=== PATIENT | female | born 1940 | race Caucasian/White ===

== ENCOUNTER 2016-08-05 20:22 | Inpatient (IN) | payer MEDICARE ==
[2016-08-05 20:54] VITALS: BP 157/84
[2016-08-05] MEDS ORDERED: Magnesium Hydroxide (MOM) 30 mL UDC PO PRN (21:25)
[2016-08-05] MEDS ORDERED: Maalox 30 mL Cup PO PRN (21:25)
[2016-08-06] MEDS: Aspirin 81mg Chewable Tab PO SCH (08:23)
--- NOTE | 2016-08-06 08:46 | General Progress Note ---
Subjective - Review of Systems Service Date: 08/06/16 Subjective: I took my meds Objective - Results Recent Labs: Laboratory Last Values POC Glucose 107 MG/DL (70 - 105) H 08/05/16 21:44 - Physical Exam Vitals and I&O: Vital Signs Temp 97.9 F 08/05/16 21:35 Pulse 74 08/06/16 08:25 Resp 20 08/05/16 21:35 BP 146/81 08/06/16 08:25 Pulse Ox 94 08/05/16 21:35 Active Medications: Current Medications Acetaminophen (Tylenol) 650 mg PO Q6H PRN PRN Reason: Mild Pain/Headache/T above 101 Stop: 10/04/16 21:24 Last Admin: 08/06/16 04:59 Dose: 650 mg Al Hydrox/Mg Hydrox/Simethicone (Maalox) 30 ml PO Q6H PRN PRN Reason: Dyspepsia Stop: 10/04/16 21:24 Amlodipine Besylate (Norvasc) 10 mg PO DAILY [facility] Stop: 10/05/16 08:59 Last Admin: 08/06/16 08:25 Dose: 10 mg Aspirin (Aspirin Chewable) 81 mg PO DAILY [facility] Stop: 10/05/16 08:59 Last Admin: 08/06/16 08:23 Dose: 81 mg Carvedilol (Coreg) 6.25 mg PO BID [facility] Stop: 10/05/16 08:59 Last Admin: 08/06/16 08:24 Dose: 6.25 mg Lisinopril (Zestril) 20 mg PO DAILY [facility] Stop: 10/05/16 08:59 Lorazepam (Ativan) 0.5 mg PO Q4HR PRN; Protocol PRN Reason: anxiety/agitation Stop: 10/04/16 21:30 Magnesium Hydroxide (Milk Of Magnesia) 30 ml PO HS PRN PRN Reason: Constipation Stop: 10/04/16 21:24 Multivitamins/Vitamin C (Theragran) 1 tab PO DAILY [facility] Stop: 10/05/16 08:59 Quetiapine Fumarate (Seroquel) 25 mg PO HS [facility] PRN Reason: Protocol Stop: 10/05/16 20:59 Zolpidem Tartrate (Ambien) 5 mg PO HS PRN PRN Reason: Insomnia Stop: 10/04/16 21:32 Last Admin: 08/05/16 22:59 Dose: 5 mg General: Alert, Other (Confused) HEENT: Atraumatic Neck: Supple Cardiovascular: Regular rate Lungs: Clear to auscultation Abdomen: Bowel sounds, Soft Extremities: Other (No edema) Neurological: Other (Unstable gait) Skin: Other (Warm and dry) Psych/Mental Status: Other (Confused) Assessment/Plan - Problem List Patient Problems: All Active Problems Confusion (Acute) R41.0 - Assessment Assessment: Patient is awake, alert, calm, confused, in no acute distress, BP in control. There is no medical information available, will contact family to obtain PMX. Dx : Psychosis, HTN. - Plan Plan: Patient follow by Psychiatry. Labs are requested, will continue to monitor.
[2016-08-06] MEDS: Multivitamin Tab PO SCH (10:08)
--- NOTE | 2016-08-07 05:17 | Admit Criteria Form ---
Admit Criteria Forms - Admit Criteria Diagnosis: PSYCHIATRIC DISORDERS (Place 'X' for any and all applicable criteria): Ongoing inpatient care may be needed for 1 or more of the following(1)(2)(3)(4)( 6)(7)(8): [ ]I. Danger to self or others not manageable at lower level of care. [ ]II. Grave disability (eg, inability to perform self care necessary at lower level of care) [ ]III. Agitation or inappropriate behavior interfering with care for primary condition (eg, attempting to discontinue lines or drains prematurely, unable to cooperate with respiratory care) [X]IV. Severe disability or disorder indicated by ALL of the following: [X]a) Severe behavioral health disorder-related symptoms or condition indicated by 1 or more of the following: [ ]i) Severe problem with cognition, memory, judgment, or impulse control [X]ii) Severe clinical manifestations (eg, hallucinations, delusions, other acute psychotic symptoms, yvan, extreme agitation or anxiety) [X]b) Patient management at lower level of care is not feasible until acute intervention or modification is initiated. Extended stay beyond goal length of stay for the primary condition may be needed until ALLof the following are present(1)(2)(3)(4)(7)52)(23): [ ]a) Danger to self or others is absent or manageable at lower level of care [ ]b) Behavior crisis management, including physical or chemical restraints, is required and is not available at a lower level of care. [ ]c) Behavioral symptoms (e.g., agitation, somnolence, inappropriate behavior) are present, and are not manageable at a lower level of care. [ ]d) Patient cannot understand follow-up treatment and crisis plan. [ ]e) Provider and supports are sufficiently available at lower level of care. [ ]f) Patient can participate (e.g., verify absence of plan for harm) and is in needed of monitoring. The original [facility] content created by [facility] has been revised. The portions of the content which have been revised are identified through the use of italic text or in bold, and [facility] has neither reviewed nor approved the modified material. All other unmodified content is copyright [facility]. Please see references footnoted in the original [facility] edition 2017
[2016-08-07 07:24] LABS: % BASOPHILS 0.3 % (0.0-2.0); % EOSINOPHILS 4.6 % (0.0-5.0); % LYMPHOCYTES 24.9 % (20.0-50.0); % MONOCYTES 6.1 % (2.0-10.0); % NEUTROPHILS 64.1 % (40.0-80.0); HEMATOCRIT 42.2 % (35.0-45.0); HEMOGLOBIN 14.2 gm/dL (11.7-16.1); MEAN CELL VOLUME 96.5 fl (81-100); MEAN CORPUSCULAR HEMOGLOBIN 32.5 pg (27.0-31.0); MEAN CORPUSCULAR HGB CONC 33.7 pg (28.0-36.0); MEAN PLATELET VOLUME 6.5 fl; NEUTROPHILE ABSOLUTE 6.1 Th/cmm (1.8-8.0); RED BLOOD COUNT 4.37 Mil/cmm (3.80-5.20); RED CELL DISTRIBUTION WIDTH 13.5 % (11.5-20.0)
[2016-08-07 07:28] LABS: PLATELET COUNT 292 Th/cmm (150-400); WHITE BLOOD COUNT 9.4 Th/cmm (4.8-10.8)
[2016-08-07 07:39] LABS: ALB/GLOB RATIO 1.2 (1.0-1.8); ALKALINE PHOSPHATASE 86 U/L (34-104); ANION GAP 8.3 (7.0-16.0); BILIRUBIN,TOTAL 0.4 mg/dL (0.3-1.0); BUN - UREA NITROGEN 13 mg/dL (7-25); BUN/CREATININE RATIO 16.3; CALCIUM SERUM 9.5 mg/dL (8.6-10.3); CARBON DIOXIDE 25.2 mEq/L (21.0-31.0); CHLORIDE 103 mEq/L (98-107); CREATININE - SERUM 0.8 mg/dL (0.6-1.2); GLUCOSE 123 mg/dL (70-105); POTASSIUM SERUM 3.5 mEq/L (3.5-5.1); SGOT 14 U/L (13-39); SGPT/ALT 10 U/L (7-52); SODIUM SERUM 133 mEq/L (136-145)
[2016-08-07] MEDS: Multivitamin Tab PO SCH (08:41)
[2016-08-07] MEDS: Aspirin 81mg Chewable Tab PO SCH (08:41)
--- NOTE | 2016-08-07 08:57 | General Progress Note ---
Subjective - Review of Systems Service Date: 08/07/16 Subjective: Patient is confused Objective - Results Result Diagrams: 08/07/16 06:30 08/07/16 06:30 Recent Labs: Laboratory Last Values WBC 9.4 Th/cmm (4.8-10.8) D 08/07/16 06:30 RBC 4.37 Mil/cmm (3.80-5.20) 08/07/16 06:30 Hgb 14.2 gm/dL (11.7-16.1) 08/07/16 06:30 Hct 42.2 % (35.0-45.0) 08/07/16 06:30 MCV 96.5 fl (81-100) 08/07/16 06:30 MCH 32.5 pg (27.0-31.0) H 08/07/16 06:30 MCHC Differential 33.7 pg (28.0-36.0) 08/07/16 06:30 RDW 13.5 % (11.5-20.0) 08/07/16 06:30 Plt Count 292 Th/cmm (150-400) D 08/07/16 06:30 MPV 6.5 fl 08/07/16 06:30 Neutrophils % 64.1 % (40.0-80.0) 08/07/16 06:30 Lymphocytes % 24.9 % (20.0-50.0) 08/07/16 06:30 Monocytes % 6.1 % (2.0-10.0) 08/07/16 06:30 Eosinophils % 4.6 % (0.0-5.0) 08/07/16 06:30 Basophils % 0.3 % (0.0-2.0) 08/07/16 06:30 Sodium 133 mEq/L (136-145) L 08/07/16 06:30 Potassium 3.5 mEq/L (3.5-5.1) 08/07/16 06:30 Chloride 103 mEq/L (98-107) 08/07/16 06:30 Carbon Dioxide 25.2 mEq/L (21.0-31.0) 08/07/16 06:30 Anion Gap 8.3 (7.0-16.0) 08/07/16 06:30 BUN 13 mg/dL (7-25) 08/07/16 06:30 Creatinine 0.8 mg/dL (0.6-1.2) 08/07/16 06:30 Est GFR ( Amer) TNP 08/07/16 06:30 Est GFR (Non-Af Amer) TNP 08/07/16 06:30 BUN/Creatinine Ratio 16.3 08/07/16 06:30 Glucose 123 mg/dL (70-105) H 08/07/16 06:30 POC Glucose 224 MG/DL (70 - 105) H 08/06/16 11:09 Hemoglobin A1c % 5.0 % (4.0-6.0) 08/06/16 09:19 Calcium 9.5 mg/dL (8.6-10.3) 08/07/16 06:30 Total Bilirubin 0.4 mg/dL (0.3-1.0) 08/07/16 06:30 AST 14 U/L (13-39) 08/07/16 06:30 ALT 10 U/L (7-52) 08/07/16 06:30 Alkaline Phosphatase 86 U/L (34-104) 08/07/16 06:30 Total Protein 6.4 gm/dL (6.0-8.3) 08/07/16 06:30 Albumin 3.5 gm/dL (3.7-5.3) L 08/07/16 06:30 Globulin 2.9 gm/dL 08/07/16 06:30 Albumin/Globulin Ratio 1.2 (1.0-1.8) 08/07/16 06:30 - Physical Exam Vitals and I&O: Vital Signs Temp 98.3 F 08/07/16 06:48 Pulse 69 08/07/16 08:41 Resp 18 08/07/16 06:48 BP 137/79 08/07/16 08:41 Pulse Ox 97 08/07/16 06:48 Intake & Output 08/06/16 08/07/16 08/07/16 18:59 06:59 18:59 Intake Total 1000 Balance 1000 Intake: Oral 1000 Other: # Voids 3 2 # Bowel Movements 1 Active Medications: Current Medications Acetaminophen (Tylenol) 650 mg PO Q6H PRN PRN Reason: Mild Pain/Headache/T above 101 Stop: 10/04/16 21:24 Last Admin: 08/07/16 04:55 Dose: 650 mg Al Hydrox/Mg Hydrox/Simethicone (Maalox) 30 ml PO Q6H PRN PRN Reason: Dyspepsia Stop: 10/04/16 21:24 Amlodipine Besylate (Norvasc) 10 mg PO DAILY [facility]S [facility] BEDS AT [facility] Stop: 10/05/16 08:59 Last Admin: 08/07/16 08:41 Dose: 10 mg Aspirin (Aspirin Chewable) 81 mg PO DAILY [facility] Stop: 10/05/16 08:59 Last Admin: 08/07/16 08:41 Dose: 81 mg Carvedilol (Coreg) 6.25 mg PO BID [facility]S [facility]CLUDE 234 BEDS AT THE [facility] Stop: 10/05/16 08:59 Last Admin: 08/07/16 08:41 Dose: 6.25 mg Lisinopril (Zestril) 20 mg PO DAILY [facility]CLUDE 234 BEDS AT THE [facility] Stop: 10/05/16 08:59 Last Admin: 08/07/16 08:40 Dose: 20 mg Lorazepam (Ativan) 0.5 mg PO Q4HR PRN; Protocol PRN Reason: anxiety/agitation Stop: 10/04/16 21:30 Last Admin: 08/06/16 19:56 Dose: 0.5 mg Magnesium Hydroxide (Milk Of Magnesia) 30 ml PO HS PRN PRN Reason: Constipation Stop: 10/04/16 21:24 Multivitamins/Vitamin C (Theragran) 1 tab PO DAILY [facility] 234 BEDS AT [facility] Stop: 10/05/16 08:59 Last Admin: 08/07/16 08:41 Dose: 1 tab Quetiapine Fumarate (Seroquel) 25 mg PO HS [facility] PRN Reason: Protocol Stop: 10/05/16 20:59 Last Admin: 08/06/16 21:20 Dose: Not Given Tramadol HCl (Ultram) 50 mg PO Q6HR PRN PRN Reason: Pain (Severe) Stop: 10/06/16 08:52 Zolpidem Tartrate (Ambien) 5 mg PO HS PRN PRN Reason: Insomnia Stop: 10/04/16 21:32 Last Admin: 08/06/16 21:20 Dose: 5 mg General: Alert, Other (Confused) HEENT: Atraumatic Cardiovascular: Regular rate Lungs: Clear to auscultation Abdomen: Bowel sounds, Soft Extremities: Other (No edema) Neurological: Other (Unstable gait) Skin: Other (Warm and dry) Psych/Mental Status: Other (Confused) Assessment/Plan - Problem List Patient Problems: All Active Problems Confusion (Acute) R41.0 - Assessment Assessment: Patient is awake, alert, calm, confused, in no acute distress, BP in control. Dx : Psychosis, HTN. - Plan Plan: Patient follow by Psychiatry. will continue to monitor.
[2016-08-08] MEDS: Multivitamin Tab PO SCH (09:41)
[2016-08-08] MEDS: Aspirin 81mg Chewable Tab PO SCH (09:41)
--- NOTE | 2016-08-08 11:40 | Geri Psych Progress Note ---
Angi Psych Progress Note - Intro Patient was seen: 08/08/16. - Assessment Assessment: Still paranoid. - Vitals, I&O Vitals: Vital Signs - 24 hr 08/07/16 08/07/16 08/07/16 15:45 20:00 20:16 Temp 98.1 F 98.1 F HR 74 76 RR 19 18 19 BP 149/86 143/69 O2 Sat % 98 98 08/08/16 08/08/16 08/08/16 06:17 09:41 09:42 Temp 98.2 F HR 69 69 69 RR 20 BP 139/76 139/76 139/76 O2 Sat % 97 I&O: Intake & Output 08/06/16 08/07/16 08/08/16 08/09/16 06:59 06:59 06:59 06:59 Intake Total 1000 1040 Balance 1000 1040 - ROS Neurological: Report: Confusion Psychological ROS: Report: Anxiety, Depression, Hallucinations, Irritability, Obsessive thoughts - Objective Psych General Appearance: Report: No acute distress Psych Behavior: Report: Alert, Agitated Psych Speech: Report: Coherent Psych Mood: Report: Angry, Depressed, Frustrated Psych Affect: Report: Inappropriate Psych Thought Process: Report: Circumstantial, Other (Still paranoid and hallucinating.) Psych Cognition: Report: Memory generally intact Psych Insight: Report: Good, Impaired Psych Judgement: Report: Impaired - Plan Plan: continue cureent meds and follow up. - Review of Relevant Data Review of Relevant Data: I have reviewed the following items and time sally (where applicable) has been applied. Psych Data Reviewed: Meds - Medications Current Medications: Current Medications Acetaminophen (Tylenol) 650 mg PO Q6H PRN PRN Reason: Mild Pain/Headache/T above 101 Stop: 10/04/16 21:24 Last Admin: 08/07/16 04:55 Dose: 650 mg Al Hydrox/Mg Hydrox/Simethicone (Maalox) 30 ml PO Q6H PRN PRN Reason: Dyspepsia Stop: 10/04/16 21:24 Amlodipine Besylate (Norvasc) 10 mg PO DAILY [facility] Stop: 10/05/16 08:59 Last Admin: 08/08/16 09:41 Dose: Not Given Aspirin (Aspirin Chewable) 81 mg PO DAILY [facility] Stop: 10/05/16 08:59 Last Admin: 08/08/16 09:41 Dose: Not Given Carvedilol (Coreg) 6.25 mg PO BID [facility] Stop: 10/05/16 08:59 Last Admin: 08/08/16 09:41 Dose: Not Given Lisinopril (Zestril) 20 mg PO DAILY [facility] Stop: 10/05/16 08:59 Last Admin: 08/08/16 09:42 Dose: Not Given Lorazepam (Ativan) 0.5 mg PO Q4HR PRN; Protocol PRN Reason: anxiety/agitation Stop: 10/04/16 21:30 Last Admin: 08/06/16 19:56 Dose: 0.5 mg Magnesium Hydroxide (Milk Of Magnesia) 30 ml PO HS PRN PRN Reason: Constipation Stop: 10/04/16 21:24 Multivitamins/Vitamin C (Theragran) 1 tab PO DAILY [facility] Stop: 10/05/16 08:59 Last Admin: 08/08/16 09:41 Dose: Not Given Quetiapine Fumarate (Seroquel) 25 mg PO HS [facility] PRN Reason: Protocol Stop: 10/05/16 20:59 Last Admin: 08/07/16 20:06 Dose: 25 mg Tramadol HCl (Ultram) 50 mg PO Q6HR PRN PRN Reason: Pain (Severe) Stop: 10/06/16 08:52 Last Admin: 08/08/16 10:36 Dose: 50 mg Zolpidem Tartrate (Ambien) 5 mg PO HS PRN PRN Reason: Insomnia Stop: 10/04/16 21:32 Last Admin: 08/06/16 21:20 Dose: 5 mg
--- NOTE | 2016-08-08 15:26 | General Progress Note ---
Subjective - Review of Systems Service Date: 08/08/16 Subjective: Patient is confused Objective - Results Result Diagrams: 08/07/16 06:30 08/07/16 06:30 Recent Labs: Laboratory Last Values WBC 9.4 Th/cmm (4.8-10.8) D 08/07/16 06:30 RBC 4.37 Mil/cmm (3.80-5.20) 08/07/16 06:30 Hgb 14.2 gm/dL (11.7-16.1) 08/07/16 06:30 Hct 42.2 % (35.0-45.0) 08/07/16 06:30 MCV 96.5 fl (81-100) 08/07/16 06:30 MCH 32.5 pg (27.0-31.0) H 08/07/16 06:30 MCHC Differential 33.7 pg (28.0-36.0) 08/07/16 06:30 RDW 13.5 % (11.5-20.0) 08/07/16 06:30 Plt Count 292 Th/cmm (150-400) D 08/07/16 06:30 MPV 6.5 fl 08/07/16 06:30 Neutrophils % 64.1 % (40.0-80.0) 08/07/16 06:30 Lymphocytes % 24.9 % (20.0-50.0) 08/07/16 06:30 Monocytes % 6.1 % (2.0-10.0) 08/07/16 06:30 Eosinophils % 4.6 % (0.0-5.0) 08/07/16 06:30 Basophils % 0.3 % (0.0-2.0) 08/07/16 06:30 Sodium 133 mEq/L (136-145) L 08/07/16 06:30 Potassium 3.5 mEq/L (3.5-5.1) 08/07/16 06:30 Chloride 103 mEq/L (98-107) 08/07/16 06:30 Carbon Dioxide 25.2 mEq/L (21.0-31.0) 08/07/16 06:30 Anion Gap 8.3 (7.0-16.0) 08/07/16 06:30 BUN 13 mg/dL (7-25) 08/07/16 06:30 Creatinine 0.8 mg/dL (0.6-1.2) 08/07/16 06:30 Est GFR ( Amer) TNP 08/07/16 06:30 Est GFR (Non-Af Amer) TNP 08/07/16 06:30 BUN/Creatinine Ratio 16.3 08/07/16 06:30 Glucose 123 mg/dL (70-105) H 08/07/16 06:30 POC Glucose 224 MG/DL (70 - 105) H 08/06/16 11:09 Hemoglobin A1c % 5.0 % (4.0-6.0) 08/06/16 09:19 Calcium 9.5 mg/dL (8.6-10.3) 08/07/16 06:30 Total Bilirubin 0.4 mg/dL (0.3-1.0) 08/07/16 06:30 AST 14 U/L (13-39) 08/07/16 06:30 ALT 10 U/L (7-52) 08/07/16 06:30 Alkaline Phosphatase 86 U/L (34-104) 08/07/16 06:30 Total Protein 6.4 gm/dL (6.0-8.3) 08/07/16 06:30 Albumin 3.5 gm/dL (3.7-5.3) L 08/07/16 06:30 Globulin 2.9 gm/dL 08/07/16 06:30 Albumin/Globulin Ratio 1.2 (1.0-1.8) 08/07/16 06:30 TSH 0.85 uIU/ml (0.34-5.60) 08/07/16 06:30 - Physical Exam Vitals and I&O: Vital Signs Temp 98.2 F 08/08/16 06:17 Pulse 69 08/08/16 09:42 Resp 20 08/08/16 06:17 BP 139/76 08/08/16 09:42 Pulse Ox 97 08/08/16 06:17 Intake & Output 08/07/16 08/08/16 08/08/16 18:59 06:59 18:59 Intake Total 800 240 Balance 800 240 Intake: Oral 800 240 Other: # Voids 4 3 # Bowel Movements 0 0 Active Medications: Current Medications Acetaminophen (Tylenol) 650 mg PO Q6H PRN PRN Reason: Mild Pain/Headache/T above 101 Stop: 10/04/16 21:24 Last Admin: 08/07/16 04:55 Dose: 650 mg Al Hydrox/Mg Hydrox/Simethicone (Maalox) 30 ml PO Q6H PRN PRN Reason: Dyspepsia Stop: 10/04/16 21:24 Amlodipine Besylate (Norvasc) 10 mg PO DAILY [facility] Stop: 10/05/16 08:59 Last Admin: 08/08/16 09:41 Dose: Not Given Aspirin (Aspirin Chewable) 81 mg PO DAILY [facility] Stop: 10/05/16 08:59 Last Admin: 08/08/16 09:41 Dose: Not Given Carvedilol (Coreg) 6.25 mg PO BID [facility] Stop: 10/05/16 08:59 Last Admin: 08/08/16 09:41 Dose: Not Given Lisinopril (Zestril) 20 mg PO DAILY [facility] Stop: 10/05/16 08:59 Last Admin: 08/08/16 09:42 Dose: Not Given Lorazepam (Ativan) 0.5 mg PO Q4HR PRN; Protocol PRN Reason: anxiety/agitation Stop: 10/04/16 21:30 Last Admin: 08/06/16 19:56 Dose: 0.5 mg Magnesium Hydroxide (Milk Of Magnesia) 30 ml PO HS PRN PRN Reason: Constipation Stop: 10/04/16 21:24 Multivitamins/Vitamin C (Theragran) 1 tab PO DAILY [facility] Stop: 10/05/16 08:59 Last Admin: 08/08/16 09:41 Dose: Not Given Quetiapine Fumarate (Seroquel) 25 mg PO HS [facility] PRN Reason: Protocol Stop: 10/05/16 20:59 Last Admin: 08/07/16 20:06 Dose: 25 mg Tramadol HCl (Ultram) 50 mg PO Q6HR PRN PRN Reason: Pain (Severe) Stop: 10/06/16 08:52 Last Admin: 08/08/16 10:36 Dose: 50 mg Zolpidem Tartrate (Ambien) 5 mg PO HS PRN PRN Reason: Insomnia Stop: 10/04/16 21:32 Last Admin: 08/06/16 21:20 Dose: 5 mg Physical Exam: Patient is confused General: Alert, Other (Confused) HEENT: Atraumatic Neck: Supple Cardiovascular: Regular rate Lungs: Clear to auscultation Abdomen: Bowel sounds, Soft Extremities: Other (No edema) Neurological: Other (Unstable gait) Skin: Other (Warm and dry) Psych/Mental Status: Other (Confused) Assessment/Plan - Problem List Patient Problems: All Active Problems Confusion (Acute) R41.0 - Assessment Assessment: Patient is awake, alert, calm, confused, in no acute distress, BP in control. Dx : Psychosis, HTN. - Plan Plan: Patient follow by Psychiatry. will continue to monitor. Nutritional Asmnt/Malnutr-PDOC - Dietary Evaluation Malnutrition Findings (Please click <Entered> for more info): Nutritional Asmnt/Malnutrition Start: 08/08/16 10: 38 Text: Status: Complete Freq: Document 08/08/16 10:38 [email or web address] (Rec: 08/08/16 10:55 [id number] [id number]) Nutritional Asmnt/Malnutrition Patient General Information Nutritional Screening Moderate Risk Screening Diagnosis Psychosis NOS Pertinent Medical Hx/Surgical Hx psychosis, schizophrenia, hypertension, depression, hyperlipidemia, hypothyroidism Subjective Information Per nursing notes, patient is delusional and paranoid. Patient lying in bed at time of visit. States no difficulty with diet; oral intake adequate to meet nutrient needs. Current Diet Order/ Nutrition Support Regular Patient / S.O Not Indicated Pertinent Medications maalox, mom, theragran, seroquel Pertinent Labs 08/07 Na 133, glucose 224 ( HgA1C 5), albumin 3.5 Nutritional Hx/Data Height 1.68 m Height (Calculated Centimeters) 167.6 Current Weight (lbs) 67.585 kg Weight (Calculated Kilograms) 67.6 Weight (Calculated Grams) 66735.3 [place] Body Weight 130 % [place] Body Weight 114 Recent Weight Change No Weight Status Approriate GI Symptoms GI Symptoms None Food Allergies No Cultural/Ethnic/Islam Belief none indicated Usual diet at home regular Skin Integrity/Comment: [place] 17, intact Current %PO Good (75-100%) Estimated Nutritional Goals BEE in Kcals: Using Current wt Calories/Kcals/Kg 25-30 kcal/kg Kcals Calculated ~6694-3186 kcal/day Protein g/k gm/kg Protein Calculated ~70gm/day Fluid: ml ~5657-2248 ml/day (1 ml/kcal) Nutritional Problem 1. Problem Problem Altered nutrition related lab values related to Etiology electrolyte imbalance/ hyperglycemia aeb Signs/Symptoms: Na 133, glucose 224 Intervention/Recommendation Comments 1. Continue regular diet as tolerated by patient. 2. Continue to monitor blood glucose (no hx of diabetes, HgA1c 5). Continue to monitor Na, if remains low, consider fluid restriction. Expected Outcomes/Goals Expected Outcomes/Goals Na and glucose normalize. Oral intake remains adequate to meet 75-100% of estimated nutrient needs, weight remains stable. Physician Parameters for PEM Normal Weight % 90% - 110% (Normal)
[2016-08-09] MEDS: Aspirin 81mg Chewable Tab PO SCH (08:51)
[2016-08-09] MEDS: Multivitamin Tab PO SCH (08:51)
--- NOTE | 2016-08-09 13:50 | Geri Psych Progress Note ---
Angi Psych Progress Note - Intro Patient was seen: 08/09/16 - Assessment Assessment: paranoid and demanding. - Vitals, I&O Vitals: Vital Signs - 24 hr 08/08/16 08/08/16 08/08/16 16:13 16:57 17:14 Temp 97.3 F 97.3 F HR 73 73 73 RR 20 20 BP 159/87 159/87 159/87 O2 Sat % 97 97 08/09/16 08/09/16 08/09/16 06:45 08:50 08:51 Temp 97 F HR 67 75 75 RR 18 BP 153/79 136/76 136/76 O2 Sat % 98 I&O: Intake & Output 08/07/16 08/08/16 08/09/16 08/10/16 06:59 06:59 06:59 06:59 Intake Total 1000 1040 120 Balance 1000 1040 120 - ROS Neurological: Report: Other (none.) Psychological ROS: Report: Anxiety, Concentration difficulty, Depression, Mood swings, Sleep Disturbances - Objective Psych General Appearance: Report: No acute distress Psych Behavior: Report: Uncooperative Psych Speech: Report: Coherent, Soft Psych Mood: Report: Angry, Irritable Psych Affect: Report: Anxious, Inappropriate Psych Thought Process: Report: [place], Ruminative Psych Cognition: Report: Confused Psych Insight: Report: Impaired Psych Judgement: Report: Impaired - Plan Plan: Continue current meds and follow up with supportive tx. - Review of Relevant Data Review of Relevant Data: I have reviewed the following items and time sally (where applicable) has been applied. Psych Data Reviewed: Meds - Medications Current Medications: Current Medications Acetaminophen (Tylenol) 650 mg PO Q6H PRN PRN Reason: Mild Pain/Headache/T above 101 Stop: 10/04/16 21:24 Last Admin: 08/07/16 04:55 Dose: 650 mg Al Hydrox/Mg Hydrox/Simethicone (Maalox) 30 ml PO Q6H PRN PRN Reason: Dyspepsia Stop: 10/04/16 21:24 Amlodipine Besylate (Norvasc) 10 mg PO DAILY [facility] Stop: 10/05/16 08:59 Last Admin: 08/08/16 09:41 Dose: Not Given Aspirin (Aspirin Chewable) 81 mg PO DAILY [facility] Stop: 10/05/16 08:59 Last Admin: 08/09/16 08:51 Dose: 81 mg Carvedilol (Coreg) 6.25 mg PO BID [facility] Stop: 10/05/16 08:59 Last Admin: 08/09/16 08:51 Dose: 6.25 mg Lisinopril (Zestril) 20 mg PO DAILY [facility] Stop: 10/05/16 08:59 Last Admin: 08/09/16 08:50 Dose: 20 mg Lorazepam (Ativan) 0.5 mg PO Q4HR PRN; Protocol PRN Reason: anxiety/agitation Stop: 10/04/16 21:30 Last Admin: 08/06/16 19:56 Dose: 0.5 mg Magnesium Hydroxide (Milk Of Magnesia) 30 ml PO HS PRN PRN Reason: Constipation Stop: 10/04/16 21:24 Multivitamins/Vitamin C (Theragran) 1 tab PO DAILY [facility] Stop: 10/05/16 08:59 Last Admin: 08/09/16 08:51 Dose: 1 tab Quetiapine Fumarate (Seroquel) 25 mg PO HS [facility] PRN Reason: Protocol Stop: 10/05/16 20:59 Last Admin: 08/08/16 20:59 Dose: 25 mg Tramadol HCl (Ultram) 50 mg PO Q6HR PRN PRN Reason: Pain (Severe) Stop: 10/06/16 08:52 Last Admin: 08/08/16 10:36 Dose: 50 mg Zolpidem Tartrate (Ambien) 5 mg PO HS PRN PRN Reason: Insomnia Stop: 10/04/16 21:32 Last Admin: 08/08/16 20:59 Dose: 5 mg
[2016-08-10] MEDS: Aspirin 81mg Chewable Tab PO SCH (08:46)
[2016-08-10] MEDS: Multivitamin Tab PO SCH (08:49)
--- NOTE | 2016-08-10 08:58 | General Progress Note ---
Subjective - Review of Systems Service Date: 08/10/16 Subjective: Patient is confused. Objective - Results Result Diagrams: 08/07/16 06:30 08/07/16 06:30 Recent Labs: Laboratory Last Values WBC 9.4 Th/cmm (4.8-10.8) D 08/07/16 06:30 RBC 4.37 Mil/cmm (3.80-5.20) 08/07/16 06:30 Hgb 14.2 gm/dL (11.7-16.1) 08/07/16 06:30 Hct 42.2 % (35.0-45.0) 08/07/16 06:30 MCV 96.5 fl (81-100) 08/07/16 06:30 MCH 32.5 pg (27.0-31.0) H 08/07/16 06:30 MCHC Differential 33.7 pg (28.0-36.0) 08/07/16 06:30 RDW 13.5 % (11.5-20.0) 08/07/16 06:30 Plt Count 292 Th/cmm (150-400) D 08/07/16 06:30 MPV 6.5 fl 08/07/16 06:30 Neutrophils % 64.1 % (40.0-80.0) 08/07/16 06:30 Lymphocytes % 24.9 % (20.0-50.0) 08/07/16 06:30 Monocytes % 6.1 % (2.0-10.0) 08/07/16 06:30 Eosinophils % 4.6 % (0.0-5.0) 08/07/16 06:30 Basophils % 0.3 % (0.0-2.0) 08/07/16 06:30 Sodium 133 mEq/L (136-145) L 08/07/16 06:30 Potassium 3.5 mEq/L (3.5-5.1) 08/07/16 06:30 Chloride 103 mEq/L (98-107) 08/07/16 06:30 Carbon Dioxide 25.2 mEq/L (21.0-31.0) 08/07/16 06:30 Anion Gap 8.3 (7.0-16.0) 08/07/16 06:30 BUN 13 mg/dL (7-25) 08/07/16 06:30 Creatinine 0.8 mg/dL (0.6-1.2) 08/07/16 06:30 Est GFR ( Amer) TNP 08/07/16 06:30 Est GFR (Non-Af Amer) TNP 08/07/16 06:30 BUN/Creatinine Ratio 16.3 08/07/16 06:30 Glucose 123 mg/dL (70-105) H 08/07/16 06:30 POC Glucose 224 MG/DL (70 - 105) H 08/06/16 11:09 Hemoglobin A1c % 5.0 % (4.0-6.0) 08/06/16 09:19 Calcium 9.5 mg/dL (8.6-10.3) 08/07/16 06:30 Total Bilirubin 0.4 mg/dL (0.3-1.0) 08/07/16 06:30 AST 14 U/L (13-39) 08/07/16 06:30 ALT 10 U/L (7-52) 08/07/16 06:30 Alkaline Phosphatase 86 U/L (34-104) 08/07/16 06:30 Total Protein 6.4 gm/dL (6.0-8.3) 08/07/16 06:30 Albumin 3.5 gm/dL (3.7-5.3) L 08/07/16 06:30 Globulin 2.9 gm/dL 08/07/16 06:30 Albumin/Globulin Ratio 1.2 (1.0-1.8) 08/07/16 06:30 TSH 0.85 uIU/ml (0.34-5.60) 08/07/16 06:30 - Physical Exam Vitals and I&O: Vital Signs Temp 97.8 F 08/10/16 06:09 Pulse 57 08/10/16 08:47 Resp 20 08/10/16 06:09 BP 137/76 08/10/16 08:47 Pulse Ox 97 08/10/16 06:09 Intake & Output 08/09/16 08/10/16 08/10/16 18:59 06:59 18:59 Other: # Voids 1 # Bowel Movements 0 Active Medications: Current Medications Acetaminophen (Tylenol) 650 mg PO Q6H PRN PRN Reason: Mild Pain/Headache/T above 101 Stop: 10/04/16 21:24 Last Admin: 08/07/16 04:55 Dose: 650 mg Al Hydrox/Mg Hydrox/Simethicone (Maalox) 30 ml PO Q6H PRN PRN Reason: Dyspepsia Stop: 10/04/16 21:24 Amlodipine Besylate (Norvasc) 10 mg PO DAILY [facility] Stop: 10/05/16 08:59 Last Admin: 08/10/16 08:46 Dose: 10 mg Aspirin (Aspirin Chewable) 81 mg PO DAILY [facility] Stop: 10/05/16 08:59 Last Admin: 08/10/16 08:46 Dose: 81 mg Carvedilol (Coreg) 6.25 mg PO BID [facility] Stop: 10/05/16 08:59 Last Admin: 08/10/16 08:46 Dose: 6.25 mg Lisinopril (Zestril) 20 mg PO DAILY [facility] Stop: 10/05/16 08:59 Last Admin: 08/10/16 08:47 Dose: 20 mg Lorazepam (Ativan) 0.5 mg PO Q4HR PRN; Protocol PRN Reason: anxiety/agitation Stop: 10/04/16 21:30 Last Admin: 08/10/16 08:48 Dose: 0.5 mg Magnesium Hydroxide (Milk Of Magnesia) 30 ml PO HS PRN PRN Reason: Constipation Stop: 10/04/16 21:24 Multivitamins/Vitamin C (Theragran) 1 tab PO DAILY [facility] Stop: 10/05/16 08:59 Last Admin: 08/10/16 08:49 Dose: 1 tab Quetiapine Fumarate (Seroquel) 25 mg PO HS [facility] PRN Reason: Protocol Stop: 10/05/16 20:59 Last Admin: 08/09/16 20:20 Dose: 25 mg Tramadol HCl (Ultram) 50 mg PO Q6HR PRN PRN Reason: Pain (Severe) Stop: 10/06/16 08:52 Last Admin: 08/10/16 00:58 Dose: 50 mg Zolpidem Tartrate (Ambien) 5 mg PO HS PRN PRN Reason: Insomnia Stop: 10/04/16 21:32 Last Admin: 08/09/16 20:22 Dose: 5 mg Physical Exam: Patient is confused General: Alert, Other (Confused) HEENT: Atraumatic Neck: Supple Cardiovascular: Regular rate Lungs: Clear to auscultation Abdomen: Bowel sounds Extremities: Other (No edema) Neurological: Other (Non ambulatory) Skin: Other (Warm and dry) Psych/Mental Status: Other (Confused) Assessment/Plan - Problem List Patient Problems: All Active Problems Confusion (Acute) R41.0 - Assessment Assessment: Patient is awake, alert, calm, confused, in no acute distress, BP in control. Dx : Psychosis, HTN. - Plan Plan: Patient follow by Psychiatry. will continue to monitor. Nutritional Asmnt/Malnutr-PDOC - Dietary Evaluation Malnutrition Findings (Please click <Entered> for more info): Nutritional Asmnt/Malnutrition Start: 08/08/16 10: 38 Text: Status: Complete Freq: Document 08/08/16 10:38 [email or web address] (Rec: 08/08/16 10:55 [email or web address] CRUZ- [id number]) Nutritional Asmnt/Malnutrition Patient General Information Nutritional Screening Moderate Risk Screening Diagnosis Psychosis NOS Pertinent Medical Hx/Surgical Hx psychosis, schizophrenia, hypertension, depression, hyperlipidemia, hypothyroidism Subjective Information Per nursing notes, patient is delusional and paranoid. Patient lying in bed at time of visit. States no difficulty with diet; oral intake adequate to meet nutrient needs. Current Diet Order/ Nutrition Support Regular Patient / S.O Not Indicated Pertinent Medications maalox, mom, theragran, seroquel Pertinent Labs 08/07 Na 133, glucose 224 ( HgA1C 5), albumin 3.5 Nutritional Hx/Data Height 1.68 m Height (Calculated Centimeters) 167.6 Current Weight (lbs) 67.585 kg Weight (Calculated Kilograms) 67.6 Weight (Calculated Grams) 22094.3 [place] Body Weight 130 % [place] Body Weight 114 Recent Weight Change No Weight Status Approriate GI Symptoms GI Symptoms None Food Allergies No Cultural/Ethnic/Hindu Belief none indicated Usual diet at home regular Skin Integrity/Comment: [place] 17, intact Current %PO Good (75-100%) Estimated Nutritional Goals BEE in Kcals: Using Current wt Calories/Kcals/Kg 25-30 kcal/kg Kcals Calculated ~7540-0843 kcal/day Protein g/k gm/kg Protein Calculated ~70gm/day Fluid: ml ~2065-4377 ml/day (1 ml/kcal) Nutritional Problem 1. Problem Problem Altered nutrition related lab values related to Etiology electrolyte imbalance/ hyperglycemia aeb Signs/Symptoms: Na 133, glucose 224 Intervention/Recommendation Comments 1. Continue regular diet as tolerated by patient. 2. Continue to monitor blood glucose (no hx of diabetes, HgA1c 5). Continue to monitor Na, if remains low, consider fluid restriction. Expected Outcomes/Goals Expected Outcomes/Goals Na and glucose normalize. Oral intake remains adequate to meet 75-100% of estimated nutrient needs, weight remains stable. Physician Parameters for PEM Normal Weight % 90% - 110% (Normal)
--- NOTE | 2016-08-10 10:07 | Geri Psych Progress Note ---
Angi Psych Progress Note - Intro Patient was seen: 08/10/16. - Assessment Assessment: Still paranoid. - Vitals, I&O Vitals: Vital Signs - 24 hr 08/09/16 08/09/16 08/09/16 14:00 16:19 20:00 Temp 98.5 F 97.3 F HR 60 68 68 RR 18 19 BP 142/77 142/77 148/83 O2 Sat % 98 96 08/10/16 08/10/16 08/10/16 06:09 08:46 08:47 Temp 97.8 F HR 57 57 57 RR 20 BP 137/76 137/76 137/76 O2 Sat % 97 I&O: Intake & Output 08/08/16 08/09/16 08/10/16 08/11/16 06:59 06:59 06:59 06:59 Intake Total 1040 120 Balance 1040 120 - ROS Neurological: Report: Other Psychological ROS: Report: Depression, Hallucinations - Objective Psych General Appearance: Report: No acute distress Psych Behavior: Report: Alert, Uncooperative, Agitated Psych Speech: Report: Normal in Rate and amount Psych Mood: Report: Angry, Depressed, Irritable Psych Affect: Report: Anxious, Inappropriate, Increased Intensity Psych Thought Process: Report: Loose Associations Psych Cognition: Report: Confused Psych Insight: Report: Impaired Psych Judgement: Report: Impaired - Plan Plan: to increse the dose of seroquel and follow up with supportive therapy. - Review of Relevant Data Review of Relevant Data: I have reviewed the following items and time sally (where applicable) has been applied. Psych Data Reviewed: Meds - Medications Current Medications: Current Medications Acetaminophen (Tylenol) 650 mg PO Q6H PRN PRN Reason: Mild Pain/Headache/T above 101 Stop: 10/04/16 21:24 Last Admin: 08/07/16 04:55 Dose: 650 mg Al Hydrox/Mg Hydrox/Simethicone (Maalox) 30 ml PO Q6H PRN PRN Reason: Dyspepsia Stop: 10/04/16 21:24 Amlodipine Besylate (Norvasc) 10 mg PO DAILY [facility] Stop: 10/05/16 08:59 Last Admin: 08/10/16 08:46 Dose: 10 mg Aspirin (Aspirin Chewable) 81 mg PO DAILY [facility] Stop: 10/05/16 08:59 Last Admin: 08/10/16 08:46 Dose: 81 mg Carvedilol (Coreg) 6.25 mg PO BID [facility] Stop: 10/05/16 08:59 Last Admin: 08/10/16 08:46 Dose: 6.25 mg Lisinopril (Zestril) 20 mg PO DAILY [facility] Stop: 10/05/16 08:59 Last Admin: 08/10/16 08:47 Dose: 20 mg Lorazepam (Ativan) 0.5 mg PO Q4HR PRN; Protocol PRN Reason: anxiety/agitation Stop: 10/04/16 21:30 Last Admin: 08/10/16 08:48 Dose: 0.5 mg Magnesium Hydroxide (Milk Of Magnesia) 30 ml PO HS PRN PRN Reason: Constipation Stop: 10/04/16 21:24 Multivitamins/Vitamin C (Theragran) 1 tab PO DAILY [facility] Stop: 10/05/16 08:59 Last Admin: 08/10/16 08:49 Dose: 1 tab Quetiapine Fumarate (Seroquel) 25 mg PO HS [facility] PRN Reason: Protocol Stop: 10/05/16 20:59 Last Admin: 08/09/16 20:20 Dose: 25 mg Tramadol HCl (Ultram) 50 mg PO Q6HR PRN PRN Reason: Pain (Severe) Stop: 10/06/16 08:52 Last Admin: 08/10/16 00:58 Dose: 50 mg Zolpidem Tartrate (Ambien) 5 mg PO HS PRN PRN Reason: Insomnia Stop: 10/04/16 21:32 Last Admin: 08/09/16 20:22 Dose: 5 mg
[2016-08-11] MEDS: Multivitamin Tab PO SCH (08:59)
[2016-08-11] MEDS: Aspirin 81mg Chewable Tab PO SCH (09:02)
--- NOTE | 2016-08-11 11:32 | Geri Psych Progress Note ---
Angi Psych Progress Note - Intro Patient was seen: 08/11/2016. - Assessment Assessment: Paranoid and demanding. - Vitals, I&O Vitals: Vital Signs - 24 hr 08/10/16 08/10/16 08/10/16 15:19 16:38 20:43 Temp 98.0 F 97.7 F HR 90 90 90 RR 20 19 BP 143/86 143/86 121/76 O2 Sat % 97 94 08/11/16 08/11/16 08/11/16 06:36 09:00 09:01 Temp 96.4 F HR 95 82 82 RR 19 BP 151/97 151/97 151/97 O2 Sat % 82 08/11/16 09:02 Temp HR 82 RR BP 151/97 O2 Sat % I&O: Intake & Output 08/09/16 08/10/16 08/11/16 08/12/16 06:59 06:59 06:59 06:59 Intake Total 120 1140 Balance 120 1140 - ROS Neurological: Report: Other (None) Psychological ROS: Report: Anxiety, Depression, Hallucinations - Objective Psych General Appearance: Report: No acute distress Psych Behavior: Report: Agitated Psych Speech: Report: Coherent, Normal Pitch Psych Mood: Report: Angry, Depressed, Frustrated Psych Affect: Report: Constricted, Depressed, Inappropriate Psych Thought Process: Report: Tangential Psych Cognition: Report: Confused Psych Insight: Report: Impaired Psych Judgement: Report: Impaired - Plan Plan: Continue seroquel and follow up. needs placement. - Review of Relevant Data Review of Relevant Data: I have reviewed the following items and time sally (where applicable) has been applied. Psych Data Reviewed: Meds - Diagnosis Diagnosis: Psychosis unspecified. - Medications Current Medications: Current Medications Acetaminophen (Tylenol) 650 mg PO Q6H PRN PRN Reason: Mild Pain/Headache/T above 101 Stop: 10/04/16 21:24 Last Admin: 08/07/16 04:55 Dose: 650 mg Al Hydrox/Mg Hydrox/Simethicone (Maalox) 30 ml PO Q6H PRN PRN Reason: Dyspepsia Stop: 10/04/16 21:24 Amlodipine Besylate (Norvasc) 10 mg PO DAILY [facility] Stop: 10/05/16 08:59 Last Admin: 08/11/16 09:02 Dose: 10 mg Aspirin (Aspirin Chewable) 81 mg PO DAILY [facility] Stop: 10/05/16 08:59 Last Admin: 08/11/16 09:02 Dose: 81 mg Carvedilol (Coreg) 6.25 mg PO BID [facility] Stop: 10/05/16 08:59 Last Admin: 08/11/16 09:01 Dose: 6.25 mg Lisinopril (Zestril) 20 mg PO DAILY [facility] Stop: 10/05/16 08:59 Last Admin: 08/11/16 09:00 Dose: 20 mg Lorazepam (Ativan) 0.5 mg PO Q4HR PRN; Protocol PRN Reason: anxiety/agitation Stop: 10/04/16 21:30 Last Admin: 08/11/16 08:59 Dose: 0.5 mg Magnesium Hydroxide (Milk Of Magnesia) 30 ml PO HS PRN PRN Reason: Constipation Stop: 10/04/16 21:24 Multivitamins/Vitamin C (Theragran) 1 tab PO DAILY [facility] Stop: 10/05/16 08:59 Last Admin: 08/11/16 08:59 Dose: 1 tab Quetiapine Fumarate (Seroquel) 25 mg PO HS [facility] PRN Reason: Protocol Stop: 10/05/16 20:59 Last Admin: 08/10/16 20:31 Dose: 25 mg Tramadol HCl (Ultram) 50 mg PO Q6HR PRN PRN Reason: Pain (Severe) Stop: 10/06/16 08:52 Last Admin: 08/10/16 15:08 Dose: 50 mg Zolpidem Tartrate (Ambien) 5 mg PO HS PRN PRN Reason: Insomnia Stop: 10/04/16 21:32 Last Admin: 08/09/16 20:22 Dose: 5 mg
--- NOTE | 2016-08-11 12:11 | General Progress Note ---
Subjective - Review of Systems Service Date: 08/11/16 Subjective: Patient is confused Objective - Results Result Diagrams: 08/07/16 06:30 08/07/16 06:30 Recent Labs: Laboratory Last Values WBC 9.4 Th/cmm (4.8-10.8) D 08/07/16 06:30 RBC 4.37 Mil/cmm (3.80-5.20) 08/07/16 06:30 Hgb 14.2 gm/dL (11.7-16.1) 08/07/16 06:30 Hct 42.2 % (35.0-45.0) 08/07/16 06:30 MCV 96.5 fl (81-100) 08/07/16 06:30 MCH 32.5 pg (27.0-31.0) H 08/07/16 06:30 MCHC Differential 33.7 pg (28.0-36.0) 08/07/16 06:30 RDW 13.5 % (11.5-20.0) 08/07/16 06:30 Plt Count 292 Th/cmm (150-400) D 08/07/16 06:30 MPV 6.5 fl 08/07/16 06:30 Neutrophils % 64.1 % (40.0-80.0) 08/07/16 06:30 Lymphocytes % 24.9 % (20.0-50.0) 08/07/16 06:30 Monocytes % 6.1 % (2.0-10.0) 08/07/16 06:30 Eosinophils % 4.6 % (0.0-5.0) 08/07/16 06:30 Basophils % 0.3 % (0.0-2.0) 08/07/16 06:30 Sodium 133 mEq/L (136-145) L 08/07/16 06:30 Potassium 3.5 mEq/L (3.5-5.1) 08/07/16 06:30 Chloride 103 mEq/L (98-107) 08/07/16 06:30 Carbon Dioxide 25.2 mEq/L (21.0-31.0) 08/07/16 06:30 Anion Gap 8.3 (7.0-16.0) 08/07/16 06:30 BUN 13 mg/dL (7-25) 08/07/16 06:30 Creatinine 0.8 mg/dL (0.6-1.2) 08/07/16 06:30 Est GFR ( Amer) TNP 08/07/16 06:30 Est GFR (Non-Af Amer) TNP 08/07/16 06:30 BUN/Creatinine Ratio 16.3 08/07/16 06:30 Glucose 123 mg/dL (70-105) H 08/07/16 06:30 POC Glucose 224 MG/DL (70 - 105) H 08/06/16 11:09 Hemoglobin A1c % 5.0 % (4.0-6.0) 08/06/16 09:19 Calcium 9.5 mg/dL (8.6-10.3) 08/07/16 06:30 Total Bilirubin 0.4 mg/dL (0.3-1.0) 08/07/16 06:30 AST 14 U/L (13-39) 08/07/16 06:30 ALT 10 U/L (7-52) 08/07/16 06:30 Alkaline Phosphatase 86 U/L (34-104) 08/07/16 06:30 Total Protein 6.4 gm/dL (6.0-8.3) 08/07/16 06:30 Albumin 3.5 gm/dL (3.7-5.3) L 08/07/16 06:30 Globulin 2.9 gm/dL 08/07/16 06:30 Albumin/Globulin Ratio 1.2 (1.0-1.8) 08/07/16 06:30 TSH 0.85 uIU/ml (0.34-5.60) 08/07/16 06:30 - Physical Exam Vitals and I&O: Vital Signs Temp 96.4 F 08/11/16 06:36 Pulse 82 08/11/16 09:02 Resp 19 08/11/16 06:36 BP 151/97 08/11/16 09:02 Pulse Ox 82 08/11/16 06:36 Intake & Output 08/10/16 08/11/16 08/11/16 18:59 06:59 18:59 Intake Total 900 240 Balance 900 240 Intake: Oral 900 240 Other: # Voids 4 3 # Bowel Movements 1 0 Active Medications: Current Medications Acetaminophen (Tylenol) 650 mg PO Q6H PRN PRN Reason: Mild Pain/Headache/T above 101 Stop: 10/04/16 21:24 Last Admin: 08/07/16 04:55 Dose: 650 mg Al Hydrox/Mg Hydrox/Simethicone (Maalox) 30 ml PO Q6H PRN PRN Reason: Dyspepsia Stop: 10/04/16 21:24 Amlodipine Besylate (Norvasc) 10 mg PO DAILY [facility] Stop: 10/05/16 08:59 Last Admin: 08/11/16 09:02 Dose: 10 mg Aspirin (Aspirin Chewable) 81 mg PO DAILY [facility] Stop: 10/05/16 08:59 Last Admin: 08/11/16 09:02 Dose: 81 mg Carvedilol (Coreg) 6.25 mg PO BID [facility] Stop: 10/05/16 08:59 Last Admin: 08/11/16 09:01 Dose: 6.25 mg Lisinopril (Zestril) 20 mg PO DAILY [facility] Stop: 10/05/16 08:59 Last Admin: 08/11/16 09:00 Dose: 20 mg Lorazepam (Ativan) 0.5 mg PO Q4HR PRN; Protocol PRN Reason: anxiety/agitation Stop: 10/04/16 21:30 Last Admin: 08/11/16 08:59 Dose: 0.5 mg Magnesium Hydroxide (Milk Of Magnesia) 30 ml PO HS PRN PRN Reason: Constipation Stop: 10/04/16 21:24 Multivitamins/Vitamin C (Theragran) 1 tab PO DAILY [facility] Stop: 10/05/16 08:59 Last Admin: 08/11/16 08:59 Dose: 1 tab Quetiapine Fumarate (Seroquel) 25 mg PO HS [facility] PRN Reason: Protocol Stop: 10/05/16 20:59 Last Admin: 08/10/16 20:31 Dose: 25 mg Tramadol HCl (Ultram) 50 mg PO Q6HR PRN PRN Reason: Pain (Severe) Stop: 10/06/16 08:52 Last Admin: 08/10/16 15:08 Dose: 50 mg Zolpidem Tartrate (Ambien) 5 mg PO HS PRN PRN Reason: Insomnia Stop: 10/04/16 21:32 Last Admin: 08/09/16 20:22 Dose: 5 mg General: Alert, Other (confused) HEENT: Atraumatic Neck: Supple Cardiovascular: Regular rate Lungs: Clear to auscultation Abdomen: Bowel sounds, Soft Extremities: Other (No edema) Neurological: Other (Non ambulatory) Skin: Other (Warm and dry) Psych/Mental Status: Other (Confused) Assessment/Plan - Problem List Patient Problems: All Active Problems Confusion (Acute) R41.0 - Assessment Assessment: Patient is awake, alert, calm, confused, in no acute distress, BP in control. Dx : Psychosis, HTN. - Plan Plan: Patient follow by Psychiatry. will continue to monitor. Nutritional Asmnt/Malnutr-PDOC - Dietary Evaluation Malnutrition Findings (Please click <Entered> for more info): Nutritional Asmnt/Malnutrition Start: 08/08/16 10: 38 Text: Status: Complete Freq: Document 08/08/16 10:38 [id number] (Rec: 08/08/16 10:55 [email or web address] CRUZ- [id number]) Nutritional Asmnt/Malnutrition Patient General Information Nutritional Screening Moderate Risk Screening Diagnosis Psychosis NOS Pertinent Medical Hx/Surgical Hx psychosis, schizophrenia, hypertension, depression, hyperlipidemia, hypothyroidism Subjective Information Per nursing notes, patient is delusional and paranoid. Patient lying in bed at time of visit. States no difficulty with diet; oral intake adequate to meet nutrient needs. Current Diet Order/ Nutrition Support Regular Patient / S.O Not Indicated Pertinent Medications maalox, mom, theragran, seroquel Pertinent Labs 08/07 Na 133, glucose 224 ( HgA1C 5), albumin 3.5 Nutritional Hx/Data Height 1.68 m Height (Calculated Centimeters) 167.6 Current Weight (lbs) 67.585 kg Weight (Calculated Kilograms) 67.6 Weight (Calculated Grams) 39490.3 [place] Body Weight 130 % [place] Body Weight 114 Recent Weight Change No Weight Status Approriate GI Symptoms GI Symptoms None Food Allergies No Cultural/Ethnic/Tenriism Belief none indicated Usual diet at home regular Skin Integrity/Comment: [place] 17, intact Current %PO Good (75-100%) Estimated Nutritional Goals BEE in Kcals: Using Current wt Calories/Kcals/Kg 25-30 kcal/kg Kcals Calculated ~8045-9801 kcal/day Protein g/k gm/kg Protein Calculated ~70gm/day Fluid: ml ~6669-6267 ml/day (1 ml/kcal) Nutritional Problem 1. Problem Problem Altered nutrition related lab values related to Etiology electrolyte imbalance/ hyperglycemia aeb Signs/Symptoms: Na 133, glucose 224 Intervention/Recommendation Comments 1. Continue regular diet as tolerated by patient. 2. Continue to monitor blood glucose (no hx of diabetes, HgA1c 5). Continue to monitor Na, if remains low, consider fluid restriction. Expected Outcomes/Goals Expected Outcomes/Goals Na and glucose normalize. Oral intake remains adequate to meet 75-100% of estimated nutrient needs, weight remains stable. Physician Parameters for PEM Normal Weight % 90% - 110% (Normal)
[2016-08-12] MEDS: Multivitamin Tab PO SCH ×2 (08:37→08:56)
[2016-08-12] MEDS: Aspirin 81mg Chewable Tab PO SCH (08:38)
--- NOTE | 2016-08-12 09:14 | General Progress Note ---
Subjective - Review of Systems Service Date: 08/12/16 Subjective: Patient is confused Objective - Results Result Diagrams: 08/07/16 06:30 08/07/16 06:30 Recent Labs: Laboratory Last Values WBC 9.4 Th/cmm (4.8-10.8) D 08/07/16 06:30 RBC 4.37 Mil/cmm (3.80-5.20) 08/07/16 06:30 Hgb 14.2 gm/dL (11.7-16.1) 08/07/16 06:30 Hct 42.2 % (35.0-45.0) 08/07/16 06:30 MCV 96.5 fl (81-100) 08/07/16 06:30 MCH 32.5 pg (27.0-31.0) H 08/07/16 06:30 MCHC Differential 33.7 pg (28.0-36.0) 08/07/16 06:30 RDW 13.5 % (11.5-20.0) 08/07/16 06:30 Plt Count 292 Th/cmm (150-400) D 08/07/16 06:30 MPV 6.5 fl 08/07/16 06:30 Neutrophils % 64.1 % (40.0-80.0) 08/07/16 06:30 Lymphocytes % 24.9 % (20.0-50.0) 08/07/16 06:30 Monocytes % 6.1 % (2.0-10.0) 08/07/16 06:30 Eosinophils % 4.6 % (0.0-5.0) 08/07/16 06:30 Basophils % 0.3 % (0.0-2.0) 08/07/16 06:30 Sodium 133 mEq/L (136-145) L 08/07/16 06:30 Potassium 3.5 mEq/L (3.5-5.1) 08/07/16 06:30 Chloride 103 mEq/L (98-107) 08/07/16 06:30 Carbon Dioxide 25.2 mEq/L (21.0-31.0) 08/07/16 06:30 Anion Gap 8.3 (7.0-16.0) 08/07/16 06:30 BUN 13 mg/dL (7-25) 08/07/16 06:30 Creatinine 0.8 mg/dL (0.6-1.2) 08/07/16 06:30 Est GFR ( Amer) TNP 08/07/16 06:30 Est GFR (Non-Af Amer) TNP 08/07/16 06:30 BUN/Creatinine Ratio 16.3 08/07/16 06:30 Glucose 123 mg/dL (70-105) H 08/07/16 06:30 POC Glucose 224 MG/DL (70 - 105) H 08/06/16 11:09 Hemoglobin A1c % 5.0 % (4.0-6.0) 08/06/16 09:19 Calcium 9.5 mg/dL (8.6-10.3) 08/07/16 06:30 Total Bilirubin 0.4 mg/dL (0.3-1.0) 08/07/16 06:30 AST 14 U/L (13-39) 08/07/16 06:30 ALT 10 U/L (7-52) 08/07/16 06:30 Alkaline Phosphatase 86 U/L (34-104) 08/07/16 06:30 Total Protein 6.4 gm/dL (6.0-8.3) 08/07/16 06:30 Albumin 3.5 gm/dL (3.7-5.3) L 08/07/16 06:30 Globulin 2.9 gm/dL 08/07/16 06:30 Albumin/Globulin Ratio 1.2 (1.0-1.8) 08/07/16 06:30 TSH 0.85 uIU/ml (0.34-5.60) 08/07/16 06:30 - Physical Exam Vitals and I&O: Vital Signs Temp 98 F 08/12/16 05:48 Pulse 65 08/12/16 08:39 Resp 19 08/12/16 05:48 BP 126/70 08/12/16 08:39 Pulse Ox 97 08/12/16 05:48 Intake & Output 08/11/16 08/12/16 08/12/16 18:59 06:59 18:59 Intake Total 900 240 Balance 900 240 Intake: Oral 900 240 Other: # Voids 4 1 # Bowel Movements 1 0 Active Medications: Current Medications Acetaminophen (Tylenol) 650 mg PO Q6H PRN PRN Reason: Mild Pain/Headache/T above 101 Stop: 10/04/16 21:24 Last Admin: 08/07/16 04:55 Dose: 650 mg Al Hydrox/Mg Hydrox/Simethicone (Maalox) 30 ml PO Q6H PRN PRN Reason: Dyspepsia Stop: 10/04/16 21:24 Amlodipine Besylate (Norvasc) 10 mg PO DAILY [facility] Stop: 10/05/16 08:59 Last Admin: 08/12/16 08:38 Dose: 10 mg Aspirin (Aspirin Chewable) 81 mg PO DAILY [facility] Stop: 10/05/16 08:59 Last Admin: 08/12/16 08:38 Dose: 81 mg Carvedilol (Coreg) 6.25 mg PO BID [facility] Stop: 10/05/16 08:59 Last Admin: 08/12/16 08:38 Dose: 6.25 mg Lisinopril (Zestril) 20 mg PO DAILY [facility] Stop: 10/05/16 08:59 Last Admin: 08/12/16 08:39 Dose: 20 mg Lorazepam (Ativan) 0.5 mg PO Q4HR PRN; Protocol PRN Reason: anxiety/agitation Stop: 10/04/16 21:30 Last Admin: 08/12/16 08:38 Dose: 0.5 mg Magnesium Hydroxide (Milk Of Magnesia) 30 ml PO HS PRN PRN Reason: Constipation Stop: 10/04/16 21:24 Multivitamins/Vitamin C (Theragran) 1 tab PO DAILY [facility] Stop: 10/05/16 08:59 Last Admin: 08/12/16 08:56 Dose: Not Given Quetiapine Fumarate (Seroquel) 25 mg PO HS [facility] PRN Reason: Protocol Stop: 10/05/16 20:59 Last Admin: 08/11/16 20:32 Dose: 25 mg Tramadol HCl (Ultram) 50 mg PO Q6HR PRN PRN Reason: Pain (Severe) Stop: 10/06/16 08:52 Last Admin: 08/12/16 04:11 Dose: 50 mg Zolpidem Tartrate (Ambien) 5 mg PO HS PRN PRN Reason: Insomnia Stop: 10/04/16 21:32 Last Admin: 08/11/16 20:32 Dose: 5 mg General: Alert, Other (confused) HEENT: Atraumatic Neck: Supple Cardiovascular: Regular rate Lungs: Clear to auscultation Abdomen: Bowel sounds Extremities: Other (No edema) Neurological: Other (Unstable gait) Skin: Other (Warm and dry) Psych/Mental Status: Other (Confused) Assessment/Plan - Problem List Patient Problems: All Active Problems Confusion (Acute) R41.0 - Assessment Assessment: Patient is awake, alert, calm, confused, in no acute distress, BP in control. Dx : Psychosis, HTN. - Plan Plan: Patient follow by Psychiatry. will continue to monitor. Nutritional Asmnt/Malnutr-PDOC - Dietary Evaluation Malnutrition Findings (Please click <Entered> for more info): Nutritional Asmnt/Malnutrition Start: 08/08/16 10: 38 Text: Status: Complete Freq: Document 08/08/16 10:38 MMULN (Rec: 08/08/16 10:55 MMULHERN ANTHONY- [email or web address]) Nutritional Asmnt/Malnutrition Patient General Information Nutritional Screening Moderate Risk Screening Diagnosis Psychosis NOS Pertinent Medical Hx/Surgical Hx psychosis, schizophrenia, hypertension, depression, hyperlipidemia, hypothyroidism Subjective Information Per nursing notes, patient is delusional and paranoid. Patient lying in bed at time of visit. States no difficulty with diet; oral intake adequate to meet nutrient needs. Current Diet Order/ Nutrition Support Regular Patient / S.O Not Indicated Pertinent Medications maalox, mom, theragran, seroquel Pertinent Labs 08/07 Na 133, glucose 224 ( HgA1C 5), albumin 3.5 Nutritional Hx/Data Height 1.68 m Height (Calculated Centimeters) 167.6 Current Weight (lbs) 67.585 kg Weight (Calculated Kilograms) 67.6 Weight (Calculated Grams) 72628.3 [place] Body Weight 130 % [place] Body Weight 114 Recent Weight Change No Weight Status Approriate GI Symptoms GI Symptoms None Food Allergies No Cultural/Ethnic/L[employer] Day Belief none indicated Usual diet at home regular Skin Integrity/Comment: [place] 17, intact Current %PO Good (75-100%) Estimated Nutritional Goals BEE in Kcals: Using Current wt Calories/Kcals/Kg 25-30 kcal/kg Kcals Calculated ~2795-2005 kcal/day Protein g/k gm/kg Protein Calculated ~70gm/day Fluid: ml ~4183-6552 ml/day (1 ml/kcal) Nutritional Problem 1. Problem Problem Altered nutrition related lab values related to Etiology electrolyte imbalance/ hyperglycemia aeb Signs/Symptoms: Na 133, glucose 224 Intervention/Recommendation Comments 1. Continue regular diet as tolerated by patient. 2. Continue to monitor blood glucose (no hx of diabetes, HgA1c 5). Continue to monitor Na, if remains low, consider fluid restriction. Expected Outcomes/Goals Expected Outcomes/Goals Na and glucose normalize. Oral intake remains adequate to meet 75-100% of estimated nutrient needs, weight remains stable. Physician Parameters for PEM Normal Weight % 90% - 110% (Normal)
--- NOTE | 2016-08-12 17:29 | Geri Psych Progress Note ---
Angi Psych Progress Note - Intro Date of Progress Note: 08/12/16 - Assessment Assessment: Still psychotic and demanding. - Vitals, I&O Vitals: Vital Signs - 24 hr 08/11/16 08/12/16 08/12/16 20:15 05:48 08:38 Temp 98.2 F 98 F HR 71 65 65 RR 20 19 BP 133/75 126/70 126/70 O2 Sat % 94 97 08/12/16 08/12/16 08/12/16 08:39 14:00 16:50 Temp 98.4 F HR 65 77 77 RR 18 BP 126/70 125/80 125/80 O2 Sat % 96 I&O: Intake & Output 08/10/16 08/11/16 08/12/16 08/13/16 06:59 06:59 06:59 06:59 Intake Total 1140 1140 Balance 1140 1140 - ROS Neurological: Report: Memory Loss Psychological ROS: Report: Behavioral Disorder, Irritability, Memory difficulties, Obsessive thoughts - Objective Psych General Appearance: Report: Roughly stated age Psych Behavior: Report: Alert, Cooperative Psych Speech: Report: Normal in Rate and amount Psych Mood: Report: Depressed, Frustrated Psych Affect: Report: Depressed, Labile Psych Thought Process: Report: Circumstantial Psych Cognition: Report: Confused, Short term memory impairment Psych Insight: Report: Impaired - Plan Plan: To continue current meds and follow up. - Review of Relevant Data Review of Relevant Data: I have reviewed the following items and time sally (where applicable) has been applied. - Medications Current Medications: Current Medications Acetaminophen (Tylenol) 650 mg PO Q6H PRN PRN Reason: Mild Pain/Headache/T above 101 Stop: 10/04/16 21:24 Last Admin: 08/07/16 04:55 Dose: 650 mg Al Hydrox/Mg Hydrox/Simethicone (Maalox) 30 ml PO Q6H PRN PRN Reason: Dyspepsia Stop: 10/04/16 21:24 Amlodipine Besylate (Norvasc) 10 mg PO DAILY [facility] Stop: 10/05/16 08:59 Last Admin: 08/12/16 08:38 Dose: 10 mg Aspirin (Aspirin Chewable) 81 mg PO DAILY [facility] Stop: 10/05/16 08:59 Last Admin: 08/12/16 08:38 Dose: 81 mg Carvedilol (Coreg) 6.25 mg PO BID [facility] Stop: 10/05/16 08:59 Last Admin: 08/12/16 16:50 Dose: 6.25 mg Lisinopril (Zestril) 20 mg PO DAILY [facility] Stop: 10/05/16 08:59 Last Admin: 08/12/16 08:39 Dose: 20 mg Lorazepam (Ativan) 0.5 mg PO Q4HR PRN; Protocol PRN Reason: anxiety/agitation Stop: 10/04/16 21:30 Last Admin: 08/12/16 15:00 Dose: 0.5 mg Magnesium Hydroxide (Milk Of Magnesia) 30 ml PO HS PRN PRN Reason: Constipation Stop: 10/04/16 21:24 Multivitamins/Vitamin C (Theragran) 1 tab PO DAILY [facility] Stop: 10/05/16 08:59 Last Admin: 08/12/16 08:56 Dose: Not Given Quetiapine Fumarate (Seroquel) 25 mg PO HS [facility] PRN Reason: Protocol Stop: 10/05/16 20:59 Last Admin: 08/11/16 20:32 Dose: 25 mg Tramadol HCl (Ultram) 50 mg PO Q6HR PRN PRN Reason: Pain (Severe) Stop: 10/06/16 08:52 Last Admin: 08/12/16 15:00 Dose: 50 mg Zolpidem Tartrate (Ambien) 5 mg PO HS PRN PRN Reason: Insomnia Stop: 10/04/16 21:32 Last Admin: 08/11/16 20:32 Dose: 5 mg
--- NOTE | 2016-08-13 09:01 | General Progress Note ---
Subjective - Review of Systems Service Date: 08/13/16 Subjective: Patient is confused Objective - Results Result Diagrams: 08/07/16 06:30 08/07/16 06:30 Recent Labs: Laboratory Last Values WBC 9.4 Th/cmm (4.8-10.8) D 08/07/16 06:30 RBC 4.37 Mil/cmm (3.80-5.20) 08/07/16 06:30 Hgb 14.2 gm/dL (11.7-16.1) 08/07/16 06:30 Hct 42.2 % (35.0-45.0) 08/07/16 06:30 MCV 96.5 fl (81-100) 08/07/16 06:30 MCH 32.5 pg (27.0-31.0) H 08/07/16 06:30 MCHC Differential 33.7 pg (28.0-36.0) 08/07/16 06:30 RDW 13.5 % (11.5-20.0) 08/07/16 06:30 Plt Count 292 Th/cmm (150-400) D 08/07/16 06:30 MPV 6.5 fl 08/07/16 06:30 Neutrophils % 64.1 % (40.0-80.0) 08/07/16 06:30 Lymphocytes % 24.9 % (20.0-50.0) 08/07/16 06:30 Monocytes % 6.1 % (2.0-10.0) 08/07/16 06:30 Eosinophils % 4.6 % (0.0-5.0) 08/07/16 06:30 Basophils % 0.3 % (0.0-2.0) 08/07/16 06:30 Sodium 133 mEq/L (136-145) L 08/07/16 06:30 Potassium 3.5 mEq/L (3.5-5.1) 08/07/16 06:30 Chloride 103 mEq/L (98-107) 08/07/16 06:30 Carbon Dioxide 25.2 mEq/L (21.0-31.0) 08/07/16 06:30 Anion Gap 8.3 (7.0-16.0) 08/07/16 06:30 BUN 13 mg/dL (7-25) 08/07/16 06:30 Creatinine 0.8 mg/dL (0.6-1.2) 08/07/16 06:30 Est GFR ( Amer) TNP 08/07/16 06:30 Est GFR (Non-Af Amer) TNP 08/07/16 06:30 BUN/Creatinine Ratio 16.3 08/07/16 06:30 Glucose 123 mg/dL (70-105) H 08/07/16 06:30 POC Glucose 224 MG/DL (70 - 105) H 08/06/16 11:09 Hemoglobin A1c % 5.0 % (4.0-6.0) 08/06/16 09:19 Calcium 9.5 mg/dL (8.6-10.3) 08/07/16 06:30 Total Bilirubin 0.4 mg/dL (0.3-1.0) 08/07/16 06:30 AST 14 U/L (13-39) 08/07/16 06:30 ALT 10 U/L (7-52) 08/07/16 06:30 Alkaline Phosphatase 86 U/L (34-104) 08/07/16 06:30 Total Protein 6.4 gm/dL (6.0-8.3) 08/07/16 06:30 Albumin 3.5 gm/dL (3.7-5.3) L 08/07/16 06:30 Globulin 2.9 gm/dL 08/07/16 06:30 Albumin/Globulin Ratio 1.2 (1.0-1.8) 08/07/16 06:30 TSH 0.85 uIU/ml (0.34-5.60) 08/07/16 06:30 - Physical Exam Vitals and I&O: Vital Signs Temp 97.6 F 08/13/16 06:52 Pulse 66 08/13/16 06:52 Resp 18 08/13/16 06:52 BP 124/77 08/13/16 06:52 Pulse Ox 98 08/13/16 06:52 Intake & Output 08/12/16 08/13/16 08/13/16 18:59 06:59 18:59 Intake Total 1200 Balance 1200 Intake: Oral 1200 Other: # Voids 2 # Bowel Movements 1 Active Medications: Current Medications Acetaminophen (Tylenol) 650 mg PO Q6H PRN PRN Reason: Mild Pain/Headache/T above 101 Stop: 10/04/16 21:24 Last Admin: 08/07/16 04:55 Dose: 650 mg Al Hydrox/Mg Hydrox/Simethicone (Maalox) 30 ml PO Q6H PRN PRN Reason: Dyspepsia Stop: 10/04/16 21:24 Amlodipine Besylate (Norvasc) 10 mg PO DAILY [facility] Stop: 10/05/16 08:59 Last Admin: 08/12/16 08:38 Dose: 10 mg Aspirin (Aspirin Chewable) 81 mg PO DAILY [facility] Stop: 10/05/16 08:59 Last Admin: 08/12/16 08:38 Dose: 81 mg Carvedilol (Coreg) 6.25 mg PO BID [facility] Stop: 10/05/16 08:59 Last Admin: 08/12/16 16:50 Dose: 6.25 mg Lisinopril (Zestril) 20 mg PO DAILY [facility] Stop: 10/05/16 08:59 Last Admin: 08/12/16 08:39 Dose: 20 mg Lorazepam (Ativan) 0.5 mg PO Q4HR PRN; Protocol PRN Reason: anxiety/agitation Stop: 10/04/16 21:30 Last Admin: 08/13/16 07:55 Dose: 0.5 mg Magnesium Hydroxide (Milk Of Magnesia) 30 ml PO HS PRN PRN Reason: Constipation Stop: 10/04/16 21:24 Multivitamins/Vitamin C (Theragran) 1 tab PO DAILY [facility] Stop: 10/05/16 08:59 Last Admin: 08/12/16 08:56 Dose: Not Given Quetiapine Fumarate (Seroquel) 25 mg PO HS [facility] PRN Reason: Protocol Stop: 10/05/16 20:59 Last Admin: 08/12/16 20:25 Dose: 25 mg Tramadol HCl (Ultram) 50 mg PO Q6HR PRN PRN Reason: Pain (Severe) Stop: 10/06/16 08:52 Last Admin: 08/12/16 15:00 Dose: 50 mg Zolpidem Tartrate (Ambien) 5 mg PO HS PRN PRN Reason: Insomnia Stop: 10/04/16 21:32 Last Admin: 08/12/16 21:47 Dose: 5 mg General: Alert, Other (Confused) HEENT: Atraumatic Neck: Supple Cardiovascular: Regular rate Lungs: Clear to auscultation Abdomen: Bowel sounds, Soft Extremities: Other (No edema) Neurological: Other (Unstable gait) Skin: Other (Warm and dry) Psych/Mental Status: Other (Confused) Assessment/Plan - Problem List Patient Problems: All Active Problems Confusion (Acute) R41.0 - Assessment Assessment: Patient is awake, alert, calm, confused, in no acute distress, BP in control. Dx : Psychosis, HTN. - Plan Plan: Patient follow by Psychiatry. will continue to monitor. Nutritional Asmnt/Malnutr-PDOC - Dietary Evaluation Malnutrition Findings (Please click <Entered> for more info): Nutritional Asmnt/Malnutrition Start: 08/08/16 10: 38 Text: Status: Complete Freq: Document 08/08/16 10:38 MMULN (Rec: 08/08/16 10:55 MMULHERN ANTHONY- [email or web address]) Nutritional Asmnt/Malnutrition Patient General Information Nutritional Screening Moderate Risk Screening Diagnosis Psychosis NOS Pertinent Medical Hx/Surgical Hx psychosis, schizophrenia, hypertension, depression, hyperlipidemia, hypothyroidism Subjective Information Per nursing notes, patient is delusional and paranoid. Patient lying in bed at time of visit. States no difficulty with diet; oral intake adequate to meet nutrient needs. Current Diet Order/ Nutrition Support Regular Patient / S.O Not Indicated Pertinent Medications maalox, mom, theragran, seroquel Pertinent Labs 08/07 Na 133, glucose 224 ( HgA1C 5), albumin 3.5 Nutritional Hx/Data Height 1.68 m Height (Calculated Centimeters) 167.6 Current Weight (lbs) 67.585 kg Weight (Calculated Kilograms) 67.6 Weight (Calculated Grams) 33996.3 [place] Body Weight 130 % [place] Body Weight 114 Recent Weight Change No Weight Status Approriate GI Symptoms GI Symptoms None Food Allergies No Cultural/Ethnic/Mosque Belief none indicated Usual diet at home regular Skin Integrity/Comment: [place] 17, intact Current %PO Good (75-100%) Estimated Nutritional Goals BEE in Kcals: Using Current wt Calories/Kcals/Kg 25-30 kcal/kg Kcals Calculated ~2404-5332 kcal/day Protein g/k gm/kg Protein Calculated ~70gm/day Fluid: ml ~9953-8087 ml/day (1 ml/kcal) Nutritional Problem 1. Problem Problem Altered nutrition related lab values related to Etiology electrolyte imbalance/ hyperglycemia aeb Signs/Symptoms: Na 133, glucose 224 Intervention/Recommendation Comments 1. Continue regular diet as tolerated by patient. 2. Continue to monitor blood glucose (no hx of diabetes, HgA1c 5). Continue to monitor Na, if remains low, consider fluid restriction. Expected Outcomes/Goals Expected Outcomes/Goals Na and glucose normalize. Oral intake remains adequate to meet 75-100% of estimated nutrient needs, weight remains stable. Physician Parameters for PEM Normal Weight % 90% - 110% (Normal)
[2016-08-13] MEDS: Aspirin 81mg Chewable Tab PO SCH (09:14)
[2016-08-13] MEDS: Multivitamin Tab PO SCH (09:14)
--- NOTE | 2016-08-13 10:02 | Geri Psych Progress Note ---
Angi Psych Progress Note - Intro Date of Progress Note: 08/13/16 - Assessment Assessment: Patient is still very paranoid and has been refusing staff of putting poison in her food. - Vitals, I&O Vitals: Vital Signs - 24 hr 08/12/16 08/12/16 08/12/16 14:00 16:50 20:00 Temp 98.4 F 98.5 F HR 77 77 67 RR 18 18 BP 125/80 125/80 132/60 O2 Sat % 96 98 08/13/16 06:52 Temp 97.6 F HR 66 RR 18 BP 124/77 O2 Sat % 98 I&O: Intake & Output 08/11/16 08/12/16 08/13/16 08/14/16 06:59 06:59 06:59 06:59 Intake Total 1140 1140 1200 Balance 1140 1140 1200 - Objective Psych Objective: Patient mood is to be irritable. Affect is constricted. Insight and judgment are impaired . Impulse is poor.Patient's sleep and appetite are improving. Patient is focused that her daughter's is still coming to the hospital to poison her food . Patient has no place to return to and patient however has been willing for placement. Psych General Appearance: Report: No acute distress Psych Behavior: Report: Alert Psych Speech: Report: Normal in Rate and amount Psych Mood: Report: Anxious Psych Affect: Report: Anxious, Depressed Psych Thought Process: Report: Tangential Psych Cognition: Report: Confused Psych Insight: Report: Impaired Psych Judgement: Report: Impaired - Plan Plan: To continue current medications and encourage the patient participated in groups and verbalize her concerns - Review of Relevant Data Review of Relevant Data: I have reviewed the following items and time sally (where applicable) has been applied. Psych Data Reviewed: Meds - Medications Current Medications: Current Medications Acetaminophen (Tylenol) 650 mg PO Q6H PRN PRN Reason: Mild Pain/Headache/T above 101 Stop: 10/04/16 21:24 Last Admin: 08/07/16 04:55 Dose: 650 mg Al Hydrox/Mg Hydrox/Simethicone (Maalox) 30 ml PO Q6H PRN PRN Reason: Dyspepsia Stop: 10/04/16 21:24 Amlodipine Besylate (Norvasc) 10 mg PO DAILY [facility] Stop: 10/05/16 08:59 Last Admin: 08/13/16 09:14 Dose: Not Given Aspirin (Aspirin Chewable) 81 mg PO DAILY [facility] Stop: 10/05/16 08:59 Last Admin: 08/13/16 09:14 Dose: Not Given Carvedilol (Coreg) 6.25 mg PO BID [facility] Stop: 10/05/16 08:59 Last Admin: 08/13/16 09:14 Dose: Not Given Lisinopril (Zestril) 20 mg PO DAILY [facility] Stop: 10/05/16 08:59 Last Admin: 08/13/16 09:14 Dose: Not Given Lorazepam (Ativan) 0.5 mg PO Q4HR PRN; Protocol PRN Reason: anxiety/agitation Stop: 10/04/16 21:30 Last Admin: 08/13/16 07:55 Dose: 0.5 mg Magnesium Hydroxide (Milk Of Magnesia) 30 ml PO HS PRN PRN Reason: Constipation Stop: 10/04/16 21:24 Multivitamins/Vitamin C (Theragran) 1 tab PO DAILY [facility] Stop: 10/05/16 08:59 Last Admin: 08/13/16 09:14 Dose: Not Given Quetiapine Fumarate (Seroquel) 25 mg PO HS [facility] PRN Reason: Protocol Stop: 10/05/16 20:59 Last Admin: 08/12/16 20:25 Dose: 25 mg Tramadol HCl (Ultram) 50 mg PO Q6HR PRN PRN Reason: Pain (Severe) Stop: 10/06/16 08:52 Last Admin: 08/12/16 15:00 Dose: 50 mg
[2016-08-14] MEDS: Multivitamin Tab PO SCH (08:46)
[2016-08-14] MEDS: Aspirin 81mg Chewable Tab PO SCH (08:47)
--- NOTE | 2016-08-14 09:04 | General Progress Note ---
Subjective - Review of Systems Service Date: 08/14/16 Subjective: Patient is confused Objective - Results Result Diagrams: 08/07/16 06:30 08/07/16 06:30 Recent Labs: Laboratory Last Values WBC 9.4 Th/cmm (4.8-10.8) D 08/07/16 06:30 RBC 4.37 Mil/cmm (3.80-5.20) 08/07/16 06:30 Hgb 14.2 gm/dL (11.7-16.1) 08/07/16 06:30 Hct 42.2 % (35.0-45.0) 08/07/16 06:30 MCV 96.5 fl (81-100) 08/07/16 06:30 MCH 32.5 pg (27.0-31.0) H 08/07/16 06:30 MCHC Differential 33.7 pg (28.0-36.0) 08/07/16 06:30 RDW 13.5 % (11.5-20.0) 08/07/16 06:30 Plt Count 292 Th/cmm (150-400) D 08/07/16 06:30 MPV 6.5 fl 08/07/16 06:30 Neutrophils % 64.1 % (40.0-80.0) 08/07/16 06:30 Lymphocytes % 24.9 % (20.0-50.0) 08/07/16 06:30 Monocytes % 6.1 % (2.0-10.0) 08/07/16 06:30 Eosinophils % 4.6 % (0.0-5.0) 08/07/16 06:30 Basophils % 0.3 % (0.0-2.0) 08/07/16 06:30 Sodium 133 mEq/L (136-145) L 08/07/16 06:30 Potassium 3.5 mEq/L (3.5-5.1) 08/07/16 06:30 Chloride 103 mEq/L (98-107) 08/07/16 06:30 Carbon Dioxide 25.2 mEq/L (21.0-31.0) 08/07/16 06:30 Anion Gap 8.3 (7.0-16.0) 08/07/16 06:30 BUN 13 mg/dL (7-25) 08/07/16 06:30 Creatinine 0.8 mg/dL (0.6-1.2) 08/07/16 06:30 Est GFR ( Amer) TNP 08/07/16 06:30 Est GFR (Non-Af Amer) TNP 08/07/16 06:30 BUN/Creatinine Ratio 16.3 08/07/16 06:30 Glucose 123 mg/dL (70-105) H 08/07/16 06:30 POC Glucose 224 MG/DL (70 - 105) H 08/06/16 11:09 Hemoglobin A1c % 5.0 % (4.0-6.0) 08/06/16 09:19 Calcium 9.5 mg/dL (8.6-10.3) 08/07/16 06:30 Total Bilirubin 0.4 mg/dL (0.3-1.0) 08/07/16 06:30 AST 14 U/L (13-39) 08/07/16 06:30 ALT 10 U/L (7-52) 08/07/16 06:30 Alkaline Phosphatase 86 U/L (34-104) 08/07/16 06:30 Total Protein 6.4 gm/dL (6.0-8.3) 08/07/16 06:30 Albumin 3.5 gm/dL (3.7-5.3) L 08/07/16 06:30 Globulin 2.9 gm/dL 08/07/16 06:30 Albumin/Globulin Ratio 1.2 (1.0-1.8) 08/07/16 06:30 TSH 0.85 uIU/ml (0.34-5.60) 08/07/16 06:30 - Physical Exam Vitals and I&O: Vital Signs Temp 96.4 F 08/14/16 06:44 Pulse 72 08/14/16 08:46 Resp 18 08/14/16 06:44 BP 132/73 08/14/16 08:46 Pulse Ox 98 08/14/16 06:44 Intake & Output 08/13/16 08/14/16 08/14/16 18:59 06:59 18:59 Intake Total 900 120 Balance 900 120 Weight (lbs) 62.686 kg Intake: Oral 900 120 Other: # Voids 4 4 # Bowel Movements 1 0 Active Medications: Current Medications Acetaminophen (Tylenol) 650 mg PO Q6H PRN PRN Reason: Mild Pain/Headache/T above 101 Stop: 10/04/16 21:24 Last Admin: 08/07/16 04:55 Dose: 650 mg Al Hydrox/Mg Hydrox/Simethicone (Maalox) 30 ml PO Q6H PRN PRN Reason: Dyspepsia Stop: 10/04/16 21:24 Amlodipine Besylate (Norvasc) 10 mg PO DAILY [facility] Stop: 10/05/16 08:59 Last Admin: 08/14/16 08:47 Dose: Not Given Aspirin (Aspirin Chewable) 81 mg PO DAILY [facility] Stop: 10/05/16 08:59 Last Admin: 08/14/16 08:47 Dose: 81 mg Carvedilol (Coreg) 6.25 mg PO BID [facility] Stop: 10/05/16 08:59 Last Admin: 08/14/16 08:47 Dose: Not Given Lisinopril (Zestril) 20 mg PO DAILY [facility] Stop: 10/05/16 08:59 Last Admin: 08/14/16 08:46 Dose: Not Given Lorazepam (Ativan) 0.5 mg PO Q4HR PRN; Protocol PRN Reason: anxiety/agitation Stop: 10/04/16 21:30 Last Admin: 08/14/16 08:47 Dose: 0.5 mg Magnesium Hydroxide (Milk Of Magnesia) 30 ml PO HS PRN PRN Reason: Constipation Stop: 10/04/16 21:24 Multivitamins/Vitamin C (Theragran) 1 tab PO DAILY [facility] Stop: 10/05/16 08:59 Last Admin: 08/14/16 08:46 Dose: Not Given Quetiapine Fumarate (Seroquel) 25 mg PO HS [facility] PRN Reason: Protocol Stop: 10/05/16 20:59 Last Admin: 08/13/16 20:51 Dose: 25 mg Tramadol HCl (Ultram) 50 mg PO Q6HR PRN PRN Reason: Pain (Severe) Stop: 10/06/16 08:52 Last Admin: 08/14/16 08:47 Dose: 50 mg General: Alert, Other (Confused) HEENT: Atraumatic Neck: Supple Cardiovascular: Regular rate Lungs: Clear to auscultation Abdomen: Bowel sounds, Soft Extremities: Other (No edema) Neurological: Other (Unstable gait) Skin: Other (Warm and dry) Psych/Mental Status: Other (Confused) Assessment/Plan - Problem List Patient Problems: All Active Problems Confusion (Acute) R41.0 - Assessment Assessment: Patient is awake, alert, calm, confused, in no acute distress, BP in control. Dx : Psychosis, HTN. - Plan Plan: Patient follow by Psychiatry. will continue to monitor. Nutritional Asmnt/Malnutr-PDOC - Dietary Evaluation Malnutrition Findings (Please click <Entered> for more info): Nutritional Asmnt/Malnutrition Start: 08/08/16 10: 38 Text: Status: Complete Freq: Document 08/08/16 10:38 [email or web address] (Rec: 08/08/16 10:55 [email or web address] CRUZ- [id number]) Nutritional Asmnt/Malnutrition Patient General Information Nutritional Screening Moderate Risk Screening Diagnosis Psychosis NOS Pertinent Medical Hx/Surgical Hx psychosis, schizophrenia, hypertension, depression, hyperlipidemia, hypothyroidism Subjective Information Per nursing notes, patient is delusional and paranoid. Patient lying in bed at time of visit. States no difficulty with diet; oral intake adequate to meet nutrient needs. Current Diet Order/ Nutrition Support Regular Patient / S.O Not Indicated Pertinent Medications maalox, mom, theragran, seroquel Pertinent Labs 08/07 Na 133, glucose 224 ( HgA1C 5), albumin 3.5 Nutritional Hx/Data Height 1.68 m Height (Calculated Centimeters) 167.6 Current Weight (lbs) 67.585 kg Weight (Calculated Kilograms) 67.6 Weight (Calculated Grams) 39190.3 [place] Body Weight 130 % [place] Body Weight 114 Recent Weight Change No Weight Status Approriate GI Symptoms GI Symptoms None Food Allergies No Cultural/Ethnic/Mu-Ism Belief none indicated Usual diet at home regular Skin Integrity/Comment: [place] 17, intact Current %PO Good (75-100%) Estimated Nutritional Goals BEE in Kcals: Using Current wt Calories/Kcals/Kg 25-30 kcal/kg Kcals Calculated ~1204-5554 kcal/day Protein g/k gm/kg Protein Calculated ~70gm/day Fluid: ml ~5343-9971 ml/day (1 ml/kcal) Nutritional Problem 1. Problem Problem Altered nutrition related lab values related to Etiology electrolyte imbalance/ hyperglycemia aeb Signs/Symptoms: Na 133, glucose 224 Intervention/Recommendation Comments 1. Continue regular diet as tolerated by patient. 2. Continue to monitor blood glucose (no hx of diabetes, HgA1c 5). Continue to monitor Na, if remains low, consider fluid restriction. Expected Outcomes/Goals Expected Outcomes/Goals Na and glucose normalize. Oral intake remains adequate to meet 75-100% of estimated nutrient needs, weight remains stable. Physician Parameters for PEM Normal Weight % 90% - 110% (Normal)
--- NOTE | 2016-08-14 19:18 | Geri Psych Progress Note ---
Angi Psych Progress Note - Intro Date of Progress Note: 08/14/16 - Assessment Assessment: Patient is still very paranoid and has been refusing staff of putting poison in her food. - Vitals, I&O Vitals: Vital Signs - 24 hr 08/13/16 08/14/16 08/14/16 20:16 06:44 08:46 Temp 98.8 F 96.4 F HR 79 72 72 RR 18 18 BP 146/87 132/73 132/73 O2 Sat % 94 98 08/14/16 14:00 Temp 98.6 F HR 80 RR 20 BP 120/72 O2 Sat % 97 I&O: Intake & Output 08/12/16 08/13/16 08/14/16 08/15/16 06:59 06:59 06:59 06:59 Intake Total 1140 1200 1020 1000 Balance 1140 1200 1020 1000 Weight (lbs) 62.686 kg - ROS Psychological ROS: Report: Anxiety, Depression - Objective Psych General Appearance: Report: No acute distress Psych Behavior: Report: Alert, Cooperative Psych Speech: Report: Normal in Rate and amount Psych Mood: Report: Angry, Anxious, Frustrated, Irritable Psych Affect: Report: Anxious, Depressed Psych Thought Process: Report: Tangential Psych Cognition: Report: Confused Psych Insight: Report: Impaired Psych Judgement: Report: Impaired - Plan Plan: To continue current medications and encourage the patient participated in groups and verbalize her concerns - Review of Relevant Data Review of Relevant Data: I have reviewed the following items and time sally (where applicable) has been applied. Psych Data Reviewed: Meds (awaiting placement.) - Medications Current Medications: Current Medications Acetaminophen (Tylenol) 650 mg PO Q6H PRN PRN Reason: Mild Pain/Headache/T above 101 Stop: 10/04/16 21:24 Last Admin: 08/07/16 04:55 Dose: 650 mg Al Hydrox/Mg Hydrox/Simethicone (Maalox) 30 ml PO Q6H PRN PRN Reason: Dyspepsia Stop: 10/04/16 21:24 Amlodipine Besylate (Norvasc) 10 mg PO DAILY [facility] Stop: 10/05/16 08:59 Last Admin: 08/14/16 08:47 Dose: Not Given Aspirin (Aspirin Chewable) 81 mg PO DAILY [facility] Stop: 10/05/16 08:59 Last Admin: 08/14/16 08:47 Dose: 81 mg Carvedilol (Coreg) 6.25 mg PO BID [facility] Stop: 10/05/16 08:59 Last Admin: 08/14/16 17:11 Dose: Not Given Lisinopril (Zestril) 20 mg PO DAILY [facility] Stop: 10/05/16 08:59 Last Admin: 08/14/16 08:46 Dose: Not Given Lorazepam (Ativan) 0.5 mg PO Q4HR PRN; Protocol PRN Reason: anxiety/agitation Stop: 10/04/16 21:30 Last Admin: 08/14/16 08:47 Dose: 0.5 mg Magnesium Hydroxide (Milk Of Magnesia) 30 ml PO HS PRN PRN Reason: Constipation Stop: 10/04/16 21:24 Multivitamins/Vitamin C (Theragran) 1 tab PO DAILY [facility] Stop: 10/05/16 08:59 Last Admin: 08/14/16 08:46 Dose: Not Given Quetiapine Fumarate (Seroquel) 25 mg PO HS [facility] PRN Reason: Protocol Stop: 10/05/16 20:59 Last Admin: 08/13/16 20:51 Dose: 25 mg Tramadol HCl (Ultram) 50 mg PO Q6HR PRN PRN Reason: Pain (Severe) Stop: 10/06/16 08:52 Last Admin: 08/14/16 08:47 Dose: 50 mg
--- NOTE | 2016-08-15 09:14 | General Progress Note ---
Subjective - Review of Systems Service Date: 08/15/16 Subjective: Patient is confused in no acute distress. Objective - Results Result Diagrams: 08/07/16 06:30 08/07/16 06:30 Recent Labs: Laboratory Last Values WBC 9.4 Th/cmm (4.8-10.8) D 08/07/16 06:30 RBC 4.37 Mil/cmm (3.80-5.20) 08/07/16 06:30 Hgb 14.2 gm/dL (11.7-16.1) 08/07/16 06:30 Hct 42.2 % (35.0-45.0) 08/07/16 06:30 MCV 96.5 fl (81-100) 08/07/16 06:30 MCH 32.5 pg (27.0-31.0) H 08/07/16 06:30 MCHC Differential 33.7 pg (28.0-36.0) 08/07/16 06:30 RDW 13.5 % (11.5-20.0) 08/07/16 06:30 Plt Count 292 Th/cmm (150-400) D 08/07/16 06:30 MPV 6.5 fl 08/07/16 06:30 Neutrophils % 64.1 % (40.0-80.0) 08/07/16 06:30 Lymphocytes % 24.9 % (20.0-50.0) 08/07/16 06:30 Monocytes % 6.1 % (2.0-10.0) 08/07/16 06:30 Eosinophils % 4.6 % (0.0-5.0) 08/07/16 06:30 Basophils % 0.3 % (0.0-2.0) 08/07/16 06:30 Sodium 133 mEq/L (136-145) L 08/07/16 06:30 Potassium 3.5 mEq/L (3.5-5.1) 08/07/16 06:30 Chloride 103 mEq/L (98-107) 08/07/16 06:30 Carbon Dioxide 25.2 mEq/L (21.0-31.0) 08/07/16 06:30 Anion Gap 8.3 (7.0-16.0) 08/07/16 06:30 BUN 13 mg/dL (7-25) 08/07/16 06:30 Creatinine 0.8 mg/dL (0.6-1.2) 08/07/16 06:30 Est GFR ( Amer) TNP 08/07/16 06:30 Est GFR (Non-Af Amer) TNP 08/07/16 06:30 BUN/Creatinine Ratio 16.3 08/07/16 06:30 Glucose 123 mg/dL (70-105) H 08/07/16 06:30 POC Glucose 224 MG/DL (70 - 105) H 08/06/16 11:09 Hemoglobin A1c % 5.0 % (4.0-6.0) 08/06/16 09:19 Calcium 9.5 mg/dL (8.6-10.3) 08/07/16 06:30 Total Bilirubin 0.4 mg/dL (0.3-1.0) 08/07/16 06:30 AST 14 U/L (13-39) 08/07/16 06:30 ALT 10 U/L (7-52) 08/07/16 06:30 Alkaline Phosphatase 86 U/L (34-104) 08/07/16 06:30 Total Protein 6.4 gm/dL (6.0-8.3) 08/07/16 06:30 Albumin 3.5 gm/dL (3.7-5.3) L 08/07/16 06:30 Globulin 2.9 gm/dL 08/07/16 06:30 Albumin/Globulin Ratio 1.2 (1.0-1.8) 08/07/16 06:30 TSH 0.85 uIU/ml (0.34-5.60) 08/07/16 06:30 - Physical Exam Vitals and I&O: Vital Signs Temp 97.2 F 08/15/16 06:36 Pulse 74 08/15/16 06:36 Resp 18 08/15/16 06:36 BP 143/84 08/15/16 06:36 Pulse Ox 97 08/15/16 06:36 Intake & Output 08/14/16 08/15/16 08/15/16 18:59 06:59 18:59 Intake Total 1000 120 Balance 1000 120 Intake: Oral 1000 120 Other: # Voids 4 3 # Bowel Movements 1 Active Medications: Current Medications Acetaminophen (Tylenol) 650 mg PO Q6H PRN PRN Reason: Mild Pain/Headache/T above 101 Stop: 10/04/16 21:24 Last Admin: 08/07/16 04:55 Dose: 650 mg Al Hydrox/Mg Hydrox/Simethicone (Maalox) 30 ml PO Q6H PRN PRN Reason: Dyspepsia Stop: 10/04/16 21:24 Amlodipine Besylate (Norvasc) 10 mg PO DAILY [facility] Stop: 10/05/16 08:59 Last Admin: 08/14/16 08:47 Dose: Not Given Aspirin (Aspirin Chewable) 81 mg PO DAILY [facility] Stop: 10/05/16 08:59 Last Admin: 08/14/16 08:47 Dose: 81 mg Carvedilol (Coreg) 6.25 mg PO BID [facility] Stop: 10/05/16 08:59 Last Admin: 08/14/16 17:11 Dose: Not Given Lisinopril (Zestril) 20 mg PO DAILY [facility] Stop: 10/05/16 08:59 Last Admin: 08/14/16 08:46 Dose: Not Given Lorazepam (Ativan) 0.5 mg PO Q4HR PRN; Protocol PRN Reason: anxiety/agitation Stop: 10/04/16 21:30 Last Admin: 08/14/16 08:47 Dose: 0.5 mg Magnesium Hydroxide (Milk Of Magnesia) 30 ml PO HS PRN PRN Reason: Constipation Stop: 10/04/16 21:24 Multivitamins/Vitamin C (Theragran) 1 tab PO DAILY [facility] Stop: 10/05/16 08:59 Last Admin: 08/14/16 08:46 Dose: Not Given Quetiapine Fumarate (Seroquel) 25 mg PO HS [facility] PRN Reason: Protocol Stop: 10/05/16 20:59 Last Admin: 08/14/16 21:35 Dose: 25 mg General: Alert, No acute distress, Other (Confused) HEENT: Atraumatic Neck: Supple Cardiovascular: Regular rate Lungs: Clear to auscultation Abdomen: Bowel sounds, Soft Extremities: Other (No edema), no Edema Neurological: Other (Unstable gait) Skin: Other (Warm and dry) Psych/Mental Status: Other (Confused) Assessment/Plan - Problem List Patient Problems: All Active Problems Confusion (Acute) R41.0 - Assessment Assessment: Patient is awake, alert, calm, confused, in no acute distress, BP in control. Dx : Psychosis, HTN. - Plan Plan: Patient follow by Psychiatry. will continue to monitor. Nutritional Asmnt/Malnutr-PDOC - Dietary Evaluation Malnutrition Findings (Please click <Entered> for more info): Nutritional Asmnt/Malnutrition Start: 08/08/16 10: 38 Text: Status: Complete Freq: Document 08/08/16 10:38 [email or web address] (Rec: 08/08/16 10:55 [email or web address] CRUZ- [id number]) Nutritional Asmnt/Malnutrition Patient General Information Nutritional Screening Moderate Risk Screening Diagnosis Psychosis NOS Pertinent Medical Hx/Surgical Hx psychosis, schizophrenia, hypertension, depression, hyperlipidemia, hypothyroidism Subjective Information Per nursing notes, patient is delusional and paranoid. Patient lying in bed at time of visit. States no difficulty with diet; oral intake adequate to meet nutrient needs. Current Diet Order/ Nutrition Support Regular Patient / S.O Not Indicated Pertinent Medications maalox, mom, theragran, seroquel Pertinent Labs 08/07 Na 133, glucose 224 ( HgA1C 5), albumin 3.5 Nutritional Hx/Data Height 1.68 m Height (Calculated Centimeters) 167.6 Current Weight (lbs) 67.585 kg Weight (Calculated Kilograms) 67.6 Weight (Calculated Grams) 00528.3 [place] Body Weight 130 % [place] Body Weight 114 Recent Weight Change No Weight Status Approriate GI Symptoms GI Symptoms None Food Allergies No Cultural/Ethnic/Hindu Belief none indicated Usual diet at home regular Skin Integrity/Comment: [place] 17, intact Current %PO Good (75-100%) Estimated Nutritional Goals BEE in Kcals: Using Current wt Calories/Kcals/Kg 25-30 kcal/kg Kcals Calculated ~9462-1835 kcal/day Protein g/k gm/kg Protein Calculated ~70gm/day Fluid: ml ~4667-1335 ml/day (1 ml/kcal) Nutritional Problem 1. Problem Problem Altered nutrition related lab values related to Etiology electrolyte imbalance/ hyperglycemia aeb Signs/Symptoms: Na 133, glucose 224 Intervention/Recommendation Comments 1. Continue regular diet as tolerated by patient. 2. Continue to monitor blood glucose (no hx of diabetes, HgA1c 5). Continue to monitor Na, if remains low, consider fluid restriction. Expected Outcomes/Goals Expected Outcomes/Goals Na and glucose normalize. Oral intake remains adequate to meet 75-100% of estimated nutrient needs, weight remains stable. Physician Parameters for PEM Normal Weight % 90% - 110% (Normal)
[2016-08-15] MEDS: Multivitamin Tab PO SCH (09:50)
[2016-08-15] MEDS: Aspirin 81mg Chewable Tab PO SCH (09:50)
--- NOTE | 2016-08-15 12:55 | Geri Psych Progress Note ---
Angi Psych Progress Note - Intro Date of Progress Note: 08/15/16 - Assessment Assessment: Patient is still very paranoid andis awaiting placement. - Vitals, I&O Vitals: Vital Signs - 24 hr 08/14/16 08/15/16 08/15/16 14:00 06:36 09:50 Temp 98.6 F 97.2 F HR 80 74 81 RR 20 18 BP 120/72 143/84 133/81 O2 Sat % 97 97 08/15/16 10:02 Temp HR 81 RR BP 133/81 O2 Sat % I&O: Intake & Output 08/13/16 08/14/16 08/15/16 08/16/16 06:59 06:59 06:59 06:59 Intake Total 1200 1020 1120 Balance 1200 1020 1120 Weight (lbs) 62.686 kg - ROS Psychological ROS: Report: Anxiety, Depression, Irritability Neurological: Report: No Significant - Objective Psych General Appearance: Report: No acute distress Psych Behavior: Report: Alert, Calm, Cooperative Psych Speech: Report: Coherent, Soft Psych Mood: Report: Angry, Frustrated Psych Affect: Report: Constricted, Depressed Psych Thought Process: Report: [place], Tangential Psych Cognition: Report: Confused Psych Insight: Report: Impaired Psych Judgement: Report: Impaired - Plan Plan: To continue current medications and encourage the patient participated in groups and verbalize her concerns - Review of Relevant Data Review of Relevant Data: I have reviewed the following items and time sally (where applicable) has been applied. Psych Data Reviewed: Meds - Diagnosis Diagnosis: Major depressive Disorder with psychosis - Medications Current Medications: Current Medications Acetaminophen (Tylenol) 650 mg PO Q6H PRN PRN Reason: Mild Pain/Headache/T above 101 Stop: 10/04/16 21:24 Last Admin: 08/07/16 04:55 Dose: 650 mg Al Hydrox/Mg Hydrox/Simethicone (Maalox) 30 ml PO Q6H PRN PRN Reason: Dyspepsia Stop: 10/04/16 21:24 Amlodipine Besylate (Norvasc) 10 mg PO DAILY [facility] Stop: 10/05/16 08:59 Last Admin: 08/15/16 10:02 Dose: 10 mg Aspirin (Aspirin Chewable) 81 mg PO DAILY [facility] Stop: 10/05/16 08:59 Last Admin: 08/15/16 09:50 Dose: 81 mg Carvedilol (Coreg) 6.25 mg PO BID [facility] Stop: 10/05/16 08:59 Last Admin: 08/15/16 09:50 Dose: 6.25 mg Lisinopril (Zestril) 20 mg PO DAILY [facility] Stop: 10/05/16 08:59 Last Admin: 08/15/16 09:50 Dose: 20 mg Lorazepam (Ativan) 0.5 mg PO Q4HR PRN; Protocol PRN Reason: anxiety/agitation Stop: 10/04/16 21:30 Last Admin: 08/15/16 09:50 Dose: 0.5 mg Magnesium Hydroxide (Milk Of Magnesia) 30 ml PO HS PRN PRN Reason: Constipation Stop: 10/04/16 21:24 Multivitamins/Vitamin C (Theragran) 1 tab PO DAILY [facility] Stop: 10/05/16 08:59 Last Admin: 08/15/16 09:50 Dose: Not Given Quetiapine Fumarate (Seroquel) 25 mg PO HS [facility] PRN Reason: Protocol Stop: 10/05/16 20:59 Last Admin: 08/14/16 21:35 Dose: 25 mg
--- NOTE | 2016-08-16 10:00 | General Progress Note ---
Subjective - Review of Systems Service Date: 08/16/16 Subjective: Patient is confused in no acute distress. Objective - Results Result Diagrams: 08/07/16 06:30 08/07/16 06:30 Recent Labs: Laboratory Last Values WBC 9.4 Th/cmm (4.8-10.8) D 08/07/16 06:30 RBC 4.37 Mil/cmm (3.80-5.20) 08/07/16 06:30 Hgb 14.2 gm/dL (11.7-16.1) 08/07/16 06:30 Hct 42.2 % (35.0-45.0) 08/07/16 06:30 MCV 96.5 fl (81-100) 08/07/16 06:30 MCH 32.5 pg (27.0-31.0) H 08/07/16 06:30 MCHC Differential 33.7 pg (28.0-36.0) 08/07/16 06:30 RDW 13.5 % (11.5-20.0) 08/07/16 06:30 Plt Count 292 Th/cmm (150-400) D 08/07/16 06:30 MPV 6.5 fl 08/07/16 06:30 Neutrophils % 64.1 % (40.0-80.0) 08/07/16 06:30 Lymphocytes % 24.9 % (20.0-50.0) 08/07/16 06:30 Monocytes % 6.1 % (2.0-10.0) 08/07/16 06:30 Eosinophils % 4.6 % (0.0-5.0) 08/07/16 06:30 Basophils % 0.3 % (0.0-2.0) 08/07/16 06:30 Sodium 133 mEq/L (136-145) L 08/07/16 06:30 Potassium 3.5 mEq/L (3.5-5.1) 08/07/16 06:30 Chloride 103 mEq/L (98-107) 08/07/16 06:30 Carbon Dioxide 25.2 mEq/L (21.0-31.0) 08/07/16 06:30 Anion Gap 8.3 (7.0-16.0) 08/07/16 06:30 BUN 13 mg/dL (7-25) 08/07/16 06:30 Creatinine 0.8 mg/dL (0.6-1.2) 08/07/16 06:30 Est GFR ( Amer) TNP 08/07/16 06:30 Est GFR (Non-Af Amer) TNP 08/07/16 06:30 BUN/Creatinine Ratio 16.3 08/07/16 06:30 Glucose 123 mg/dL (70-105) H 08/07/16 06:30 POC Glucose 224 MG/DL (70 - 105) H 08/06/16 11:09 Hemoglobin A1c % 5.0 % (4.0-6.0) 08/06/16 09:19 Calcium 9.5 mg/dL (8.6-10.3) 08/07/16 06:30 Total Bilirubin 0.4 mg/dL (0.3-1.0) 08/07/16 06:30 AST 14 U/L (13-39) 08/07/16 06:30 ALT 10 U/L (7-52) 08/07/16 06:30 Alkaline Phosphatase 86 U/L (34-104) 08/07/16 06:30 Total Protein 6.4 gm/dL (6.0-8.3) 08/07/16 06:30 Albumin 3.5 gm/dL (3.7-5.3) L 08/07/16 06:30 Globulin 2.9 gm/dL 08/07/16 06:30 Albumin/Globulin Ratio 1.2 (1.0-1.8) 08/07/16 06:30 TSH 0.85 uIU/ml (0.34-5.60) 08/07/16 06:30 - Physical Exam Vitals and I&O: Vital Signs Temp 97.9 F 08/15/16 16:08 Pulse 96 08/15/16 17:01 Resp 18 08/15/16 16:08 BP 143/82 08/15/16 17:01 Pulse Ox 96 08/15/16 16:08 Intake & Output 08/15/16 08/16/16 08/16/16 18:59 06:59 18:59 Intake Total 800 Balance 800 Intake: Oral 800 Other: # Voids 4 # Bowel Movements 1 Active Medications: Current Medications Acetaminophen (Tylenol) 650 mg PO Q6H PRN PRN Reason: Mild Pain/Headache/T above 101 Stop: 10/04/16 21:24 Last Admin: 08/15/16 15:29 Dose: 650 mg Al Hydrox/Mg Hydrox/Simethicone (Maalox) 30 ml PO Q6H PRN PRN Reason: Dyspepsia Stop: 10/04/16 21:24 Amlodipine Besylate (Norvasc) 10 mg PO DAILY [facility] Stop: 10/05/16 08:59 Last Admin: 08/15/16 10:02 Dose: 10 mg Aspirin (Aspirin Chewable) 81 mg PO DAILY [facility] Stop: 10/05/16 08:59 Last Admin: 08/15/16 09:50 Dose: 81 mg Carvedilol (Coreg) 6.25 mg PO BID [facility] Stop: 10/05/16 08:59 Last Admin: 08/15/16 17:01 Dose: 6.25 mg Lisinopril (Zestril) 20 mg PO DAILY [facility] Stop: 10/05/16 08:59 Last Admin: 08/15/16 09:50 Dose: 20 mg Lorazepam (Ativan) 0.5 mg PO Q4HR PRN; Protocol PRN Reason: anxiety/agitation Stop: 10/04/16 21:30 Last Admin: 08/15/16 15:29 Dose: 0.5 mg Magnesium Hydroxide (Milk Of Magnesia) 30 ml PO HS PRN PRN Reason: Constipation Stop: 10/04/16 21:24 Multivitamins/Vitamin C (Theragran) 1 tab PO DAILY [facility] Stop: 10/05/16 08:59 Last Admin: 08/15/16 09:50 Dose: Not Given Quetiapine Fumarate (Seroquel) 25 mg PO HS [facility] PRN Reason: Protocol Stop: 10/05/16 20:59 Last Admin: 08/15/16 21:27 Dose: Not Given General: Alert, No acute distress, Other (Confused) HEENT: Atraumatic Neck: Supple Cardiovascular: Regular rate Lungs: Clear to auscultation Abdomen: Bowel sounds, Soft Extremities: Other (No edema), no Edema Neurological: Other (Unstable gait) Skin: Other (Warm and dry) Psych/Mental Status: Other (Confused) Assessment/Plan - Problem List Patient Problems: All Active Problems Confusion (Acute) R41.0 - Assessment Assessment: Patient is awake, alert, calm, confused, in no acute distress, BP in control. Dx : Psychosis, HTN. - Plan Plan: Patient follow by Psychiatry. will continue to monitor. Nutritional Asmnt/Malnutr-PDOC - Dietary Evaluation Malnutrition Findings (Please click <Entered> for more info): Nutritional Asmnt/Malnutrition Start: 08/08/16 10: 38 Text: Status: Complete Freq: Document 08/08/16 10:38 [email or web address] (Rec: 08/08/16 10:55 [email or web address] CRUZ- FNS1) Nutritional Asmnt/Malnutrition Patient General Information Nutritional Screening Moderate Risk Screening Diagnosis Psychosis NOS Pertinent Medical Hx/Surgical Hx psychosis, schizophrenia, hypertension, depression, hyperlipidemia, hypothyroidism Subjective Information Per nursing notes, patient is delusional and paranoid. Patient lying in bed at time of visit. States no difficulty with diet; oral intake adequate to meet nutrient needs. Current Diet Order/ Nutrition Support Regular Patient / S.O Not Indicated Pertinent Medications maalox, mom, theragran, seroquel Pertinent Labs 08/07 Na 133, glucose 224 ( HgA1C 5), albumin 3.5 Nutritional Hx/Data Height 1.68 m Height (Calculated Centimeters) 167.6 Current Weight (lbs) 67.585 kg Weight (Calculated Kilograms) 67.6 Weight (Calculated Grams) 35285.3 [place] Body Weight 130 % [place] Body Weight 114 Recent Weight Change No Weight Status Approriate GI Symptoms GI Symptoms None Food Allergies No Cultural/Ethnic/Faith Belief none indicated Usual diet at home regular Skin Integrity/Comment: [place] 17, intact Current %PO Good (75-100%) Estimated Nutritional Goals BEE in Kcals: Using Current wt Calories/Kcals/Kg 25-30 kcal/kg Kcals Calculated ~3911-8775 kcal/day Protein g/k gm/kg Protein Calculated ~70gm/day Fluid: ml ~1968-5315 ml/day (1 ml/kcal) Nutritional Problem 1. Problem Problem Altered nutrition related lab values related to Etiology electrolyte imbalance/ hyperglycemia aeb Signs/Symptoms: Na 133, glucose 224 Intervention/Recommendation Comments 1. Continue regular diet as tolerated by patient. 2. Continue to monitor blood glucose (no hx of diabetes, HgA1c 5). Continue to monitor Na, if remains low, consider fluid restriction. Expected Outcomes/Goals Expected Outcomes/Goals Na and glucose normalize. Oral intake remains adequate to meet 75-100% of estimated nutrient needs, weight remains stable. Physician Parameters for PEM Normal Weight % 90% - 110% (Normal)
[2016-08-16] MEDS: Aspirin 81mg Chewable Tab PO SCH ×2 (10:05)
[2016-08-16] MEDS: Multivitamin Tab PO SCH ×2 (10:05)
--- NOTE | 2016-08-16 10:23 | Geri Psych Progress Note ---
Angi Psych Progress Note - Intro Date of Progress Note: 08/16/16 - Assessment Assessment: Patient is still anxious and depressed. - Vitals, I&O Vitals: Vital Signs - 24 hr 08/15/16 08/15/16 08/16/16 16:08 17:01 10:05 Temp 97.9 F HR 81 96 82 RR 18 BP 132/76 143/82 140/80 O2 Sat % 96 08/16/16 10:14 Temp HR 82 RR BP 140/80 O2 Sat % I&O: Intake & Output 08/14/16 08/15/16 08/16/16 08/17/16 06:59 06:59 06:59 06:59 Intake Total 1020 1120 800 Balance 1020 1120 800 Weight (lbs) 62.686 kg - ROS Neurological: Report: No Significant - Objective Psych General Appearance: Report: No acute distress Psych Behavior: Report: Alert, Calm, Cooperative Psych Speech: Report: Normal in Rate and amount Psych Mood: Report: Anxious, Depressed Psych Affect: Report: Anxious, Depressed Psych Thought Process: Report: Tangential Psych Cognition: Report: Short term memory impairment Psych Insight: Report: Impaired Psych Judgement: Report: Impaired - Plan Plan: To continue current medications and encourage the patient participated in groups and verbalize her concerns - Review of Relevant Data Review of Relevant Data: I have reviewed the following items and time sally (where applicable) has been applied. Psych Data Reviewed: Meds - Diagnosis Diagnosis: Major depressive disorder with psychotic sx. - Medications Current Medications: Current Medications Acetaminophen (Tylenol) 650 mg PO Q6H PRN PRN Reason: Mild Pain/Headache/T above 101 Stop: 10/04/16 21:24 Last Admin: 08/16/16 10:20 Dose: 650 mg Al Hydrox/Mg Hydrox/Simethicone (Maalox) 30 ml PO Q6H PRN PRN Reason: Dyspepsia Stop: 10/04/16 21:24 Amlodipine Besylate (Norvasc) 10 mg PO DAILY [facility] Stop: 10/05/16 08:59 Last Admin: 08/16/16 10:05 Dose: 10 mg Aspirin (Aspirin Chewable) 81 mg PO DAILY [facility] Stop: 10/05/16 08:59 Last Admin: 08/16/16 10:05 Dose: 81 mg Carvedilol (Coreg) 6.25 mg PO BID [facility] Stop: 10/05/16 08:59 Last Admin: 08/16/16 10:14 Dose: 6.25 mg Lisinopril (Zestril) 20 mg PO DAILY [facility] Stop: 10/05/16 08:59 Last Admin: 08/16/16 10:05 Dose: 20 mg Lorazepam (Ativan) 0.5 mg PO Q4HR PRN; Protocol PRN Reason: anxiety/agitation Stop: 10/04/16 21:30 Last Admin: 08/16/16 10:05 Dose: 0.5 mg Magnesium Hydroxide (Milk Of Magnesia) 30 ml PO HS PRN PRN Reason: Constipation Stop: 10/04/16 21:24 Multivitamins/Vitamin C (Theragran) 1 tab PO DAILY [facility] Stop: 10/05/16 08:59 Last Admin: 08/16/16 10:05 Dose: 1 tab Quetiapine Fumarate (Seroquel) 25 mg PO HS [facility] PRN Reason: Protocol Stop: 10/05/16 20:59 Last Admin: 08/15/16 21:27 Dose: Not Given
[2016-08-17] MEDS: Multivitamin Tab PO SCH (08:17)
[2016-08-17] MEDS: Aspirin 81mg Chewable Tab PO SCH (08:17)
--- NOTE | 2016-08-17 08:53 | General Progress Note ---
Subjective - Review of Systems Service Date: 08/17/16 Subjective: Patient is confused in no acute distress. Objective - Results Result Diagrams: 08/07/16 06:30 08/07/16 06:30 Recent Labs: Laboratory Last Values WBC 9.4 Th/cmm (4.8-10.8) D 08/07/16 06:30 RBC 4.37 Mil/cmm (3.80-5.20) 08/07/16 06:30 Hgb 14.2 gm/dL (11.7-16.1) 08/07/16 06:30 Hct 42.2 % (35.0-45.0) 08/07/16 06:30 MCV 96.5 fl (81-100) 08/07/16 06:30 MCH 32.5 pg (27.0-31.0) H 08/07/16 06:30 MCHC Differential 33.7 pg (28.0-36.0) 08/07/16 06:30 RDW 13.5 % (11.5-20.0) 08/07/16 06:30 Plt Count 292 Th/cmm (150-400) D 08/07/16 06:30 MPV 6.5 fl 08/07/16 06:30 Neutrophils % 64.1 % (40.0-80.0) 08/07/16 06:30 Lymphocytes % 24.9 % (20.0-50.0) 08/07/16 06:30 Monocytes % 6.1 % (2.0-10.0) 08/07/16 06:30 Eosinophils % 4.6 % (0.0-5.0) 08/07/16 06:30 Basophils % 0.3 % (0.0-2.0) 08/07/16 06:30 Sodium 133 mEq/L (136-145) L 08/07/16 06:30 Potassium 3.5 mEq/L (3.5-5.1) 08/07/16 06:30 Chloride 103 mEq/L (98-107) 08/07/16 06:30 Carbon Dioxide 25.2 mEq/L (21.0-31.0) 08/07/16 06:30 Anion Gap 8.3 (7.0-16.0) 08/07/16 06:30 BUN 13 mg/dL (7-25) 08/07/16 06:30 Creatinine 0.8 mg/dL (0.6-1.2) 08/07/16 06:30 Est GFR ( Amer) TNP 08/07/16 06:30 Est GFR (Non-Af Amer) TNP 08/07/16 06:30 BUN/Creatinine Ratio 16.3 08/07/16 06:30 Glucose 123 mg/dL (70-105) H 08/07/16 06:30 POC Glucose 224 MG/DL (70 - 105) H 08/06/16 11:09 Hemoglobin A1c % 5.0 % (4.0-6.0) 08/06/16 09:19 Calcium 9.5 mg/dL (8.6-10.3) 08/07/16 06:30 Total Bilirubin 0.4 mg/dL (0.3-1.0) 08/07/16 06:30 AST 14 U/L (13-39) 08/07/16 06:30 ALT 10 U/L (7-52) 08/07/16 06:30 Alkaline Phosphatase 86 U/L (34-104) 08/07/16 06:30 Total Protein 6.4 gm/dL (6.0-8.3) 08/07/16 06:30 Albumin 3.5 gm/dL (3.7-5.3) L 08/07/16 06:30 Globulin 2.9 gm/dL 08/07/16 06:30 Albumin/Globulin Ratio 1.2 (1.0-1.8) 08/07/16 06:30 TSH 0.85 uIU/ml (0.34-5.60) 08/07/16 06:30 - Physical Exam Vitals and I&O: Vital Signs Temp 97.0 F 08/17/16 05:27 Pulse 78 08/17/16 08:17 Resp 20 08/17/16 05:27 BP 160/93 08/17/16 08:17 Pulse Ox 98 08/17/16 05:27 Active Medications: Current Medications Acetaminophen (Tylenol) 650 mg PO Q6H PRN PRN Reason: Mild Pain/Headache/T above 101 Stop: 10/04/16 21:24 Last Admin: 08/16/16 21:49 Dose: 650 mg Al Hydrox/Mg Hydrox/Simethicone (Maalox) 30 ml PO Q6H PRN PRN Reason: Dyspepsia Stop: 10/04/16 21:24 Amlodipine Besylate (Norvasc) 10 mg PO DAILY [facility] Stop: 10/05/16 08:59 Last Admin: 08/17/16 08:17 Dose: 10 mg Aspirin (Aspirin Chewable) 81 mg PO DAILY [facility] Stop: 10/05/16 08:59 Last Admin: 08/17/16 08:17 Dose: 81 mg Carvedilol (Coreg) 6.25 mg PO BID [facility] Stop: 10/05/16 08:59 Last Admin: 08/17/16 08:17 Dose: 6.25 mg Lisinopril (Zestril) 20 mg PO DAILY [facility] Stop: 10/05/16 08:59 Last Admin: 08/17/16 08:17 Dose: 20 mg Lorazepam (Ativan) 0.5 mg PO Q4HR PRN; Protocol PRN Reason: anxiety/agitation Stop: 10/04/16 21:30 Last Admin: 08/16/16 20:14 Dose: 0.5 mg Magnesium Hydroxide (Milk Of Magnesia) 30 ml PO HS PRN PRN Reason: Constipation Stop: 10/04/16 21:24 Multivitamins/Vitamin C (Theragran) 1 tab PO DAILY [facility] Stop: 10/05/16 08:59 Last Admin: 08/17/16 08:17 Dose: 1 tab Quetiapine Fumarate (Seroquel) 25 mg PO HS [facility] PRN Reason: Protocol Stop: 10/05/16 20:59 Last Admin: 08/16/16 20:14 Dose: 25 mg General: Alert, No acute distress, Other (Confused) HEENT: Atraumatic Neck: Supple Cardiovascular: Regular rate Lungs: Clear to auscultation Abdomen: Bowel sounds, Soft Extremities: Other (No edema), no Edema Neurological: Other (Unstable gait) Skin: Other (Warm and dry) Psych/Mental Status: Other (Confused) Assessment/Plan - Problem List Patient Problems: All Active Problems Confusion (Acute) R41.0 - Assessment Assessment: Patient is awake, alert, calm, confused, in no acute distress, BP in control. Dx : Psychosis, HTN. - Plan Plan: Patient follow by Psychiatry. will continue to monitor. Nutritional Asmnt/Malnutr-PDOC - Dietary Evaluation Malnutrition Findings (Please click <Entered> for more info): Nutritional Asmnt/Malnutrition Start: 08/08/16 10: 38 Text: Status: Complete Freq: Document 08/08/16 10:38 SARAH (Rec: 08/08/16 10:55 SARAH ANTHONY- [email or web address]) Nutritional Asmnt/Malnutrition Patient General Information Nutritional Screening Moderate Risk Screening Diagnosis Psychosis NOS Pertinent Medical Hx/Surgical Hx psychosis, schizophrenia, hypertension, depression, hyperlipidemia, hypothyroidism Subjective Information Per nursing notes, patient is delusional and paranoid. Patient lying in bed at time of visit. States no difficulty with diet; oral intake adequate to meet nutrient needs. Current Diet Order/ Nutrition Support Regular Patient / S.O Not Indicated Pertinent Medications maalox, mom, theragran, seroquel Pertinent Labs 08/07 Na 133, glucose 224 ( HgA1C 5), albumin 3.5 Nutritional Hx/Data Height 1.68 m Height (Calculated Centimeters) 167.6 Current Weight (lbs) 67.585 kg Weight (Calculated Kilograms) 67.6 Weight (Calculated Grams) 17231.3 [place] Body Weight 130 % [place] Body Weight 114 Recent Weight Change No Weight Status Approriate GI Symptoms GI Symptoms None Food Allergies No Cultural/Ethnic/Buddhist Belief none indicated Usual diet at home regular Skin Integrity/Comment: [place] 17, intact Current %PO Good (75-100%) Estimated Nutritional Goals BEE in Kcals: Using Current wt Calories/Kcals/Kg 25-30 kcal/kg Kcals Calculated ~2059-0690 kcal/day Protein g/k gm/kg Protein Calculated ~70gm/day Fluid: ml ~2137-6674 ml/day (1 ml/kcal) Nutritional Problem 1. Problem Problem Altered nutrition related lab values related to Etiology electrolyte imbalance/ hyperglycemia aeb Signs/Symptoms: Na 133, glucose 224 Intervention/Recommendation Comments 1. Continue regular diet as tolerated by patient. 2. Continue to monitor blood glucose (no hx of diabetes, HgA1c 5). Continue to monitor Na, if remains low, consider fluid restriction. Expected Outcomes/Goals Expected Outcomes/Goals Na and glucose normalize. Oral intake remains adequate to meet 75-100% of estimated nutrient needs, weight remains stable. Physician Parameters for PEM Normal Weight % 90% - 110% (Normal)
--- NOTE | 2016-08-17 09:06 | Geri Psych Progress Note ---
Angi Psych Progress Note - Intro Date of Progress Note: 08/17/16 - Assessment Assessment: Patient reports that she is doing well. - Vitals, I&O Vitals: Vital Signs - 24 hr 08/16/16 08/16/16 08/16/16 10:05 16:19 20:00 Temp 98.6 F HR 82 89 96 RR 18 BP 140/80 124/77 154/92 O2 Sat % 96 08/17/16 08/17/16 05:27 08:17 Temp 97.0 F HR 67 78 RR 20 BP 143/76 160/93 O2 Sat % 98 I&O: Intake & Output 08/15/16 08/16/16 08/17/16 08/18/16 06:59 06:59 06:59 06:59 Intake Total 1120 800 Balance 1120 800 - ROS Psychological ROS: Report: Anxiety, Depression Neurological: Report: No Significant - Objective Psych General Appearance: Report: No acute distress Psych Behavior: Report: Alert, Calm Psych Speech: Report: Normal in Rate and amount Psych Mood: Report: Anxious Psych Affect: Report: Anxious Psych Thought Process: Report: [place] Psych Cognition: Report: Grossly Intact Psych Insight: Report: Fair Psych Judgement: Report: Fair - Plan Plan: To continue current medications and discharge patient when placement is available. - Review of Relevant Data Review of Relevant Data: I have reviewed the following items and time sally (where applicable) has been applied. Psych Data Reviewed: Meds - Diagnosis Diagnosis: major depressive disorder with psychotic sx. - Medications Current Medications: Current Medications Acetaminophen (Tylenol) 650 mg PO Q6H PRN PRN Reason: Mild Pain/Headache/T above 101 Stop: 10/04/16 21:24 Last Admin: 08/16/16 21:49 Dose: 650 mg Al Hydrox/Mg Hydrox/Simethicone (Maalox) 30 ml PO Q6H PRN PRN Reason: Dyspepsia Stop: 10/04/16 21:24 Amlodipine Besylate (Norvasc) 10 mg PO DAILY [facility] Stop: 10/05/16 08:59 Last Admin: 08/17/16 08:17 Dose: 10 mg Aspirin (Aspirin Chewable) 81 mg PO DAILY [facility] Stop: 10/05/16 08:59 Last Admin: 08/17/16 08:17 Dose: 81 mg Carvedilol (Coreg) 6.25 mg PO BID [facility] Stop: 10/05/16 08:59 Last Admin: 08/17/16 08:17 Dose: 6.25 mg Lisinopril (Zestril) 20 mg PO DAILY [facility] Stop: 10/05/16 08:59 Last Admin: 08/17/16 08:17 Dose: 20 mg Lorazepam (Ativan) 0.5 mg PO Q4HR PRN; Protocol PRN Reason: anxiety/agitation Stop: 10/04/16 21:30 Last Admin: 08/16/16 20:14 Dose: 0.5 mg Magnesium Hydroxide (Milk Of Magnesia) 30 ml PO HS PRN PRN Reason: Constipation Stop: 10/04/16 21:24 Multivitamins/Vitamin C (Theragran) 1 tab PO DAILY [facility] Stop: 10/05/16 08:59 Last Admin: 08/17/16 08:17 Dose: 1 tab Quetiapine Fumarate (Seroquel) 25 mg PO HS [facility] PRN Reason: Protocol Stop: 10/05/16 20:59 Last Admin: 08/16/16 20:14 Dose: 25 mg
== END 2016-08-17 19:35 | DRG 885 ==
LOC: GERO 20:22
PROVIDERS: ADMIT Psychiatry & Neurology Psychiatry; ATTEND Psychiatry & Neurology Psychiatry
DX: F33.3 Major depressive disorder, recurrent, severe with psychotic symptoms (principal); F29 Unspecified psychosis not due to a substance or known physiological condition; I10 Essential (primary) hypertension; F41.9 Anxiety disorder, unspecified; Z88.8 Allergy status to other drugs, medicaments and biological substances
CPT/HCPCS: 36415-UA; 80053-TC; 82948-90; 83036-90; 84443-TC; 85025-TC; Z7610

== ENCOUNTER 2016-10-09 20:02 | Inpatient (IN) | payer MEDICARE, BC ==
[2016-10-09 20:55] LABS: % BASOPHILS 0.4 % (0.0-2.0); % EOSINOPHILS 3.6 % (0.0-5.0); % LYMPHOCYTES 24.8 % (20.0-50.0); % MONOCYTES 7.1 % (2.0-10.0); % NEUTROPHILS 64.1 % (40.0-80.0); HEMATOCRIT 43.2 % (35.0-45.0); HEMOGLOBIN 14.4 gm/dL (11.7-16.1); MEAN CELL VOLUME 96.2 fl (81-100); MEAN CORPUSCULAR HEMOGLOBIN 32.1 pg (27.0-31.0); MEAN CORPUSCULAR HGB CONC 33.4 pg (28.0-36.0); MEAN PLATELET VOLUME 6.4 fl; NEUTROPHILE ABSOLUTE 5.6 Th/cmm (1.8-8.0); RED BLOOD COUNT 4.49 Mil/cmm (3.80-5.20); RED CELL DISTRIBUTION WIDTH 13.1 % (11.5-20.0); WHITE BLOOD COUNT 8.7 Th/cmm (4.8-10.8)
[2016-10-09 20:56] LABS: PLATELET COUNT 384 Th/cmm (150-400)
[2016-10-09 21:10] LABS: INR 0.91 (0.5-1.4); PROTHROMBIN TIME (TEST) 9.5 SECONDS (9.5-11.5)
[2016-10-09 21:13] LABS: ALB/GLOB RATIO 1.2 (1.0-1.8); ALKALINE PHOSPHATASE 99 U/L (34-104); ANION GAP 10.2 (7.0-16.0); BILIRUBIN,TOTAL 0.3 mg/dL (0.3-1.0); BUN - UREA NITROGEN 27 mg/dL (7-25); BUN/CREATININE RATIO 24.5; CALCIUM SERUM 9.9 mg/dL (8.6-10.3); CARBON DIOXIDE 23.7 mEq/L (21.0-31.0); CHLORIDE 103 mEq/L (98-107); CREATININE - SERUM 1.1 mg/dL (0.6-1.2); GLUCOSE 107 mg/dL (70-105); POTASSIUM SERUM 3.9 mEq/L (3.5-5.1); SGOT 20 U/L (13-39); SGPT/ALT 14 U/L (7-52); SODIUM SERUM 133 mEq/L (136-145)
[2016-10-09 21:14] LABS: CHOLESTEROL 193 mg/dL (<200); TRIGLYCERIDES 86 mg/dL (<150)
--- NOTE | 2016-10-09 21:36 | ED Physician Chart ---
Chief Complaint/HPI - Patient Information Date Seen:: 10/09/16 Time Seen:: 21:40 Chief Complaint:: PSYCHOSIS History of Present Illness:: THIS IS A 76 YO FEMALE WHO IS HERE FOR AN EVALUATION OF HER PSYCHOSIS WITH A CHRONIC COUGH AND INTERMITTENT CONFUSION. SHE CONCERNED ABOUT HER MS DIAGNOSIS. Allergies:: Allergies Allergy/AdvReac Type Severity Reaction Status Date / Time diphenhydramine Allergy Verified 08/05/16 21:24 [From Benadryl] Vitals:: Vital Signs - 8 hr 10/09/16 20:45 Temp 98.4 F HR 89 RR 18 BP 189/113 O2 Sat % 97 Historian:: Patient, Medical Records Review:: Nurse's Note Reviewed, Transfer documents Reviewed Review of Systems - Review of Systems General/Constitutional: No fever, No chills, Weight loss, No weakness, No diaphoresis, No edema, No loss of appetite Skin: No skin lesions, No rash, No bruising Head: Headache, No light-headedness Eyes: No loss of vision, No pain, No diplopia ENT: No earache, No nasal drainage, No sore throat, No tinnitus Neck: No neck pain, No swelling, No thyromegaly, No stiffness, No mass noted Cardio Vascular: No chest pain, No palpitations, No PND, No orthopnea, No edema Pulmonary: No SOB, Cough, No sputum, No wheezing GI: No nausea, No vomiting, No diarrhea, No pain, No melena, No hematochezia, No constipation, No hematemesis G/U: No dysuria, No frequency, No hematuria Musculoskeletal: No bone or joint pain, No back pain, No muscle pain Endocrine: No polyuria, No polydipsia Psychiatric: Prior psych history, Depression, No anxiety, No suicidal ideation Hematopoietic: No bruising, No lymphadenopathy Allergic/Immuno: No urticaria, No angioedema Neurological: No syncope, No focal symptoms, No weakness, No paresthesia, Headache, No seizure, No dizziness, Confusion, No vertigo Past Medical History - Past Medical History Obtainable: Yes Past Medical History: HTN, Dyslipidemia, Dementia Family History: None Social History: Smoker, Alcohol, No Drug Use Surgical History: Hysterectomy, other (BILLATER CATARACT SURGERY) Psychiatricy History: Depression, Dementia Family Medical History - Family Member Father History Unknown: Yes Mother History Unknown: Yes Physical Exam - Physical Examination General/Constitutional: Awake, Well-developed, well-nourished, Alert, No distress, GCS 15, Non-toxic appearing, Ambulatory Head: Atraumatic Eyes: Lids, conjuctiva normal, PERRL, EOMI Skin: Nl inspection, No rash, No skin lesions, No ecchymosis, Well hydrated, No lymphadenopathy ENMT: External ears, nose nl, Nasal exam nl, Lips, teeth, gums nl Neck: Nontender, Full ROM w/o pain, No JVD, No nuchal rigidity, No bruit, No mass, No stridor Respiratory: Nl effort/Exclusion, Clear to Auscultation, No Wheeze/Rhonchi/Rales Cardio Vascular: RRR, No murmur, gallop, rubs, NL S1 S2 GI: No tenderness/rebounding/guarding, No organomegaly, No hernia, Normal BS's, Nondistended, No mass/bruits, No McBurney tenderness : No CVA tenderness Extremities: No tenderness or effusion, Full ROM, normal strength in all extremities, No edema, Normal digits & nails Neuro/Psych: Alert/oriented, DTR's symmetric, Normal sensory exam, Normal motor strength, Normal gait, No focal deficits Other Neuro/Psych comments:: DEPRESSED AND CONFUSED AT TIMES Misc: normal gait, Normal back, No paraspinal tenderness Labs/Radiology/EKG Results - Lab Results Results: Laboratory Tests 10/09/16 10/09/16 10/09/16 20:49 20:49 20:49 WBC 8.7 RBC 4.49 Hgb 14.4 Hct 43.2 MCV 96.2 MCH 32.1 H MCHC Differential 33.4 RDW 13.1 Plt Count 384 D MPV 6.4 Neutrophils % 64.1 Lymphocytes % 24.8 Monocytes % 7.1 Eosinophils % 3.6 Basophils % 0.4 PT 9.5 INR 0.91 PTT (Actin FS) 27.2 Sodium Potassium Chloride Carbon Dioxide Anion Gap BUN Creatinine Est GFR ( Amer) Est GFR (Non-Af Amer) BUN/Creatinine Ratio Glucose Calcium Total Bilirubin AST ALT Alkaline Phosphatase Troponin I Total Protein Albumin Globulin Albumin/Globulin Ratio Triglycerides 86 Cholesterol 193 LDL Cholesterol Direct 109 HDL Cholesterol 64 10/09/16 10/09/16 20:49 20:49 WBC RBC Hgb Hct MCV MCH MCHC Differential RDW Plt Count MPV Neutrophils % Lymphocytes % Monocytes % Eosinophils % Basophils % PT INR PTT (Actin FS) Sodium 133 L Potassium 3.9 Chloride 103 Carbon Dioxide 23.7 Anion Gap 10.2 BUN 27 H Creatinine 1.1 Est GFR ( Amer) TNP Est GFR (Non-Af Amer) TNP BUN/Creatinine Ratio 24.5 Glucose 107 H Calcium 9.9 Total Bilirubin 0.3 AST 20 ALT 14 Alkaline Phosphatase 99 Troponin I 0.02 Total Protein 7.3 Albumin 4.0 Globulin 3.3 Albumin/Globulin Ratio 1.2 Triglycerides Cholesterol LDL Cholesterol Direct HDL Cholesterol - EKG Interpretations EKG Time:: 21:41 Rate & Rhythm: RATE=83 NSR [place]: RIGHT AXIS Assessment - Assessment General Assessment: HYPERTENSION UNCONTROL PSYCHOSIS ED Septic Shock - . Is Septic Shock (SBP<90, OR Lactate>4 mmol\L) present?: No - <6hrs of presentation: Vital Signs: Vital Signs - 8 hr 10/09/16 20:45 Temp 98.4 F HR 89 RR 18 BP 189/113 O2 Sat % 97 Reassessment (Disposition) - Reassessment Reassessment Condition:: Unchanged - Diagnosis Diagnosis:: CHRONIC BRAIN DISEASE CHRONIC LUNG DISEASE ANXIETY REACTION - Aftercare/Follow up Instructions Aftercare/Follow-Up Instructions:: Counseled pt regarding lab results/diagnosis & need follow up, Refer to Discharge Instructions, Counseled pt & family regarding lab results/diagnosis & need follow up - Patient Disposition Discharge/Transfer:: Acute Care w/in this hosp Admitting Medical Physician:: Nishant [place] Admitting Psych Physician:: Ana William Condition at Disposition:: Unchanged ED Discharge Plan - Patient Disposition Admit/Discharge/Transfer: Acute Care w/in this hosp Condition at Disposition: Unchanged Instructions: Psychosis
[2016-10-09 23:40] LABS: URINE BILIRUBIN NEGATIVE (NEGATIVE); URINE BLOOD TRACE (NEGATIVE); URINE GLUCOSE (UA) NEGATIVE (NEGATIVE); URINE KETONE NEGATIVE (NEGATIVE); URINE PROTEIN TRACE mg/dL (NEGATIVE); URINE UROBILINOGEN 0.2 E.U./dL (0.2 - 1.0)
[2016-10-09 23:43] LABS: URINE COLOR YELLOW
[2016-10-09 23:49] LABS: URINE BACTERIA NONE SEEN /hpf (NONE SEEN); URINE EPITHELIAL CELLS NONE SEEN /lpf (FEW); URINE WBC NONE SEEN /hpf (0-5)
[2016-10-10 07:48] VITALS: BP 148/72
--- NOTE | 2016-10-10 08:29 | Diagnostic Imaging Report ---
CHEST X-RAY: AP view INDICATION: Cough COMPARISON: None FINDINGS: Chronic interstitial lung changes are seen with no focal consolidation or effusions. Mild cardiomegaly is noted. Degenerative changes of the spine are noted with scoliosis. Old left lower rib fractures are noted. IMPRESSION: Chronic interstitial lung changes. No focal consolidation identified. Mild cardiomegaly.
[2016-10-10] MEDS ORDERED: Maalox 30 mL Cup PO PRN (08:33)
--- NOTE | 2016-10-10 08:33 | History and Physical ---
History of Present Illness - HPI Chief Complaint: Increased in agitation HPI: Patient is a permanent resident of a detention and send foe psychiatic eval, but in ER was found uncontrolled HTN and was send to Med/surg floor. Vital Signs: Last Vital Signs Temp 97.5 F 10/10/16 05:00 Pulse 76 10/10/16 05:00 Resp 18 10/10/16 05:00 BP 148/72 10/10/16 07:47 Pulse Ox 96 10/10/16 05:00 Past Medical History Cardiovascular: Report: CAD, HTN Pulmonary: Report: No Pertinent Hx [employer]: Report: Dementia GI: Report: No Pertinent Hx Psych: Report: Anxiety, Psychosis Musculoskeletal: Report: Osteoarthritis Rheumatologic: Report: No pertinent Hx Infectious Disease: Report: No Pertinent Hx Renal/: Report: No Pertinent Hx Endocrine: Report: No Pertinent Hx Dermatology: Report: No Pertinent Hx - Past Surgical History Past Surgical History: No pertinent Hx Family Medical History - Family Member Father History Unknown: Yes Ethnicity: Unknown Living Status: Unknown Hx Family Cancer: (UNKNOWN) Hx Family Coronary Artery Disease: (UNKNOWN) Hx Family Congestive Heart Failure: (UNKNOWN) Hx Family Hypertension: (UNKNOWN) Hx Family Stroke: (UNKNOWN) Hx Family Diabetes: (UNKNOWN) Hx Family Seizures: (UNKNOWN) Hx Family Dementia: (UNKNOWN) Hx Family AIDS: (UNKNOWN) Hx Family COPD: (UNKNOWN) Hx Family Hepatitis: (UNKNOWN) Hx Family Psychiatric Problems: (UNKNOWN) Hx Family Tuberculosis: (UNKNOWN) Other Medical History: UNKNOWN Mother History Unknown: Yes Ethnicity: Unknown Living Status: Unknown Hx Family Cancer: (UNKNOWN) Hx Family Coronary Artery Disease: (UNKNOWN) Hx Family Congestive Heart Failure: (UNKNOWN) Hx Family Hypertension: (UNKNOWN) Hx Family Stroke: (UNKNOWN) Hx Family Diabetes: (UNKNOWN) Hx Family Seizures: (UNKNOWN) Hx Family Dementia: (UNKNOWN) Hx Family AIDS: (UNKNOWN) Hx Family COPD: (UNKNOWN) Hx Family Hepatitis: (UNKNOWN) Hx Family Psychiatric Problems: (UNKNOWN) Hx Family Tuberculosis: (UNKNOWN) Other Medical History: UNKNOWN Social History Smoke: No Alcohol: None Drugs: None Lives: [facility] Domestic Violence: Negative - Medications Home Medications: Home Medication Medication Instructions Recorded Type Acetaminophen [Tylenol] 650 mg PO Q6H PRN tab 08/17/16 Rx Al Hyd/Mg Hyd/Simethicone [Maalox] 30 ml PO Q6H PRN udc 08/17/16 Rx Aspirin [Aspirin Chewable] 81 mg PO DAILY ctb 08/17/16 Rx Carvedilol [Coreg] 6.25 mg PO BID tab 08/17/16 Rx Lisinopril [Zestril] 20 mg PO DAILY tab 08/17/16 Rx Lorazepam [Ativan] 0.5 mg PO Q4HR PRN tab 08/17/16 Rx Magnesium Hydroxide [Milk of 30 ml PO HS PRN c 08/17/16 Rx Magnesia] Multivitamin [Theragran] 1 tab PO DAILY tab 08/17/16 Rx amLODIPine Besylate [Norvasc*] 10 mg PO DAILY tab 08/17/16 Rx Melatonin/Pyridoxine [Pharmassure 1 tab PO DAILY 10/10/16 History Melatonin 3 mg-2 mg] Polyvinyl Alcohol Ophth Soln 1 drop EACH EYE BID 10/10/16 History [Artificial Tears Ophth Soln*] QUEtiapine Fumarate [SEROquel] 100 mg PO HS 10/10/16 History - Allergies Allergies/Adverse Reactions: Allergies Allergy/AdvReac Type Severity Reaction Status Date / Time diphenhydramine Allergy Verified 08/05/16 21:24 [From Benadryl] Review of Systems - Review of Systems Constitutional: Report: No Significant Eyes: Report: No Significant ENT: Report: No Significant Respiratory: Report: No Significant Cardiovascular: Report: No Significant Gastrointestinal: Report: No Significant Genitourinary: Report: No Significant Musculoskeletal: Report: No Significant Skin: Report: No Significant Neurological: Report: No Significant Physical Exam - Physical Exam HEENT: Report: Ears Nose Throat within normal limits Neck: Report: Within normal limits Cardiovascular Systems: Report: Regular, Rate and Rhythm Respiratory: Report: Breath Sounds are within normal limits Abdomen: Report: Non-tender to palpation Back: Report: Inspection of back is within normal limits. Extremities: Report: Non-tender to palpation. Skin: Report: Color of skin is within normal limits Neuro/Psych: Report: Disoriented to name time or place - Lab Results All Lab Results last 24 hours: Laboratory Last Values WBC 8.7 Th/cmm (4.8-10.8) 10/09/16 20:49 RBC 4.49 Mil/cmm (3.80-5.20) 10/09/16 20:49 Hgb 14.4 gm/dL (11.7-16.1) 10/09/16 20:49 Hct 43.2 % (35.0-45.0) 10/09/16 20:49 MCV 96.2 fl (81-100) 10/09/16 20:49 MCH 32.1 pg (27.0-31.0) H 10/09/16 20:49 MCHC Differential 33.4 pg (28.0-36.0) 10/09/16 20:49 RDW 13.1 % (11.5-20.0) 10/09/16 20:49 Plt Count 384 Th/cmm (150-400) D 10/09/16 20:49 MPV 6.4 fl 10/09/16 20:49 Neutrophils % 64.1 % (40.0-80.0) 10/09/16 20:49 Lymphocytes % 24.8 % (20.0-50.0) 10/09/16 20:49 Monocytes % 7.1 % (2.0-10.0) 10/09/16 20:49 Eosinophils % 3.6 % (0.0-5.0) 10/09/16 20:49 Basophils % 0.4 % (0.0-2.0) 10/09/16 20:49 PT 9.5 SECONDS (9.5-11.5) 10/09/16 20:49 INR 0.91 (0.5-1.4) 10/09/16 20:49 PTT (Actin FS) 27.2 SECONDS (26.0-38.0) 10/09/16 20:49 Sodium 133 mEq/L (136-145) L 10/09/16 20:49 Potassium 3.9 mEq/L (3.5-5.1) 10/09/16 20:49 Chloride 103 mEq/L (98-107) 10/09/16 20:49 Carbon Dioxide 23.7 mEq/L (21.0-31.0) 10/09/16 20:49 Anion Gap 10.2 (7.0-16.0) 10/09/16 20:49 BUN 27 mg/dL (7-25) H 10/09/16 20:49 Creatinine 1.1 mg/dL (0.6-1.2) 10/09/16 20:49 Est GFR ( Amer) TNP 10/09/16 20:49 Est GFR (Non-Af Amer) TNP 10/09/16 20:49 BUN/Creatinine Ratio 24.5 10/09/16 20:49 Glucose 107 mg/dL (70-105) H 10/09/16 20:49 Calcium 9.9 mg/dL (8.6-10.3) 10/09/16 20:49 Total Bilirubin 0.3 mg/dL (0.3-1.0) 10/09/16 20:49 AST 20 U/L (13-39) 10/09/16 20:49 ALT 14 U/L (7-52) 10/09/16 20:49 Alkaline Phosphatase 99 U/L (34-104) 10/09/16 20:49 Troponin I 0.02 ng/mL (0.01-0.05) 10/09/16 20:49 Total Protein 7.3 gm/dL (6.0-8.3) 10/09/16 20:49 Albumin 4.0 gm/dL (3.7-5.3) 10/09/16 20:49 Globulin 3.3 gm/dL 10/09/16 20:49 Albumin/Globulin Ratio 1.2 (1.0-1.8) 10/09/16 20:49 Triglycerides 86 mg/dL (<150) 10/09/16 20:49 Cholesterol 193 mg/dL (<200) 10/09/16 20:49 LDL Cholesterol Direct 109 mg/dL (75-193) 10/09/16 20:49 HDL Cholesterol 64 mg/dL (23-92) 10/09/16 20:49 TSH 1.08 uIU/ml (0.34-5.60) 10/09/16 20:49 Urine Source CLEAN C 10/09/16 21:22 Urine Color YELLOW 10/09/16 21:22 Urine Clarity CLEAR (CLEAR) 10/09/16 21:22 Urine pH 6.0 (4.6 - 8.0) 10/09/16 21:22 Ur Specific [place] 1.010 (1.005-1.030) 10/09/16 21:22 Urine Protein TRACE mg/dL (NEGATIVE) 10/09/16 21:22 Urine Glucose (UA) NEGATIVE mg/dL (NEGATIVE) 10/09/16 21:22 Urine Ketones NEGATIVE mg/dL (NEGATIVE) 10/09/16 21:22 Urine Blood TRACE (NEGATIVE) 10/09/16 21: Urine Nitrate NEGATIVE (NEGATIVE) 10/09/16 21:22 Urine Bilirubin NEGATIVE (NEGATIVE) 10/09/16 21:22 Urine Urobilinogen 0.2 E.U./dL (0.2 - 1.0) 10/09/16 21:22 Ur Leukocyte Esterase NEGATIVE (NEGATIVE) 10/09/16 21:22 Urine RBC 2-5 /hpf (0-5) 10/09/16 21:22 Urine WBC NONE SEEN /hpf (0-5) 10/09/16 21:22 Ur Epithelial Cells NONE SEEN /lpf (FEW) 10/09/16 21:22 Urine Bacteria NONE SEEN /hpf (NONE SEEN) 10/09/16 21:22 - Assessment Assessment: Patient is awake, alert, calm, in no acute distress, BP better control. Dx: Uncontrolled HTN, Dyslipemia, Increased in agitation, Dementia, Psychosis. - Plan Plan: patient on clonidine PRN, continue with SNF meds, Consult with Psychiatry requested.
--- NOTE | 2016-10-10 08:50 | Diagnostic Imaging Report ---
Head CT without intravenous contrast Indication: Headache and cough Comparison: None Technique: Axial images were obtained from the vertex to the skull base without IV contrast. Coronal reconstructions were made. Total DLP: 614, CTDI33.4 FINDINGS: Images of the brain obtained without contrast demonstrate no evidence of an acute hemorrhage. Atrophy is noted. Severe white matter disease is noted. Encephalomalacia of the right occipital lobe is noted. Small infarct of the left thalamus is noted. The osseous structures demonstrate no acute abnormalities. The paranasal sinuses are clear. Atherosclerosis is noted. IMPRESSION: No evidence of acute intracranial hemorrhage. Diffuse supratentorial white matter disease which is nonspecific and may be due to chronic microvessel ischemia. Encephalomalacia of the right occipital lobe likely sequela of old infarct. Small infarct of the left thalamus, age indeterminate. Atherosclerotic vascular disease. If indicated follow MRI may also be obtained.
--- NOTE | 2016-10-10 08:54 | Diagnostic Imaging Report ---
CT Chest without IV contrast HISTORY: Cough COMPARISON: Chest x-ray earlier the same day. Technique: Axial images were obtained from the base of the neck to the upper abdomen without IV contrast. Reconstructions were made. Total DLP 163, CTD I 4.6 Findings: Evaluation of mediastinum is limited due to lack of IV contrast. Ectatic aorta is noted with ascending aorta measuring up to 4 cm. Diffuse atherosclerotic vascular disease noted. Heart size normal. No evidence of pericardial effusion. There is a small hiatal hernia. Evaluation of lung galvez demonstrate chronic interstitial lung changes with areas of fibrosis. Few peripheral subpleural bulla are noted primarily involving the right upper lobe. No focal consolidation or effusions. The upper abdomen demonstrates atherosclerotic vascular disease. Advanced degenerative changes of the spine are noted with age indeterminate mild compression fracture of L1. No evidence of retropulsion. IMPRESSION: Chronic lung changes with areas of fibrosis. No focal consolidation or pleural effusions. Peripheral bullous changes are seen primarily along the right upper lobe. Diffuse atherosclerosis with ectatic aorta with acing aorta measuring up to 4 cm. Small hiatal hernia. Mild compression fracture of L1, age indeterminate.
[2016-10-10] MEDS ORDERED: Non-Formulary Item 1 EA (Melatonin/Pyridoxine [Melatonin 3 Mg Tablet] 1 TAB) PO SCH (09:00)
[2016-10-10] MEDS: Multivitamin Tab PO SCH (09:04)
[2016-10-10] MEDS: Aspirin 81mg Chewable Tab PO SCH (09:04)
[2016-10-10] MEDS: Sodium Chloride 0.9% 1,000 ML IV SCH ×2 (10:34→22:13)
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
[2016-10-10] MEDS ORDERED: VTE Chemical Prophylaxis Screen/Admission MC PRN (12:00)
[2016-10-11] MEDS: Multivitamin Tab PO SCH (09:23)
[2016-10-11] MEDS: Aspirin 81mg Chewable Tab PO SCH (09:23)
--- NOTE | 2016-10-11 09:37 | General Progress Note ---
Subjective - Review of Systems Service Date: 10/11/16 Subjective: I am confused Objective - Results Result Diagrams: 10/09/16 20:49 10/09/16 20:49 Recent Labs: Laboratory Last Values WBC 8.7 Th/cmm (4.8-10.8) 10/09/16 20:49 RBC 4.49 Mil/cmm (3.80-5.20) 10/09/16 20:49 Hgb 14.4 gm/dL (11.7-16.1) 10/09/16 20:49 Hct 43.2 % (35.0-45.0) 10/09/16 20:49 MCV 96.2 fl (81-100) 10/09/16 20:49 MCH 32.1 pg (27.0-31.0) H 10/09/16 20:49 MCHC Differential 33.4 pg (28.0-36.0) 10/09/16 20:49 RDW 13.1 % (11.5-20.0) 10/09/16 20:49 Plt Count 384 Th/cmm (150-400) D 10/09/16 20:49 MPV 6.4 fl 10/09/16 20:49 Neutrophils % 64.1 % (40.0-80.0) 10/09/16 20:49 Lymphocytes % 24.8 % (20.0-50.0) 10/09/16 20:49 Monocytes % 7.1 % (2.0-10.0) 10/09/16 20:49 Eosinophils % 3.6 % (0.0-5.0) 10/09/16 20:49 Basophils % 0.4 % (0.0-2.0) 10/09/16 20:49 PT 9.5 SECONDS (9.5-11.5) 10/09/16 20:49 INR 0.91 (0.5-1.4) 10/09/16 20:49 PTT (Actin FS) 27.2 SECONDS (26.0-38.0) 10/09/16 20:49 Sodium 133 mEq/L (136-145) L 10/09/16 20:49 Potassium 3.9 mEq/L (3.5-5.1) 10/09/16 20:49 Chloride 103 mEq/L (98-107) 10/09/16 20:49 Carbon Dioxide 23.7 mEq/L (21.0-31.0) 10/09/16 20:49 Anion Gap 10.2 (7.0-16.0) 10/09/16 20:49 BUN 27 mg/dL (7-25) H 10/09/16 20:49 Creatinine 1.1 mg/dL (0.6-1.2) 10/09/16 20:49 Est GFR ( Amer) TNP 10/09/16 20:49 Est GFR (Non-Af Amer) TNP 10/09/16 20:49 BUN/Creatinine Ratio 24.5 10/09/16 20:49 Glucose 107 mg/dL (70-105) H 10/09/16 20:49 Calcium 9.9 mg/dL (8.6-10.3) 10/09/16 20:49 Total Bilirubin 0.3 mg/dL (0.3-1.0) 10/09/16 20:49 AST 20 U/L (13-39) 10/09/16 20:49 ALT 14 U/L (7-52) 10/09/16 20:49 Alkaline Phosphatase 99 U/L (34-104) 10/09/16 20:49 Troponin I 0.02 ng/mL (0.01-0.05) 10/09/16 20:49 Total Protein 7.3 gm/dL (6.0-8.3) 10/09/16 20:49 Albumin 4.0 gm/dL (3.7-5.3) 10/09/16 20:49 Globulin 3.3 gm/dL 10/09/16 20:49 Albumin/Globulin Ratio 1.2 (1.0-1.8) 10/09/16 20:49 Triglycerides 86 mg/dL (<150) 10/09/16 20:49 Cholesterol 193 mg/dL (<200) 10/09/16 20:49 LDL Cholesterol Direct 109 mg/dL (75-193) 10/09/16 20:49 HDL Cholesterol 64 mg/dL (23-92) 10/09/16 20:49 TSH 1.08 uIU/ml (0.34-5.60) 10/09/16 20:49 Urine Source CLEAN C 10/09/16 21:22 Urine Color YELLOW 10/09/16 21:22 Urine Clarity CLEAR (CLEAR) 10/09/16 21:22 Urine pH 6.0 (4.6 - 8.0) 10/09/16 21:22 Ur Specific [place] 1.010 (1.005-1.030) 10/09/16 21:22 Urine Protein TRACE mg/dL (NEGATIVE) 10/09/16 21:22 Urine Glucose (UA) NEGATIVE mg/dL (NEGATIVE) 10/09/16 21:22 Urine Ketones NEGATIVE mg/dL (NEGATIVE) 10/09/16 21:22 Urine Blood TRACE (NEGATIVE) 10/09/16 21:22 Urine Nitrate NEGATIVE (NEGATIVE) 10/09/16 21:22 Urine Bilirubin NEGATIVE (NEGATIVE) 10/09/16 21:22 Urine Urobilinogen 0.2 E.U./dL (0.2 - 1.0) 10/09/16 21:22 Ur Leukocyte Esterase NEGATIVE (NEGATIVE) 10/09/16 21:22 Urine RBC 2-5 /hpf (0-5) 10/09/16 21:22 Urine WBC NONE SEEN /hpf (0-5) 10/09/16 21:22 Ur Epithelial Cells NONE SEEN /lpf (FEW) 10/09/16 21:22 Urine Bacteria NONE SEEN /hpf (NONE SEEN) 10/09/16 21:22 RPR NONREACTIVE (NONREACTIVE) 10/09/16 20:49 - Physical Exam Vitals and I&O: Vital Signs Temp 98.4 F 10/11/16 04:00 Pulse 75 10/11/16 09:23 Resp 18 10/11/16 04:00 BP 159/96 10/11/16 09:23 Pulse Ox 95 10/11/16 04:00 Intake & Output 10/10/16 10/11/16 10/11/16 18:59 06:59 18:59 Intake Total 1850 873.75 Balance 1850 873.75 Weight (lbs) 63.957 kg 70.534 kg Intake: Intake, IV Amount 873.75 Sodium Chloride 0.9% 1, 873.75 000 ml @ 75 mls/hr IV . [id number] [facility] Rx#:[id number] Oral 1850 Other: # Voids 4 4 # Bowel Movements 0 Active Medications: Current Medications Acetaminophen (Tylenol) 650 mg PO Q6H PRN PRN Reason: mild-moderate pain and T101 F Stop: 12/09/16 01:16 Al Hydrox/Mg Hydrox/Simethicone (Maalox) 30 ml PO Q6H PRN PRN Reason: Dyspepsia Stop: 12/09/16 08:32 Amlodipine Besylate (Norvasc) 10 mg PO DAILY [facility] Stop: 12/09/16 08:59 Last Admin: 10/11/16 09:23 Dose: 10 mg Aspirin (Aspirin Chewable) 81 mg PO DAILY [facility] Stop: 12/09/16 08:59 Last Admin: 10/11/16 09:23 Dose: 81 mg Carvedilol (Coreg) 6.25 mg PO BID [facility] Stop: 12/09/16 08:59 Last Admin: 10/11/16 09:23 Dose: 6.25 mg Donepezil HCl (Aricept) 5 mg PO HS [facility] Stop: 12/09/16 20:59 Last Admin: 10/10/16 21:38 Dose: 5 mg Heparin Sodium (Porcine) (Heparin) 5,000 units SUBQ Q12HR [facility] Stop: 12/09/16 20:59 Last Admin: 10/11/16 09:26 Dose: 5,000 units Sodium Chloride (Nacl 0.9%) 1,000 mls @ 75 mls/hr IV .[id number] [facility] Stop: 12/09/16 08:52 Last Admin: 10/10/16 22:13 Dose: 75 mls/hr Lisinopril (Zestril) 40 mg PO DAILY [facility] Stop: 12/09/16 08:59 Lorazepam (Ativan) 0.5 mg PO Q8H PRN; Protocol PRN Reason: Anxiety Stop: 12/09/16 01:16 Last Admin: 10/10/16 14:28 Dose: 0.5 mg Memantine (Namenda) 5 mg PO DAILY [facility] Stop: 12/09/16 08:59 Last Admin: 10/11/16 09:23 Dose: 5 mg Miscellaneous (Vte Chemical Prophylaxis Screen/ Admission) 1 ea [facility] PRN PRN PRN Reason: PROTOCOL Stop: 12/09/16 11:59 Multivitamins/Vitamin C (Theragran) 1 tab PO DAILY [facility] Stop: 12/09/16 08:59 Last Admin: 10/11/16 09:23 Dose: 1 tab Quetiapine Fumarate (Seroquel) 125 mg PO HS [facility] PRN Reason: Protocol Stop: 12/10/16 06:46 General: Alert, Other (Confused not oriented) HEENT: Atraumatic Neck: Supple Cardiovascular: Regular rate Lungs: Clear to auscultation Abdomen: Bowel sounds, Soft Extremities: Other (No edema) Neurological: Other (Unstable gait) Skin: Other (Warm and dry) Psych/Mental Status: Other (Awake, confused, not oriented.) Assessment/Plan - Problem List Patient Problems: All Active Problems Confusion (Acute) R41.0 - Assessment Assessment: Patient is awake, alert, calm, in no acute distress, BP not in control. Dx: Uncontrolled HTN, Dyslipemia, Increased in agitation, Dementia, Psychosis. - Plan Plan: patient on clonidine PRN, continue with SNF meds, Consult with Psychiatry requested. Will continue to monitor.
[2016-10-11] MEDS: Sodium Chloride 0.9% 1,000 ML IV SCH (12:00)
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
[2016-10-12] MEDS: Sodium Chloride 0.9% 1,000 ML IV SCH ×2 (01:08→14:19)
[2016-10-12 05:57] LABS: % BASOPHILS 0.5 % (0.0-2.0); % EOSINOPHILS 4.9 % (0.0-5.0); % MONOCYTES 7.7 % (2.0-10.0); % NEUTROPHILS 57.9 % (40.0-80.0); HEMOGLOBIN 12.9 gm/dL (11.7-16.1); MEAN CELL VOLUME 94.8 fl (81-100); MEAN CORPUSCULAR HEMOGLOBIN 31.6 pg (27.0-31.0); MEAN CORPUSCULAR HGB CONC 33.3 pg (28.0-36.0); MEAN PLATELET VOLUME 6.4 fl; NEUTROPHILE ABSOLUTE 4.8 Th/cmm (1.8-8.0); PLATELET COUNT 308 Th/cmm (150-400); RED BLOOD COUNT 4.07 Mil/cmm (3.80-5.20); RED CELL DISTRIBUTION WIDTH 13.2 % (11.5-20.0); WHITE BLOOD COUNT 8.1 Th/cmm (4.8-10.8)
[2016-10-12 06:12] LABS: HEMATOCRIT 38.6 % (35.0-45.0)
[2016-10-12 06:25] LABS: ALB/GLOB RATIO 1.2 (1.0-1.8); ALKALINE PHOSPHATASE 87 U/L (34-104); BILIRUBIN,TOTAL 0.4 mg/dL (0.3-1.0); BUN - UREA NITROGEN 27 mg/dL (7-25); CALCIUM SERUM 9.3 mg/dL (8.6-10.3); CARBON DIOXIDE 20.1 mEq/L (21.0-31.0); CHLORIDE 110 mEq/L (98-107); GLUCOSE 101 mg/dL (70-105); POTASSIUM SERUM 4.1 mEq/L (3.5-5.1); SGOT 20 U/L (13-39); SGPT/ALT 11 U/L (7-52); SODIUM SERUM 137 mEq/L (136-145)
[2016-10-12] MEDS: Multivitamin Tab PO SCH (08:15)
[2016-10-12] MEDS: Aspirin 81mg Chewable Tab PO SCH (08:15)
--- NOTE | 2016-10-12 10:59 | General Progress Note ---
Subjective - Review of Systems Service Date: 10/12/16 Subjective: I can not sleep. Objective - Results Result Diagrams: 10/12/16 05:19 10/12/16 05:19 Recent Labs: Laboratory Last Values WBC 8.1 Th/cmm (4.8-10.8) 10/12/16 05:19 RBC 4.07 Mil/cmm (3.80-5.20) 10/12/16 05:19 Hgb 12.9 gm/dL (11.7-16.1) 10/12/16 05:19 Hct 38.6 % (35.0-45.0) D 10/12/16 05:19 MCV 94.8 fl (81-100) 10/12/16 05:19 MCH 31.6 pg (27.0-31.0) H 10/12/16 05:19 MCHC Differential 33.3 pg (28.0-36.0) 10/12/16 05:19 RDW 13.2 % (11.5-20.0) 10/12/16 05:19 Plt Count 308 Th/cmm (150-400) 10/12/16 05:19 MPV 6.4 fl 10/12/16 05:19 Neutrophils % 57.9 % (40.0-80.0) 10/12/16 05:19 Lymphocytes % 29.0 % (20.0-50.0) 10/12/16 05:19 Monocytes % 7.7 % (2.0-10.0) 10/12/16 05:19 Eosinophils % 4.9 % (0.0-5.0) 10/12/16 05:19 Basophils % 0.5 % (0.0-2.0) 10/12/16 05:19 PT 9.5 SECONDS (9.5-11.5) 10/09/16 20:49 INR 0.91 (0.5-1.4) 10/09/16 20:49 PTT (Actin FS) 27.2 SECONDS (26.0-38.0) 10/09/16 20:49 Sodium 137 mEq/L (136-145) 10/12/16 05:19 Potassium 4.1 mEq/L (3.5-5.1) 10/12/16 05:19 Chloride 110 mEq/L (98-107) H 10/12/16 05:19 Carbon Dioxide 20.1 mEq/L (21.0-31.0) L 10/12/16 05:19 Anion Gap 11.0 (7.0-16.0) 10/12/16 05:19 BUN 27 mg/dL (7-25) H 10/12/16 05:19 Creatinine 1.0 mg/dL (0.6-1.2) 10/12/16 05:19 Est GFR ( Amer) TNP 10/12/16 05:19 Est GFR (Non-Af Amer) TNP 10/12/16 05:19 BUN/Creatinine Ratio 27.0 10/12/16 05:19 Glucose 101 mg/dL (70-105) 10/12/16 05:19 Calcium 9.3 mg/dL (8.6-10.3) 10/12/16 05:19 Total Bilirubin 0.4 mg/dL (0.3-1.0) 10/12/16 05:19 AST 20 U/L (13-39) 10/12/16 05:19 ALT 11 U/L (7-52) 10/12/16 05:19 Alkaline Phosphatase 87 U/L (34-104) 10/12/16 05:19 Troponin I 0.02 ng/mL (0.01-0.05) 10/09/16 20:49 Total Protein 6.0 gm/dL (6.0-8.3) 10/12/16 05:19 Albumin 3.3 gm/dL (3.7-5.3) L 10/12/16 05:19 Globulin 2.7 gm/dL 10/12/16 05:19 Albumin/Globulin Ratio 1.2 (1.0-1.8) 10/12/16 05:19 Triglycerides 86 mg/dL (<150) 10/09/16 20:49 Cholesterol 193 mg/dL (<200) 10/09/16 20:49 LDL Cholesterol Direct 109 mg/dL (75-193) 10/09/16 20:49 HDL Cholesterol 64 mg/dL (23-92) 10/09/16 20:49 TSH 1.08 uIU/ml (0.34-5.60) 10/09/16 20:49 Urine Source CLEAN C 10/09/16 21:22 Urine Color YELLOW 10/09/16 21:22 Urine Clarity CLEAR (CLEAR) 10/09/16 21:22 Urine pH 6.0 (4.6 - 8.0) 10/09/16 21:22 Ur Specific [place] 1.010 (1.005-1.030) 10/09/16 21:22 Urine Protein TRACE mg/dL (NEGATIVE) 10/09/16 21:22 Urine Glucose (UA) NEGATIVE mg/dL (NEGATIVE) 10/09/16 21:22 Urine Ketones NEGATIVE mg/dL (NEGATIVE) 10/09/16 21:22 Urine Blood TRACE (NEGATIVE) 10/09/16 21:22 Urine Nitrate NEGATIVE (NEGATIVE) 10/09/16 21: Urine Bilirubin NEGATIVE (NEGATIVE) 10/09/16 21:22 Urine Urobilinogen 0.2 E.U./dL (0.2 - 1.0) 10/09/16 21:22 Ur Leukocyte Esterase NEGATIVE (NEGATIVE) 10/09/16 21:22 Urine RBC 2-5 /hpf (0-5) 10/09/16 21:22 Urine WBC NONE SEEN /hpf (0-5) 10/09/16 21:22 Ur Epithelial Cells NONE SEEN /lpf (FEW) 10/09/16 21:22 Urine Bacteria NONE SEEN /hpf (NONE SEEN) 10/09/16 21:22 RPR NONREACTIVE (NONREACTIVE) 10/09/16 20:49 - Physical Exam Vitals and I&O: Vital Signs Temp 97.8 F 10/12/16 08:00 Pulse 79 10/12/16 08:16 Resp 18 10/12/16 08:00 BP 151/79 10/12/16 08:16 Pulse Ox 95 10/12/16 08:00 Intake & Output 10/11/16 10/12/16 10/12/16 18:59 06:59 18:59 Intake Total 2850 985 Balance 2850 985 Weight (lbs) 70.534 kg 72.303 kg Intake: Intake, IV Amount 1000 985 Sodium Chloride 0.9% 1, 1000 985 000 ml @ 75 mls/hr IV . [id number] [facility] Rx#:[id number] Oral 1850 Other: # Voids 4 4 # Bowel Movements 0 Active Medications: Current Medications Acetaminophen (Tylenol) 650 mg PO Q6H PRN PRN Reason: mild-moderate pain and T101 F Stop: 12/09/16 01:16 Last Admin: 10/12/16 09:42 Dose: 650 mg Al Hydrox/Mg Hydrox/Simethicone (Maalox) 30 ml PO Q6H PRN PRN Reason: Dyspepsia Stop: 12/09/16 08:32 Amlodipine Besylate (Norvasc) 10 mg PO DAILY [facility] Stop: 12/09/16 08:59 Last Admin: 10/12/16 08:15 Dose: 10 mg Aspirin (Aspirin Chewable) 81 mg PO DAILY [facility] Stop: 12/09/16 08:59 Last Admin: 10/12/16 08:15 Dose: 81 mg Carvedilol (Coreg) 6.25 mg PO BID [facility] Stop: 12/09/16 08:59 Last Admin: 10/12/16 08:16 Dose: 6.25 mg Donepezil HCl (Aricept) 5 mg PO HS [facility] Stop: 12/09/16 20:59 Last Admin: 10/11/16 20:46 Dose: 5 mg Heparin Sodium (Porcine) (Heparin) 5,000 units SUBQ Q12HR [facility] Stop: 12/09/16 20:59 Last Admin: 10/12/16 08:15 Dose: 5,000 units Sodium Chloride (Nacl 0.9%) 1,000 mls @ 75 mls/hr IV .[id number] [facility] Stop: 12/09/16 08:52 Last Admin: 10/12/16 01:08 Dose: 75 mls/hr Lisinopril (Zestril) 40 mg PO DAILY [facility] Stop: 12/09/16 08:59 Last Admin: 10/12/16 08:16 Dose: 40 mg Lorazepam (Ativan) 0.5 mg PO Q8H PRN; Protocol PRN Reason: Anxiety Stop: 12/09/16 01:16 Last Admin: 10/12/16 01:04 Dose: 0.5 mg Memantine (Namenda) 5 mg PO DAILY [facility] Stop: 12/09/16 08:59 Last Admin: 10/12/16 08:15 Dose: 5 mg Miscellaneous (Vte Chemical Prophylaxis Screen/ Admission) 1 ea [facility] PRN PRN PRN Reason: PROTOCOL Stop: 12/09/16 11:59 Multivitamins/Vitamin C (Theragran) 1 tab PO DAILY [facility] Stop: 12/09/16 08:59 Last Admin: 10/12/16 08:15 Dose: 1 tab Quetiapine Fumarate (Seroquel) 125 mg PO HS [facility] PRN Reason: Protocol Stop: 12/10/16 06:46 Last Admin: 10/11/16 20:45 Dose: 125 mg General: Alert, Other (Confused not oriented) HEENT: Atraumatic Neck: Supple Cardiovascular: Regular rate Lungs: Clear to auscultation Abdomen: Bowel sounds, Soft Extremities: Other (No edema) Neurological: Other (Unstable gait) Skin: Other (Warm and dry) Psych/Mental Status: Other (Awake, confused, not oriented.) Assessment/Plan - Problem List Patient Problems: All Active Problems Confusion (Acute) R41.0 - Assessment Assessment: Patient is awake, alert, calm, in no acute distress, BP in control. She refer she is not sleeping. Dx: Uncontrolled HTN, Dyslipemia, Increased in agitation, Dementia, Psychosis. - Plan Plan: patient on clonidine PRN, continue with SNF meds, Consult with Psychiatry requested. Will continue to monitor.
[2016-10-13] MEDS: Multivitamin Tab PO SCH (08:51)
[2016-10-13] MEDS: Aspirin 81mg Chewable Tab PO SCH (08:51)
--- NOTE | 2016-10-13 08:52 | Discharge Summary ---
General Discharge Summary - Discharge Summary Date of Admission: 10/09/16 Admitting Diagnosis: Uncontrolled Hypertension, Increased in agitation, Psychosis, Dementia Patient Problems: All Active Problems Confusion (Acute) R41.0 Discharge Date: 10/13/16 Discharge Diagnosis: Uncontrolled hypertension, Increased in agitation, Psychosis, dementia Laboratory Findings: Laboratory Tests 10/12/16 10/12/16 05:19 05:19 WBC 8.1 RBC 4.07 Hgb 12.9 Hct 38.6 D MCV 94.8 MCH 31.6 H MCHC Differential 33.3 RDW 13.2 Plt Count 308 MPV 6.4 Neutrophils % 57.9 Lymphocytes % 29.0 Monocytes % 7.7 Eosinophils % 4.9 Basophils % 0.5 Sodium 137 Potassium 4.1 Chloride 110 H Carbon Dioxide 20.1 L Anion Gap 11.0 BUN 27 H Creatinine 1.0 Est GFR ( Amer) TNP Est GFR (Non-Af Amer) TNP BUN/Creatinine Ratio 27.0 Glucose 101 Calcium 9.3 Total Bilirubin 0.4 AST 20 ALT 11 Alkaline Phosphatase 87 Total Protein 6.0 Albumin 3.3 L Globulin 2.7 Albumin/Globulin Ratio 1.2 Condition at Discharge: Stable Disposition: Discharge/Transfered to SNF Home Medications: Home Medication Medication Instructions Recorded Type Acetaminophen [Tylenol] 650 mg PO Q6H PRN tab 08/17/16 Rx Al Hyd/Mg Hyd/Simethicone [Maalox] 30 ml PO Q6H PRN c 08/17/16 Rx Aspirin [Aspirin Chewable] 81 mg PO DAILY [facility] 08/17/16 Rx Carvedilol [Coreg] 6.25 mg PO BID tab 08/17/16 Rx Lisinopril [Zestril] 20 mg PO DAILY tab 08/17/16 Rx Lorazepam [Ativan] 0.5 mg PO Q4HR PRN tab 08/17/16 Rx Magnesium Hydroxide [Milk of 30 ml PO HS PRN [facility] 08/17/16 Rx Magnesia] Multivitamin [Theragran] 1 tab PO DAILY tab 08/17/16 Rx amLODIPine Besylate [Norvasc*] 10 mg PO DAILY tab 08/17/16 Rx Melatonin/Pyridoxine [Pharmassure 1 tab PO DAILY 10/10/16 History Melatonin 3 mg-2 mg] Polyvinyl Alcohol Ophth Soln 1 drop EACH EYE BID 10/10/16 History [Artificial Tears Ophth Soln*] QUEtiapine Fumarate [SEROquel] 100 mg PO HS 10/10/16 History Inpatient Medications: Current Medications Acetaminophen (Tylenol) 650 mg PO Q6H PRN PRN Reason: mild-moderate pain and T101 F Stop: 12/09/16 01:16 Last Admin: 10/12/16 09:42 Dose: 650 mg Al Hydrox/Mg Hydrox/Simethicone (Maalox) 30 ml PO Q6H PRN PRN Reason: Dyspepsia Stop: 12/09/16 08:32 Amlodipine Besylate (Norvasc) 10 mg PO DAILY [facility] Stop: 12/09/16 08:59 Last Admin: 10/12/16 08:15 Dose: 10 mg Aspirin (Aspirin Chewable) 81 mg PO DAILY [facility] Stop: 12/09/16 08:59 Last Admin: 10/12/16 08:15 Dose: 81 mg Carvedilol (Coreg) 6.25 mg PO BID [facility] Stop: 12/09/16 08:59 Last Admin: 10/12/16 16:50 Dose: 6.25 mg Donepezil HCl (Aricept) 5 mg PO HS [facility] Stop: 12/09/16 20:59 Last Admin: 10/12/16 21:15 Dose: 5 mg Heparin Sodium (Porcine) (Heparin) 5,000 units SUBQ Q12HR [facility] Stop: 12/09/16 20:59 Last Admin: 10/12/16 21:16 Dose: 5,000 units Sodium Chloride (Nacl 0.9%) 1,000 mls @ 75 mls/hr IV .[id number] [facility] Stop: 12/09/16 08:52 Last Admin: 10/12/16 14:19 Dose: 75 mls/hr Lisinopril (Zestril) 40 mg PO DAILY [facility] Stop: 12/09/16 08:59 Last Admin: 10/12/16 08:16 Dose: 40 mg Lorazepam (Ativan) 0.5 mg PO Q8H PRN; Protocol PRN Reason: Anxiety Stop: 12/09/16 01:16 Last Admin: 10/13/16 00:39 Dose: 0.5 mg Memantine (Namenda) 5 mg PO DAILY [facility] Stop: 12/09/16 08:59 Last Admin: 10/12/16 08:15 Dose: 5 mg Miscellaneous (Vte Chemical Prophylaxis Screen/ Admission) 1 ea [facility] PRN PRN PRN Reason: PROTOCOL Stop: 12/09/16 11:59 Multivitamins/Vitamin C (Theragran) 1 tab PO DAILY [facility] Stop: 12/09/16 08:59 Last Admin: 10/12/16 08:15 Dose: 1 tab Quetiapine Fumarate (Seroquel) 125 mg PO HS [facility] PRN Reason: Protocol Stop: 12/10/16 06:46 Last Admin: 10/12/16 21:16 Dose: 125 mg Activity: Bed Rest Consults and Follow-Up: Nishant Toledo [Primary Care Provider] - Consulting Speciality: Psychology Instructions: Psychosis
--- NOTE | 2016-10-15 01:48 | Admit Criteria Form ---
Admit Criteria Forms - Admit Criteria Diagnosis: PSYCHIATRIC DISORDERS (Place 'X' for any and all applicable criteria): Ongoing inpatient care may be needed for 1 or more of the following(1)(2)(3)(4)( 6)(7)(8): [ ]I. Danger to self or others not manageable at lower level of care. [ ]II. Grave disability (eg, inability to perform self care necessary at lower level of care) [X ]III. Agitation or inappropriate behavior interfering with care for primary condition (eg, attempting to discontinue lines or drains prematurely, unable to cooperate with respiratory care) [ ]IV. Severe disability or disorder indicated by ALL of the following: [ ]a) Severe behavioral health disorder-related symptoms or condition indicated by 1 or more of the following: [ ]i) Severe problem with cognition, memory, judgment, or impulse control [ ]ii) Severe clinical manifestations (eg, hallucinations, delusions, other acute psychotic symptoms, yvan, extreme agitation or anxiety) [ ]b) Patient management at lower level of care is not feasible until acute intervention or modification is initiated. Extended stay beyond goal length of stay for the primary condition may be needed until ALLof the following are present(1)(2)(3)(4)(722)(23): [ ]a) Danger to self or others is absent or manageable at lower level of care [ ]b) Behavior crisis management, including physical or chemical restraints, is required and is not available at a lower level of care. [ ]c) Behavioral symptoms (e.g., agitation, somnolence, inappropriate behavior) are present, and are not manageable at a lower level of care. [ ]d) Patient cannot understand follow-up treatment and crisis plan. [ ]e) Provider and supports are sufficiently available at lower level of care. [ ]f) Patient can participate (e.g., verify absence of plan for harm) and is in needed of monitoring. The original [facility] [employer] content created by [facility] [employer] has been revised. The portions of the content which have been revised are identified through the use of italic text or in bold, and [facility] [employer] has neither reviewed nor approved the modified material. All other unmodified content is copyright [facility]. Please see references footnoted in the original [facility] edition 2017 Admit Criteria Met?: Yes
== END 2016-10-13 15:40 | DRG 305 ==
LOC: ER 20:02 → MSI 23:50 → TELE 10-10 06:42 → MSI 10-10 11:51
PROVIDERS: ADMIT General Practice; ATTEND General Practice
DX: I10 Essential (primary) hypertension (principal); F03.91 Unspecified dementia, unspecified severity, with behavioral disturbance; E78.5 Hyperlipidemia, unspecified; F29 Unspecified psychosis not due to a substance or known physiological condition; I25.10 Atherosclerotic heart disease of native coronary artery without angina pectoris; F32.9 Major depressive disorder, single episode, unspecified; F17.210 Nicotine dependence, cigarettes, uncomplicated; F41.9 Anxiety disorder, unspecified; M19.90 Unspecified osteoarthritis, unspecified site; Z88.8 Allergy status to other drugs, medicaments and biological substances; Z79.82 Long term (current) use of aspirin; Z90.710 Acquired absence of both cervix and uterus; Z98.42 Cataract extraction status, left eye; Z98.41 Cataract extraction status, right eye
CPT/HCPCS: 36415-UA; 70450-TC; 71010-TC; 71250-TC; 80053-TC; 80061-TC; 81001-TC; 84443-TC; 84484-TC; 85025-TC; 85610-TC; 85730-TC; 86592-TC; 93005; J1644; J1885; J7030; Z7610

== ENCOUNTER 2016-10-13 15:55 | Inpatient (IN) | payer MEDICARE, BC ==
[2016-10-13 16:14] VITALS: BP 155/89
[2016-10-13] MEDS ORDERED: Magnesium Hydroxide (MOM) 30 mL UDC PO PRN (16:17)
[2016-10-13] MEDS ORDERED: Maalox 30 mL Cup PO PRN (16:17)
--- NOTE | 2016-10-14 01:57 | Progress Notes ---
DATE: 10/13/2016 Case was discussed with staff of the patient, reviewed records. Dr. Vargas did see the patient in a consult, kept her on Seroquel. The patient has no clue why she is here. She was unable to carry on a conversation, continues to be unpredictable, impulsive. She has been compliant with the medication with no side effects, no sedation, no nausea, no extrapyramidal symptoms and she continues to be agitated and paranoid. She is paranoid. Upon admission, the patient can go to the [facility] if medically cleared. Thank you very much allowing me to participate in the care of this most interesting lady. JOB# [id number]
[2016-10-14] MEDS: Polyvinyl Alcohol Ophth Soln 15 mL Bottle EACH EYE SCH ×2 (09:00→17:08)
[2016-10-14] MEDS ORDERED: Non-Formulary Item 1 EA (Melatonin/Pyridoxine [Melatonin 3 Mg Tablet] 1 TAB) PO SCH (09:00)
[2016-10-14] MEDS: Multivitamin Tab PO SCH (09:20)
[2016-10-14] MEDS: Aspirin 81mg Chewable Tab PO SCH (09:20)
--- NOTE | 2016-10-14 09:47 | Psychosocial Evaluation ---
DATE OF SERVICE: 10/14/2016 DISCHARGE DATE: 10/14/2016 IDENTIFYING INFORMATION: The patient is a 76 years old female. CHIEF COMPLAINT: "I have been depressed." HISTORY OF PRESENT ILLNESS: The patient was transferred from medical floor. The patient was sent from [place] because of depression with episodes psychosis, irritability. When I talked to the patient has been feeling depressed, not sleeping well, but she denies that she was hearing voices now or seeing things and she was in denial that she would harm herself. She has been paranoid, unpredictable, impulsive. PAST PSYCHIATRIC HISTORY: The patient reports that she has long history of depression, dating back to 20 years ago when her son got killed. She also now have a son. She reports "I don't know if this is delusional or not" who has been missing for few months and she needs to make a police report. She reports she was hospitalized before because of depression. She has been on Seroquel 100 mg at bedtime. I have seen her, also at [place]. FAMILY MEDICAL HISTORY: Deferred to the medical doctor. ALLERGIES: THE PATIENT IS ALLERGIC TO DIPHENHYDRAMINE, the patient gets hypertension. FAMILY AND SOCIAL HISTORY: The patient is . She have one son ____ years ago and one son who has been missing for few months, she said she has one son that she has connection with, but she has one daughter, does not do anything for her. She reports no family history of psychotic disorder. She is not a reliable historian. MENTAL STATUS EXAMINATION: The patient is appropriately dressed, not well groomed. She looked somewhat disheveled; however, in general pleasant, cooperative ____ the date, she was unsure ____. She reports being not sleeping well. She is depressed. She has been acting in a paranoid manner according to staff. She denies any intent to harm anybody. She since was unable to tell me the present marital state. However, senior care is decreased and she is not sure of her age. Recent memory is poor, unable to tell me exactly when was her admission, though she was sent from [place] to come here because of agitation and psychosis. Her insight and judgment impaired. IMPRESSION: AXIS I: Major depression, recurrent with psychosis; rule out bipolar disorder. MEDICAL DIAGNOSES: Deferred to the medical doctor, hypertension. Her assets, she wants to get help. Negative poor coping skills. INITIAL TREATMENT PLAN: We will continue with the Seroquel, will do group therapy, milieu therapy, and individual therapies. ESTIMATED LENGTH OF STAY: 3-7 days. DISCHARGE CRITERIA: Decreasing depression, no longer paranoid after discharge. JOB# [id number]
--- NOTE | 2016-10-14 10:01 | History and Physical ---
History of Present Illness - HPI Chief Complaint: Increased in agitation HPI: Patient was send by SNF for evaluatin due to increased in agitation. 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 GI: Report: No Pertinent Hx Psych: Report: Anxiety, Psychosis, Schizophrenia Musculoskeletal: Report: Muscle Atrophy Rheumatologic: Report: No pertinent Hx Infectious Disease: Report: No Pertinent Hx Renal/: Report: No Pertinent Hx Endocrine: Report: No Pertinent Hx Dermatology: Report: No Pertinent Hx - Past Surgical History Past Surgical History: No pertinent Hx Family Medical History - Family Member Father History Unknown: Yes Ethnicity: Unknown Living Status: Unknown Hx Family Cancer: (UNKNOWN) Hx Family Coronary Artery Disease: (UNKNOWN) Hx Family Congestive Heart Failure: (UNKNOWN) Hx Family Hypertension: (UNKNOWN) Hx Family Stroke: (UNKNOWN) Hx Family Diabetes: (UNKNOWN) Hx Family Seizures: (UNKNOWN) Hx Family Dementia: (UNKNOWN) Hx Family AIDS: (UNKNOWN) Hx Family COPD: (UNKNOWN) Hx Family Hepatitis: (UNKNOWN) Hx Family Psychiatric Problems: (UNKNOWN) Hx Family Tuberculosis: (UNKNOWN) Mother History Unknown: Yes Ethnicity: Unknown Living Status: Unknown Hx Family Cancer: (UNKNOWN) Hx Family Coronary Artery Disease: (UNKNOWN) Hx Family Congestive Heart Failure: (UNKNOWN) Hx Family Hypertension: (UNKNOWN) Hx Family Stroke: (UNKNOWN) Hx Family Diabetes: (UNKNOWN) Hx Family Seizures: (UNKNOWN) Hx Family Dementia: (UNKNOWN) Hx Family AIDS: (UNKNOWN) Hx Family COPD: (UNKNOWN) Hx Family Hepatitis: (UNKNOWN) Hx Family Psychiatric Problems: (UNKNOWN) Hx Family Tuberculosis: (UNKNOWN) Social History Smoke: No Alcohol: None Drugs: None Lives: [facility] Domestic Violence: Negative - Medications Home Medications: Home Medication Medication Instructions Recorded Type Acetaminophen [Tylenol] 650 mg PO Q6H PRN tab 08/17/16 Rx Al Hyd/Mg Hyd/Simethicone [Maalox] 30 ml PO Q6H PRN [facility] 08/17/16 Rx Aspirin [Aspirin Chewable] 81 mg PO DAILY [facility] 08/17/16 Rx Carvedilol [Coreg] 6.25 mg PO BID tab 08/17/16 Rx Lisinopril [Zestril] 20 mg PO DAILY tab 08/17/16 Rx Lorazepam [Ativan] 0.5 mg PO Q4HR PRN tab 08/17/16 Rx Magnesium Hydroxide [Milk of 30 ml PO HS PRN [facility] 08/17/16 Rx Magnesia] Multivitamin [Theragran] 1 tab PO DAILY tab 08/17/16 Rx amLODIPine Besylate [Norvasc*] 10 mg PO DAILY tab 08/17/16 Rx Melatonin/Pyridoxine [Pharmassure 1 tab PO DAILY 10/10/16 History Melatonin 3 mg-2 mg] Polyvinyl Alcohol Ophth Soln 1 drop EACH EYE BID 10/10/16 History [Artificial Tears Ophth Soln*] QUEtiapine Fumarate [SEROquel] 100 mg PO HS 10/10/16 History - Allergies Allergies/Adverse Reactions: Allergies Allergy/AdvReac Type Severity Reaction Status Date / Time diphenhydramine Allergy Verified 08/05/16 21:24 [From Benadryl] Review of Systems - Review of Systems Constitutional: Report: Weakness Eyes: Report: No Significant ENT: Report: No Significant Respiratory: Report: No Significant Cardiovascular: Report: No Significant Gastrointestinal: Report: No Significant Genitourinary: Report: No Significant Musculoskeletal: Report: No Significant Skin: Report: No Significant Neurological: Report: Weakness, Confusion Physical Exam - Physical Exam HEENT: Report: Ears Nose Throat within normal limits Neck: Report: Within normal limits Cardiovascular Systems: Report: Regular, Rate and Rhythm Respiratory: Report: Breath Sounds are within normal limits Abdomen: Report: Non-tender to palpation Back: Report: Inspection of back is within normal limits. Extremities: Report: Non-tender to palpation. Skin: Report: Color of skin is within normal limits Neuro/Psych: Report: Mood affect is within normal limits - Assessment Assessment: Patient is awake, calm in no acute distress. Will continue monitoring - Plan Plan: Patient with psychiatry follow up. Will continue all meds
[2016-10-15] MEDS: Polyvinyl Alcohol Ophth Soln 15 mL Bottle EACH EYE SCH ×2 (08:45→16:24)
[2016-10-15] MEDS: Aspirin 81mg Chewable Tab PO SCH (08:47)
[2016-10-15] MEDS: Multivitamin Tab PO SCH (08:48)
--- NOTE | 2016-10-15 12:24 | General Progress Note ---
Subjective - Review of Systems Service Date: 10/15/16 Subjective: I want something to relax Objective - Physical Exam Vitals and I&O: Vital Signs Temp 97.8 F 10/15/16 06:41 Pulse 77 10/15/16 08:48 Resp 19 10/15/16 08:00 BP 134/76 10/15/16 08:48 Pulse Ox 96 10/15/16 06:41 Intake & Output 10/14/16 10/15/16 10/15/16 18:59 06:59 18:59 Intake Total 1200 120 Balance 1200 120 Intake: Oral 1200 120 Other: # Voids 3 # Bowel Movements 1 Active Medications: Current Medications Acetaminophen (Tylenol) 650 mg PO Q6H PRN PRN Reason: Mild Pain/Headache/T above 101 Stop: 12/12/16 16:16 Last Admin: 10/14/16 04:28 Dose: 650 mg Al Hydrox/Mg Hydrox/Simethicone (Maalox) 30 ml PO Q6H PRN PRN Reason: Dyspepsia Stop: 12/12/16 16:16 Amlodipine Besylate (Norvasc) 10 mg PO DAILY [facility] Stop: 12/13/16 08:59 Last Admin: 10/15/16 08:46 Dose: 10 mg Artificial Tears (Artificial Tears Ophth Soln) 1 drop EACH EYE BID [facility] Stop: 12/12/16 16:59 Last Admin: 10/15/16 08:45 Dose: 1 drop Aspirin (Aspirin Chewable) 81 mg PO DAILY [facility] Stop: 12/13/16 08:59 Last Admin: 10/15/16 08:47 Dose: 81 mg Carvedilol (Coreg) 6.25 mg PO BID [facility] Stop: 12/12/16 16:59 Last Admin: 10/15/16 08:47 Dose: 6.25 mg Docusate Sodium (Colace) 100 mg PO BID [facility] Stop: 12/14/16 10:29 Last Admin: 10/15/16 10:30 Dose: 100 mg Lisinopril (Zestril) 20 mg PO DAILY [facility] Stop: 12/13/16 08:59 Last Admin: 10/15/16 08:48 Dose: 20 mg Lorazepam (Ativan) 0.5 mg PO Q4HR PRN; Protocol PRN Reason: anxiety/agitation Stop: 11/04/17 16:15 Last Admin: 10/15/16 06:10 Dose: 0.5 mg Magnesium Hydroxide (Milk Of Magnesia) 30 ml PO HS PRN PRN Reason: Constipation Stop: 12/12/16 16:16 Multivitamins/Vitamin C (Theragran) 1 tab PO DAILY [facility] Stop: 12/13/16 08:59 Last Admin: 10/15/16 08:48 Dose: 1 tab Quetiapine Fumarate (Seroquel) 100 mg PO HS [facility] PRN Reason: Protocol Stop: 12/12/16 20:59 Last Admin: 10/14/16 21:00 Dose: 100 mg Zolpidem Tartrate (Ambien) 5 mg PO HS PRN PRN Reason: Insomnia Stop: 12/12/16 16:19 General: Alert, Other (Confused) HEENT: Atraumatic Cardiovascular: Regular rate Lungs: Clear to auscultation Abdomen: Bowel sounds, Soft Extremities: Other (No edema) Neurological: Other (Unstable gait) Skin: Other (Warm and dry) Psych/Mental Status: Other (Confused, not oriented) Assessment/Plan - Problem List Patient Problems: All Active Problems Confusion (Acute) R41.0 - Assessment Assessment: Patient is awake, calm in no acute distress. Will continue monitoring - Plan Plan: Patient with psychiatry follow up. Will continue all meds
--- NOTE | 2016-10-16 03:09 | Admit Criteria Form ---
Admit Criteria Forms - Admit Criteria Diagnosis: PSYCHIATRIC DISORDERS (Place 'X' for any and all applicable criteria): Ongoing inpatient care may be needed for 1 or more of the following(1)(2)(3)(4)( 6)(7)(8): [ ]I. Danger to self or others not manageable at lower level of care. [ ]II. Grave disability (eg, inability to perform self care necessary at lower level of care) [ ]III. Agitation or inappropriate behavior interfering with care for primary condition (eg, attempting to discontinue lines or drains prematurely, unable to cooperate with respiratory care) [X ]IV. Severe disability or disorder indicated by ALL of the following: [X ]a) Severe behavioral health disorder-related symptoms or condition indicated by 1 or more of the following: [ ]i) Severe problem with cognition, memory, judgment, or impulse control [X ]ii) Severe clinical manifestations (eg, hallucinations , delusions, other acute psychotic symptoms, yvan, extreme agitation or anxiety) [X ]b) Patient management at lower level of care is not feasible until acute intervention or modification is initiated. Extended stay beyond goal length of stay for the primary condition may be needed until ALLof the following are present(1)(2)(3)(4)(7)07)(23): [ ]a) Danger to self or others is absent or manageable at lower level of care [ ]b) Behavior crisis management, including physical or chemical restraints, is required and is not available at a lower level of care. [ ]c) Behavioral symptoms (e.g., agitation, somnolence, inappropriate behavior) are present, and are not manageable at a lower level of care. [ ]d) Patient cannot understand follow-up treatment and crisis plan. [ ]e) Provider and supports are sufficiently available at lower level of care. [ ]f) Patient can participate (e.g., verify absence of plan for harm) and is in needed of monitoring. The original [facility] content created by [facility] has been revised. The portions of the content which have been revised are identified through the use of italic text or in bold, and [facility] has neither reviewed nor approved the modified material. All other unmodified content is copyright [facility]. Please see references footnoted in the original [facility] edition 2017 Admit Criteria Met?: Yes
--- NOTE | 2016-10-16 07:48 | Progress Notes ---
DATE: 10/15/2016 Case discussed with staff of the patient, reviewed records. The patient continues to be depressed, overwhelmed. Continues to be unable to make safe plan for self-care. Sleeping well, eating well. No side effects with the medication, no sedation, no nausea, no extrapyramidal symptoms. However, she is still somewhat not sure if she is delusional, talking about her son who has disappeared and a son who got killed. She has been staying at the nursing facility. We will continue to work with the patient in group therapy, milieu therapy and adjust medications as needed. JOB# [id number]
[2016-10-16] MEDS: Polyvinyl Alcohol Ophth Soln 15 mL Bottle EACH EYE SCH ×2 (08:51→17:46)
[2016-10-16] MEDS: Multivitamin Tab PO SCH (08:55)
[2016-10-16] MEDS: Aspirin 81mg Chewable Tab PO SCH (08:58)
--- NOTE | 2016-10-16 13:45 | General Progress Note ---
Subjective - Review of Systems Service Date: 10/16/16 Subjective: I want something to relax Objective - Physical Exam Vitals and I&O: Vital Signs Temp 98.4 F 10/16/16 06:28 Pulse 98 10/16/16 08:58 Resp 19 10/16/16 06:28 BP 157/102 10/16/16 08:58 Pulse Ox 97 10/16/16 06:28 Intake & Output 10/15/16 10/16/16 10/16/16 18:59 06:59 18:59 Intake Total 1200 120 Balance 1200 120 Intake: Oral 1200 120 Other: # Voids 3 # Bowel Movements 1 Active Medications: Current Medications Acetaminophen (Tylenol) 650 mg PO Q6H PRN PRN Reason: Mild Pain/Headache/T above 101 Stop: 12/12/16 16:16 Last Admin: 10/15/16 13:13 Dose: 650 mg Al Hydrox/Mg Hydrox/Simethicone (Maalox) 30 ml PO Q6H PRN PRN Reason: Dyspepsia Stop: 12/12/16 16:16 Amlodipine Besylate (Norvasc) 10 mg PO DAILY [facility] Stop: 12/13/16 08:59 Last Admin: 10/16/16 08:55 Dose: 10 mg Artificial Tears (Artificial Tears Ophth Soln) 1 drop EACH EYE BID [facility] Stop: 12/12/16 16:59 Last Admin: 10/16/16 08:51 Dose: 1 drop Aspirin (Aspirin Chewable) 81 mg PO DAILY [facility] Stop: 12/13/16 08:59 Last Admin: 10/16/16 08:58 Dose: 81 mg Carvedilol (Coreg) 6.25 mg PO BID [facility] Stop: 12/12/16 16:59 Last Admin: 10/16/16 08:54 Dose: 6.25 mg Docusate Sodium (Colace) 100 mg PO BID [facility] Stop: 12/14/16 10:29 Last Admin: 10/16/16 08:55 Dose: 100 mg Lisinopril (Zestril) 20 mg PO DAILY [facility] Stop: 12/13/16 08:59 Last Admin: 10/16/16 08:58 Dose: 20 mg Lorazepam (Ativan) 0.5 mg PO Q4HR PRN; Protocol PRN Reason: anxiety/agitation Stop: 11/04/17 16:15 Last Admin: 10/15/16 13:13 Dose: 0.5 mg Magnesium Hydroxide (Milk Of Magnesia) 30 ml PO HS PRN PRN Reason: Constipation Stop: 12/12/16 16:16 Multivitamins/Vitamin C (Theragran) 1 tab PO DAILY [facility] Stop: 12/13/16 08:59 Last Admin: 10/16/16 08:55 Dose: 1 tab Quetiapine Fumarate (Seroquel) 100 mg PO HS [facility] PRN Reason: Protocol Stop: 12/12/16 20:59 Last Admin: 10/15/16 20:18 Dose: 100 mg Zolpidem Tartrate (Ambien) 5 mg PO HS PRN PRN Reason: Insomnia Stop: 12/12/16 16:19 Last Admin: 10/15/16 20:25 Dose: 5 mg General: Alert, Other (Confused) HEENT: Atraumatic Cardiovascular: Regular rate Lungs: Clear to auscultation Abdomen: Bowel sounds, Soft Extremities: Other (No edema) Neurological: Other (Unstable gait) Skin: Other (Warm and dry) Psych/Mental Status: Other (Confused, not oriented) Assessment/Plan - Problem List Patient Problems: All Active Problems Confusion (Acute) R41.0 - Assessment Assessment: Patient is awake, calm in no acute distress. Will continue monitoring - Plan Plan: Patient with psychiatry follow up. Will continue all meds
[2016-10-17] MEDS: Polyvinyl Alcohol Ophth Soln 15 mL Bottle EACH EYE SCH ×3 (08:43→16:55)
[2016-10-17] MEDS: Multivitamin Tab PO SCH (08:44)
[2016-10-17] MEDS: Aspirin 81mg Chewable Tab PO SCH (09:38)
--- NOTE | 2016-10-17 14:32 | Progress Notes ---
DATE: 10/16/2016 Case discussed with staff of the patient, reviewed records. Also discussed the care with her daughter yesterday who apparently told me that there is no missing son that both of her sons are available and that she has been helping taking care of her mother, so the patient in a way has been delusional about that aspect. I discussed that with the patient today, but she still thinks that she needs to find a missing persons order. Continues to be unpredictable, impulsive, depressed. She has been compliant with the medication with no side effects, no sedation, no nausea and no extrapyramidal symptoms. We will continue to work with the patient in group therapy, milieu therapy, and adjust medication as needed. JOB# [id number]
[2016-10-18] MEDS: Multivitamin Tab PO SCH (08:35)
[2016-10-18] MEDS: Aspirin 81mg Chewable Tab PO SCH (08:38)
[2016-10-18] MEDS: Polyvinyl Alcohol Ophth Soln 15 mL Bottle EACH EYE SCH ×2 (08:39→16:19)
--- NOTE | 2016-10-18 10:06 | General Progress Note ---
Subjective - Review of Systems Service Date: 10/18/16 Subjective: I want something to relax Objective - Physical Exam Vitals and I&O: Vital Signs Temp 97.8 F 10/18/16 06:28 Pulse 73 10/18/16 08:38 Resp 20 10/18/16 06:28 BP 130/78 10/18/16 08:38 Pulse Ox 99 10/18/16 06:28 Intake & Output 10/17/16 10/18/16 10/18/16 18:59 06:59 18:59 Intake Total 1800 120 Balance 1800 120 Intake: Oral 1800 120 Other: # Voids 4 3 # Bowel Movements 1 Active Medications: Current Medications Acetaminophen (Tylenol) 650 mg PO Q6H PRN PRN Reason: Mild Pain/Headache/T above 101 Stop: 12/12/16 16:16 Last Admin: 10/17/16 08:44 Dose: 650 mg Al Hydrox/Mg Hydrox/Simethicone (Maalox) 30 ml PO Q6H PRN PRN Reason: Dyspepsia Stop: 12/12/16 16:16 Amlodipine Besylate (Norvasc) 10 mg PO DAILY [facility] Stop: 12/13/16 08:59 Last Admin: 10/18/16 08:37 Dose: 10 mg Artificial Tears (Artificial Tears Ophth Soln) 1 drop EACH EYE BID [facility] Stop: 12/12/16 16:59 Last Admin: 10/18/16 08:39 Dose: 1 drop Aspirin (Aspirin Chewable) 81 mg PO DAILY [facility] Stop: 12/13/16 08:59 Last Admin: 10/18/16 08:38 Dose: 81 mg Carvedilol (Coreg) 6.25 mg PO BID [facility] Stop: 12/12/16 16:59 Last Admin: 10/18/16 08:36 Dose: 6.25 mg Clozapine (Clozaril) 25 mg PO DAILY [facility] PRN Reason: Protocol Stop: 12/17/16 08:59 Last Admin: 10/18/16 08:36 Dose: 25 mg Docusate Sodium (Colace) 100 mg PO BID [facility] Stop: 12/14/16 10:29 Last Admin: 10/18/16 08:35 Dose: 100 mg Lisinopril (Zestril) 40 mg PO DAILY [facility] Stop: 12/13/16 08:59 Last Admin: 10/18/16 08:38 Dose: 40 mg Lorazepam (Ativan) 0.5 mg PO Q4HR PRN; Protocol PRN Reason: anxiety/agitation Stop: 12/12/16 16:15 Last Admin: 10/17/16 08:56 Dose: 0.5 mg Magnesium Hydroxide (Milk Of Magnesia) 30 ml PO HS PRN PRN Reason: Constipation Stop: 12/12/16 16:16 Miscellaneous (Clinical Monitoring) 1 ea [facility] PRN PRN PRN Reason: PROTOCOL Stop: 12/16/16 13:34 Multivitamins/Vitamin C (Theragran) 1 tab PO DAILY [facility] Stop: 12/13/16 08:59 Last Admin: 10/18/16 08:35 Dose: 1 tab Quetiapine Fumarate (Seroquel) 125 mg PO HS [facility] PRN Reason: Protocol Stop: 12/16/16 12:04 Last Admin: 10/17/16 20:15 Dose: 125 mg Tramadol HCl (Ultram) 50 mg PO Q6HR PRN PRN Reason: Pain (Moderate) Stop: 12/16/16 09:28 Last Admin: 10/18/16 08:38 Dose: 50 mg Zolpidem Tartrate (Ambien) 5 mg PO HS PRN PRN Reason: Insomnia Stop: 12/12/16 16:19 Last Admin: 10/17/16 20:22 Dose: 5 mg General: Alert, Other (Confused) HEENT: Atraumatic Cardiovascular: Regular rate Lungs: Clear to auscultation Abdomen: Bowel sounds, Soft Extremities: Other (No edema) Neurological: Other (Unstable gait) Skin: Other (Warm and dry) Psych/Mental Status: Other (Confused, not oriented) Assessment/Plan - Problem List Patient Problems: All Active Problems Confusion (Acute) R41.0 - Assessment Assessment: Patient is awake, calm in no acute distress. Will continue monitoring - Plan Plan: Patient with psychiatry follow up. Will continue all meds Nutritional Asmnt/Malnutr-PDOC - Dietary Evaluation Malnutrition Findings (Please click <Entered> for more info): Nutritional Asmnt/Malnutrition Start: 10/16/16 16: 11 Text: Status: Complete Freq: Document 10/16/16 16:12 GSUN (Rec: 10/16/16 16:30 GSUN [email or web address]) Nutritional Asmnt/Malnutrition Patient General Information Nutritional Screening Moderate Risk Screening Diagnosis Major depression recurrent with psychosis Pertinent Medical Hx/Surgical Hx CAD, HTN, dementia, anxiety, psychosis, schizophrenia, muscle atrophy Subjective Information 76 year old female from SNF. Pt was pleasant. Pt expressed concern regarding not receiving meals she had picked for, encouraged pt tp work on menu with nursing staff, pt understood. Pt denied other nutritional concern at this time. Avg PO itnake 100% of meals since adm, meeting nutritional needs. Teeth intact. Obtained CBW 138.4lb with bedscale calibrated. No muscle fat wasting noted. Current Diet Order/ Nutrition Support Regular, WYATT Pertinent Medications Colace, MOM, Theragran, Seroquel Pertinent Labs No current labs Nutritional Hx/Data Height 1.65 m Height (Calculated Centimeters) 165.1 Current Weight (lbs) 62.777 kg Weight (Calculated Kilograms) 62.8 Weight (Calculated Grams) 62732.2 [place] Body Weight 125 Weight Status Approriate GI Symptoms Usual diet at home [place]: regular, WYATT Skin Integrity/Comment: Marco Antonio Mondragon. Skin intact. Current %PO Good (75-100%) Estimated Nutritional Goals BEE in Kcals: Using Current wt Calories/Kcals/Kg CBW 138.4lb/62.9kg Kcals Calculated 1573-1887kcal (25-30kcal/kg) Protein: Using Current wt Protein Calculated 63g (1g/kg) Fluid: ml 1573-1887ml (1ml/kcal) Nutritional Problem 1. Problem Problem No nutritional problem at this time. Intervention/Recommendation Comments 1. Continue with current diet order. Avg PO intake is adequate. 2. Pt encouraged to work on menu selection with nursing staff. Expected Outcomes/Goals Expected Outcomes/Goals 1. PO intake continue to meet at least 75% of estimated nutritional needs.
--- NOTE | 2016-10-18 20:55 | Progress Notes ---
DATE: 10/17/2016 Case was discussed with staff of the patient, reviewed records. The patient continues to be delusional about her son. She asking me if he is in correction or he is in the hospital. She believes he may have come yesterday to see her. She is still unpredictable, impulsive, unable to make safe plan for self-care, delusions, paranoid. She is compliant with the medication with no side effects, no sedation, no nausea, no extrapyramidal symptoms. I will be increasing her Seroquel to 125 mg at bedtime and so far no side effects, no sedation, no nausea, no extrapyramidal symptoms. We will continue to work with the patient in group therapy, milieu therapy, and adjust the medication as needed. JOB# [id number]
--- NOTE | 2016-10-19 04:50 | Progress Notes ---
DATE: 10/18/2016 Case was discussed with staff of the patient, reviewed records. She continues to have poor insight. She has been on Seroquel, I increased the dose yesterday to 125 mg at bedtime with no side effects. No sedation, still somewhat delusional about her son. I will continue with the patient in group therapy, milieu therapy, and adjust the medication as needed. [facility]# [id number]
[2016-10-19] MEDS: Aspirin 81mg Chewable Tab PO SCH (08:38)
[2016-10-19] MEDS: Multivitamin Tab PO SCH (08:39)
[2016-10-19] MEDS: Polyvinyl Alcohol Ophth Soln 15 mL Bottle EACH EYE SCH ×2 (08:39→16:47)
--- NOTE | 2016-10-19 08:47 | General Progress Note ---
Subjective - Review of Systems Service Date: 10/19/16 Subjective: I want something to relax Objective - Physical Exam Vitals and I&O: Vital Signs Temp 97.8 F 10/19/16 06:33 Pulse 72 10/19/16 08:39 Resp 20 10/19/16 06:33 BP 141/66 10/19/16 08:39 Pulse Ox 98 10/19/16 06:33 Intake & Output 10/18/16 10/19/16 10/19/16 18:59 06:59 18:59 Intake Total 800 Balance 800 Intake: Oral 800 Other: # Voids 3 3 # Bowel Movements 1 0 Active Medications: Current Medications Acetaminophen (Tylenol) 650 mg PO Q6H PRN PRN Reason: Mild Pain/Headache/T above 101 Stop: 12/12/16 16:16 Last Admin: 10/17/16 08:44 Dose: 650 mg Al Hydrox/Mg Hydrox/Simethicone (Maalox) 30 ml PO Q6H PRN PRN Reason: Dyspepsia Stop: 12/12/16 16:16 Amlodipine Besylate (Norvasc) 10 mg PO DAILY [facility] Stop: 12/13/16 08:59 Last Admin: 10/19/16 08:37 Dose: 10 mg Artificial Tears (Artificial Tears Ophth Soln) 1 drop EACH EYE BID [facility] Stop: 12/12/16 16:59 Last Admin: 10/19/16 08:39 Dose: 1 drop Aspirin (Aspirin Chewable) 81 mg PO DAILY [facility] Stop: 12/13/16 08:59 Last Admin: 10/19/16 08:38 Dose: 81 mg Carvedilol (Coreg) 6.25 mg PO BID [facility] Stop: 12/12/16 16:59 Last Admin: 10/19/16 08:38 Dose: 6.25 mg Docusate Sodium (Colace) 100 mg PO BID [facility] Stop: 12/14/16 10:29 Last Admin: 10/19/16 08:39 Dose: 100 mg Lisinopril (Zestril) 40 mg PO DAILY [facility] Stop: 12/13/16 08:59 Last Admin: 10/19/16 08:39 Dose: 40 mg Lorazepam (Ativan) 0.5 mg PO Q4HR PRN; Protocol PRN Reason: anxiety/agitation Stop: 12/12/16 16:15 Last Admin: 10/17/16 08:56 Dose: 0.5 mg Magnesium Hydroxide (Milk Of Magnesia) 30 ml PO HS PRN PRN Reason: Constipation Stop: 12/12/16 16:16 Miscellaneous (Clinical Monitoring) 1 ea MC PRN PRN PRN Reason: PROTOCOL Stop: 12/16/16 13:34 Multivitamins/Vitamin C (Theragran) 1 tab PO DAILY [facility] Stop: 12/13/16 08:59 Last Admin: 10/19/16 08:39 Dose: 1 tab Quetiapine Fumarate (Seroquel) 125 mg PO HS [facility] PRN Reason: Protocol Stop: 12/16/16 12:04 Last Admin: 10/18/16 21:22 Dose: 125 mg Tramadol HCl (Ultram) 50 mg PO Q6HR PRN PRN Reason: Pain (Moderate) Stop: 12/16/16 09:28 Last Admin: 10/18/16 08:38 Dose: 50 mg Zolpidem Tartrate (Ambien) 5 mg PO HS PRN PRN Reason: Insomnia Stop: 12/12/16 16:19 Last Admin: 10/17/16 20:22 Dose: 5 mg General: Alert, Other (Confused) HEENT: Atraumatic Neck: Supple Cardiovascular: Regular rate Lungs: Clear to auscultation Abdomen: Bowel sounds, Soft Extremities: Other (No edema) Neurological: Other (Unstable gait) Skin: Other (Warm and dry) Psych/Mental Status: Other (Confused, not oriented) Assessment/Plan - Problem List Patient Problems: All Active Problems Confusion (Acute) R41.0 - Assessment Assessment: Patient is awake, calm in no acute distress. Will continue monitoring - Plan Plan: Patient with psychiatry follow up. Will continue all meds Nutritional Asmnt/Malnutr-PDOC - Dietary Evaluation Malnutrition Findings (Please click <Entered> for more info): Nutritional Asmnt/Malnutrition Start: 10/16/16 16: 11 Text: Status: Complete Freq: Document 10/16/16 16:12 GSUN (Rec: 10/16/16 16:30 GSUN [email or web address]) Nutritional Asmnt/Malnutrition Patient General Information Nutritional Screening Moderate Risk Screening Diagnosis Major depression recurrent with psychosis Pertinent Medical Hx/Surgical Hx CAD, HTN, dementia, anxiety, psychosis, schizophrenia, muscle atrophy Subjective Information 76 year old female from SNF. Pt was pleasant. Pt expressed concern regarding not receiving meals she had picked for, encouraged pt tp work on menu with nursing staff, pt understood. Pt denied other nutritional concern at this time. Avg PO itnake 100% of meals since adm, meeting nutritional needs. Teeth intact. Obtained CBW 138.4lb with bedscale calibrated. No muscle fat wasting noted. Current Diet Order/ Nutrition Support Regular, WYATT Pertinent Medications Colace, MOM, Theragran, Seroquel Pertinent Labs No current labs Nutritional Hx/Data Height 1.65 m Height (Calculated Centimeters) 165.1 Current Weight (lbs) 62.777 kg Weight (Calculated Kilograms) 62.8 Weight (Calculated Grams) 16627.2 [place] Body Weight 125 Weight Status Approriate GI Symptoms Usual diet at home [place]: regular, WYATT Skin Integrity/Comment: Marco Antonio Mondragon. Skin intact. Current %PO Good (75-100%) Estimated Nutritional Goals BEE in Kcals: Using Current wt Calories/Kcals/Kg CBW 138.4lb/62.9kg Kcals Calculated 1573-1887kcal (25-30kcal/kg) Protein: Using Current wt Protein Calculated 63g (1g/kg) Fluid: ml 1573-1887ml (1ml/kcal) Nutritional Problem 1. Problem Problem No nutritional problem at this time. Intervention/Recommendation Comments 1. Continue with current diet order. Avg PO intake is adequate. 2. Pt encouraged to work on menu selection with nursing staff. Expected Outcomes/Goals Expected Outcomes/Goals 1. PO intake continue to meet at least 75% of estimated nutritional needs.
--- NOTE | 2016-10-20 03:54 | Progress Notes ---
DATE: 10/19/2016 Case was discussed with staff of the patient, reviewed records. The staff believes that the patient has been medication seeking. When I talked to the patient, she believes her son will take her to live with her somewhere. She could not verify that. She probably is delusional. Continues to have poor insight, unpredictable, impulsive, delusional. No side effects with the medication, no sedation, no nausea, no extrapyramidal symptoms. Still needing redirection. We will continue with the patient in group therapy, milieu therapy and adjust medications as needed. JOB# [id number]
--- NOTE | 2016-10-20 08:47 | General Progress Note ---
Subjective - Review of Systems Service Date: 10/20/16 Subjective: I want something to relax Objective - Physical Exam Vitals and I&O: Vital Signs Temp 98.2 F 10/20/16 06:10 Pulse 63 10/20/16 06:10 Resp 20 10/20/16 06:10 BP 136/74 10/20/16 06:10 Pulse Ox 98 10/20/16 06:10 Intake & Output 10/19/16 10/20/16 10/20/16 18:59 06:59 18:59 Intake Total 600 360 Balance 600 360 Intake: Oral 600 360 Other: # Voids 4 2 # Bowel Movements 2 0 Active Medications: Current Medications Acetaminophen (Tylenol) 650 mg PO Q6H PRN PRN Reason: Mild Pain/Headache/T above 101 Stop: 12/12/16 16:16 Last Admin: 10/20/16 00:12 Dose: 650 mg Al Hydrox/Mg Hydrox/Simethicone (Maalox) 30 ml PO Q6H PRN PRN Reason: Dyspepsia Stop: 12/12/16 16:16 Amlodipine Besylate (Norvasc) 10 mg PO DAILY [facility] Stop: 12/13/16 08:59 Last Admin: 10/19/16 08:37 Dose: 10 mg Artificial Tears (Artificial Tears Ophth Soln) 1 drop EACH EYE BID [facility] Stop: 12/12/16 16:59 Last Admin: 10/19/16 16:47 Dose: 1 drop Aspirin (Aspirin Chewable) 81 mg PO DAILY [facility] Stop: 12/13/16 08:59 Last Admin: 10/19/16 08:38 Dose: 81 mg Carvedilol (Coreg) 6.25 mg PO BID [facility] Stop: 12/12/16 16:59 Last Admin: 10/19/16 16:40 Dose: 6.25 mg Docusate Sodium (Colace) 100 mg PO BID [facility] Stop: 12/14/16 10:29 Last Admin: 10/19/16 16:40 Dose: 100 mg Lisinopril (Zestril) 40 mg PO DAILY [facility] Stop: 12/13/16 08:59 Last Admin: 10/19/16 08:39 Dose: 40 mg Lorazepam (Ativan) 0.5 mg PO Q4HR PRN; Protocol PRN Reason: anxiety/agitation Stop: 12/12/16 16:15 Last Admin: 10/20/16 00:12 Dose: 0.5 mg Magnesium Hydroxide (Milk Of Magnesia) 30 ml PO HS PRN PRN Reason: Constipation Stop: 12/12/16 16:16 Miscellaneous (Clinical Monitoring) 1 ea [facility] PRN PRN PRN Reason: PROTOCOL Stop: 12/16/16 13:34 Multivitamins/Vitamin C (Theragran) 1 tab PO DAILY [facility] Stop: 12/13/16 08:59 Last Admin: 10/19/16 08:39 Dose: 1 tab Quetiapine Fumarate (Seroquel) 125 mg PO HS [facility] PRN Reason: Protocol Stop: 12/16/16 12:04 Last Admin: 10/19/16 21:07 Dose: 125 mg Tramadol HCl (Ultram) 50 mg PO Q6HR PRN PRN Reason: Pain (Moderate) Stop: 12/16/16 09:28 Last Admin: 10/19/16 16:41 Dose: 50 mg Zolpidem Tartrate (Ambien) 5 mg PO HS PRN PRN Reason: Insomnia Stop: 12/12/16 16:19 Last Admin: 10/19/16 21:10 Dose: 5 mg General: Alert, Other (Confused) HEENT: Atraumatic Neck: Supple Cardiovascular: Regular rate Lungs: Clear to auscultation Abdomen: Bowel sounds, Soft Extremities: Other (No edema) Neurological: Other (Unstable gait) Skin: Other (Warm and dry) Psych/Mental Status: Other (Confused, not oriented) Assessment/Plan - Problem List Patient Problems: All Active Problems Confusion (Acute) R41.0 - Assessment Assessment: Patient is awake, calm in no acute distress. Will continue monitoring - Plan Plan: Patient with psychiatry follow up. Will continue all meds Nutritional Asmnt/Malnutr-PDOC - Dietary Evaluation Malnutrition Findings (Please click <Entered> for more info): Nutritional Asmnt/Malnutrition Start: 10/16/16 16: 11 Text: Status: Complete Freq: Document 10/16/16 16:12 GSUN (Rec: 10/16/16 16:30 GSUN [email or web address]) Nutritional Asmnt/Malnutrition Patient General Information Nutritional Screening Moderate Risk Screening Diagnosis Major depression recurrent with psychosis Pertinent Medical Hx/Surgical Hx CAD, HTN, dementia, anxiety, psychosis, schizophrenia, muscle atrophy Subjective Information 76 year old female from SNF. Pt was pleasant. Pt expressed concern regarding not receiving meals she had picked for, encouraged pt tp work on menu with nursing staff, pt understood. Pt denied other nutritional concern at this time. Avg PO itnake 100% of meals since adm, meeting nutritional needs. Teeth intact. Obtained CBW 138.4lb with bedscale calibrated. No muscle fat wasting noted. Current Diet Order/ Nutrition Support Regular, WYATT Pertinent Medications Colace, MOM, Theragran, Seroquel Pertinent Labs No current labs Nutritional Hx/Data Height 1.65 m Height (Calculated Centimeters) 165.1 Current Weight (lbs) 62.777 kg Weight (Calculated Kilograms) 62.8 Weight (Calculated Grams) 65086.2 [place] Body Weight 125 Weight Status Approriate GI Symptoms Usual diet at home [place]: regular, WYATT Skin Integrity/Comment: Marco Antonio Mondragon. Skin intact. Current %PO Good (75-100%) Estimated Nutritional Goals BEE in Kcals: Using Current wt Calories/Kcals/Kg CBW 138.4lb/62.9kg Kcals Calculated 1573-1887kcal (25-30kcal/kg) Protein: Using Current wt Protein Calculated 63g (1g/kg) Fluid: ml 1573-1887ml (1ml/kcal) Nutritional Problem 1. Problem Problem No nutritional problem at this time. Intervention/Recommendation Comments 1. Continue with current diet order. Avg PO intake is adequate. 2. Pt encouraged to work on menu selection with nursing staff. Expected Outcomes/Goals Expected Outcomes/Goals 1. PO intake continue to meet at least 75% of estimated nutritional needs.
[2016-10-20] MEDS: Multivitamin Tab PO SCH (09:04)
[2016-10-20] MEDS: Aspirin 81mg Chewable Tab PO SCH (09:05)
[2016-10-20] MEDS: Polyvinyl Alcohol Ophth Soln 15 mL Bottle EACH EYE SCH ×2 (09:05→16:39)
--- NOTE | 2016-10-21 01:58 | Progress Notes ---
DATE: 10/20/2016 Case was discussed with staff of the patient and reviewed records. The patient is delusional. The patient believes that Mr. Ron knows that she is here and she is delusional. She believes she will go with her son who is a missing person. She reports she is rambling, unable to make safe plan for self-care, unpredictable impulses, have been feeding her Seroquel 250 mg at bedtime and so far no side effects, no sedation, no nausea, and no extrapyramidal symptoms, still delusional, symptomatic, not ready to go to a lesser level of care. We will continue with the patient in group therapy, milieu therapy, and adjust medication as needed. [facility]# [id number]
[2016-10-21] MEDS: Aspirin 81mg Chewable Tab PO SCH (08:08)
[2016-10-21] MEDS: Multivitamin Tab PO SCH (08:08)
[2016-10-21] MEDS: Polyvinyl Alcohol Ophth Soln 15 mL Bottle EACH EYE SCH ×2 (08:10→16:16)
--- NOTE | 2016-10-21 08:32 | General Progress Note ---
Subjective - Review of Systems Service Date: 10/21/16 Subjective: I want something to relax Objective - Physical Exam Vitals and I&O: Vital Signs Temp 97.9 F 10/21/16 06:30 Pulse 71 10/21/16 08:08 Resp 18 10/21/16 06:30 BP 142/80 10/21/16 08:08 Pulse Ox 97 10/21/16 06:30 Intake & Output 10/20/16 10/21/16 10/21/16 18:59 06:59 18:59 Intake Total 950 120 Balance 950 120 Intake: Oral 950 120 Other: # Voids 4 3 # Bowel Movements 1 0 Active Medications: Current Medications Acetaminophen (Tylenol) 650 mg PO Q6H PRN PRN Reason: Mild Pain/Headache/T above 101 Stop: 12/12/16 16:16 Last Admin: 10/20/16 00:12 Dose: 650 mg Al Hydrox/Mg Hydrox/Simethicone (Maalox) 30 ml PO Q6H PRN PRN Reason: Dyspepsia Stop: 12/12/16 16:16 Amlodipine Besylate (Norvasc) 10 mg PO DAILY [facility] Stop: 12/13/16 08:59 Last Admin: 10/21/16 08:08 Dose: 10 mg Artificial Tears (Artificial Tears Ophth Soln) 1 drop EACH EYE BID [facility] Stop: 12/12/16 16:59 Last Admin: 10/21/16 08:10 Dose: 1 drop Aspirin (Aspirin Chewable) 81 mg PO DAILY [facility] Stop: 12/13/16 08:59 Last Admin: 10/21/16 08:08 Dose: 81 mg Carvedilol (Coreg) 6.25 mg PO BID [facility] Stop: 12/12/16 16:59 Last Admin: 10/21/16 08:08 Dose: 6.25 mg Docusate Sodium (Colace) 100 mg PO BID [facility] Stop: 12/14/16 10:29 Last Admin: 10/21/16 08:08 Dose: 100 mg Lisinopril (Zestril) 40 mg PO DAILY [facility] Stop: 12/13/16 08:59 Last Admin: 10/21/16 08:08 Dose: 40 mg Magnesium Hydroxide (Milk Of Magnesia) 30 ml PO HS PRN PRN Reason: Constipation Stop: 12/12/16 16:16 Multivitamins/Vitamin C (Theragran) 1 tab PO DAILY [facility] Stop: 12/13/16 08:59 Last Admin: 10/21/16 08:08 Dose: 1 tab Quetiapine Fumarate (Seroquel) 150 mg PO HS [facility] PRN Reason: Protocol Stop: 12/19/16 20:59 Last Admin: 10/20/16 20:51 Dose: 150 mg Tramadol HCl (Ultram) 50 mg PO Q6HR PRN PRN Reason: Pain (Moderate) Stop: 12/16/16 09:28 Last Admin: 10/20/16 16:39 Dose: 50 mg General: Alert, Other (Confused) HEENT: Atraumatic Neck: Supple Cardiovascular: Regular rate Lungs: Clear to auscultation Abdomen: Bowel sounds, Soft Extremities: Other (No edema) Neurological: Other (Unstable gait) Skin: Other (Warm and dry) Psych/Mental Status: Other (Confused, not oriented) Assessment/Plan - Problem List Patient Problems: All Active Problems Confusion (Acute) R41.0 - Assessment Assessment: Patient is awake, calm in no acute distress. BP in control. Will continue monitoring - Plan Plan: Patient with psychiatry follow up. Will continue all meds Nutritional Asmnt/Malnutr-PDOC - Dietary Evaluation Malnutrition Findings (Please click <Entered> for more info): Nutritional Asmnt/Malnutrition Start: 10/16/16 16: 11 Text: Status: Complete Freq: Document 10/16/16 16:12 GSUN (Rec: 10/16/16 16:30 GSUN [email or web address]) Nutritional Asmnt/Malnutrition Patient General Information Nutritional Screening Moderate Risk Screening Diagnosis Major depression recurrent with psychosis Pertinent Medical Hx/Surgical Hx CAD, HTN, dementia, anxiety, psychosis, schizophrenia, muscle atrophy Subjective Information 76 year old female from SNF. Pt was pleasant. Pt expressed concern regarding not receiving meals she had picked for, encouraged pt tp work on menu with nursing staff, pt understood. Pt denied other nutritional concern at this time. Avg PO itnake 100% of meals since adm, meeting nutritional needs. Teeth intact. Obtained CBW 138.4lb with bedscale calibrated. No muscle fat wasting noted. Current Diet Order/ Nutrition Support Regular, WYATT Pertinent Medications Colace, MOM, Theragran, Seroquel Pertinent Labs No current labs Nutritional Hx/Data Height 1.65 m Height (Calculated Centimeters) 165.1 Current Weight (lbs) 62.777 kg Weight (Calculated Kilograms) 62.8 Weight (Calculated Grams) 30780.2 [place] Body Weight 125 Weight Status Approriate GI Symptoms Usual diet at home [place]: regular, WYATT Skin Integrity/Comment: Marco Antonio Mondragon. Skin intact. Current %PO Good (75-100%) Estimated Nutritional Goals BEE in Kcals: Using Current wt Calories/Kcals/Kg CBW 138.4lb/62.9kg Kcals Calculated 1573-1887kcal (25-30kcal/kg) Protein: Using Current wt Protein Calculated 63g (1g/kg) Fluid: ml 1573-1887ml (1ml/kcal) Nutritional Problem 1. Problem Problem No nutritional problem at this time. Intervention/Recommendation Comments 1. Continue with current diet order. Avg PO intake is adequate. 2. Pt encouraged to work on menu selection with nursing staff. Expected Outcomes/Goals Expected Outcomes/Goals 1. PO intake continue to meet at least 75% of estimated nutritional needs.
--- NOTE | 2016-10-22 00:20 | Progress Notes ---
DATE: 10/21/2016 Case was discussed with staff of the patient, reviewed records. The patient continues to be delusional. Continues to believe that her son is missing person and need to be found. At the same time, she is saying she cannot go and live with him. Continues to be unpredictable, impulsive, needing redirection, unable to make safe plan for self-care. She is compliant with the medication with no side effects. No sedation, no nausea, and no extrapyramidal symptoms. She tolerated the increase in Seroquel to 150 mg a day with no side effects and that was done yesterday and no lab work is available in the records. We will continue to work with the patient in group therapy, milieu therapy, and adjust the medication as needed. JOB# [id number]
[2016-10-22] MEDS: Multivitamin Tab PO SCH (08:21)
[2016-10-22] MEDS: Aspirin 81mg Chewable Tab PO SCH (08:21)
[2016-10-22] MEDS: Polyvinyl Alcohol Ophth Soln 15 mL Bottle EACH EYE SCH ×2 (08:29→16:28)
--- NOTE | 2016-10-22 08:44 | General Progress Note ---
Subjective - Review of Systems Service Date: 10/22/16 Subjective: I want something for pain Objective - Physical Exam Vitals and I&O: Vital Signs Temp 98.2 F 10/22/16 06:26 Pulse 69 10/22/16 08:22 Resp 20 10/22/16 06:26 BP 134/72 10/22/16 08:22 Pulse Ox 98 10/22/16 06:26 Intake & Output 10/21/16 10/22/16 10/22/16 18:59 06:59 18:59 Intake Total 120 Balance 120 Intake: Oral 120 Other: # Voids 3 Active Medications: Current Medications Acetaminophen (Tylenol) 650 mg PO Q6H PRN PRN Reason: Mild Pain/Headache/T above 101 Stop: 12/12/16 16:16 Last Admin: 10/20/16 00:12 Dose: 650 mg Al Hydrox/Mg Hydrox/Simethicone (Maalox) 30 ml PO Q6H PRN PRN Reason: Dyspepsia Stop: 12/12/16 16:16 Amlodipine Besylate (Norvasc) 10 mg PO DAILY [facility] Stop: 12/13/16 08:59 Last Admin: 10/22/16 08:22 Dose: 10 mg Artificial Tears (Artificial Tears Ophth Soln) 1 drop EACH EYE BID [facility] Stop: 12/12/16 16:59 Last Admin: 10/22/16 08:29 Dose: 1 drop Aspirin (Aspirin Chewable) 81 mg PO DAILY [facility] Stop: 12/13/16 08:59 Last Admin: 10/22/16 08:21 Dose: 81 mg Carvedilol (Coreg) 6.25 mg PO BID [facility] Stop: 12/12/16 16:59 Last Admin: 10/22/16 08:22 Dose: 6.25 mg Docusate Sodium (Colace) 100 mg PO BID [facility] Stop: 12/14/16 10:29 Last Admin: 10/22/16 08:21 Dose: 100 mg Lisinopril (Zestril) 40 mg PO DAILY [facility] Stop: 12/13/16 08:59 Last Admin: 10/22/16 08:22 Dose: 40 mg Magnesium Hydroxide (Milk Of Magnesia) 30 ml PO HS PRN PRN Reason: Constipation Stop: 12/12/16 16:16 Multivitamins/Vitamin C (Theragran) 1 tab PO DAILY [facility] Stop: 12/13/16 08:59 Last Admin: 10/22/16 08:21 Dose: 1 tab Quetiapine Fumarate (Seroquel) 150 mg PO HS [facility] PRN Reason: Protocol Stop: 12/19/16 20:59 Last Admin: 10/21/16 20:24 Dose: 150 mg Tramadol HCl (Ultram) 50 mg PO Q6HR PRN PRN Reason: Pain (Moderate) Stop: 12/16/16 09:28 Last Admin: 10/21/16 20:24 Dose: 50 mg General: Alert, Other (Confused) HEENT: Atraumatic Neck: Supple Cardiovascular: Regular rate Lungs: Clear to auscultation Abdomen: Bowel sounds, Soft Extremities: Other (No edema) Neurological: Other (Unstable gait) Skin: Other (Warm and dry) Psych/Mental Status: Other (Confused, not oriented) Assessment/Plan - Problem List Patient Problems: All Active Problems Confusion (Acute) R41.0 - Assessment Assessment: Patient is awake, calm in no acute distress. BP in control. Will continue monitoring - Plan Plan: Patient with psychiatry follow up. Will continue all meds Nutritional Asmnt/Malnutr-PDOC - Dietary Evaluation Malnutrition Findings (Please click <Entered> for more info): Nutritional Asmnt/Malnutrition Start: 10/16/16 16: 11 Text: Status: Complete Freq: Document 10/16/16 16:12 GSUN (Rec: 10/16/16 16:30 GSUN [email or web address]) Nutritional Asmnt/Malnutrition Patient General Information Nutritional Screening Moderate Risk Screening Diagnosis Major depression recurrent with psychosis Pertinent Medical Hx/Surgical Hx CAD, HTN, dementia, anxiety, psychosis, schizophrenia, muscle atrophy Subjective Information 76 year old female from SNF. Pt was pleasant. Pt expressed concern regarding not receiving meals she had picked for, encouraged pt tp work on menu with nursing staff, pt understood. Pt denied other nutritional concern at this time. Avg PO itnake 100% of meals since adm, meeting nutritional needs. Teeth intact. Obtained CBW 138.4lb with bedscale calibrated. No muscle fat wasting noted. Current Diet Order/ Nutrition Support Regular, WYATT Pertinent Medications Colace, MOM, Theragran, Seroquel Pertinent Labs No current labs Nutritional Hx/Data Height 1.65 m Height (Calculated Centimeters) 165.1 Current Weight (lbs) 62.777 kg Weight (Calculated Kilograms) 62.8 Weight (Calculated Grams) 14931.2 [place] Body Weight 125 Weight Status Approriate GI Symptoms Usual diet at home [place]: regular, WYATT Skin Integrity/Comment: Marco Antonio 19. Skin intact. Current %PO Good (75-100%) Estimated Nutritional Goals BEE in Kcals: Using Current wt Calories/Kcals/Kg CBW 138.4lb/62.9kg Kcals Calculated 1573-1887kcal (25-30kcal/kg) Protein: Using Current wt Protein Calculated 63g (1g/kg) Fluid: ml 1573-1887ml (1ml/kcal) Nutritional Problem 1. Problem Problem No nutritional problem at this time. Intervention/Recommendation Comments 1. Continue with current diet order. Avg PO intake is adequate. 2. Pt encouraged to work on menu selection with nursing staff. Expected Outcomes/Goals Expected Outcomes/Goals 1. PO intake continue to meet at least 75% of estimated nutritional needs.
--- NOTE | 2016-10-22 23:10 | Progress Notes ---
DATE: 10/22/2016 Case was discussed with staff of the patient, reviewed records. The patient has been delusional. She is telling the staff that her daughter killed the . The patient continues to be unpredictable, impulsive, needing redirection. Continues to have poor insight. Continues to be unable to make safe plan for self-care. She is compliant with the medication with no side effects, no sedation, no nausea. I did increase her Seroquel dose due to the delusional behavior and that done two days ago to 150 mg at bedtime with no side effects, no sedation, no nausea, no extrapyramidal symptoms. We will continue the patient in group therapy, milieu therapy, and adjust medications as needed. [facility]# [id number]
[2016-10-23] MEDS: Multivitamin Tab PO SCH (09:00)
[2016-10-23] MEDS: Aspirin 81mg Chewable Tab PO SCH (09:04)
[2016-10-23] MEDS: Polyvinyl Alcohol Ophth Soln 15 mL Bottle EACH EYE SCH ×2 (09:14→16:40)
--- NOTE | 2016-10-23 09:24 | General Progress Note ---
Subjective - Review of Systems Service Date: 10/23/16 Subjective: I want something for pain Objective - Physical Exam Vitals and I&O: Vital Signs Temp 98.2 F 10/23/16 06:28 Pulse 78 10/23/16 09:05 Resp 19 10/23/16 06:28 BP 141/83 10/23/16 09:05 Pulse Ox 97 10/23/16 06:28 Intake & Output 10/22/16 10/23/16 10/23/16 18:59 06:59 18:59 Intake Total 900 120 Balance 900 120 Intake: Oral 900 120 Other: # Voids 2 3 # Bowel Movements 1 Active Medications: Current Medications Acetaminophen (Tylenol) 650 mg PO Q6H PRN PRN Reason: Mild Pain/Headache/T above 101 Stop: 12/12/16 16:16 Last Admin: 10/22/16 22:44 Dose: 650 mg Al Hydrox/Mg Hydrox/Simethicone (Maalox) 30 ml PO Q6H PRN PRN Reason: Dyspepsia Stop: 12/12/16 16:16 Last Admin: 10/22/16 10:25 Dose: 30 ml Amlodipine Besylate (Norvasc) 10 mg PO DAILY [facility] Stop: 12/13/16 08:59 Last Admin: 10/23/16 09:00 Dose: 10 mg Artificial Tears (Artificial Tears Ophth Soln) 1 drop EACH EYE BID [facility] Stop: 12/12/16 16:59 Last Admin: 10/23/16 09:14 Dose: 1 drop Aspirin (Aspirin Chewable) 81 mg PO DAILY [facility] Stop: 12/13/16 08:59 Last Admin: 10/23/16 09:04 Dose: 81 mg Carvedilol (Coreg) 6.25 mg PO BID [facility] Stop: 12/12/16 16:59 Last Admin: 10/23/16 09:05 Dose: 6.25 mg Docusate Sodium (Colace) 100 mg PO BID [facility] Stop: 12/14/16 10:29 Last Admin: 10/23/16 09:00 Dose: Not Given Lisinopril (Zestril) 40 mg PO DAILY [facility] Stop: 12/13/16 08:59 Last Admin: 10/23/16 09:04 Dose: 40 mg Magnesium Hydroxide (Milk Of Magnesia) 30 ml PO HS PRN PRN Reason: Constipation Stop: 12/12/16 16:16 Multivitamins/Vitamin C (Theragran) 1 tab PO DAILY [facility] Stop: 12/13/16 08:59 Last Admin: 10/23/16 09:00 Dose: Not Given Quetiapine Fumarate (Seroquel) 150 mg PO HS [facility] PRN Reason: Protocol Stop: 12/19/16 20:59 Last Admin: 10/22/16 20:27 Dose: 150 mg Tramadol HCl (Ultram) 50 mg PO Q6HR PRN PRN Reason: Pain (Moderate) Stop: 12/16/16 09:28 Last Admin: 10/22/16 12:19 Dose: 50 mg General: Alert, Other (Confused) HEENT: Atraumatic Neck: Supple Cardiovascular: Regular rate Lungs: Clear to auscultation Abdomen: Bowel sounds, Soft Extremities: Other (No edema) Neurological: Other (Unstable gait) Skin: Other (Warm and dry) Psych/Mental Status: Other (Confused, not oriented) Assessment/Plan - Problem List Patient Problems: All Active Problems Confusion (Acute) R41.0 - Assessment Assessment: Patient is awake, calm in no acute distress. BP in control. Will continue monitoring - Plan Plan: Patient with psychiatry follow up. Will continue all meds Nutritional Asmnt/Malnutr-PDOC - Dietary Evaluation Malnutrition Findings (Please click <Entered> for more info): Nutritional Asmnt/Malnutrition Start: 10/16/16 16: 11 Text: Status: Complete Freq: Document 10/16/16 16:12 GSUN (Rec: 10/16/16 16:30 [email or web address] [email or web address]) Nutritional Asmnt/Malnutrition Patient General Information Nutritional Screening Moderate Risk Screening Diagnosis Major depression recurrent with psychosis Pertinent Medical Hx/Surgical Hx CAD, HTN, dementia, anxiety, psychosis, schizophrenia, muscle atrophy Subjective Information 76 year old female from SNF. Pt was pleasant. Pt expressed concern regarding not receiving meals she had picked for, encouraged pt tp work on menu with nursing staff, pt understood. Pt denied other nutritional concern at this time. Avg PO itnake 100% of meals since adm, meeting nutritional needs. Teeth intact. Obtained CBW 138.4lb with bedscale calibrated. No muscle fat wasting noted. Current Diet Order/ Nutrition Support Regular, WYATT Pertinent Medications Colace, MOM, Theragran, Seroquel Pertinent Labs No current labs Nutritional Hx/Data Height 1.65 m Height (Calculated Centimeters) 165.1 Current Weight (lbs) 62.777 kg Weight (Calculated Kilograms) 62.8 Weight (Calculated Grams) 81819.2 [place] Body Weight 125 Weight Status Approriate GI Symptoms Usual diet at home [place]: regular, WYATT Skin Integrity/Comment: Marco Antonio 19. Skin intact. Current %PO Good (75-100%) Estimated Nutritional Goals BEE in Kcals: Using Current wt Calories/Kcals/Kg CBW 138.4lb/62.9kg Kcals Calculated 1573-1887kcal (25-30kcal/kg) Protein: Using Current wt Protein Calculated 63g (1g/kg) Fluid: ml 1573-1887ml (1ml/kcal) Nutritional Problem 1. Problem Problem No nutritional problem at this time. Intervention/Recommendation Comments 1. Continue with current diet order. Avg PO intake is adequate. 2. Pt encouraged to work on menu selection with nursing staff. Expected Outcomes/Goals Expected Outcomes/Goals 1. PO intake continue to meet at least 75% of estimated nutritional needs.
--- NOTE | 2016-10-23 23:16 | Progress Notes ---
DATE: 10/23/2016 Case was discussed with staff of the patient, reviewed records. The patient continues to be delusional. Continues to have poor insight. Unable to make safe plan for self-care. Unpredictable impulses, need redirection. The staff believes that maybe she was getting to the basic level of functioning ____ she can to go with her son who has disappeared, though her son has not disappeared. I did increase her Seroquel dose to 150 mg at bedtime. I will be making further adjustments to 175 and so far, no side effects to the medication, no sedation, no nausea, no extrapyramidal symptoms. We will continue to work with the patient in group therapy, milieu therapy, adjust medication as needed. JOB# [id number]
[2016-10-24] MEDS: Aspirin 81mg Chewable Tab PO SCH (09:02)
[2016-10-24] MEDS: Polyvinyl Alcohol Ophth Soln 15 mL Bottle EACH EYE SCH ×2 (09:02→17:31)
[2016-10-24] MEDS: Multivitamin Tab PO SCH (09:02)
--- NOTE | 2016-10-24 10:47 | General Progress Note ---
Subjective - Review of Systems Service Date: 10/24/16 Subjective: I want something for pain Objective - Physical Exam Vitals and I&O: Vital Signs Temp 98.3 F 10/24/16 05:51 Pulse 81 10/24/16 09:04 Resp 19 10/24/16 05:51 BP 152/94 10/24/16 09:04 Pulse Ox 97 10/24/16 05:51 Intake & Output 10/23/16 10/24/16 10/24/16 18:59 06:59 18:59 Intake Total 1000 360 Balance 1000 360 Weight (lbs) 63.367 kg Intake: Oral 1000 360 Other: # Voids 3 3 # Bowel Movements 1 Active Medications: Current Medications Acetaminophen (Tylenol) 650 mg PO Q6H PRN PRN Reason: Mild Pain/Headache/T above 101 Stop: 12/12/16 16:16 Last Admin: 10/23/16 23:11 Dose: 650 mg Al Hydrox/Mg Hydrox/Simethicone (Maalox) 30 ml PO Q6H PRN PRN Reason: Dyspepsia Stop: 12/12/16 16:16 Last Admin: 10/22/16 10:25 Dose: 30 ml Amlodipine Besylate (Norvasc) 10 mg PO DAILY [facility] Stop: 12/13/16 08:59 Last Admin: 10/24/16 09:04 Dose: 10 mg Artificial Tears (Artificial Tears Ophth Soln) 1 drop EACH EYE BID [facility] Stop: 12/12/16 16:59 Last Admin: 10/24/16 09:02 Dose: 1 drop Aspirin (Aspirin Chewable) 81 mg PO DAILY [facility] Stop: 12/13/16 08:59 Last Admin: 10/24/16 09:02 Dose: 81 mg Carvedilol (Coreg) 6.25 mg PO BID [facility] Stop: 12/12/16 16:59 Last Admin: 10/24/16 09:03 Dose: 6.25 mg Docusate Sodium (Colace) 100 mg PO BID [facility] Stop: 12/14/16 10:29 Last Admin: 10/24/16 09:03 Dose: Not Given Lisinopril (Zestril) 40 mg PO DAILY [facility] Stop: 12/13/16 08:59 Last Admin: 10/24/16 09:03 Dose: 40 mg Magnesium Hydroxide (Milk Of Magnesia) 30 ml PO HS PRN PRN Reason: Constipation Stop: 12/12/16 16:16 Multivitamins/Vitamin C (Theragran) 1 tab PO DAILY [facility] Stop: 12/13/16 08:59 Last Admin: 10/24/16 09:02 Dose: Not Given Quetiapine Fumarate 100 mg/Quetiapine Fumarate 50 mg/Quetiapine Fumarate 25 mg 175 mg PO HS [facility] Stop: 12/22/16 20:59 Last Admin: 10/23/16 20:55 Dose: 175 mg Tramadol HCl (Ultram) 50 mg PO Q6HR PRN PRN Reason: Pain (Moderate) Stop: 12/16/16 09:28 Last Admin: 10/24/16 09:02 Dose: 50 mg General: Alert, Other (Confused) HEENT: Atraumatic Neck: Supple Cardiovascular: Regular rate Lungs: Clear to auscultation Abdomen: Bowel sounds, Soft Extremities: Other (No edema) Neurological: Other (Unstable gait) Skin: Other (Warm and dry) Psych/Mental Status: Other (Confused, not oriented) Assessment/Plan - Problem List Patient Problems: All Active Problems Confusion (Acute) R41.0 - Assessment Assessment: Patient is awake, calm in no acute distress. BP in control. Will continue monitoring - Plan Plan: Patient with psychiatry follow up. Will continue all meds Nutritional Asmnt/Malnutr-PDOC - Dietary Evaluation Malnutrition Findings (Please click <Entered> for more info): Nutritional Asmnt/Malnutrition Start: 10/16/16 16: 11 Text: Status: Complete Freq: Document 10/16/16 16:12 GSUN (Rec: 10/16/16 16:30 GSUN [email or web address]) Nutritional Asmnt/Malnutrition Patient General Information Nutritional Screening Moderate Risk Screening Diagnosis Major depression recurrent with psychosis Pertinent Medical Hx/Surgical Hx CAD, HTN, dementia, anxiety, psychosis, schizophrenia, muscle atrophy Subjective Information 76 year old female from SNF. Pt was pleasant. Pt expressed concern regarding not receiving meals she had picked for, encouraged pt tp work on menu with nursing staff, pt understood. Pt denied other nutritional concern at this time. Avg PO itnake 100% of meals since adm, meeting nutritional needs. Teeth intact. Obtained CBW 138.4lb with bedscale calibrated. No muscle fat wasting noted. Current Diet Order/ Nutrition Support Regular, WYATT Pertinent Medications Colace, MOM, Theragran, Seroquel Pertinent Labs No current labs Nutritional Hx/Data Height 1.65 m Height (Calculated Centimeters) 165.1 Current Weight (lbs) 62.777 kg Weight (Calculated Kilograms) 62.8 Weight (Calculated Grams) 29293.2 [place] Body Weight 125 Weight Status Approriate GI Symptoms Usual diet at home [place]: regular, WYATT Skin Integrity/Comment: Marco Antonio 19. Skin intact. Current %PO Good (75-100%) Estimated Nutritional Goals BEE in Kcals: Using Current wt Calories/Kcals/Kg CBW 138.4lb/62.9kg Kcals Calculated 1573-1887kcal (25-30kcal/kg) Protein: Using Current wt Protein Calculated 63g (1g/kg) Fluid: ml 1573-1887ml (1ml/kcal) Nutritional Problem 1. Problem Problem No nutritional problem at this time. Intervention/Recommendation Comments 1. Continue with current diet order. Avg PO intake is adequate. 2. Pt encouraged to work on menu selection with nursing staff. Expected Outcomes/Goals Expected Outcomes/Goals 1. PO intake continue to meet at least 75% of estimated nutritional needs.
--- NOTE | 2016-10-24 21:48 | Progress Notes ---
DATE: 10/24/2016 Dr. Guzman is covering for Dr. William. SUBJECTIVE: Chart reviewed and the patient interviewed. Also discussed the patient's condition with the staff and reviewed records and labs. The patient is complaining of severe pain and she is still med-seeking and she has multiple somatic complaints. The patient also is histrionic. "I woke up after one hour." She is complaining of insomnia, although staff reports that she has been sleeping well. The patient also is still delusional and paranoid. ASSESSMENT: The patient is still psychotic. TREATMENT PLAN: We will continue monitoring her behavior and her condition closely. Also, Seroquel was increased yesterday to 50 mg at bedtime with no side effects. We will continue same dose and continue to work on her ineffective coping and we will continue to follow up. JOB# [id number]
[2016-10-25] MEDS: Aspirin 81mg Chewable Tab PO SCH (09:22)
[2016-10-25] MEDS: Multivitamin Tab PO SCH (09:22)
[2016-10-25] MEDS: Polyvinyl Alcohol Ophth Soln 15 mL Bottle EACH EYE SCH ×2 (09:22→16:08)
--- NOTE | 2016-10-25 10:10 | General Progress Note ---
Subjective - Review of Systems Service Date: 10/25/16 Subjective: I want something for pain Objective - Physical Exam Vitals and I&O: Vital Signs Temp 98.3 F 10/25/16 06:47 Pulse 66 10/25/16 09:22 Resp 20 10/25/16 06:47 BP 136/81 10/25/16 09:22 Pulse Ox 97 10/25/16 06:47 Intake & Output 10/24/16 10/25/16 10/25/16 18:59 06:59 18:59 Intake Total 1000 480 Balance 1000 480 Intake: Oral 1000 480 Other: # Voids 4 1 # Bowel Movements 1 Active Medications: Current Medications Acetaminophen (Tylenol) 650 mg PO Q6H PRN PRN Reason: Mild Pain/Headache/T above 101 Stop: 12/12/16 16:16 Last Admin: 10/23/16 23:11 Dose: 650 mg Al Hydrox/Mg Hydrox/Simethicone (Maalox) 30 ml PO Q6H PRN PRN Reason: Dyspepsia Stop: 12/12/16 16:16 Last Admin: 10/22/16 10:25 Dose: 30 ml Amlodipine Besylate (Norvasc) 10 mg PO DAILY [facility] Stop: 12/13/16 08:59 Last Admin: 10/25/16 09:22 Dose: 10 mg Artificial Tears (Artificial Tears Ophth Soln) 1 drop EACH EYE BID [facility] Stop: 12/12/16 16:59 Last Admin: 10/25/16 09:22 Dose: 1 drop Aspirin (Aspirin Chewable) 81 mg PO DAILY [facility] Stop: 12/13/16 08:59 Last Admin: 10/25/16 09:22 Dose: 81 mg Carvedilol (Coreg) 6.25 mg PO BID [facility] Stop: 12/12/16 16:59 Last Admin: 10/25/16 09:17 Dose: Not Given Docusate Sodium (Colace) 100 mg PO BID [facility] Stop: 12/14/16 10:29 Last Admin: 10/25/16 09:22 Dose: 100 mg Lisinopril (Zestril) 40 mg PO DAILY [facility] Stop: 12/13/16 08:59 Last Admin: 10/25/16 09:22 Dose: 40 mg Magnesium Hydroxide (Milk Of Magnesia) 30 ml PO HS PRN PRN Reason: Constipation Stop: 12/12/16 16:16 Multivitamins/Vitamin C (Theragran) 1 tab PO DAILY [facility] Stop: 12/13/16 08:59 Last Admin: 10/25/16 09:22 Dose: 1 tab Quetiapine Fumarate 100 mg/Quetiapine Fumarate 50 mg/Quetiapine Fumarate 25 mg 175 mg PO HS [facility] Stop: 12/22/16 20:59 Last Admin: 10/24/16 20:50 Dose: 175 mg Tramadol HCl (Ultram) 50 mg PO Q6HR PRN PRN Reason: Pain (Moderate) Stop: 12/16/16 09:28 Last Admin: 10/25/16 05:46 Dose: 50 mg General: Alert, Other (Confused) HEENT: Atraumatic Neck: Supple Cardiovascular: Regular rate Lungs: Clear to auscultation Abdomen: Bowel sounds, Soft Extremities: Other (No edema) Neurological: Other (Unstable gait) Skin: Other (Warm and dry) Psych/Mental Status: Other (Confused, not oriented) Assessment/Plan - Problem List Patient Problems: All Active Problems Confusion (Acute) R41.0 - Assessment Assessment: Patient is awake, calm in no acute distress. BP in control. Will continue monitoring - Plan Plan: Patient with psychiatry follow up. Will continue all meds Nutritional Asmnt/Malnutr-PDOC - Dietary Evaluation Malnutrition Findings (Please click <Entered> for more info): Nutritional Asmnt/Malnutrition Start: 10/16/16 16: 11 Text: Status: Complete Freq: Document 10/16/16 16:12 GSUN (Rec: 10/16/16 16:30 [email or web address]) Nutritional Asmnt/Malnutrition Patient General Information Nutritional Screening Moderate Risk Screening Diagnosis Major depression recurrent with psychosis Pertinent Medical Hx/Surgical Hx CAD, HTN, dementia, anxiety, psychosis, schizophrenia, muscle atrophy Subjective Information 76 year old female from SNF. Pt was pleasant. Pt expressed concern regarding not receiving meals she had picked for, encouraged pt tp work on menu with nursing staff, pt understood. Pt denied other nutritional concern at this time. Avg PO itnake 100% of meals since adm, meeting nutritional needs. Teeth intact. Obtained CBW 138.4lb with bedscale calibrated. No muscle fat wasting noted. Current Diet Order/ Nutrition Support Regular, WYATT Pertinent Medications Colace, MOM, Theragran, Seroquel Pertinent Labs No current labs Nutritional Hx/Data Height 1.65 m Height (Calculated Centimeters) 165.1 Current Weight (lbs) 62.777 kg Weight (Calculated Kilograms) 62.8 Weight (Calculated Grams) 59680.2 [place] Body Weight 125 Weight Status Approriate GI Symptoms Usual diet at home [place]: regular, WYATT Skin Integrity/Comment: Marco Antonio Mondragon. Skin intact. Current %PO Good (75-100%) Estimated Nutritional Goals BEE in Kcals: Using Current wt Calories/Kcals/Kg CBW 138.4lb/62.9kg Kcals Calculated 1573-1887kcal (25-30kcal/kg) Protein: Using Current wt Protein Calculated 63g (1g/kg) Fluid: ml 1573-1887ml (1ml/kcal) Nutritional Problem 1. Problem Problem No nutritional problem at this time. Intervention/Recommendation Comments 1. Continue with current diet order. Avg PO intake is adequate. 2. Pt encouraged to work on menu selection with nursing staff. Expected Outcomes/Goals Expected Outcomes/Goals 1. PO intake continue to meet at least 75% of estimated nutritional needs.
--- NOTE | 2016-10-25 21:40 | Progress Notes ---
DATE: 10/25/2016 SUBJECTIVE: Chart reviewed and the patient interviewed. Also discussed the patient's condition with the staff and reviewed records and labs. The patient is still complaining of pain and and med seeking behavior continues. She also is still complaining of insomnia. The patient also still seems to be slightly suspicious and paranoid and her insight is still poor. Otherwise, the patient is still having difficulty with her mood and still depressed. ASSESSMENT: The patient is still depressed and is still histrionic. TREATMENT PLAN: We will continue Seroquel same dose. Also, continue working on her psychosomatic behavior and we will continue to follow up. JOB# [id number]
--- NOTE | 2016-10-26 08:39 | General Progress Note ---
Subjective - Review of Systems Service Date: 10/26/16 Subjective: I want to go home Objective - Physical Exam Vitals and I&O: Vital Signs Temp 98.4 F 10/26/16 06:15 Pulse 65 10/26/16 06:15 Resp 20 10/26/16 06:15 BP 128/73 10/26/16 06:15 Pulse Ox 96 10/26/16 06:15 Intake & Output 10/25/16 10/26/16 10/26/16 18:59 06:59 18:59 Intake Total 1000 420 Balance 1000 420 Intake: Oral 1000 420 Other: # Voids 4 1 # Bowel Movements 1 0 Stool Characteristics Soft Active Medications: Current Medications Acetaminophen (Tylenol) 650 mg PO Q6H PRN PRN Reason: Mild Pain/Headache/T above 101 Stop: 12/12/16 16:16 Last Admin: 10/23/16 23:11 Dose: 650 mg Al Hydrox/Mg Hydrox/Simethicone (Maalox) 30 ml PO Q6H PRN PRN Reason: Dyspepsia Stop: 12/12/16 16:16 Last Admin: 10/22/16 10:25 Dose: 30 ml Amlodipine Besylate (Norvasc) 10 mg PO DAILY [facility] Stop: 12/13/16 08:59 Last Admin: 10/25/16 09:22 Dose: 10 mg Artificial Tears (Artificial Tears Ophth Soln) 1 drop EACH EYE BID [facility] Stop: 12/12/16 16:59 Last Admin: 10/25/16 16:08 Dose: 1 drop Aspirin (Aspirin Chewable) 81 mg PO DAILY [facility] Stop: 12/13/16 08:59 Last Admin: 10/25/16 09:22 Dose: 81 mg Carvedilol (Coreg) 6.25 mg PO BID [facility] Stop: 12/12/16 16:59 Last Admin: 10/25/16 16:07 Dose: 6.25 mg Docusate Sodium (Colace) 100 mg PO BID [facility] Stop: 12/14/16 10:29 Last Admin: 10/25/16 16:08 Dose: 100 mg Lisinopril (Zestril) 40 mg PO DAILY [facility] Stop: 12/13/16 08:59 Last Admin: 10/25/16 09:22 Dose: 40 mg Magnesium Hydroxide (Milk Of Magnesia) 30 ml PO HS PRN PRN Reason: Constipation Stop: 12/12/16 16:16 Multivitamins/Vitamin C (Theragran) 1 tab PO DAILY [facility] Stop: 12/13/16 08:59 Last Admin: 10/25/16 09:22 Dose: 1 tab Quetiapine Fumarate 100 mg/Quetiapine Fumarate 50 mg/Quetiapine Fumarate 25 mg 175 mg PO HS [facility] Stop: 12/22/16 20:59 Last Admin: 10/25/16 20:36 Dose: 175 mg Tramadol HCl (Ultram) 50 mg PO Q6HR PRN PRN Reason: Pain (Moderate) Stop: 12/16/16 09:28 Last Admin: 10/26/16 03:40 Dose: 50 mg General: Alert, Other (Confused) HEENT: Atraumatic Neck: Supple Cardiovascular: Regular rate Lungs: Clear to auscultation Abdomen: Bowel sounds, Soft Extremities: Other (No edema) Neurological: Other (Unstable gait) Skin: Other (Warm and dry) Psych/Mental Status: Other (Confused, not oriented) Assessment/Plan - Problem List Patient Problems: All Active Problems Confusion (Acute) R41.0 - Assessment Assessment: Patient is awake, calm in no acute distress. BP in control. Will continue monitoring - Plan Plan: Patient with psychiatry follow up. Will continue all meds Nutritional Asmnt/Malnutr-PDOC - Dietary Evaluation Malnutrition Findings (Please click <Entered> for more info): Nutritional Asmnt/Malnutrition Start: 10/16/16 16: 11 Text: Status: Complete Freq: Document 10/16/16 16:12 GSUN (Rec: 10/16/16 16:30 GSUN [email or web address]) Nutritional Asmnt/Malnutrition Patient General Information Nutritional Screening Moderate Risk Screening Diagnosis Major depression recurrent with psychosis Pertinent Medical Hx/Surgical Hx CAD, HTN, dementia, anxiety, psychosis, schizophrenia, muscle atrophy Subjective Information 76 year old female from SNF. Pt was pleasant. Pt expressed concern regarding not receiving meals she had picked for, encouraged pt tp work on menu with nursing staff, pt understood. Pt denied other nutritional concern at this time. Avg PO itnake 100% of meals since adm, meeting nutritional needs. Teeth intact. Obtained CBW 138.4lb with bedscale calibrated. No muscle fat wasting noted. Current Diet Order/ Nutrition Support Regular, WYATT Pertinent Medications Colace, MOM, Theragran, Seroquel Pertinent Labs No current labs Nutritional Hx/Data Height 1.65 m Height (Calculated Centimeters) 165.1 Current Weight (lbs) 62.777 kg Weight (Calculated Kilograms) 62.8 Weight (Calculated Grams) 56286.2 [place] Body Weight 125 Weight Status Approriate GI Symptoms Usual diet at home [place]: regular, WYATT Skin Integrity/Comment: Marco Antonio Mondragon. Skin intact. Current %PO Good (75-100%) Estimated Nutritional Goals BEE in Kcals: Using Current wt Calories/Kcals/Kg CBW 138.4lb/62.9kg Kcals Calculated 1573-1887kcal (25-30kcal/kg) Protein: Using Current wt Protein Calculated 63g (1g/kg) Fluid: ml 1573-1887ml (1ml/kcal) Nutritional Problem 1. Problem Problem No nutritional problem at this time. Intervention/Recommendation Comments 1. Continue with current diet order. Avg PO intake is adequate. 2. Pt encouraged to work on menu selection with nursing staff. Expected Outcomes/Goals Expected Outcomes/Goals 1. PO intake continue to meet at least 75% of estimated nutritional needs.
[2016-10-26] MEDS: Aspirin 81mg Chewable Tab PO SCH (09:20)
[2016-10-26] MEDS: Polyvinyl Alcohol Ophth Soln 15 mL Bottle EACH EYE SCH ×2 (09:22→16:54)
[2016-10-26] MEDS: Multivitamin Tab PO SCH (09:23)
--- NOTE | 2016-10-27 03:28 | Progress Notes ---
DATE: 10/26/2016 Case was discussed with staff of the patient, reviewed records. The patient continues to be delusional. Continues to be unable to make safe plan for self-care. Continues to be unpredictable, impulsive, and needing redirection. She is calmer by staff. Still medication seeking. She is suspicious and paranoid. She believes she is going backwards with her son who also reported that she is missing continues to have poor insight. Unable to make safe plan for self-care. She tolerated the increase in Seroquel with no side effects, no sedation, no nausea, no extrapyramidal symptoms. I will be increasing her dose further to 200 mg a day and so far no side effects, no sedation, no nausea, no extrapyramidal symptoms. We will continue to work with the patient in group therapy, milieu therapy, adjust the medication as needed. JOB# [id number]
--- NOTE | 2016-10-27 09:16 | General Progress Note ---
Subjective - Review of Systems Service Date: 10/27/16 Subjective: I want to go home Objective - Physical Exam Vitals and I&O: Vital Signs Temp 98 F 10/27/16 06:10 Pulse 67 10/27/16 06:10 Resp 20 10/27/16 06:10 BP 104/70 10/27/16 06:10 Pulse Ox 94 10/27/16 06:10 Intake & Output 10/26/16 10/27/16 10/27/16 18:59 06:59 18:59 Intake Total 1800 240 Balance 1800 240 Intake: Oral 1800 240 Other: # Voids 4 3 # Bowel Movements 0 0 Stool Characteristics Soft Soft Active Medications: Current Medications Acetaminophen (Tylenol) 650 mg PO Q6H PRN PRN Reason: Mild Pain/Headache/T above 101 Stop: 12/12/16 16:16 Last Admin: 10/23/16 23:11 Dose: 650 mg Al Hydrox/Mg Hydrox/Simethicone (Maalox) 30 ml PO Q6H PRN PRN Reason: Dyspepsia Stop: 12/12/16 16:16 Last Admin: 10/22/16 10:25 Dose: 30 ml Amlodipine Besylate (Norvasc) 10 mg PO DAILY [facility] Stop: 12/13/16 08:59 Last Admin: 10/26/16 09:21 Dose: 10 mg Artificial Tears (Artificial Tears Ophth Soln) 1 drop EACH EYE BID [facility] Stop: 12/12/16 16:59 Last Admin: 10/26/16 16:54 Dose: 1 drop Aspirin (Aspirin Chewable) 81 mg PO DAILY [facility] Stop: 12/13/16 08:59 Last Admin: 10/26/16 09:20 Dose: 81 mg Carvedilol (Coreg) 6.25 mg PO BID [facility] Stop: 12/12/16 16:59 Last Admin: 10/26/16 16:53 Dose: 6.25 mg Docusate Sodium (Colace) 100 mg PO BID [facility] Stop: 12/14/16 10:29 Last Admin: 10/26/16 16:54 Dose: Not Given Lisinopril (Zestril) 40 mg PO DAILY [facility] Stop: 12/13/16 08:59 Last Admin: 10/26/16 09:40 Dose: Not Given Magnesium Hydroxide (Milk Of Magnesia) 30 ml PO HS PRN PRN Reason: Constipation Stop: 12/12/16 16:16 Last Admin: 10/26/16 21:23 Dose: 30 ml Multivitamins/Vitamin C (Theragran) 1 tab PO DAILY [facility] Stop: 12/13/16 08:59 Last Admin: 10/26/16 09:23 Dose: Not Given Quetiapine Fumarate (Seroquel) 200 mg PO HS [facility] Stop: 12/25/16 20:59 Last Admin: 10/26/16 21:23 Dose: 200 mg Tramadol HCl (Ultram) 50 mg PO Q6HR PRN PRN Reason: Pain (Moderate) Stop: 12/16/16 09:28 Last Admin: 10/27/16 04:32 Dose: 50 mg General: Alert, Other (Confused) HEENT: Atraumatic Neck: Supple Cardiovascular: Regular rate Lungs: Clear to auscultation Abdomen: Bowel sounds, Soft Extremities: Other (No edema) Neurological: Other (Unstable gait) Skin: Other (Warm and dry) Psych/Mental Status: Other (Confused, not oriented) Assessment/Plan - Problem List Patient Problems: All Active Problems Confusion (Acute) R41.0 - Assessment Assessment: Patient is awake, calm in no acute distress. BP in control. Will continue monitoring - Plan Plan: Patient with psychiatry follow up. Will continue all meds Nutritional Asmnt/Malnutr-PDOC - Dietary Evaluation Malnutrition Findings (Please click <Entered> for more info): Nutritional Asmnt/Malnutrition Start: 10/16/16 16: 11 Text: Status: Complete Freq: Document 10/16/16 16:12 GSUN (Rec: 10/16/16 16:30 GSUN [email or web address]) Nutritional Asmnt/Malnutrition Patient General Information Nutritional Screening Moderate Risk Screening Diagnosis Major depression recurrent with psychosis Pertinent Medical Hx/Surgical Hx CAD, HTN, dementia, anxiety, psychosis, schizophrenia, muscle atrophy Subjective Information 76 year old female from SNF. Pt was pleasant. Pt expressed concern regarding not receiving meals she had picked for, encouraged pt tp work on menu with nursing staff, pt understood. Pt denied other nutritional concern at this time. Avg PO itnake 100% of meals since adm, meeting nutritional needs. Teeth intact. Obtained CBW 138.4lb with bedscale calibrated. No muscle fat wasting noted. Current Diet Order/ Nutrition Support Regular, WYATT Pertinent Medications Colace, MOM, Theragran, Seroquel Pertinent Labs No current labs Nutritional Hx/Data Height 1.65 m Height (Calculated Centimeters) 165.1 Current Weight (lbs) 62.777 kg Weight (Calculated Kilograms) 62.8 Weight (Calculated Grams) 20914.2 [place] Body Weight 125 Weight Status Approriate GI Symptoms Usual diet at home [place]: regular, WYATT Skin Integrity/Comment: Marco Antonio 19. Skin intact. Current %PO Good (75-100%) Estimated Nutritional Goals BEE in Kcals: Using Current wt Calories/Kcals/Kg CBW 138.4lb/62.9kg Kcals Calculated 1573-1887kcal (25-30kcal/kg) Protein: Using Current wt Protein Calculated 63g (1g/kg) Fluid: ml 1573-1887ml (1ml/kcal) Nutritional Problem 1. Problem Problem No nutritional problem at this time. Intervention/Recommendation Comments 1. Continue with current diet order. Avg PO intake is adequate. 2. Pt encouraged to work on menu selection with nursing staff. Expected Outcomes/Goals Expected Outcomes/Goals 1. PO intake continue to meet at least 75% of estimated nutritional needs.
[2016-10-27] MEDS: Aspirin 81mg Chewable Tab PO SCH (09:43)
[2016-10-27] MEDS: Multivitamin Tab PO SCH (09:43)
[2016-10-27] MEDS: Polyvinyl Alcohol Ophth Soln 15 mL Bottle EACH EYE SCH (09:43)
--- NOTE | 2016-10-28 02:53 | Progress Notes ---
DATE: 10/27/2016 Case was discussed with staff of the patient, reviewed records. The patient continues to be delusional. Continues to have poor insight. Continues to be unable to make safe plan for self-care. Continues to need redirection. She is compliant with the medication with no side effects, no sedation, no nausea, no extrapyramidal symptoms, and I did increase her Seroquel dose yesterday to 100 mg at bedtime. We will continue to work with the patient in group therapy and milieu therapy, and adjust the medication as needed. JOB# [id number]
[2016-10-28] MEDS: Aspirin 81mg Chewable Tab PO SCH (08:44)
[2016-10-28] MEDS: Multivitamin Tab PO SCH (08:44)
--- NOTE | 2016-10-28 08:55 | General Progress Note ---
Subjective - Review of Systems Service Date: 10/28/16 Subjective: I want to go home Objective - Physical Exam Vitals and I&O: Vital Signs Temp 97.6 F 10/28/16 06:26 Pulse 85 10/28/16 08:45 Resp 20 10/28/16 06:26 BP 143/84 10/28/16 08:45 Pulse Ox 97 10/28/16 06:26 Intake & Output 10/27/16 10/28/16 10/28/16 18:59 06:59 18:59 Intake Total 900 120 Balance 900 120 Intake: Oral 900 120 Other: # Voids 3 3 # Bowel Movements 1 Active Medications: Current Medications Acetaminophen (Tylenol) 650 mg PO Q6H PRN PRN Reason: Mild Pain/Headache/T above 101 Stop: 12/12/16 16:16 Last Admin: 10/23/16 23:11 Dose: 650 mg Al Hydrox/Mg Hydrox/Simethicone (Maalox) 30 ml PO Q6H PRN PRN Reason: Dyspepsia Stop: 12/12/16 16:16 Last Admin: 10/22/16 10:25 Dose: 30 ml Amlodipine Besylate (Norvasc) 10 mg PO DAILY [facility] Stop: 12/13/16 08:59 Last Admin: 10/28/16 08:45 Dose: Not Given Artificial Tears (Artificial Tears Oph Sol) 1 drop EACH EYE BID [facility] Stop: 12/12/16 16:59 Last Admin: 10/27/16 09:43 Dose: 1 drop Aspirin (Aspirin Chewable) 81 mg PO DAILY [facility] Stop: 12/13/16 08:59 Last Admin: 10/28/16 08:44 Dose: 81 mg Carvedilol (Coreg) 6.25 mg PO BID [facility] Stop: 12/12/16 16:59 Last Admin: 10/28/16 08:45 Dose: Not Given Docusate Sodium (Colace) 100 mg PO BID [facility] Stop: 12/14/16 10:29 Last Admin: 10/28/16 08:44 Dose: 100 mg Lisinopril (Zestril) 40 mg PO DAILY [facility] Stop: 12/13/16 08:59 Last Admin: 10/28/16 08:44 Dose: Not Given Magnesium Hydroxide (Milk Of Magnesia) 30 ml PO HS PRN PRN Reason: Constipation Stop: 12/12/16 16:16 Last Admin: 10/26/16 21:23 Dose: 30 ml Multivitamins/Vitamin C (Theragran) 1 tab PO DAILY [facility] Stop: 12/13/16 08:59 Last Admin: 10/28/16 08:44 Dose: 1 tab Quetiapine Fumarate (Seroquel) 200 mg PO HS [facility] Stop: 12/25/16 20:59 Last Admin: 10/27/16 20:13 Dose: 200 mg Tramadol HCl (Ultram) 50 mg PO Q6HR PRN PRN Reason: Pain (Moderate) Stop: 12/16/16 09:28 Last Admin: 10/28/16 06:54 Dose: 50 mg General: Alert, Other (Confused) HEENT: Atraumatic Neck: Supple Cardiovascular: Regular rate Lungs: Clear to auscultation Abdomen: Bowel sounds, Soft Extremities: Other (No edema) Neurological: Other (Unstable gait) Skin: Other (Warm and dry) Psych/Mental Status: Other (Confused, not oriented) Assessment/Plan - Problem List Patient Problems: All Active Problems Confusion (Acute) R41.0 - Assessment Assessment: Patient is awake, calm in no acute distress. BP in control. Will continue monitoring - Plan Plan: Patient with psychiatry follow up. Will continue all meds Nutritional Asmnt/Malnutr-PDOC - Dietary Evaluation Malnutrition Findings (Please click <Entered> for more info): Nutritional Asmnt/Malnutrition Start: 10/16/16 16: 11 Text: Status: Complete Freq: Document 10/16/16 16:12 GSUN (Rec: 10/16/16 16:30 GSUN [email or web address]) Nutritional Asmnt/Malnutrition Patient General Information Nutritional Screening Moderate Risk Screening Diagnosis Major depression recurrent with psychosis Pertinent Medical Hx/Surgical Hx CAD, HTN, dementia, anxiety, psychosis, schizophrenia, muscle atrophy Subjective Information 76 year old female from SNF. Pt was pleasant. Pt expressed concern regarding not receiving meals she had picked for, encouraged pt tp work on menu with nursing staff, pt understood. Pt denied other nutritional concern at this time. Avg PO itnake 100% of meals since adm, meeting nutritional needs. Teeth intact. Obtained CBW 138.4lb with bedscale calibrated. No muscle fat wasting noted. Current Diet Order/ Nutrition Support Regular, WYATT Pertinent Medications Colace, MOM, Theragran, Seroquel Pertinent Labs No current labs Nutritional Hx/Data Height 1.65 m Height (Calculated Centimeters) 165.1 Current Weight (lbs) 62.777 kg Weight (Calculated Kilograms) 62.8 Weight (Calculated Grams) 65311.2 [place] Body Weight 125 Weight Status Approriate GI Symptoms Usual diet at home [place]: regular, WYATT Skin Integrity/Comment: Marco Antonio Mondragon. Skin intact. Current %PO Good (75-100%) Estimated Nutritional Goals BEE in Kcals: Using Current wt Calories/Kcals/Kg CBW 138.4lb/62.9kg Kcals Calculated 1573-1887kcal (25-30kcal/kg) Protein: Using Current wt Protein Calculated 63g (1g/kg) Fluid: ml 1573-1887ml (1ml/kcal) Nutritional Problem 1. Problem Problem No nutritional problem at this time. Intervention/Recommendation Comments 1. Continue with current diet order. Avg PO intake is adequate. 2. Pt encouraged to work on menu selection with nursing staff. Expected Outcomes/Goals Expected Outcomes/Goals 1. PO intake continue to meet at least 75% of estimated nutritional needs.
[2016-10-28] MEDS: Polyvinyl Alcohol Ophth Soln 15 mL Bottle EACH EYE SCH ×2 (11:40→17:20)
--- NOTE | 2016-10-28 23:24 | Progress Notes ---
DATE: 10/28/2016 Case was discussed with staff of the patient, reviewed records. The patient continues to be confused and delusional. Continues to have poor insight. Continues to be unable to make safe plan for self-care. Unable to take care of herself. She is compliant with the medication with no side effects, no sedation, no nausea, no extrapyramidal symptoms, and she still believes she is going to go with her son who she said also had been missing and wants to report a missing person and we will continue the patient in group therapy, milieu therapy, adjust medication as needed, tolerating increase in Seroquel. JOB# [id number]
--- NOTE | 2016-10-29 09:06 | General Progress Note ---
Subjective - Review of Systems Service Date: 10/29/16 Subjective: I want to go home Objective - Physical Exam Vitals and I&O: Vital Signs Temp 97.2 F 10/29/16 06:13 Pulse 65 10/29/16 06:13 Resp 20 10/29/16 06:13 BP 144/77 10/29/16 06:13 Pulse Ox 96 10/29/16 06:13 Intake & Output 10/28/16 10/29/16 10/29/16 18:59 06:59 18:59 Intake Total 900 120 Balance 900 120 Intake: Oral 900 120 Other: # Voids 3 3 # Bowel Movements 1 Stool Characteristics Soft Active Medications: Current Medications Acetaminophen (Tylenol) 650 mg PO Q6H PRN PRN Reason: Mild Pain/Headache/T above 101 Stop: 12/12/16 16:16 Last Admin: 10/23/16 23:11 Dose: 650 mg Al Hydrox/Mg Hydrox/Simethicone (Maalox) 30 ml PO Q6H PRN PRN Reason: Dyspepsia Stop: 12/12/16 16:16 Last Admin: 10/22/16 10:25 Dose: 30 ml Amlodipine Besylate (Norvasc) 10 mg PO DAILY [facility] Stop: 12/13/16 08:59 Last Admin: 10/28/16 08:45 Dose: Not Given Artificial Tears (Artificial Tears Oph Soln) 1 drop EACH EYE BID [facility] Stop: 12/12/16 16:59 Last Admin: 10/28/16 17:20 Dose: 1 drop Aspirin (Aspirin Chewable) 81 mg PO DAILY [facility] Stop: 12/13/16 08:59 Last Admin: 10/28/16 08:44 Dose: 81 mg Carvedilol (Coreg) 6.25 mg PO BID [facility] Stop: 12/12/16 16:59 Last Admin: 10/28/16 17:19 Dose: 6.25 mg Docusate Sodium (Colace) 100 mg PO BID [facility] Stop: 12/14/16 10:29 Last Admin: 10/28/16 17:32 Dose: 100 mg Lisinopril (Zestril) 40 mg PO DAILY [facility] Stop: 12/13/16 08:59 Last Admin: 10/28/16 08:44 Dose: Not Given Magnesium Hydroxide (Milk Of Magnesia) 30 ml PO HS PRN PRN Reason: Constipation Stop: 12/12/16 16:16 Last Admin: 10/26/16 21:23 Dose: 30 ml Multivitamins/Vitamin C (Theragran) 1 tab PO DAILY [facility] Stop: 12/13/16 08:59 Last Admin: 10/28/16 08:44 Dose: 1 tab Quetiapine Fumarate (Seroquel) 200 mg PO HS [facility] Stop: 12/25/16 20:59 Last Admin: 10/28/16 20:39 Dose: 200 mg Tramadol HCl (Ultram) 50 mg PO Q6HR PRN PRN Reason: Pain (Moderate) Stop: 12/16/16 09:28 Last Admin: 10/28/16 20:39 Dose: 50 mg General: Alert, Other (Confused) HEENT: Atraumatic Neck: Supple Cardiovascular: Regular rate Lungs: Clear to auscultation Abdomen: Bowel sounds, Soft Extremities: Other (No edema) Neurological: Other (Unstable gait) Skin: Other (Warm and dry) Psych/Mental Status: Other (Confused, not oriented) Assessment/Plan - Problem List Patient Problems: All Active Problems Confusion (Acute) R41.0 - Assessment Assessment: Patient is awake, calm in no acute distress. BP in control. Will continue monitoring - Plan Plan: Patient with psychiatry follow up. Will continue all meds Nutritional Asmnt/Malnutr-PDOC - Dietary Evaluation Malnutrition Findings (Please click <Entered> for more info): Nutritional Asmnt/Malnutrition Start: 10/16/16 16: 11 Text: Status: Complete Freq: Document 10/16/16 16:12 GSUN (Rec: 10/16/16 16:30 GSUN [email or web address]) Nutritional Asmnt/Malnutrition Patient General Information Nutritional Screening Moderate Risk Screening Diagnosis Major depression recurrent with psychosis Pertinent Medical Hx/Surgical Hx CAD, HTN, dementia, anxiety, psychosis, schizophrenia, muscle atrophy Subjective Information 76 year old female from SNF. Pt was pleasant. Pt expressed concern regarding not receiving meals she had picked for, encouraged pt tp work on menu with nursing staff, pt understood. Pt denied other nutritional concern at this time. Avg PO itnake 100% of meals since adm, meeting nutritional needs. Teeth intact. Obtained CBW 138.4lb with bedscale calibrated. No muscle fat wasting noted. Current Diet Order/ Nutrition Support Regular, WYATT Pertinent Medications Colace, MOM, Theragran, Seroquel Pertinent Labs No current labs Nutritional Hx/Data Height 1.65 m Height (Calculated Centimeters) 165.1 Current Weight (lbs) 62.777 kg Weight (Calculated Kilograms) 62.8 Weight (Calculated Grams) 40567.2 [place] Body Weight 125 Weight Status Approriate GI Symptoms Usual diet at home [place]: regular, WYATT Skin Integrity/Comment: Marco Antonio 19. Skin intact. Current %PO Good (75-100%) Estimated Nutritional Goals BEE in Kcals: Using Current wt Calories/Kcals/Kg CBW 138.4lb/62.9kg Kcals Calculated 1573-1887kcal (25-30kcal/kg) Protein: Using Current wt Protein Calculated 63g (1g/kg) Fluid: ml 1573-1887ml (1ml/kcal) Nutritional Problem 1. Problem Problem No nutritional problem at this time. Intervention/Recommendation Comments 1. Continue with current diet order. Avg PO intake is adequate. 2. Pt encouraged to work on menu selection with nursing staff. Expected Outcomes/Goals Expected Outcomes/Goals 1. PO intake continue to meet at least 75% of estimated nutritional needs.
[2016-10-29] MEDS: Polyvinyl Alcohol Ophth Soln 15 mL Bottle EACH EYE SCH ×2 (09:25→16:15)
[2016-10-29] MEDS: Aspirin 81mg Chewable Tab PO SCH (09:26)
[2016-10-29] MEDS: Multivitamin Tab PO SCH (09:26)
--- NOTE | 2016-10-30 00:05 | Progress Notes ---
DATE: 10/29/2016 Case was discussed with staff of the patient, reviewed records. The patient is reported by the staff to be less mean. She continues to respond better to redirection. Sleeping better, eating better. She is compliant with the medication with no side effects, no sedation, no nausea, no extrapyramidal symptoms. She is tolerating increase in Seroquel. I will be increasing her dose and she seems to be getting back to her basic level of function, continuing to do well and perhaps planning to discharge her soon as she did not go back to [place] and we will continue to work with the patient in group therapy, milieu therapy, adjust the medication as needed. JOB# [id number]
--- NOTE | 2016-10-30 09:07 | General Progress Note ---
Subjective - Review of Systems Service Date: 10/30/16 Subjective: I want to go home Objective - Physical Exam Vitals and I&O: Vital Signs Temp 97.9 F 10/30/16 06:10 Pulse 68 10/30/16 06:10 Resp 20 10/30/16 06:10 BP 110/69 10/30/16 06:10 Pulse Ox 97 10/30/16 06:10 Intake & Output 10/29/16 10/30/16 10/30/16 18:59 06:59 18:59 Intake Total 1200 120 Balance 1200 120 Intake: Oral 1200 120 Other: # Voids 3 # Bowel Movements 1 Stool Characteristics Soft Active Medications: Current Medications Acetaminophen (Tylenol) 650 mg PO Q6H PRN PRN Reason: Mild Pain/Headache/T above 101 Stop: 12/12/16 16:16 Last Admin: 10/23/16 23:11 Dose: 650 mg Al Hydrox/Mg Hydrox/Simethicone (Maalox) 30 ml PO Q6H PRN PRN Reason: Dyspepsia Stop: 12/12/16 16:16 Last Admin: 10/22/16 10:25 Dose: 30 ml Amlodipine Besylate (Norvasc) 10 mg PO DAILY [facility] Stop: 12/13/16 08:59 Last Admin: 10/29/16 09:26 Dose: 10 mg Artificial Tears (Artificial Tears Ophth Soln) 1 drop EACH EYE BID [facility] Stop: 12/12/16 16:59 Last Admin: 10/29/16 16:15 Dose: Not Given Aspirin (Aspirin Chewable) 81 mg PO DAILY [facility] Stop: 12/13/16 08:59 Last Admin: 10/29/16 09:26 Dose: 81 mg Carvedilol (Coreg) 6.25 mg PO BID [facility] Stop: 12/12/16 16:59 Last Admin: 10/29/16 16:15 Dose: Not Given Docusate Sodium (Colace) 100 mg PO BID [facility] Stop: 12/14/16 10:29 Last Admin: 10/29/16 16:15 Dose: Not Given Lisinopril (Zestril) 40 mg PO DAILY [facility] Stop: 12/13/16 08:59 Last Admin: 10/29/16 09:27 Dose: 40 mg Magnesium Hydroxide (Milk Of Magnesia) 30 ml PO HS PRN PRN Reason: Constipation Stop: 12/12/16 16:16 Last Admin: 10/26/16 21:23 Dose: 30 ml Multivitamins/Vitamin C (Theragran) 1 tab PO DAILY [facility] Stop: 12/13/16 08:59 Last Admin: 10/29/16 09:26 Dose: 1 tab Quetiapine Fumarate (Seroquel) 200 mg PO HS [facility] Stop: 12/25/16 20:59 Last Admin: 10/29/16 21:05 Dose: 200 mg Tramadol HCl (Ultram) 50 mg PO Q6HR PRN PRN Reason: Pain (Moderate) Stop: 12/16/16 09:28 Last Admin: 10/29/16 15:41 Dose: 50 mg General: Alert, Other (Confused) HEENT: Atraumatic Neck: Supple Cardiovascular: Regular rate Lungs: Clear to auscultation Abdomen: Bowel sounds, Soft Extremities: Other (No edema) Neurological: Other (Unstable gait) Skin: Other (Warm and dry) Psych/Mental Status: Other (Confused, not oriented) Assessment/Plan - Problem List Patient Problems: All Active Problems Confusion (Acute) R41.0 - Assessment Assessment: Patient is awake, calm in no acute distress. BP in control. Will continue monitoring - Plan Plan: Patient with psychiatry follow up. Will continue all meds Nutritional Asmnt/Malnutr-PDOC - Dietary Evaluation Malnutrition Findings (Please click <Entered> for more info): Nutritional Asmnt/Malnutrition Start: 10/16/16 16: 11 Text: Status: Complete Freq: Document 10/16/16 16:12 GSUN (Rec: 10/16/16 16:30 GSUN [email or web address]) Nutritional Asmnt/Malnutrition Patient General Information Nutritional Screening Moderate Risk Screening Diagnosis Major depression recurrent with psychosis Pertinent Medical Hx/Surgical Hx CAD, HTN, dementia, anxiety, psychosis, schizophrenia, muscle atrophy Subjective Information 76 year old female from SNF. Pt was pleasant. Pt expressed concern regarding not receiving meals she had picked for, encouraged pt tp work on menu with nursing staff, pt understood. Pt denied other nutritional concern at this time. Avg PO itnake 100% of meals since adm, meeting nutritional needs. Teeth intact. Obtained CBW 138.4lb with bedscale calibrated. No muscle fat wasting noted. Current Diet Order/ Nutrition Support Regular, WYATT Pertinent Medications Colace, MOM, Theragran, Seroquel Pertinent Labs No current labs Nutritional Hx/Data Height 1.65 m Height (Calculated Centimeters) 165.1 Current Weight (lbs) 62.777 kg Weight (Calculated Kilograms) 62.8 Weight (Calculated Grams) 53057.2 [place] Body Weight 125 Weight Status Approriate GI Symptoms Usual diet at home [place]: regular, WYATT Skin Integrity/Comment: Marco Antonio Mondragon. Skin intact. Current %PO Good (75-100%) Estimated Nutritional Goals BEE in Kcals: Using Current wt Calories/Kcals/Kg CBW 138.4lb/62.9kg Kcals Calculated 1573-1887kcal (25-30kcal/kg) Protein: Using Current wt Protein Calculated 63g (1g/kg) Fluid: ml 1573-1887ml (1ml/kcal) Nutritional Problem 1. Problem Problem No nutritional problem at this time. Intervention/Recommendation Comments 1. Continue with current diet order. Avg PO intake is adequate. 2. Pt encouraged to work on menu selection with nursing staff. Expected Outcomes/Goals Expected Outcomes/Goals 1. PO intake continue to meet at least 75% of estimated nutritional needs.
[2016-10-30] MEDS: Polyvinyl Alcohol Ophth Soln 15 mL Bottle EACH EYE SCH ×2 (09:11→16:07)
[2016-10-30] MEDS: Aspirin 81mg Chewable Tab PO SCH (09:12)
[2016-10-30] MEDS: Multivitamin Tab PO SCH (09:14)
--- NOTE | 2016-10-30 12:09 | Discharge Summary ---
DATE OF DISCHARGE: 10/30/2016 IDENTIFYING INFORMATION: The patient is a 76-year-old female. CHIEF COMPLAINT: "I have been depressed." HISTORY OF PRESENT ILLNESS: Transferred from medical floor. The patient from [place] because of depression with psychosis, irritability. The patient feeling very depressed, not sleeping well, but she denies that she was hearing voices or seeing things. She was in denial that she would harm herself. She has been paranoid, unpredictable, impulsive, too delusional about a son, whom she reports missing, but when I talked to her daughter, she said he is available. The patient has a long history of depression, and psychosis, dating back to 20 years ago when her son got killed. The patient has been at [place]. SHE IS ALLERGIC TO DIPHENHYDRAMINE. COURSE IN THE HOSPITAL: The patient was started on medication. The patient was continued with amlodipine for blood pressure, aspirin, Coreg, lisinopril, multivitamin. Seroquel was started and increased the dose to 100 mg at bedtime, tramadol 50 mg as needed. The patient progressively got better. At some point, we felt this is her basic level of function. She was no longer acting out. She was not acting me like she was at the beginning. She was easy to redirect, able to participate in group meeting, so as she improved, she was no longer acting psychotic or delusional, felt she could be discharged to a lesser level of care. The patient will be going back to [place]. I did talk to the daughter once regarding the treatment and she affirmed that the son is not missing, the patient reports him as missing. FINAL DIAGNOSES: AXIS I: Bipolar disorder with psychosis. MEDICAL DIAGNOSES: Hypertension, chronic pain. The patient will be going back to [place]. Follow up with the psychiatrist there as well as primary care. EXPECTED OUTCOME: Stable if the patient complies with the above. [facility]# [id number]
== END 2016-10-30 16:30 | DRG 885 ==
LOC: GERO 15:55
PROVIDERS: ADMIT Psychiatry & Neurology Psychiatry; ATTEND Psychiatry & Neurology Psychiatry
DX: F31.89 Other bipolar disorder (principal); F03.90 Unspecified dementia, unspecified severity, without behavioral disturbance, psychotic disturbance, mood disturbance, and anxiety; F29 Unspecified psychosis not due to a substance or known physiological condition; I10 Essential (primary) hypertension; I25.10 Atherosclerotic heart disease of native coronary artery without angina pectoris; F41.9 Anxiety disorder, unspecified; Z79.82 Long term (current) use of aspirin; Z88.8 Allergy status to other drugs, medicaments and biological substances
CPT/HCPCS: 90899; Z7610

== ENCOUNTER 2017-01-26 16:35 | Inpatient (IN) | payer MEDICARE, BC ==
--- NOTE | 2017-01-26 16:46 | ED Physician Chart ---
ED Chief Complaint/HPI - Patient Information Date Seen:: 01/26/17 Time Seen:: 16:30 Chief Complaint:: Weakness History of Present Illness:: onset x 3 days of weakness, dizziness, and poor oral intake; no report of trauma , H/As, S/T, neck pain, C/P, SOB, cough, Abd. Pain, A/N/V/D/c, fevsr, chills, or urinary s/s Allergies:: Allergies Allergy/AdvReac Type Severity Reaction Status Date / Time diphenhydramine Allergy Verified 08/05/16 21:24 [From Benadryl] Historian:: Patient, EMS Review:: Nurse's Note Reviewed, EMS run form Reviewed ED Review of Systems - Review of Systems General/Constitutional: No fever, No chills, No weight loss, No weakness, No diaphoresis, No edema, No loss of appetite Skin: No skin lesions, No rash, No bruising Head: No headache, No light-headedness Eyes: No loss of vision, No pain, No diplopia ENT: No earache, No nasal drainage, No sore throat, No tinnitus Neck: No neck pain, No swelling, No thyromegaly, No stiffness, No mass noted Cardio Vascular: No chest pain, No palpitations, No PND, No orthopnea, No edema Pulmonary: No SOB, No cough, No sputum, No wheezing GI: No nausea, No vomiting, No diarrhea, No pain, No melena, No hematochezia, No constipation, No hematemesis G/U: No dysuria, No frequency, No hematuria, No nacturia 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 vaginal discharge, No abnormal vaginal bleed, No contraction Musculoskeletal: No bone or joint pain, No back pain, No muscle pain Endocrine: No polyuria, No polydipsia Psychiatric: No prior psych history, No depression, No anxiety, No suicidal ideation, No homicidal ideation, No auditory hallucination, No visual hallucination Hematopoietic: No bruising, No lymphadenopathy Allergic/Immuno: No urticaria, No angioedema Neurological: No syncope, No focal symptoms, No weakness, No paresthesia, No headache, No seizure, No dizziness, No confusion, No vertigo ED Past Medical History - Past Medical History Obtainable: Yes Past Medical History: HTN, CAD, CVA/TIA, Dyslipidemia, Other (Multiple Sclerosis ) Family History: Diabetes Melitus, HTN Social History: Non Smoker, No Alcohol, No Drug Use, Single, Care Facility Surgical History: None Psychiatricy History: None Medication: Reviewed Family Medical History - Family Member Father History Unknown: Yes Ethnicity: Unknown Living Status: Unknown Hx Family Cancer: (UNKNOWN) Hx Family Coronary Artery Disease: (UNKNOWN) Hx Family Congestive Heart Failure: (UNKNOWN) Hx Family Hypertension: (UNKNOWN) Hx Family Stroke: (UNKNOWN) Hx Family Diabetes: (UNKNOWN) Hx Family Seizures: (UNKNOWN) Hx Family Dementia: (UNKNOWN) Hx Family AIDS: (UNKNOWN) Hx Family COPD: (UNKNOWN) Hx Family Hepatitis: (UNKNOWN) Hx Family Psychiatric Problems: (UNKNOWN) Hx Family Tuberculosis: (UNKNOWN) Mother History Unknown: Yes Ethnicity: Unknown Living Status: Unknown Hx Family Cancer: (UNKNOWN) Hx Family Coronary Artery Disease: (UNKNOWN) Hx Family Congestive Heart Failure: (UNKNOWN) Hx Family Hypertension: (UNKNOWN) Hx Family Stroke: (UNKNOWN) Hx Family Diabetes: (UNKNOWN) Hx Family Seizures: (UNKNOWN) Hx Family Dementia: (UNKNOWN) Hx Family AIDS: (UNKNOWN) Hx Family COPD: (UNKNOWN) Hx Family Hepatitis: (UNKNOWN) Hx Family Psychiatric Problems: (UNKNOWN) Hx Family Tuberculosis: (UNKNOWN) ED Physical Exam - Physical Examination General/Constitutional: Awake, Well-developed, well-nourished, Alert, No distress, GCS 15, Non-toxic appearing, Ambulatory Head: Atraumatic Eyes: Lids, conjuctiva normal, PERRL, EOMI Skin: Nl inspection, No rash, No skin lesions, No ecchymosis, Well hydrated, No lymphadenopathy ENMT: External ears, nose nl, TM canals nl, Nasal exam nl, Lips, teeth, gums nl , Oropharynx nl, Tonsils nl Neck: Nontender, Full ROM w/o pain, No JVD, No nuchal rigidity, No bruit, No mass, No stridor Respiratory: Nl effort/Exclusion, Clear to Auscultation, No Wheeze/Rhonchi/Rales Cardio Vascular: RRR, No murmur, gallop, rubs, NL S1 S2, Carotid/Femoral/Distal pulses equal bilaterally GI: No tenderness/rebounding/guarding, No organomegaly, No hernia, Normal BS's, Nondistended, No mass/bruits, No McBurney tenderness : No CVA tenderness Extremities: No tenderness or effusion, Full ROM, normal strength in all extremities, No edema, Normal digits & nails Neuro/Psych: Alert/oriented, DTR's symmetric, Normal sensory exam, Normal motor strength, Judgement/insight normal, Mood normal, Normal gait, No focal deficits Misc: Normal back, No paraspinal tenderness ED Labs/Radiology/EKG Results - Lab Results Comments:: unremarkable - Radiology Results Comments:: NAD - EKG Interpretations EKG Time:: 17:48 Rate & Rhythm: 80; NSR Comments:: Old IWMI; T-Wave Inversion in III; V1, V2 ED Septic Shock - . Is Septic Shock (SBP<90, OR Lactate>4 mmol\L) present?: No ED Reassessment (Disposition) - Reassessment Reassessment Condition:: Improved - Diagnosis Diagnosis:: Myocardial Ischemia; Dehydration; Weakness; Dizziness - Aftercare/Follow up Instructions Aftercare/Follow-Up Instructions:: Counseled pt regarding lab results/diagnosis & need follow up, Counseled pt & family regarding lab results/diagnosis & need follow up - Patient Disposition Discharge/Transfer:: Acute Care w/in this hosp Accepting Physician:: Dr. Meyer Time Called:: 1829 Time Responded:: 18:30 Admitted to:: Telemetry Admitting Medical Physician:: Dr. Meyer Condition at Disposition:: Stable, Improved
[2017-01-26] MEDS ORDERED: Sodium Chloride 0.9% 1,000 ML IV ONE (16:51)
[2017-01-26 18:05] LABS: % BASOPHILS 0.7 % (0.0-2.0); % EOSINOPHILS 5.9 % (0.0-5.0); % LYMPHOCYTES 26.9 % (20.0-50.0); % MONOCYTES 6.4 % (2.0-10.0); % NEUTROPHILS 60.1 % (40.0-80.0); BASOPHILE ABSOLUTE 0.1 Th/cumm (0-0.2); EOSINOPHILE ABSOLUTE 0.5 Th/cmm (0.1-0.4); HEMATOCRIT 40.4 % (41.0-60); HEMOGLOBIN 13.4 gm/dL (12-16); LYMPHOCYTE ABSOLUTE 2.4 Th/cmm (1.5-3.0); MEAN CELL VOLUME 92.2 fl (81-100); MEAN CORPUSCULAR HEMOGLOBIN 30.7 pg (27.0-31.0); MEAN CORPUSCULAR HGB CONC 33.3 pg (28.0-36.0); MEAN PLATELET VOLUME 6.9 fl; MONOCYTE ABSOLUTE 0.6 Th/cmm (0.3-1.0); NEUTROPHILE ABSOLUTE 5.3 Th/cmm (1.8-8.0); RED BLOOD COUNT 4.38 Mil/cmm (3.80-5.20); RED CELL DISTRIBUTION WIDTH 14.6 % (11.5-20.0); WHITE BLOOD COUNT 8.9 Th/cmm (4.8-10.8)
[2017-01-26 18:07] LABS: PLATELET COUNT 205 Th/cmm (150-400)
[2017-01-26 18:30] LABS: ALB/GLOB RATIO 1.3 (1.0-1.8); ALBUMIN 3.9 gm/dL (3.7-5.3); ALKALINE PHOSPHATASE 96 U/L (34-104); BILIRUBIN,TOTAL 0.3 mg/dL (0.3-1.0); BUN - UREA NITROGEN 21 mg/dL (7-25); CARBON DIOXIDE 21.7 mEq/L (21.0-31.0); CHLORIDE 106 mEq/L (98-107); CHOLESTEROL 189 mg/dL (<200); CREATININE - SERUM 1.2 mg/dL (0.6-1.2); CREATININE KINASE 25 U/L (30-223); GLUCOSE 115 mg/dL (70-105); HDL -HIGH DENSITY LIPOPROTEIN 70 mg/dL (23-92); POTASSIUM SERUM 3.7 mEq/L (3.5-5.1); SGOT 26 U/L (13-39); SGPT/ALT 30 U/L (7-52); SODIUM SERUM 137 mEq/L (136-145); TRIGLYCERIDES 81 mg/dL (<150)
[2017-01-26 18:31] LABS: AMYLASE SERUM 79 U/L (29-103); LIPASE 15 U/L (11-82)
[2017-01-26 18:56] LABS: INR 2.11 (0.5-1.4); PROTHROMBIN TIME (TEST) 22.9 SECONDS (9.5-11.5)
[2017-01-26] MEDS ORDERED: Magnesium Hydroxide (MOM) 30 mL UDC PO PRN (20:43)
[2017-01-26] MEDS ORDERED: MINERAL OIL RC PRN (20:43)
[2017-01-26] MEDS ORDERED: Non-Formulary Item 1 EA (Zolpidem Tartrate [Ambien] 10 MG) PO SCH (21:00)
[2017-01-26] MEDS ORDERED: MINERAL OIL ENEMA 135 ML BOTTLE RC PRN (21:32)
--- NOTE | 2017-01-26 21:55 | History & Physical ---
ADMIT DATE: 01/26/2017 CHIEF COMPLAINT: Chest pain for a few hours duration. HISTORY OF PRESENT ILLNESS: The patient is a 76-year-old female with long history of hypertension, dementia, and psychosis; presented to the Emergency Room with chest pain for a few hours duration, evaluated by the ER physician. Initial workup significant for EKG changes. No nausea, no vomiting, no fever, no chills, no cough. The patient admitted to telemetry. Cardiac consultation obtained. PAST MEDICAL HISTORY: Significant for hypertension, gastroesophageal reflux, degenerative joint disease, depression, and psychosis. PAST SURGICAL HISTORY: No recent surgery. ALLERGIES: None. MEDICATIONS: Follow admission reconciliation. SOCIAL HISTORY: No smoking, no alcohol, no drug. FAMILY HISTORY: Noncontributory. REVIEW OF SYSTEMS: RENAL SYSTEM: No history of chronic renal disorder. CARDIOVASCULAR SYSTEM: She has history of hypertension. ENDOCRINE SYSTEM: No diabetes or thyroid problem. GASTROINTESTINAL SYSTEM: No upper or lower gastrointestinal bleed. NEUROLOGICAL: She has history of psychosis, dementia. MUSCULOSKELETAL SYSTEM: She has degenerative joint disease. PHYSICAL EXAMINATION: GENERAL: She is awake, alert, confused. VITAL SIGNS: Temperature 98.1, heart rate 77, and blood pressure 153/90. HEENT: Normocephalic. Pupils reactive to light and accommodation. Sclerae clear. NECK: Supple. Negative for lymphadenopathy, JVD, or bruit. CHEST: Bilateral normal. No rhonchi or wheezing. HEART: S1, S2 normal. No murmur or gallop. ABDOMEN: Soft, bowel sounds positive. EXTREMITIES: No edema. NEUROLOGIC: She is awake, coherent. She is moving upper and lower extremities. LABORATORY DATA: White blood cell 8.9, hemoglobin 13.4, hematocrit 40.4, and platelets 215. INR 2.11. Sodium 137, potassium 3.7, BUN 21, creatinine 0.2. Troponin less than 0.1 and BNP 96. ASSESSMENT: 1. Chest pain. 2. Hypertension. 3. Dementia. 4. Psychosis. 5. Degenerative joint disease. PLAN: The patient admitted to telemetry under Dr. Meyer's service. The patient started on cardiac diet, resume her medication. Dr. Evan Gregg, cardiology consult on the case. CPK, troponin in a.m. EKG in a.m. The patient is a full code. JOB# [id number]
[2017-01-27 02:29] VITALS: BP 146/78
--- NOTE | 2017-01-27 07:49 | Diagnostic Imaging Report ---
Portable chest x-ray HISTORY: Pain The heart appears somewhat enlarged. No acute focal pulmonary processes. No hilar or mediastinal abnormalities. IMPRESSION: 1. No acute focal pulmonary processes 2. Generous heart size
[2017-01-27] MEDS: Aspirin 81mg Chewable Tab PO SCH (08:57)
[2017-01-27] MEDS ORDERED: Non-Formulary Item 1 EA (Multivitamin With Minerals [Myvitalife] 1 EACH) PO SCH (09:00)
[2017-01-27] MEDS: Multivitamin w/ Minerals Tab PO SCH (10:38)
[2017-01-27] MEDS ORDERED: VTE Chemical Prophylaxis Screen/Admission MC PRN (16:39)
--- NOTE | 2017-01-27 19:45 | Internal Medicine Prog Note ---
Internal Medicine Subjective - Subjective Service Date: 01/27/17 Patient seen and examined:: with staff Per staff patient has:: no adverse event Internal Medicine Objective - Results Result Diagrams: 01/26/17 17:55 01/26/17 17:55 Recent Labs: Laboratory Last Values WBC 8.9 Th/cmm (4.8-10.8) 01/26/17 17:55 RBC 4.38 Mil/cmm (3.80-5.20) 01/26/17 17:55 Hgb 13.4 gm/dL (12-16) 01/26/17 17:55 Hct 40.4 % (41.0-60) L 01/26/17 17:55 MCV 92.2 fl (81-100) 01/26/17 17:55 MCH 30.7 pg (27.0-31.0) 01/26/17 17:55 MCHC Differential 33.3 pg (28.0-36.0) 01/26/17 17:55 RDW 14.6 % (11.5-20.0) 01/26/17 17:55 Plt Count 205 Th/cmm (150-400) D 01/26/17 17:55 MPV 6.9 fl 01/26/17 17:55 Neutrophils % 60.1 % (40.0-80.0) 01/26/17 17:55 Lymphocytes % 26.9 % (20.0-50.0) 01/26/17 17:55 Monocytes % 6.4 % (2.0-10.0) 01/26/17 17:55 Eosinophils % 5.9 % (0.0-5.0) H 01/26/17 17:55 Basophils % 0.7 % (0.0-2.0) 01/26/17 17:55 PT 22.9 SECONDS (9.5-11.5) H 01/26/17 16:51 INR 2.11 (0.5-1.4) H 01/26/17 16:51 PTT (Actin FS) 37.6 SECONDS (26.0-38.0) 01/26/17 16:51 Sodium 137 mEq/L (136-145) 01/26/17 17:55 Potassium 3.7 mEq/L (3.5-5.1) 01/26/17 17:55 Chloride 106 mEq/L (98-107) 01/26/17 17:55 Carbon Dioxide 21.7 mEq/L (21.0-31.0) 01/26/17 17:55 Anion Gap 13.0 (7.0-16.0) 01/26/17 17:55 BUN 21 mg/dL (7-25) 01/26/17 17:55 Creatinine 1.2 mg/dL (0.6-1.2) 01/26/17 17:55 Est GFR ( Amer) TNP 01/26/17 17:55 Est GFR (Non-Af Amer) TNP 01/26/17 17:55 BUN/Creatinine Ratio 17.5 01/26/17 17:55 Glucose 115 mg/dL (70-105) H 01/26/17 17:55 Whole Bld Lactic Acid 1.75 mmol/L (0.60-1.99) 01/26/17 17:55 Calcium 10.0 mg/dL (8.6-10.3) 01/26/17 17:55 Total Bilirubin 0.3 mg/dL (0.3-1.0) 01/26/17 17:55 AST 26 U/L (13-39) 01/26/17 17:55 ALT 30 U/L (7-52) 01/26/17 17:55 Alkaline Phosphatase 96 U/L (34-104) 01/26/17 17:55 Creatine Kinase 16 U/L (30-223) L 01/27/17 05:00 Troponin I < 0.01 ng/mL (0.01-0.05) L 01/27/17 05:00 B-Natriuretic Peptide 96.0 pg/mL (5.0-100.0) 01/26/17 17:55 Total Protein 7.0 gm/dL (6.0-8.3) 01/26/17 17:55 Albumin 3.9 gm/dL (3.7-5.3) 01/26/17 17:55 Globulin 3.1 gm/dL 01/26/17 17:55 Albumin/Globulin Ratio 1.3 (1.0-1.8) 01/26/17 17:55 Triglycerides 81 mg/dL (<150) 01/26/17 17:55 Cholesterol 189 mg/dL (<200) 01/26/17 17:55 LDL Cholesterol Direct 131 mg/dL (75-193) 01/26/17 17:55 HDL Cholesterol 70 mg/dL (23-92) 01/26/17 17:55 Amylase 79 U/L (29-103) 01/26/17 17:55 Lipase 15 U/L (11-82) 01/26/17 17:55 Salicylates < 25.0 mg/L (30.0-100.0) L 01/26/17 16:51 - Physical Exam Vitals and I&O: Vital Signs Temp 97.5 F 01/27/17 16:40 Pulse 83 01/27/17 19:29 Resp 17 01/27/17 16:40 BP 132/73 01/27/17 19:29 Pulse Ox 99 01/27/17 16:40 Intake & Output 01/27/17 01/27/17 01/28/17 06:59 18:59 06:59 Intake Total 300 Balance 300 Weight (lbs) 65.771 kg Intake: Oral 300 Other: # Voids 2 # Bowel Movements 0 Active Medications: Current Medications Acetaminophen (Tylenol) 650 mg PO Q4H PRN PRN Reason: PAIN Stop: 03/27/17 20:42 Last Admin: 01/26/17 22:59 Dose: 650 mg Amlodipine Besylate (Norvasc) 10 mg PO DAILY [facility] Stop: 03/28/17 08:59 Last Admin: 01/27/17 08:57 Dose: 10 mg Aspirin (Aspirin Chewable) 81 mg PO DAILY [facility] Stop: 03/28/17 08:59 Last Admin: 01/27/17 08:57 Dose: 81 mg Bisacodyl (Dulcolax 10 Mg Supp) 10 mg RC DAILY PRN PRN Reason: constipation Stop: 03/27/17 20:42 Carvedilol (Coreg) 6.25 mg PO BID [facility] Stop: 03/28/17 08:59 Last Admin: 01/27/17 19:29 Dose: 6.25 mg Docusate Sodium (Colace) 100 mg PO BID [facility] Stop: 03/28/17 08:59 Last Admin: 01/27/17 19:29 Dose: 100 mg Haloperidol Decanoate (Haldol Dec) 25 mg IM [id number] [facility] PRN Reason: Protocol Stop: 03/27/17 20:44 Last Admin: 12/19/17 23:13 Dose: Not Given Lisinopril (Zestril) 40 mg PO DAILY [facility] Stop: 03/28/17 08:59 Last Admin: 01/27/17 08:57 Dose: 40 mg Loratadine (Claritin) 10 mg PO DAILY PRN PRN Reason: ALLERGIES Stop: 03/27/17 20:42 Lorazepam (Ativan) 2 mg PO Q6H PRN; Protocol PRN Reason: anxiety/agitation Stop: 03/27/17 20:42 Last Admin: 01/27/17 10:44 Dose: 2 mg Magnesium Hydroxide (Milk Of Magnesia) 30 ml PO DAILY PRN PRN Reason: Constipation Stop: 03/27/17 20:42 Mineral Oil (Fleet Mineral Oil) 135 ml RC PRN PRN PRN Reason: constipation Stop: 03/27/17 21:31 Miscellaneous (Vte [employer] Prophylaxis Screen/ Admission) 1 ea [facility] PRN PRN PRN Reason: PROTOCOL Stop: 03/28/17 16:38 Nitroglycerin (Nitrostat) 0.4 mg SL Q5MIN PRN PRN Reason: Chest Pain Stop: 03/27/17 20:33 Pneumococcal Polyvalent Vaccine (Pneumovax) 0.5 ml IM .ONCE ONE Stop: 01/29/17 09:01 Quetiapine Fumarate (Seroquel) 200 mg PO HS [facility] PRN Reason: Protocol Stop: 03/27/17 20:59 Last Admin: 01/26/17 22:59 Dose: 200 mg Zolpidem Tartrate (Ambien) 10 mg PO HS [facility] Stop: 03/28/17 20:59 HEENT: PERRLA, anicteric sclerae, throat clear Neck: No LAD Lungs: CTAB Cardiovascular: Normal S1, Normal S2, without murmur Abdomen: non-distended Internal Medicine Assmt/Plan - Assessment Assessment: 1.HTN 2.DJD 3.DEMENTIA. 4.PSYCHOSIS - Plan Plan: CONTINUE ON CURRENT MEDICATION AND DIET.
--- NOTE | 2017-01-27 23:18 | Consultation ---
DATE OF CONSULTATION: 01/27/2017 PATIENT OF: Dr. Meyer. HISTORY AND PHYSICAL: This is a 76-year-old female patient with a history of hypertension, dementia, psychosis, came to the Emergency Room with chest pain, sharp in nature, lasting for few hours, not radiating to the arm or to the neck. At this time, the patient is admitted. PAST MEDICAL HISTORY: Hypertension, GERD, degenerative joint disease, depression, psychosis. FAMILY HISTORY: Unremarkable. SOCIAL HISTORY: No history of smoking, alcohol abuse. ALLERGIES: None. PHYSICAL EXAMINATION: VITAL SIGNS: Blood pressure 126/70, pulse 70, respirations 20. HEAD: Normocephalic. No lumps or bumps. EYES: Pupils equal, reactive to light. Fundi show AV nicking, sclerae white, conjunctivae pink. NECK: Carotid 2+. Normal upstroke. JVD flat. Thyroid not palpable. Lymph nodes not palpable. CHEST: Shows increased AP diameter. No kyphosis, scoliosis. LUNGS: Bilateral bronchovesicular breath sounds. HEART: PMI fifth intercostal space with lateral to midclavicular line. S1, S2. No S3, S4, soft systolic murmur. ABDOMEN: Soft. Liver and spleen not palpable. No organomegaly. Bowel sounds active. NEUROLOGIC: Unremarkable. EXTREMITIES: Peripheral pulses 2+. No pedal edema. CLINICAL IMPRESSION: Chest pain atypical unlikely coronary artery disease, hypertension, dementia, psychosis, gastroesophageal reflux disease, osteoporosis. PLAN: We will get troponin level, EKG, echocardiogram. JOB# [id number]
[2017-01-28] MEDS: Aspirin 81mg Chewable Tab PO SCH (09:56)
[2017-01-28] MEDS: Multivitamin w/ Minerals Tab PO SCH (09:56)
[2017-01-29] MEDS ORDERED: Pneumococcal Vaccine 0.5 mL Vial IM ONE (09:00)
== END 2017-01-28 12:33 | DRG 313 ==
LOC: ER 16:35 → TELE 19:05 → MSI 01-27 14:35
PROVIDERS: ADMIT Family Medicine; ATTEND Family Medicine
DX: R07.89 Other chest pain (principal); I25.10 Atherosclerotic heart disease of native coronary artery without angina pectoris; G35 Multiple sclerosis; F03.90 Unspecified dementia, unspecified severity, without behavioral disturbance, psychotic disturbance, mood disturbance, and anxiety; E86.0 Dehydration; I25.9 Chronic ischemic heart disease, unspecified; I10 Essential (primary) hypertension; F29 Unspecified psychosis not due to a substance or known physiological condition; M19.90 Unspecified osteoarthritis, unspecified site; E78.5 Hyperlipidemia, unspecified; K21.9 Gastro-esophageal reflux disease without esophagitis; M81.0 Age-related osteoporosis without current pathological fracture; F32.9 Major depressive disorder, single episode, unspecified; Z88.8 Allergy status to other drugs, medicaments and biological substances; Z86.73 Personal history of transient ischemic attack (TIA), and cerebral infarction without residual deficits; Z82.49 Family history of ischemic heart disease and other diseases of the circulatory system; Z83.3 Family history of diabetes mellitus
CPT/HCPCS: 36415-UA; 71010-TC; 80053-TC; 80061-TC; 80329-TC; 82150-TC; 82550-TC; 83605; 83690-TC; 83880-TC; 84484-TC; 85025-TC; 85610-TC; 85730-TC; 93005; J1631; J7030; Z7610

== ENCOUNTER 2017-01-28 12:29 | Inpatient (IN) | payer MEDICARE, BC ==
[2017-01-28 13:35] VITALS: BP 157/81
[2017-01-28] MEDS ORDERED: Magnesium Hydroxide (MOM) 30 mL UDC PO PRN (14:35)
[2017-01-28] MEDS ORDERED: MINERAL OIL ENEMA 135 ML BOTTLE RC PRN (14:35)
--- NOTE | 2017-01-28 15:41 | Diagnostic Imaging Report ---
Head CT without intravenous contrast Indication: Fall Comparison: 10/09/2016 Technique: Axial images were obtained from the vertex to the skull base without IV contrast. Coronal reconstructions were made. Total DLP: 609, [id number] FINDINGS: Images of the brain obtained without contrast demonstrate no evidence of an acute hemorrhage. Atrophy is noted. Is white matter disease is noted. Old right occipital lobe infarct is noted. The ventricles and basal cisterns are patent. No mass effect or midline shift. There is evidence of posterior left scalp injury with soft tissue swelling a few pockets of gas. No skull fracture identified. Mucosal thickening of the paranasal sinuses. IMPRESSION: Left posterior scalp injury with soft tissue swelling a few pockets of gas. No evidence of an acute intracranial hemorrhage patent no evidence of skull fracture Right occipital lobe encephalomalacia Diffuse supratentorial white matter disease which is nonspecific and may be due to chronic microvessel ischemia. Atrophy Atherosclerotic vascular disease.
--- NOTE | 2017-01-29 07:40 | Diagnostic Imaging Report ---
Exam: CT examination cervical spine. HISTORY: Status post fall. Total DLP equals by 51 CTDI equals 26.6 Findings: Multiple contiguous thin section of cervical spine were obtained from the base of skull to thoracic outlet without the administration of contrast material. No prior studies available for comparison. The study demonstrates a degenerative osteoarthritic changes of the mid distal cervical spine with narrowing of the intravertebral disc spaces and facet joint with arthropathy. Osteophytic spurring is noted. There is evidence of for most likely old compression fracture of T1 thoracic vertebra superior endplate. There is evidence for 2 mm anterior listhesis of C3 on C4 cervical vertebra most likely due to degenerative changes. The odontoid process is intact. The posterior elements are normal. No prevertebral soft tissue swelling is noted. Vascular calcifications appreciated. IMPRESSION: 1. 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 2. Most likely old compression fracture of superior plate of T1 thoracic vertebra.
[2017-01-29] MEDS: Aspirin 81mg Chewable Tab PO SCH (08:57)
[2017-01-29] MEDS: Multivitamin w/ Minerals Tab PO SCH (08:57)
--- NOTE | 2017-01-29 13:55 | History & Physical ---
ADMIT DATE: 01/29/2017 IDENTIFYING INFORMATION: The patient is a 76-year-old female. CHIEF COMPLAINT: No answer. HISTORY OF PRESENT ILLNESS: She was transferred from the medical floor. Apparently, she has an unwitnessed fall then she was worked up and sent here. The patient has been irritable, anxious, psychotic, unable to sleep, unable to care for self. She has been delusional, hearing voices, unable to make safe plan for self-care, unable tell me the date, where she is, why she is here, though she was able to do that in the past. PAST PSYCHIATRIC HISTORY: The patient has long history of depression. She was hospitalized here back in October of this year. She has long history of depression, lasting to last 20 years when her son got killed. She reports she has a son that was missing as well as on her prior admission, but today she is not talking about it. The patient also was at [facility]. MEDICAL HISTORY: THE PATIENT IS ALLERGIC TO DIPHENHYDRAMINE. The patient is on a cardiac diet. She has high blood pressure and she has been on amlodipine 10 mg daily, aspirin 81 mg 1 tablet daily and Dulcolax to be given as needed daily, 10 mg, and carvedilol or Coreg 6.25 mg tablet twice a day, and Colace 100 mg twice a day. The patient was given Haldol Decanoate 25 mg IM every 4 weeks and lisinopril 40 mg daily and loratadine 10 mg daily. The patient smokes and she is not receptive to the idea of quitting smoking. The patient reports that she does have her daughter take care of her, make decisions for her. The patient reports she was not sure she got the flu vaccine or not. FAMILY AND SOCIAL HISTORY: The patient is . She has one son that was killed 20 years ago. She has another son that she felt was missing a few months ago, but then she is no longer delusional about that. She has a daughter that does call and check on her. She reports no family Psychotic disorder. She is not really labile historian. This is from her old admission. MENTAL STATUS EXAMINATION: The patient is appropriately dressed, not well groomed. She was smoking. She was alert, unable to tell me the exact date. She report last month was December, but she is unable to tell me this month. She does not know the current President of [employer]. She has been acting out irritable, unable to take care of herself. Long and short memory is poor, unable to tell me much. Unable to do formal mental status examination because of confusion. Her insight and judgment is impaired. She denies any intent to harm herself or anybody. IMPRESSION: AXIS I: Major depression, recurrent with psychosis; rule out bipolar disorder, also dementia. MEDICAL DIAGNOSES: Hypertension and cardiac disease, coronary artery disease, and allergy. Her assets, she wants to get help. Negative poor coping skills. INITIAL TREATMENT PLAN: The patient will be continued with the Haldol. The patient was unable to tell me how his sleep and appetite. I will be initiating Lexapro on her. We will do group therapy, milieu therapy, and individual therapy. ESTIMATED LENGTH OF STAY: 3-7 days. DISCHARGE CRITERIA: Decrease in depression, no longer psychotic or depressed. After discharge, outpatient treatment. Also we will restart her on Seroquel. I need to check the dose prior to that stenosis. JOB# [id number]
--- NOTE | 2017-01-29 22:12 | History & Physical ---
ADMIT DATE: 01/28/2017 HISTORY OF PRESENT ILLNESS: The patient is a 76-year-old female with a long history of hypertension, degenerative joint disease, dementia, admitted to Geropsych Department under Dr. William's service for evaluation and treatment. On admission, the patient fell off the chair and sustained laceration of the back of the scalp. The patient was taken to the Emergency Room. CT of the head was negative. The patient had put some milly, and brought her back to the Geropsych Department. The patient denies any nausea, any vomiting, blurred vision. No dizziness. PAST MEDICAL HISTORY: Degenerative joint disease, hypertension, mild dementia. PAST SURGICAL HISTORY: No recent surgery. ALLERGIES: Diphenhydramine. SOCIAL HISTORY: No smoking, no alcohol, no drugs. FAMILY HISTORY: Noncontributory. REVIEW OF SYSTEMS: RENAL SYSTEM: History of chronic renal disorder. CARDIOVASCULAR SYSTEM: She has history of hypertension. ENDOCRINE SYSTEM: No diabetes or thyroid problem. GASTROINTESTINAL SYSTEM: No upper or lower gastrointestinal bleed. NEUROLOGICAL SYSTEM: No seizure disorder. SKELETOMUSCULAR SYSTEM: She has no muscular dystrophy. HEMATOLOGICAL SYSTEM: No bleeding tendencies. RESPIRATORY SYSTEM: No asthma. GENITOURINARY: No dysuria or hematuria. PHYSICAL EXAMINATION: GENERAL: She is awake, alert, mildly confused. VITAL SIGNS: Temperature 98, heart rate 86, blood pressure 122/74. HEENT: Normocephalic. Pupils are reacting to light and accommodation. Sclerae are clear. NECK: Supple. Negative for lymphadenopathy, JVD or bruit. CHEST: Bilaterally normal. No rhonchi or wheezing. HEART: S1, S2 normal. No murmur or gallop. ABDOMEN: Soft, bowel sounds present. EXTREMITIES: No edema auscultation bilaterally. SKIN: Significant for a few milly on the back of the head. NEUROLOGIC: She is awake, alert, mildly confused. CRANIAL NERVES: 1. The patient is able to smell different odor. 2. The patient is able to read printed page. 3. The patient is able to move eyeball upwards and outwards. 4. The patient is able to move eyeball inward and downward. 5. The patient is able to clench teeth. 6. The patient is able to move eyeball laterally. 7. The patient is able to move eyebrow upwards on both sides. 8. The patient is able to hear finger rubs on both sides. 9. The patient has a normal gag reflex. 10. The patient is able to move soft palate upward ___. 11. The patient is able to shrug shoulders on both sides. 12. Motor system exam within normal limits. Sensory system within normal limits. ASSESSMENT: 1. Hypertension. 2. Degenerative joint disease. 3. Laceration of the scalp on the back the head. 4. Mild dementia. PLAN: The patient was admitted to the hospital under Dr. William's service. Medical problem addressed during the hospitalization are dementia. Medical problems addressed at discharge are hypertension and degenerative joint disease. The patient is medically stable for activity. Thank you, Dr. William, for asking me to see your patient. JOB# [id number]
[2017-01-30 07:16] LABS: % BASOPHILS 0.8 % (0.0-2.0); % EOSINOPHILS 7.1 % (0.0-5.0); % LYMPHOCYTES 28.9 % (20.0-50.0); % MONOCYTES 10.1 % (2.0-10.0); % NEUTROPHILS 53.1 % (40.0-80.0); BASOPHILE ABSOLUTE 0.1 Th/cumm (0-0.2); EOSINOPHILE ABSOLUTE 0.6 Th/cmm (0.1-0.4); HEMOGLOBIN 12.2 gm/dL (12-16); LYMPHOCYTE ABSOLUTE 2.4 Th/cmm (1.5-3.0); MEAN CELL VOLUME 92.7 fl (81-100); MEAN CORPUSCULAR HEMOGLOBIN 31.6 pg (27.0-31.0); MEAN PLATELET VOLUME 6.2 fl; MONOCYTE ABSOLUTE 0.8 Th/cmm (0.3-1.0); NEUTROPHILE ABSOLUTE 4.4 Th/cmm (1.8-8.0); RED BLOOD COUNT 3.86 Mil/cmm (3.80-5.20); RED CELL DISTRIBUTION WIDTH 14.9 % (11.5-20.0); WHITE BLOOD COUNT 8.3 Th/cmm (4.8-10.8)
[2017-01-30 07:23] LABS: HEMATOCRIT 35.8 % (41.0-60); PLATELET COUNT 318 Th/cmm (150-400)
[2017-01-30 07:37] LABS: ALB/GLOB RATIO 1.3 (1.0-1.8); ALBUMIN 3.5 gm/dL (3.7-5.3); ALKALINE PHOSPHATASE 88 U/L (34-104); ANION GAP 11.6 (7.0-16.0); BILIRUBIN,TOTAL 0.5 mg/dL (0.3-1.0); BUN - UREA NITROGEN 23 mg/dL (7-25); CALCIUM SERUM 9.1 mg/dL (8.6-10.3); CARBON DIOXIDE 24.4 mEq/L (21.0-31.0); CHLORIDE 104 mEq/L (98-107); CREATININE - SERUM 1.1 mg/dL (0.6-1.2); GLUCOSE 100 mg/dL (70-105); SGOT 19 U/L (13-39); SGPT/ALT 20 U/L (7-52); SODIUM SERUM 136 mEq/L (136-145); TOTAL PROTEIN,SERUM 6.3 gm/dL (6.0-8.3)
--- NOTE | 2017-01-30 07:44 | Progress Notes ---
DATE: 01/30/2017 SUBJECTIVE: The patient under the care of Dr. William. She knows that the patient was here, irritable, anxious, psychotic, unable to sleep, unable to care for self, delusional, hearing voices. The patient states that she believes that she is here because somebody thought she had a stroke, long history of depression, not the best historian at this time. Staff noting patient with continued behaviors, still with delusions, hearing voices, still with ongoing psychotic symptoms. MEDICATIONS: Reviewed including doses and frequencies, currently on Seroquel. ASSESSMENT: The patient remains symptomatic, still psychotic, not safe for discharge. PLAN: We will continue to monitor and follow up. The patient is not safe for a lower level of care. We will titrate medications as tolerated. [facility]# [id number]
[2017-01-30] MEDS: Escitalopram Oxalate 5 mg Tab PO SCH (08:45)
[2017-01-30] MEDS: Multivitamin w/ Minerals Tab PO SCH (08:45)
[2017-01-30] MEDS: Aspirin 81mg Chewable Tab PO SCH (08:46)
--- NOTE | 2017-01-30 18:32 | General Progress Note ---
Subjective - Review of Systems Service Date: 01/30/17 Subjective: resting comfortably no distress Objective - Results Result Diagrams: 01/30/17 06:55 01/30/17 06:55 Recent Labs: Laboratory Last Values WBC 8.3 Th/cmm (4.8-10.8) 01/30/17 06:55 RBC 3.86 Mil/cmm (3.80-5.20) 01/30/17 06:55 Hgb 12.2 gm/dL (12-16) 01/30/17 06:55 Hct 35.8 % (41.0-60) L D 01/30/17 06:55 MCV 92.7 fl (81-100) 01/30/17 06:55 MCH 31.6 pg (27.0-31.0) H 01/30/17 06:55 MCHC Differential 34.0 pg (28.0-36.0) 01/30/17 06:55 RDW 14.9 % (11.5-20.0) 01/30/17 06:55 Plt Count 318 Th/cmm (150-400) D 01/30/17 06:55 MPV 6.2 fl 01/30/17 06:55 Neutrophils % 53.1 % (40.0-80.0) 01/30/17 06:55 Lymphocytes % 28.9 % (20.0-50.0) 01/30/17 06:55 Monocytes % 10.1 % (2.0-10.0) H 01/30/17 06:55 Eosinophils % 7.1 % (0.0-5.0) H 01/30/17 06:55 Basophils % 0.8 % (0.0-2.0) 01/30/17 06:55 Sodium 136 mEq/L (136-145) 01/30/17 06:55 Potassium 4.0 mEq/L (3.5-5.1) 01/30/17 06:55 Chloride 104 mEq/L (98-107) 01/30/17 06:55 Carbon Dioxide 24.4 mEq/L (21.0-31.0) 01/30/17 06:55 Anion Gap 11.6 (7.0-16.0) 01/30/17 06:55 BUN 23 mg/dL (7-25) 01/30/17 06:55 Creatinine 1.1 mg/dL (0.6-1.2) 01/30/17 06:55 Est GFR ( Amer) TNP 01/30/17 06:55 Est GFR (Non-Af Amer) TNP 01/30/17 06:55 BUN/Creatinine Ratio 20.9 01/30/17 06:55 Glucose 100 mg/dL (70-105) 01/30/17 06:55 Calcium 9.1 mg/dL (8.6-10.3) 01/30/17 06:55 Total Bilirubin 0.5 mg/dL (0.3-1.0) 01/30/17 06:55 AST 19 U/L (13-39) 01/30/17 06:55 ALT 20 U/L (7-52) 01/30/17 06:55 Alkaline Phosphatase 88 U/L (34-104) 01/30/17 06:55 Total Protein 6.3 gm/dL (6.0-8.3) 01/30/17 06:55 Albumin 3.5 gm/dL (3.7-5.3) L 01/30/17 06:55 Globulin 2.8 gm/dL 01/30/17 06:55 Albumin/Globulin Ratio 1.3 (1.0-1.8) 01/30/17 06:55 - Physical Exam Vitals and I&O: Vital Signs Temp 98.1 F 01/30/17 14:00 Pulse 68 01/30/17 17:17 Resp 20 01/30/17 14:00 BP 134/74 01/30/17 17:17 Pulse Ox 96 01/30/17 14:00 Intake & Output 01/29/17 01/30/17 01/30/17 18:59 06:59 18:59 Intake Total 240 360 Balance 240 360 Intake: Oral 240 360 Other: # Voids 1 3 # Bowel Movements 0 1 Active Medications: Current Medications Acetaminophen (Tylenol) 650 mg PO Q4H PRN PRN Reason: PAIN Stop: 03/29/17 14:34 Last Admin: 01/30/17 14:52 Dose: 650 mg Amlodipine Besylate (Norvasc) 10 mg PO DAILY [facility] Stop: 03/30/17 08:59 Last Admin: 01/30/17 08:46 Dose: 10 mg Aspirin (Aspirin Chewable) 81 mg PO DAILY [facility] Stop: 03/30/17 08:59 Last Admin: 01/30/17 08:46 Dose: 81 mg Bisacodyl (Dulcolax 10 Mg Supp) 10 mg RC DAILY PRN PRN Reason: constipation Stop: 03/29/17 14:34 Carvedilol (Coreg) 6.25 mg PO BID [facility] Stop: 03/29/17 16:59 Last Admin: 01/30/17 17:17 Dose: 6.25 mg Docusate Sodium (Colace) 100 mg PO BID [facility] Stop: 03/29/17 16:59 Last Admin: 01/30/17 17:17 Dose: 100 mg Escitalopram Oxalate (Lexapro) 5 mg PO DAILY [facility] PRN Reason: Protocol Stop: 03/31/17 08:59 Last Admin: 01/30/17 08:45 Dose: 5 mg Haloperidol Decanoate (Haldol Dec) 25 mg IM [id number] [facility] PRN Reason: Protocol Stop: 03/30/17 08:59 Last Admin: 01/29/17 10:21 Dose: Not Given Lisinopril (Zestril) 40 mg PO DAILY [facility] Stop: 03/30/17 08:59 Last Admin: 01/30/17 08:46 Dose: 40 mg Loratadine (Claritin) 10 mg PO DAILY PRN PRN Reason: ALLERGIES Stop: 03/29/17 14:34 Lorazepam (Ativan) 0.5 mg PO Q4HR PRN; Protocol PRN Reason: Anxiety Stop: 02/27/17 14:27 Last Admin: 01/29/17 10:59 Dose: 0.5 mg Magnesium Hydroxide (Milk Of Magnesia) 30 ml PO DAILY PRN PRN Reason: Constipation Stop: 03/29/17 14:34 Mineral Oil (Fleet Mineral Oil) 135 ml RC [facility] PRN PRN Reason: constipation Stop: 03/29/17 14:34 Nitroglycerin (Nitrostat) 0.4 mg SL Q5MIN PRN PRN Reason: Chest Pain Stop: 03/29/17 14:34 Quetiapine Fumarate (Seroquel) 200 mg PO [facility] PRN Reason: Protocol Stop: 03/29/17 20:59 Last Admin: 01/29/17 21:29 Dose: 200 mg Tramadol HCl (Ultram) 50 mg PO Q6HR PRN PRN Reason: Pain (Severe) Stop: 03/29/17 19:59 Last Admin: 01/29/17 17:05 Dose: 50 mg Zolpidem Tartrate (Ambien) 5 mg PO HS PRN PRN Reason: Insomnia Stop: 03/29/17 14:27 Zolpidem Tartrate (Ambien) 10 mg PO HS [facility] Stop: 03/29/17 20:59 Last Admin: 01/29/17 21:29 Dose: 10 mg General: No acute distress HEENT: Atraumatic, PERRLA Neck: Supple, JVD Cardiovascular: Regular rate, Normal S1, Normal S2 Lungs: Clear to auscultation Abdomen: Bowel sounds, Soft Assessment/Plan - Problem List Patient Problems: All Active Problems Confusion (Acute) R41.0 WEAKNESS WITH POOR ORAL INTAKE (Acute) - Assessment Assessment: 1.HTN 2.DJD 3.DEMENTIA - Plan Plan: CONT CURRENT TREATMENT
[2017-01-31] MEDS: Aspirin 81mg Chewable Tab PO SCH (08:55)
[2017-01-31] MEDS: Escitalopram Oxalate 5 mg Tab PO SCH (08:57)
[2017-01-31] MEDS: Multivitamin w/ Minerals Tab PO SCH (08:57)
--- NOTE | 2017-01-31 09:19 | Progress Notes ---
DATE: 01/31/2017 SUBJECTIVE: The patient was seen 01/31/2017. The patient transferred from the medical floor. A 76-year-old female, delusional, anxious and psychotic. On [id number], the patient is a poor historian, does not know really why she is here, what is going on. Still anxious, unable to care for self. Still believes she is here because somebody thought she had a stroke, long history of depression and staff noting the patient with continued behaviors, still seems to be mumbling to self. Sleeping fairly well and eating with prompting, isolative. MEDICATIONS: Reviewed including doses and frequencies. ASSESSMENT: The patient remains symptomatic, not safe for a lower level of care, still with ongoing symptoms. PLAN: We will continue to monitor and adjust medications. Encourage group as well as milieu therapy, titrate Seroquel as tolerated. [facility]# [id number]
--- NOTE | 2017-01-31 19:17 | General Progress Note ---
Subjective - Review of Systems Service Date: 01/31/17 Subjective: resting comfortably no distress Objective - Results Result Diagrams: 01/30/17 06:55 01/30/17 06:55 Recent Labs: Laboratory Last Values WBC 8.3 Th/cmm (4.8-10.8) 01/30/17 06:55 RBC 3.86 Mil/cmm (3.80-5.20) 01/30/17 06:55 Hgb 12.2 gm/dL (12-16) 01/30/17 06:55 Hct 35.8 % (41.0-60) L D 01/30/17 06:55 MCV 92.7 fl (81-100) 01/30/17 06:55 MCH 31.6 pg (27.0-31.0) H 01/30/17 06:55 MCHC Differential 34.0 pg (28.0-36.0) 01/30/17 06:55 RDW 14.9 % (11.5-20.0) 01/30/17 06:55 Plt Count 318 Th/cmm (150-400) D 01/30/17 06:55 MPV 6.2 fl 01/30/17 06:55 Neutrophils % 53.1 % (40.0-80.0) 01/30/17 06:55 Lymphocytes % 28.9 % (20.0-50.0) 01/30/17 06:55 Monocytes % 10.1 % (2.0-10.0) H 01/30/17 06:55 Eosinophils % 7.1 % (0.0-5.0) H 01/30/17 06:55 Basophils % 0.8 % (0.0-2.0) 01/30/17 06:55 Sodium 136 mEq/L (136-145) 01/30/17 06:55 Potassium 4.0 mEq/L (3.5-5.1) 01/30/17 06:55 Chloride 104 mEq/L (98-107) 01/30/17 06:55 Carbon Dioxide 24.4 mEq/L (21.0-31.0) 01/30/17 06:55 Anion Gap 11.6 (7.0-16.0) 01/30/17 06:55 BUN 23 mg/dL (7-25) 01/30/17 06:55 Creatinine 1.1 mg/dL (0.6-1.2) 01/30/17 06:55 Est GFR ( Amer) TNP 01/30/17 06:55 Est GFR (Non-Af Amer) TNP 01/30/17 06:55 BUN/Creatinine Ratio 20.9 01/30/17 06:55 Glucose 100 mg/dL (70-105) 01/30/17 06:55 Calcium 9.1 mg/dL (8.6-10.3) 01/30/17 06:55 Total Bilirubin 0.5 mg/dL (0.3-1.0) 01/30/17 06:55 AST 19 U/L (13-39) 01/30/17 06:55 ALT 20 U/L (7-52) 01/30/17 06:55 Alkaline Phosphatase 88 U/L (34-104) 01/30/17 06:55 Total Protein 6.3 gm/dL (6.0-8.3) 01/30/17 06:55 Albumin 3.5 gm/dL (3.7-5.3) L 01/30/17 06:55 Globulin 2.8 gm/dL 01/30/17 06:55 Albumin/Globulin Ratio 1.3 (1.0-1.8) 01/30/17 06:55 - Physical Exam Vitals and I&O: Vital Signs Temp 98.3 F 01/31/17 15:49 Pulse 64 01/31/17 16:40 Resp 20 01/31/17 15:49 BP 134/61 01/31/17 16:40 Pulse Ox 97 01/31/17 15:49 Intake & Output 01/31/17 01/31/17 02/01/17 06:59 18:59 06:59 Intake Total 360 900 Balance 360 900 Intake: Oral 360 900 Other: # Voids 1 4 # Bowel Movements 1 Active Medications: Current Medications Acetaminophen (Tylenol) 650 mg PO Q4H PRN PRN Reason: PAIN Stop: 03/29/17 14:34 Last Admin: 01/30/17 14:52 Dose: 650 mg Amlodipine Besylate (Norvasc) 10 mg PO DAILY [facility] Stop: 03/30/17 08:59 Last Admin: 01/31/17 08:56 Dose: 10 mg Aspirin (Aspirin Chewable) 81 mg PO DAILY [facility] Stop: 03/30/17 08:59 Last Admin: 01/31/17 08:55 Dose: 81 mg Bisacodyl (Dulcolax 10 Mg Supp) 10 mg RC DAILY PRN PRN Reason: constipation Stop: 03/29/17 14:34 Carvedilol (Coreg) 6.25 mg PO BID [facility] Stop: 03/29/17 16:59 Last Admin: 01/31/17 16:40 Dose: 6.25 mg Docusate Sodium (Colace) 100 mg PO BID [facility] Stop: 03/29/17 16:59 Last Admin: 01/31/17 16:41 Dose: 100 mg Escitalopram Oxalate (Lexapro) 5 mg PO DAILY [facility] PRN Reason: Protocol Stop: 03/31/17 08:59 Last Admin: 01/31/17 08:57 Dose: 5 mg Haloperidol Decanoate (Haldol Dec) 25 mg IM [id number] [facility] PRN Reason: Protocol Stop: 03/30/17 08:59 Last Admin: 01/29/17 10:21 Dose: Not Given Lisinopril (Zestril) 40 mg PO DAILY [facility] Stop: 03/30/17 08:59 Last Admin: 01/31/17 08:57 Dose: 40 mg Loratadine (Claritin) 10 mg PO DAILY PRN PRN Reason: ALLERGIES Stop: 03/29/17 14:34 Lorazepam (Ativan) 0.5 mg PO Q4HR PRN; Protocol PRN Reason: Anxiety Stop: 02/27/17 14:27 Last Admin: 01/29/17 10:59 Dose: 0.5 mg Magnesium Hydroxide (Milk Of Magnesia) 30 ml PO DAILY PRN PRN Reason: Constipation Stop: 03/29/17 14:34 Mineral Oil (Fleet Mineral Oil) 135 ml RC UD PRN PRN Reason: constipation Stop: 03/29/17 14:34 Nitroglycerin (Nitrostat) 0.4 mg SL Q5MIN PRN PRN Reason: Chest Pain Stop: 03/29/17 14:34 Quetiapine Fumarate (Seroquel) 200 mg PO [facility] PRN Reason: Protocol Stop: 03/29/17 20:59 Last Admin: 01/30/17 21:06 Dose: 200 mg Tramadol HCl (Ultram) 50 mg PO Q6HR PRN PRN Reason: Pain (Severe) Stop: 03/29/17 19:59 Last Admin: 01/31/17 05:58 Dose: 50 mg Zolpidem Tartrate (Ambien) 5 mg PO HS PRN PRN Reason: Insomnia Stop: 03/29/17 14:27 Zolpidem Tartrate (Ambien) 10 mg PO HS [facility] Stop: 03/29/17 20:59 Last Admin: 01/30/17 21:06 Dose: 10 mg General: No acute distress HEENT: Atraumatic, PERRLA Neck: Supple, JVD Cardiovascular: Regular rate, Normal S1, Normal S2 Lungs: Clear to auscultation Abdomen: Bowel sounds, Soft Assessment/Plan - Problem List Patient Problems: All Active Problems Confusion (Acute) R41.0 WEAKNESS WITH POOR ORAL INTAKE (Acute) - Assessment Assessment: 1.HTN 2.DJD 3.DEMENTIA - Plan Plan: CONT CURRENT TREATMENT
[2017-02-01] MEDS: Multivitamin w/ Minerals Tab PO SCH (09:05)
[2017-02-01] MEDS: Escitalopram Oxalate 5 mg Tab PO SCH (09:05)
[2017-02-01] MEDS: Aspirin 81mg Chewable Tab PO SCH (09:06)
--- NOTE | 2017-02-01 16:52 | General Progress Note ---
Subjective - Review of Systems Service Date: 02/01/17 Subjective: resting comfortably no distress Objective - Results Result Diagrams: 01/30/17 06:55 01/30/17 06:55 Recent Labs: Laboratory Last Values WBC 8.3 Th/cmm (4.8-10.8) 01/30/17 06:55 RBC 3.86 Mil/cmm (3.80-5.20) 01/30/17 06:55 Hgb 12.2 gm/dL (12-16) 01/30/17 06:55 Hct 35.8 % (41.0-60) L D 01/30/17 06:55 MCV 92.7 fl (81-100) 01/30/17 06:55 MCH 31.6 pg (27.0-31.0) H 01/30/17 06:55 MCHC Differential 34.0 pg (28.0-36.0) 01/30/17 06:55 RDW 14.9 % (11.5-20.0) 01/30/17 06:55 Plt Count 318 Th/cmm (150-400) D 01/30/17 06:55 MPV 6.2 fl 01/30/17 06:55 Neutrophils % 53.1 % (40.0-80.0) 01/30/17 06:55 Lymphocytes % 28.9 % (20.0-50.0) 01/30/17 06:55 Monocytes % 10.1 % (2.0-10.0) H 01/30/17 06:55 Eosinophils % 7.1 % (0.0-5.0) H 01/30/17 06:55 Basophils % 0.8 % (0.0-2.0) 01/30/17 06:55 Sodium 136 mEq/L (136-145) 01/30/17 06:55 Potassium 4.0 mEq/L (3.5-5.1) 01/30/17 06:55 Chloride 104 mEq/L (98-107) 01/30/17 06:55 Carbon Dioxide 24.4 mEq/L (21.0-31.0) 01/30/17 06:55 Anion Gap 11.6 (7.0-16.0) 01/30/17 06:55 BUN 23 mg/dL (7-25) 01/30/17 06:55 Creatinine 1.1 mg/dL (0.6-1.2) 01/30/17 06:55 Est GFR ( Amer) TNP 01/30/17 06:55 Est GFR (Non-Af Amer) TNP 01/30/17 06:55 BUN/Creatinine Ratio 20.9 01/30/17 06:55 Glucose 100 mg/dL (70-105) 01/30/17 06:55 Calcium 9.1 mg/dL (8.6-10.3) 01/30/17 06:55 Total Bilirubin 0.5 mg/dL (0.3-1.0) 01/30/17 06:55 AST 19 U/L (13-39) 01/30/17 06:55 ALT 20 U/L (7-52) 01/30/17 06:55 Alkaline Phosphatase 88 U/L (34-104) 01/30/17 06:55 Total Protein 6.3 gm/dL (6.0-8.3) 01/30/17 06:55 Albumin 3.5 gm/dL (3.7-5.3) L 01/30/17 06:55 Globulin 2.8 gm/dL 01/30/17 06:55 Albumin/Globulin Ratio 1.3 (1.0-1.8) 01/30/17 06:55 - Physical Exam Vitals and I&O: Vital Signs Temp 97.4 F 02/01/17 06:39 Pulse 69 02/01/17 09:07 Resp 16 02/01/17 08:00 BP 166/96 02/01/17 09:07 Pulse Ox 97 02/01/17 06:39 Intake & Output 01/31/17 02/01/17 02/01/17 18:59 06:59 18:59 Intake Total 900 240 Balance 900 240 Intake: Oral 900 240 Other: # Voids 4 1 # Bowel Movements 1 Active Medications: Current Medications Acetaminophen (Tylenol) 650 mg PO Q4H PRN PRN Reason: PAIN Stop: 03/29/17 14:34 Last Admin: 02/01/17 15:00 Dose: 650 mg Amlodipine Besylate (Norvasc) 10 mg PO DAILY [facility] Stop: 03/30/17 08:59 Last Admin: 02/01/17 09:06 Dose: 10 mg Aspirin (Aspirin Chewable) 81 mg PO DAILY [facility] Stop: 03/30/17 08:59 Last Admin: 02/01/17 09:06 Dose: 81 mg Bisacodyl (Dulcolax 10 Mg Supp) 10 mg RC DAILY PRN PRN Reason: constipation Stop: 03/29/17 14:34 Carvedilol (Coreg) 6.25 mg PO BID [facility] Stop: 03/29/17 16:59 Last Admin: 02/01/17 09:06 Dose: 6.25 mg Docusate Sodium (Colace) 100 mg PO BID [facility] Stop: 03/29/17 16:59 Last Admin: 02/01/17 09:07 Dose: Not Given Escitalopram Oxalate (Lexapro) 5 mg PO DAILY [facility] PRN Reason: Protocol Stop: 03/31/17 08:59 Last Admin: 02/01/17 09:05 Dose: 5 mg Haloperidol Decanoate (Haldol Dec) 25 mg IM [id number] [facility] PRN Reason: Protocol Stop: 03/30/17 08:59 Last Admin: 01/29/17 10:21 Dose: Not Given Lisinopril (Zestril) 40 mg PO DAILY [facility] Stop: 03/30/17 08:59 Last Admin: 02/01/17 09:07 Dose: 40 mg Loratadine (Claritin) 10 mg PO DAILY PRN PRN Reason: ALLERGIES Stop: 03/29/17 14:34 Lorazepam (Ativan) 0.5 mg PO Q4HR PRN; Protocol PRN Reason: Anxiety Stop: 02/27/17 14:27 Last Admin: 01/29/17 10:59 Dose: 0.5 mg Magnesium Hydroxide (Milk Of Magnesia) 30 ml PO DAILY PRN PRN Reason: Constipation Stop: 03/29/17 14:34 Mineral Oil (Fleet Mineral Oil) 135 ml RC UD PRN PRN Reason: constipation Stop: 03/29/17 14:34 Nitroglycerin (Nitrostat) 0.4 mg SL Q5MIN PRN PRN Reason: Chest Pain Stop: 03/29/17 14:34 Quetiapine Fumarate (Seroquel) 200 mg PO [facility] PRN Reason: Protocol Stop: 03/29/17 20:59 Last Admin: 01/31/17 21:17 Dose: 200 mg Tramadol HCl (Ultram) 50 mg PO Q6HR PRN PRN Reason: Pain (Severe) Stop: 03/29/17 19:59 Last Admin: 01/31/17 05:58 Dose: 50 mg Zolpidem Tartrate (Ambien) 5 mg PO HS PRN PRN Reason: Insomnia Stop: 03/29/17 14:27 Zolpidem Tartrate (Ambien) 10 mg PO HS [facility] Stop: 03/29/17 20:59 Last Admin: 01/31/17 21:17 Dose: 10 mg General: No acute distress HEENT: Atraumatic, PERRLA Neck: Supple, JVD Cardiovascular: Regular rate, Normal S1, Normal S2 Lungs: Clear to auscultation Abdomen: Bowel sounds, Soft Assessment/Plan - Problem List Patient Problems: All Active Problems Confusion (Acute) R41.0 WEAKNESS WITH POOR ORAL INTAKE (Acute) - Assessment Assessment: 1.HTN 2.DJD 3.DEMENTIA - Plan Plan: CONT CURRENT TREATMENT
--- NOTE | 2017-02-02 03:57 | Progress Notes ---
DATE: SUBJECTIVE: The patient was seen and evaluated. The patient's chart reviewed. Overnight, nursing staff reported that the patient has mostly been isolating in her room, distraught, disengaged at times. Today on [id number] evaluation, the patient reports feeling very anxious, reports feels quiet at times, she feels a little anxious and overwhelmed by the anxiety, also reporting a long history of depression. MENTAL STATUS EXAMINATION: Withdrawn, disengaged in the interview, observed to be responding. ASSESSMENT AND PLAN: The patient is a 76-year-old female with intermittent episodes of responding to internal stimuli, unable to formulate a safe plan outside of a structured environment. We will continue with primary psychiatrist's treatment plan and goals, which include the following; Lexapro 5 mg a day, which was started on 01/30/2017. She is currently on Haldol Dec at 25 mg IM every 4 weeks, recently received on 01/29/2017 and currently on Seroquel. We will continue with titrating current process as the patient is still active, anxious, overwhelmed, respond to internal stimuli, and unable to formulate a safe plan. JOB# [id number]
[2017-02-02] MEDS: Escitalopram Oxalate 5 mg Tab PO SCH (08:20)
[2017-02-02] MEDS: Aspirin 81mg Chewable Tab PO SCH (08:20)
[2017-02-02] MEDS: Multivitamin w/ Minerals Tab PO SCH (08:21)
--- NOTE | 2017-02-02 15:48 | Progress Notes ---
DATE: 02/02/2017 Case was discussed with staff of patient, reviewed records. The patient continues to be paranoid, easily agitated. She continues to be delusional. She believes her son is next door and she believed the same son was missing when she was here last time and she believes one of the patient here is her son, continues to be unable to make safe plan for self-care, easily agitated and paranoid. I will be increasing her Seroquel dose to 225 mg at bedtime and so far no side effects, no sedation, no nausea, no extrapyramidal symptoms. Continues to be not suitable for discharge because of her paranoia and delusional behavior, easily agitated, also depressed, unable to make safe plan for self-care. We will continue outpatient group therapy, milieu therapy, adjust the medication as needed. JOB# [id number]
--- NOTE | 2017-02-02 16:07 | Internal Medicine Prog Note ---
Internal Medicine Subjective - Subjective Service Date: 02/02/17 Patient is:: in wheelchair, talking Per staff patient has:: no adverse event (she feels well) Internal Medicine Objective - Results Result Diagrams: 01/30/17 06:55 01/30/17 06:55 Recent Labs: Laboratory Last Values WBC 8.3 Th/cmm (4.8-10.8) 01/30/17 06:55 RBC 3.86 Mil/cmm (3.80-5.20) 01/30/17 06:55 Hgb 12.2 gm/dL (12-16) 01/30/17 06:55 Hct 35.8 % (41.0-60) L D 01/30/17 06:55 MCV 92.7 fl (81-100) 01/30/17 06:55 MCH 31.6 pg (27.0-31.0) H 01/30/17 06:55 MCHC Differential 34.0 pg (28.0-36.0) 01/30/17 06:55 RDW 14.9 % (11.5-20.0) 01/30/17 06:55 Plt Count 318 Th/cmm (150-400) D 01/30/17 06:55 MPV 6.2 fl 01/30/17 06:55 Neutrophils % 53.1 % (40.0-80.0) 01/30/17 06:55 Lymphocytes % 28.9 % (20.0-50.0) 01/30/17 06:55 Monocytes % 10.1 % (2.0-10.0) H 01/30/17 06:55 Eosinophils % 7.1 % (0.0-5.0) H 01/30/17 06:55 Basophils % 0.8 % (0.0-2.0) 01/30/17 06:55 Sodium 136 mEq/L (136-145) 01/30/17 06:55 Potassium 4.0 mEq/L (3.5-5.1) 01/30/17 06:55 Chloride 104 mEq/L (98-107) 01/30/17 06:55 Carbon Dioxide 24.4 mEq/L (21.0-31.0) 01/30/17 06:55 Anion Gap 11.6 (7.0-16.0) 01/30/17 06:55 BUN 23 mg/dL (7-25) 01/30/17 06:55 Creatinine 1.1 mg/dL (0.6-1.2) 01/30/17 06:55 Est GFR ( Amer) TNP 01/30/17 06:55 Est GFR (Non-Af Amer) TNP 01/30/17 06:55 BUN/Creatinine Ratio 20.9 01/30/17 06:55 Glucose 100 mg/dL (70-105) 01/30/17 06:55 Calcium 9.1 mg/dL (8.6-10.3) 01/30/17 06:55 Total Bilirubin 0.5 mg/dL (0.3-1.0) 01/30/17 06:55 AST 19 U/L (13-39) 01/30/17 06:55 ALT 20 U/L (7-52) 01/30/17 06:55 Alkaline Phosphatase 88 U/L (34-104) 01/30/17 06:55 Total Protein 6.3 gm/dL (6.0-8.3) 01/30/17 06:55 Albumin 3.5 gm/dL (3.7-5.3) L 01/30/17 06:55 Globulin 2.8 gm/dL 01/30/17 06:55 Albumin/Globulin Ratio 1.3 (1.0-1.8) 01/30/17 06:55 - Physical Exam Vitals and I&O: Vital Signs Temp 97.4 F 02/02/17 15:44 Pulse 78 02/02/17 15:44 Resp 20 02/02/17 15:44 BP 140/72 02/02/17 15:44 Pulse Ox 96 02/02/17 15:44 Intake & Output 02/01/17 02/02/17 02/02/17 18:59 06:59 18:59 Intake Total 240 Balance 240 Intake: Oral 240 Other: # Voids 1 # Bowel Movements 0 Active Medications: Current Medications Acetaminophen (Tylenol) 650 mg PO Q4H PRN PRN Reason: PAIN Stop: 03/29/17 14:34 Last Admin: 02/01/17 15:00 Dose: 650 mg Amlodipine Besylate (Norvasc) 10 mg PO DAILY [facility] Stop: 03/30/17 08:59 Last Admin: 02/02/17 08:19 Dose: 10 mg Aspirin (Aspirin Chewable) 81 mg PO DAILY [facility] Stop: 03/30/17 08:59 Last Admin: 02/02/17 08:20 Dose: 81 mg Bisacodyl (Dulcolax 10 Mg Supp) 10 mg RC DAILY PRN PRN Reason: constipation Stop: 03/29/17 14:34 Carvedilol (Coreg) 6.25 mg PO BID [facility] Stop: 03/29/17 16:59 Last Admin: 02/02/17 08:20 Dose: 6.25 mg Docusate Sodium (Colace) 100 mg PO BID [facility] Stop: 03/29/17 16:59 Last Admin: 02/02/17 14:18 Dose: Not Given Escitalopram Oxalate (Lexapro) 5 mg PO DAILY [facility] PRN Reason: Protocol Stop: 03/31/17 08:59 Last Admin: 02/02/17 08:20 Dose: 5 mg Haloperidol Decanoate (Haldol Dec) 25 mg IM [id number] [facility] PRN Reason: Protocol Stop: 03/30/17 08:59 Last Admin: 01/29/17 10:21 Dose: Not Given Lisinopril (Zestril) 40 mg PO DAILY [facility] Stop: 03/30/17 08:59 Last Admin: 02/02/17 08:21 Dose: 40 mg Loratadine (Claritin) 10 mg PO DAILY PRN PRN Reason: ALLERGIES Stop: 03/29/17 14:34 Lorazepam (Ativan) 0.5 mg PO Q4HR PRN; Protocol PRN Reason: Anxiety Stop: 02/27/17 14:27 Last Admin: 01/29/17 10:59 Dose: 0.5 mg Magnesium Hydroxide (Milk Of Magnesia) 30 ml PO DAILY PRN PRN Reason: Constipation Stop: 03/29/17 14:34 Mineral Oil (Fleet Mineral Oil) 135 ml RC UD PRN PRN Reason: constipation Stop: 03/29/17 14:34 Nitroglycerin (Nitrostat) 0.4 mg SL Q5MIN PRN PRN Reason: Chest Pain Stop: 03/29/17 14:34 Quetiapine Fumarate 200 mg/ (Quetiapine Fumarate 25 mg) 225 mg PO HS [facility] Stop: 04/03/17 20:59 Tramadol HCl (Ultram) 50 mg PO Q6HR PRN PRN Reason: Pain (Severe) Stop: 03/29/17 19:59 Last Admin: 02/02/17 12:32 Dose: 50 mg Zolpidem Tartrate (Ambien) 5 mg PO HS PRN PRN Reason: Insomnia Stop: 03/29/17 14:27 Zolpidem Tartrate (Ambien) 10 mg PO HS [facility] Stop: 03/29/17 20:59 Last Admin: 02/01/17 20:38 Dose: 10 mg General: alert, demented HEENT: NC/AT, PERRLA, EOMI, anicteric sclerae, throat clear Neck: Supple, No JVD, No thyromegaly, +2 carotid pulse wo bruit, No LAD, + JVD Cardiovascular: Normal S1, Normal S2, without murmur Abdomen: non-tender, non-distended Extremities: clear Neurological: no change Internal Medicine Assmt/Plan - Assessment Assessment: 1.HTN 2.DJD. 3.DEMENTIA - Plan Plan: CONTINUE ON CURRENT MEDICATION AND DIET Nutritional Asmnt/Malnutr-PDOC - Dietary Evaluation Malnutrition Findings (Please click <Entered> for more info): Nutritional Asmnt/Malnutrition Start: 02/02/17 14: 28 Text: Status: Complete Freq: Document 02/02/17 14:28 [email or web address] (Rec: 02/02/17 14:36 DELFINO [email or web address]) Nutritional Asmnt/Malnutrition Patient General Information Nutritional Screening Moderate Risk Diagnosis psychosis Pertinent Medical Hx/Surgical Hx DJD, HTN, dementia Subjective Information Pt seen lying in bed, awake and alert during the time of visit. Pt reported fair appetite, didn't wake up for breakfast this morning. Per notes, PO intake 75-100%. Pt likes to have sausage or augustine for breakfast. Explained that pt on cardiact diet, not able to have high sodium/fat food like sausage and augustine. Pt understanded. Current Diet Order/ Nutrition Support cardiac Pertinent Medications colace, quetiapine fumarate Pertinent Labs 01/30 Na 136, K 4.0, Cl 104, BUN 23, Cr 1.1, Glucose 100, Alb 3.5 Nutritional Hx/Data Height 1.68 m Height (Calculated Centimeters) 167.6 Current Weight (lbs) 69.354 kg Weight (Calculated Kilograms) 69.4 Weight (Calculated Grams) 63708.3 [place] Body Weight 130 % [place] Body Weight 118 Body Mass Index (BMI) 24.7 Weight Status Approriate GI Symptoms GI Symptoms None Last BM 01/31 Difficult in: None Skin Integrity/Comment: intact Estimated Nutritional Goals BEE in Kcals: Using Current wt Calories/Kcals/Kg 25-27 Kcals Calculated 4117-6105 Protein: Using Current wt Protein g/k Protein Calculated 70 Fluid: ml 8602-1112 Nutritional Problem No current Nutrition Prob Problem N/A Malnutrition Alert Protein-Calorie Malnutrition N/A Is there a minimum of two criteria No selected? Query Text:Check all the applicable criteria. A minimum of two criteria are recommended for diagnosis of either severe or non-severe malnutrition. Intervention/Recommendation Comments 1. Continue with current diet as ordered. 2. Monitor PO intake, wt, labs and skin integrity 3. F/U as low risk in 7 days, 1/2 Expected Outcomes/Goals Expected Outcomes/Goals 1. PO intake to meet at least 75% of nutritional needs. 2. Wt stability, skin to remain intact, labs to approach WNL.
--- NOTE | 2017-02-03 09:43 | Progress Notes ---
DATE: 02/03/2017 Case was discussed with staff of the patient, reviewed records. The patient continues to be delusional. Continues to be irritable, angry, continues to have poor insight, unable to make safe plan for self-care, unpredictable, impulsive, needing redirection. I did increase her Seroquel dose yesterday with no side effects, no sedation, no nausea, no extrapyramidal symptoms. She continues to believe that her son is here somewhere. Continues to act out, demented, confused, needing redirection. Her lab work showed CBC with low hematocrit and high MCH and high monocyte and eosinophil. The rest of the CBC within normal range. Her chemistry panel shows low albumin and the rest within normal range. We will continue to work with the patient in group therapy, milieu therapy, and adjust medications as needed. JOB# [id number]
[2017-02-03] MEDS: Aspirin 81mg Chewable Tab PO SCH (10:46)
[2017-02-03] MEDS: Escitalopram Oxalate 5 mg Tab PO SCH (10:48)
[2017-02-03] MEDS: Multivitamin w/ Minerals Tab PO SCH (10:49)
--- NOTE | 2017-02-03 18:19 | Internal Medicine Prog Note ---
Internal Medicine Subjective - Subjective Service Date: 02/03/17 Patient seen and examined:: with staff Patient is:: in wheelchair, talking Per staff patient has:: no adverse event (she feels well) Internal Medicine Objective - Results Result Diagrams: 01/30/17 06:55 01/30/17 06:55 Recent Labs: Laboratory Last Values WBC 8.3 Th/cmm (4.8-10.8) 01/30/17 06:55 RBC 3.86 Mil/cmm (3.80-5.20) 01/30/17 06:55 Hgb 12.2 gm/dL (12-16) 01/30/17 06:55 Hct 35.8 % (41.0-60) L D 01/30/17 06:55 MCV 92.7 fl (81-100) 01/30/17 06:55 MCH 31.6 pg (27.0-31.0) H 01/30/17 06:55 MCHC Differential 34.0 pg (28.0-36.0) 01/30/17 06:55 RDW 14.9 % (11.5-20.0) 01/30/17 06:55 Plt Count 318 Th/cmm (150-400) D 01/30/17 06:55 MPV 6.2 fl 01/30/17 06:55 Neutrophils % 53.1 % (40.0-80.0) 01/30/17 06:55 Lymphocytes % 28.9 % (20.0-50.0) 01/30/17 06:55 Monocytes % 10.1 % (2.0-10.0) H 01/30/17 06:55 Eosinophils % 7.1 % (0.0-5.0) H 01/30/17 06:55 Basophils % 0.8 % (0.0-2.0) 01/30/17 06:55 Sodium 136 mEq/L (136-145) 01/30/17 06:55 Potassium 4.0 mEq/L (3.5-5.1) 01/30/17 06:55 Chloride 104 mEq/L (98-107) 01/30/17 06:55 Carbon Dioxide 24.4 mEq/L (21.0-31.0) 01/30/17 06:55 Anion Gap 11.6 (7.0-16.0) 01/30/17 06:55 BUN 23 mg/dL (7-25) 01/30/17 06:55 Creatinine 1.1 mg/dL (0.6-1.2) 01/30/17 06:55 Est GFR ( Amer) TNP 01/30/17 06:55 Est GFR (Non-Af Amer) TNP 01/30/17 06:55 BUN/Creatinine Ratio 20.9 01/30/17 06:55 Glucose 100 mg/dL (70-105) 01/30/17 06:55 Calcium 9.1 mg/dL (8.6-10.3) 01/30/17 06:55 Total Bilirubin 0.5 mg/dL (0.3-1.0) 01/30/17 06:55 AST 19 U/L (13-39) 01/30/17 06:55 ALT 20 U/L (7-52) 01/30/17 06:55 Alkaline Phosphatase 88 U/L (34-104) 01/30/17 06:55 Total Protein 6.3 gm/dL (6.0-8.3) 01/30/17 06:55 Albumin 3.5 gm/dL (3.7-5.3) L 01/30/17 06:55 Globulin 2.8 gm/dL 01/30/17 06:55 Albumin/Globulin Ratio 1.3 (1.0-1.8) 01/30/17 06:55 - Physical Exam Vitals and I&O: Vital Signs Temp 98.6 F 02/03/17 06:01 Pulse 73 02/03/17 17:41 Resp 20 02/03/17 06:01 BP 132/65 02/03/17 17:41 Pulse Ox 96 02/03/17 06:01 Intake & Output 02/02/17 02/03/17 02/03/17 18:59 06:59 18:59 Intake Total 700 240 Balance 700 240 Intake: Oral 700 240 Other: # Voids 3 1 # Bowel Movements 1 0 Active Medications: Current Medications Acetaminophen (Tylenol) 650 mg PO Q4H PRN PRN Reason: PAIN Stop: 03/29/17 14:34 Last Admin: 02/01/17 15:00 Dose: 650 mg Amlodipine Besylate (Norvasc) 10 mg PO DAILY [facility] Stop: 03/30/17 08:59 Last Admin: 02/03/17 10:46 Dose: 10 mg Aspirin (Aspirin Chewable) 81 mg PO DAILY [facility] Stop: 03/30/17 08:59 Last Admin: 02/03/17 10:46 Dose: 81 mg Bisacodyl (Dulcolax 10 Mg Supp) 10 mg RC DAILY PRN PRN Reason: constipation Stop: 03/29/17 14:34 Carvedilol (Coreg) 6.25 mg PO BID [facility] Stop: 03/29/17 16:59 Last Admin: 02/03/17 17:41 Dose: 6.25 mg Docusate Sodium (Colace) 100 mg PO BID [facility] Stop: 03/29/17 16:59 Last Admin: 02/03/17 17:40 Dose: Not Given Escitalopram Oxalate (Lexapro) 5 mg PO DAILY [facility] PRN Reason: Protocol Stop: 03/31/17 08:59 Last Admin: 02/03/17 10:48 Dose: 5 mg Haloperidol Decanoate (Haldol Dec) 25 mg IM [id number] [facility] PRN Reason: Protocol Stop: 03/30/17 08:59 Last Admin: 01/29/17 10:21 Dose: Not Given Lisinopril (Zestril) 40 mg PO DAILY [facility] Stop: 03/30/17 08:59 Last Admin: 02/03/17 10:48 Dose: 40 mg Loratadine (Claritin) 10 mg PO DAILY PRN PRN Reason: ALLERGIES Stop: 03/29/17 14:34 Lorazepam (Ativan) 0.5 mg PO Q4HR PRN; Protocol PRN Reason: Anxiety Stop: 02/27/17 14:27 Last Admin: 01/29/17 10:59 Dose: 0.5 mg Magnesium Hydroxide (Milk Of Magnesia) 30 ml PO DAILY PRN PRN Reason: Constipation Stop: 03/29/17 14:34 Mineral Oil (Fleet Mineral Oil) 135 ml RC UD PRN PRN Reason: constipation Stop: 03/29/17 14:34 Nitroglycerin (Nitrostat) 0.4 mg SL Q5MIN PRN PRN Reason: Chest Pain Stop: 03/29/17 14:34 Quetiapine Fumarate 200 mg/ (Quetiapine Fumarate 25 mg) 225 mg PO HS [facility] Stop: 04/03/17 20:59 Last Admin: 02/02/17 20:42 Dose: 225 mg Tramadol HCl (Ultram) 50 mg PO Q6HR PRN PRN Reason: Pain (Severe) Stop: 03/29/17 19:59 Last Admin: 02/02/17 12:32 Dose: 50 mg Zolpidem Tartrate (Ambien) 5 mg PO HS PRN PRN Reason: Insomnia Stop: 03/29/17 14:27 Zolpidem Tartrate (Ambien) 10 mg PO HS [facility] Stop: 03/29/17 20:59 Last Admin: 02/02/17 20:43 Dose: 10 mg General: alert, demented HEENT: NC/AT, PERRLA, EOMI, anicteric sclerae, throat clear Neck: Supple, No JVD, No thyromegaly, +2 carotid pulse wo bruit, No LAD, + JVD Cardiovascular: Normal S1, Normal S2, without murmur Abdomen: non-tender, non-distended Extremities: clear Neurological: no change Internal Medicine Assmt/Plan - Assessment Assessment: 1.HTN 2.DJD. 3.DEMENTIA - Plan Plan: CONTINUE ON CURRENT MEDICATION AND DIET Nutritional Asmnt/Malnutr-PDOC - Dietary Evaluation Malnutrition Findings (Please click <Entered> for more info): Nutritional Asmnt/Malnutrition Start: 02/02/17 14: 28 Text: Status: Complete Freq: Document 02/02/17 14:28 LCHENG (Rec: 02/02/17 14:36 [email or web address] [email or web address]) Nutritional Asmnt/Malnutrition Patient General Information Nutritional Screening Moderate Risk Diagnosis psychosis Pertinent Medical Hx/Surgical Hx DJD, HTN, dementia Subjective Information Pt seen lying in bed, awake and alert during the time of visit. Pt reported fair appetite, didn't wake up for breakfast this morning. Per notes, PO intake 75-100%. Pt likes to have sausage or augustine for breakfast. Explained that pt on cardiact diet, not able to have high sodium/fat food like sausage and augustine. Pt understanded. Current Diet Order/ Nutrition Support cardiac Pertinent Medications colace, quetiapine fumarate Pertinent Labs 01/30 Na 136, K 4.0, Cl 104, BUN 23, Cr 1.1, Glucose 100, Alb 3.5 Nutritional Hx/Data Height 1.68 m Height (Calculated Centimeters) 167.6 Current Weight (lbs) 69.354 kg Weight (Calculated Kilograms) 69.4 Weight (Calculated Grams) 16072.3 [place] Body Weight 130 % [place] Body Weight 118 Body Mass Index (BMI) 24.7 Weight Status Approriate GI Symptoms GI Symptoms None Last BM 01/31 Difficult in: None Skin Integrity/Comment: intact Estimated Nutritional Goals BEE in Kcals: Using Current wt Calories/Kcals/Kg 25-27 Kcals Calculated 7802-5667 Protein: Using Current wt Protein g/k Protein Calculated 70 Fluid: ml 8664-1917 Nutritional Problem No current Nutrition Prob Problem N/A Malnutrition Alert Protein-Calorie Malnutrition N/A Is there a minimum of two criteria No selected? Query Text:Check all the applicable criteria. A minimum of two criteria are recommended for diagnosis of either severe or non-severe malnutrition. Intervention/Recommendation Comments 1. Continue with current diet as ordered. 2. Monitor PO intake, wt, labs and skin integrity 3. F/U as low risk in 7 days, 1/2 Expected Outcomes/Goals Expected Outcomes/Goals 1. PO intake to meet at least 75% of nutritional needs. 2. Wt stability, skin to remain intact, labs to approach WNL.
[2017-02-04] MEDS: Escitalopram Oxalate 5 mg Tab PO SCH (10:08)
[2017-02-04] MEDS: Multivitamin w/ Minerals Tab PO SCH (10:09)
[2017-02-04] MEDS: Aspirin 81mg Chewable Tab PO SCH (10:09)
--- NOTE | 2017-02-04 15:47 | Internal Medicine Prog Note ---
Internal Medicine Subjective - Subjective Service Date: 02/04/17 Patient seen and examined:: with staff (SHE HAS LESS PAIN) Patient is:: in wheelchair, talking Per staff patient has:: no adverse event (she feels well) Internal Medicine Objective - Results Result Diagrams: 01/30/17 06:55 01/30/17 06:55 Recent Labs: Laboratory Last Values WBC 8.3 Th/cmm (4.8-10.8) 01/30/17 06:55 RBC 3.86 Mil/cmm (3.80-5.20) 01/30/17 06:55 Hgb 12.2 gm/dL (12-16) 01/30/17 06:55 Hct 35.8 % (41.0-60) L D 01/30/17 06:55 MCV 92.7 fl (81-100) 01/30/17 06:55 MCH 31.6 pg (27.0-31.0) H 01/30/17 06:55 MCHC Differential 34.0 pg (28.0-36.0) 01/30/17 06:55 RDW 14.9 % (11.5-20.0) 01/30/17 06:55 Plt Count 318 Th/cmm (150-400) D 01/30/17 06:55 MPV 6.2 fl 01/30/17 06:55 Neutrophils % 53.1 % (40.0-80.0) 01/30/17 06:55 Lymphocytes % 28.9 % (20.0-50.0) 01/30/17 06:55 Monocytes % 10.1 % (2.0-10.0) H 01/30/17 06:55 Eosinophils % 7.1 % (0.0-5.0) H 01/30/17 06:55 Basophils % 0.8 % (0.0-2.0) 01/30/17 06:55 Sodium 136 mEq/L (136-145) 01/30/17 06:55 Potassium 4.0 mEq/L (3.5-5.1) 01/30/17 06:55 Chloride 104 mEq/L (98-107) 01/30/17 06:55 Carbon Dioxide 24.4 mEq/L (21.0-31.0) 01/30/17 06:55 Anion Gap 11.6 (7.0-16.0) 01/30/17 06:55 BUN 23 mg/dL (7-25) 01/30/17 06:55 Creatinine 1.1 mg/dL (0.6-1.2) 01/30/17 06:55 Est GFR ( Amer) TNP 01/30/17 06:55 Est GFR (Non-Af Amer) TNP 01/30/17 06:55 BUN/Creatinine Ratio 20.9 01/30/17 06:55 Glucose 100 mg/dL (70-105) 01/30/17 06:55 Calcium 9.1 mg/dL (8.6-10.3) 01/30/17 06:55 Total Bilirubin 0.5 mg/dL (0.3-1.0) 01/30/17 06:55 AST 19 U/L (13-39) 01/30/17 06:55 ALT 20 U/L (7-52) 01/30/17 06:55 Alkaline Phosphatase 88 U/L (34-104) 01/30/17 06:55 Total Protein 6.3 gm/dL (6.0-8.3) 01/30/17 06:55 Albumin 3.5 gm/dL (3.7-5.3) L 01/30/17 06:55 Globulin 2.8 gm/dL 01/30/17 06:55 Albumin/Globulin Ratio 1.3 (1.0-1.8) 01/30/17 06:55 - Physical Exam Vitals and I&O: Vital Signs Temp 98.7 F 02/04/17 14:00 Pulse 76 02/04/17 14:32 Resp 20 02/04/17 14:32 BP 111/64 02/04/17 14:00 Pulse Ox 96 02/04/17 14:00 Intake & Output 02/03/17 02/04/17 02/04/17 18:59 06:59 18:59 Intake Total 120 Balance 120 Intake: Oral 120 Other: # Voids 3 Active Medications: Current Medications Acetaminophen (Tylenol) 650 mg PO Q4H PRN PRN Reason: PAIN Stop: 03/29/17 14:34 Last Admin: 02/01/17 15:00 Dose: 650 mg Amlodipine Besylate (Norvasc) 10 mg PO DAILY [facility] Stop: 03/30/17 08:59 Last Admin: 02/04/17 10:09 Dose: 10 mg Aspirin (Aspirin Chewable) 81 mg PO DAILY [facility] Stop: 03/30/17 08:59 Last Admin: 02/04/17 10:09 Dose: 81 mg Bisacodyl (Dulcolax 10 Mg Supp) 10 mg RC DAILY PRN PRN Reason: constipation Stop: 03/29/17 14:34 Last Admin: 02/04/17 10:10 Dose: 10 mg Carvedilol (Coreg) 6.25 mg PO BID [facility] Stop: 03/29/17 16:59 Last Admin: 02/04/17 10:09 Dose: 6.25 mg Docusate Sodium (Colace) 100 mg PO BID [facility] Stop: 03/29/17 16:59 Last Admin: 02/04/17 11:18 Dose: Not Given Escitalopram Oxalate (Lexapro) 5 mg PO DAILY [facility] PRN Reason: Protocol Stop: 03/31/17 08:59 Last Admin: 02/04/17 10:08 Dose: 5 mg Haloperidol Decanoate (Haldol Dec) 25 mg IM [id number] [facility] PRN Reason: Protocol Stop: 03/30/17 08:59 Last Admin: 01/29/17 10:21 Dose: Not Given Lisinopril (Zestril) 40 mg PO DAILY [facility] Stop: 03/30/17 08:59 Last Admin: 02/04/17 10:08 Dose: 40 mg Loratadine (Claritin) 10 mg PO DAILY PRN PRN Reason: ALLERGIES Stop: 03/29/17 14:34 Last Admin: 02/04/17 10:08 Dose: 10 mg Lorazepam (Ativan) 0.5 mg PO Q4HR PRN; Protocol PRN Reason: Anxiety Stop: 02/27/17 14:27 Last Admin: 01/29/17 10:59 Dose: 0.5 mg Magnesium Hydroxide (Milk Of Magnesia) 30 ml PO DAILY PRN PRN Reason: Constipation Stop: 03/29/17 14:34 Mineral Oil (Fleet Mineral Oil) 135 ml RC UD PRN PRN Reason: constipation Stop: 03/29/17 14:34 Nitroglycerin (Nitrostat) 0.4 mg SL Q5MIN PRN PRN Reason: Chest Pain Stop: 03/29/17 14:34 Quetiapine Fumarate 200 mg/ (Quetiapine Fumarate 25 mg) 225 mg PO HS [facility] Stop: 04/03/17 20:59 Last Admin: 02/03/17 20:48 Dose: 225 mg Tramadol HCl (Ultram) 50 mg PO Q6HR PRN PRN Reason: Pain (Severe) Stop: 03/29/17 19:59 Last Admin: 02/02/17 12:32 Dose: 50 mg Zolpidem Tartrate (Ambien) 5 mg PO HS PRN PRN Reason: Insomnia Stop: 03/29/17 14:27 Last Admin: 02/03/17 20:47 Dose: 5 mg Zolpidem Tartrate (Ambien) 10 mg PO HS [facility] Stop: 03/29/17 20:59 Last Admin: 02/03/17 20:54 Dose: 10 mg General: alert, demented HEENT: NC/AT, PERRLA, EOMI, anicteric sclerae, throat clear Neck: Supple, No JVD, No thyromegaly, +2 carotid pulse wo bruit, No LAD, + JVD Cardiovascular: Normal S1, Normal S2, without murmur Abdomen: non-tender, non-distended Extremities: clear Neurological: no change Internal Medicine Assmt/Plan - Assessment Assessment: 1.HTN 2.DJD. 3.DEMENTIA 4.SKIN LACERATION OF BACK OF SCALP - Plan Plan: CONTINUE ON CURRENT MEDICATION AND DIET Nutritional Asmnt/Malnutr-PDOC - Dietary Evaluation Malnutrition Findings (Please click <Entered> for more info): Nutritional Asmnt/Malnutrition Start: 02/02/17 14: 28 Text: Status: Complete Freq: Document 02/02/17 14:28 CHAO (Rec: 02/02/17 14:36 CHAO [email or web address]) Nutritional Asmnt/Malnutrition Patient General Information Nutritional Screening Moderate Risk Diagnosis psychosis Pertinent Medical Hx/Surgical Hx DJD, HTN, dementia Subjective Information Pt seen lying in bed, awake and alert during the time of visit. Pt reported fair appetite, didn't wake up for breakfast this morning. Per notes, PO intake 75-100%. Pt likes to have sausage or augustine for breakfast. Explained that pt on cardiact diet, not able to have high sodium/fat food like sausage and augustine. Pt understanded. Current Diet Order/ Nutrition Support cardiac Pertinent Medications colace, quetiapine fumarate Pertinent Labs 01/30 Na 136, K 4.0, Cl 104, BUN 23, Cr 1.1, Glucose 100, Alb 3.5 Nutritional Hx/Data Height 1.68 m Height (Calculated Centimeters) 167.6 Current Weight (lbs) 69.354 kg Weight (Calculated Kilograms) 69.4 Weight (Calculated Grams) 60689.3 [place] Body Weight 130 % [place] Body Weight 118 Body Mass Index (BMI) 24.7 Weight Status Approriate GI Symptoms GI Symptoms None Last BM 01/31 Difficult in: None Skin Integrity/Comment: intact Estimated Nutritional Goals BEE in Kcals: Using Current wt Calories/Kcals/Kg 25-27 Kcals Calculated 7338-6747 Protein: Using Current wt Protein g/k Protein Calculated 70 Fluid: ml 1574-5263 Nutritional Problem No current Nutrition Prob Problem N/A Malnutrition Alert Protein-Calorie Malnutrition N/A Is there a minimum of two criteria No selected? Query Text:Check all the applicable criteria. A minimum of two criteria are recommended for diagnosis of either severe or non-severe malnutrition. Intervention/Recommendation Comments 1. Continue with current diet as ordered. 2. Monitor PO intake, wt, labs and skin integrity 3. F/U as low risk in 7 days, 1/2 Expected Outcomes/Goals Expected Outcomes/Goals 1. PO intake to meet at least 75% of nutritional needs. 2. Wt stability, skin to remain intact, labs to approach WNL.
--- NOTE | 2017-02-04 21:49 | Progress Notes ---
DATE: 02/04/2017 Case was discussed with staff ____. The patient is in agreement. The patient continues to be delusional. Continues to be confused. Continues to be unable to participate in meaningful conversation or make safe plan for self-care. Continues to have poor insight. She has been compliant with the medication with no side effects. No sedation. No nausea. No extrapyramidal symptoms. I have increased her Seroquel dose. We will continue to work with the patient in group therapy, milieu therapy, and adjust medication as needed. JOB# [id number]
[2017-02-05] MEDS: Escitalopram Oxalate 5 mg Tab PO SCH (08:23)
[2017-02-05] MEDS: Multivitamin w/ Minerals Tab PO SCH (08:23)
[2017-02-05] MEDS: Aspirin 81mg Chewable Tab PO SCH (08:23)
--- NOTE | 2017-02-05 15:55 | Progress Notes ---
DATE: 02/05/2017 Case was discussed with staff of the patient, reviewed records. The patient continues to have poor insight, continues to be unpredictable and impulsive, needing redirection. Sleeping well, eating well. She is not as delusional. She is compliant with the medication with no side effects, no sedation, no nausea, and no extrapyramidal symptoms. Because of her severe depression and anxiety, I will be increasing Lexapro to 10 mg a day. Tolerating increase in Seroquel to 225 mg at bedtime. No side effects, no sedation, no nausea, and no extrapyramidal symptoms. We will work with the patient in group therapy, milieu therapy, adjust the medication as needed. JOB# [id number]
--- NOTE | 2017-02-05 18:53 | Internal Medicine Prog Note ---
Internal Medicine Subjective - Subjective Service Date: 02/05/17 Patient seen and examined:: with staff (SHE HAS LESS PAIN) Patient is:: in wheelchair, talking Per staff patient has:: no adverse event (she feels well) Internal Medicine Objective - Results Result Diagrams: 01/30/17 06:55 01/30/17 06:55 Recent Labs: Laboratory Last Values WBC 8.3 Th/cmm (4.8-10.8) 01/30/17 06:55 RBC 3.86 Mil/cmm (3.80-5.20) 01/30/17 06:55 Hgb 12.2 gm/dL (12-16) 01/30/17 06:55 Hct 35.8 % (41.0-60) L D 01/30/17 06:55 MCV 92.7 fl (81-100) 01/30/17 06:55 MCH 31.6 pg (27.0-31.0) H 01/30/17 06:55 MCHC Differential 34.0 pg (28.0-36.0) 01/30/17 06:55 RDW 14.9 % (11.5-20.0) 01/30/17 06:55 Plt Count 318 Th/cmm (150-400) D 01/30/17 06:55 MPV 6.2 fl 01/30/17 06:55 Neutrophils % 53.1 % (40.0-80.0) 01/30/17 06:55 Lymphocytes % 28.9 % (20.0-50.0) 01/30/17 06:55 Monocytes % 10.1 % (2.0-10.0) H 01/30/17 06:55 Eosinophils % 7.1 % (0.0-5.0) H 01/30/17 06:55 Basophils % 0.8 % (0.0-2.0) 01/30/17 06:55 Sodium 136 mEq/L (136-145) 01/30/17 06:55 Potassium 4.0 mEq/L (3.5-5.1) 01/30/17 06:55 Chloride 104 mEq/L (98-107) 01/30/17 06:55 Carbon Dioxide 24.4 mEq/L (21.0-31.0) 01/30/17 06:55 Anion Gap 11.6 (7.0-16.0) 01/30/17 06:55 BUN 23 mg/dL (7-25) 01/30/17 06:55 Creatinine 1.1 mg/dL (0.6-1.2) 01/30/17 06:55 Est GFR ( Amer) TNP 01/30/17 06:55 Est GFR (Non-Af Amer) TNP 01/30/17 06:55 BUN/Creatinine Ratio 20.9 01/30/17 06:55 Glucose 100 mg/dL (70-105) 01/30/17 06:55 Calcium 9.1 mg/dL (8.6-10.3) 01/30/17 06:55 Total Bilirubin 0.5 mg/dL (0.3-1.0) 01/30/17 06:55 AST 19 U/L (13-39) 01/30/17 06:55 ALT 20 U/L (7-52) 01/30/17 06:55 Alkaline Phosphatase 88 U/L (34-104) 01/30/17 06:55 Total Protein 6.3 gm/dL (6.0-8.3) 01/30/17 06:55 Albumin 3.5 gm/dL (3.7-5.3) L 01/30/17 06:55 Globulin 2.8 gm/dL 01/30/17 06:55 Albumin/Globulin Ratio 1.3 (1.0-1.8) 01/30/17 06:55 - Physical Exam Vitals and I&O: Vital Signs Temp 97.4 F 02/05/17 14:00 Pulse 80 02/05/17 17:20 Resp 20 02/05/17 14:00 BP 128/79 02/05/17 17:20 Pulse Ox 98 02/05/17 14:00 Intake & Output 02/04/17 02/05/17 02/05/17 18:59 06:59 18:59 Intake Total 2604 409 0920 Balance 5365 965 1391 Intake: Oral 3330 705 0712 Other: # Voids 3 3 3 Active Medications: Current Medications Acetaminophen (Tylenol) 650 mg PO Q4H PRN PRN Reason: PAIN Stop: 03/29/17 14:34 Last Admin: 02/01/17 15:00 Dose: 650 mg Amlodipine Besylate (Norvasc) 10 mg PO DAILY [facility] Stop: 03/30/17 08:59 Last Admin: 02/05/17 08:22 Dose: 10 mg Aspirin (Aspirin Chewable) 81 mg PO DAILY [facility] Stop: 03/30/17 08:59 Last Admin: 02/05/17 08:23 Dose: 81 mg Bisacodyl (Dulcolax 10 Mg Supp) 10 mg RC DAILY PRN PRN Reason: constipation Stop: 03/29/17 14:34 Carvedilol (Coreg) 6.25 mg PO BID [facility] Stop: 03/29/17 16:59 Last Admin: 02/05/17 17:20 Dose: 6.25 mg Docusate Sodium (Colace) 100 mg PO BID [facility] Stop: 03/29/17 16:59 Last Admin: 02/05/17 17:20 Dose: 100 mg Escitalopram Oxalate (Lexapro) 10 mg PO DAILY [facility] PRN Reason: Protocol Stop: 04/06/17 12:24 Haloperidol Decanoate (Haldol Dec) 25 mg IM [id number] [facility] PRN Reason: Protocol Stop: 03/30/17 08:59 Last Admin: 01/29/17 10:21 Dose: Not Given Lisinopril (Zestril) 40 mg PO DAILY [facility] Stop: 03/30/17 08:59 Last Admin: 02/05/17 08:23 Dose: 40 mg Loratadine (Claritin) 10 mg PO DAILY PRN PRN Reason: ALLERGIES Stop: 03/29/17 14:34 Last Admin: 02/04/17 10:08 Dose: 10 mg Lorazepam (Ativan) 0.5 mg PO Q4HR PRN; Protocol PRN Reason: Anxiety Stop: 02/27/17 14:27 Last Admin: 01/29/17 10:59 Dose: 0.5 mg Magnesium Hydroxide (Milk Of Magnesia) 30 ml PO DAILY PRN PRN Reason: Constipation Stop: 03/29/17 14:34 Mineral Oil (Fleet Mineral Oil) 135 ml RC UD PRN PRN Reason: constipation Stop: 03/29/17 14:34 Nitroglycerin (Nitrostat) 0.4 mg SL Q5MIN PRN PRN Reason: Chest Pain Stop: 03/29/17 14:34 Quetiapine Fumarate 200 mg/ (Quetiapine Fumarate 25 mg) 225 mg PO HS [facility] Stop: 04/03/17 20:59 Last Admin: 02/04/17 21:31 Dose: 225 mg Tramadol HCl (Ultram) 50 mg PO Q6HR PRN PRN Reason: Pain (Severe) Stop: 03/29/17 19:59 Last Admin: 02/02/17 12:32 Dose: 50 mg Zolpidem Tartrate (Ambien) 5 mg PO HS PRN PRN Reason: Insomnia Stop: 03/29/17 14:27 Last Admin: 02/03/17 20:47 Dose: 5 mg General: alert, demented HEENT: NC/AT, PERRLA, EOMI, anicteric sclerae, throat clear Neck: Supple, No JVD, No thyromegaly, +2 carotid pulse wo bruit, No LAD, + JVD Cardiovascular: Normal S1, Normal S2, without murmur Abdomen: non-tender, non-distended Extremities: clear Neurological: no change Internal Medicine Assmt/Plan - Assessment Assessment: 1.HTN 2.DJD. 3.DEMENTIA 4.SKIN LACERATION OF BACK OF SCALP - Plan Plan: CONTINUE ON CURRENT MEDICATION AND DIET Nutritional Asmnt/Malnutr-PDOC - Dietary Evaluation Malnutrition Findings (Please click <Entered> for more info): Nutritional Asmnt/Malnutrition Start: 02/02/17 14: 28 Text: Status: Complete Freq: Document 02/02/17 14:28 LCCHAOG (Rec: 02/02/17 14:36 LCCHAOG [email or web address]) Nutritional Asmnt/Malnutrition Patient General Information Nutritional Screening Moderate Risk Diagnosis psychosis Pertinent Medical Hx/Surgical Hx DJD, HTN, dementia Subjective Information Pt seen lying in bed, awake and alert during the time of visit. Pt reported fair appetite, didn't wake up for breakfast this morning. Per notes, PO intake 75-100%. Pt likes to have sausage or augustine for breakfast. Explained that pt on cardiact diet, not able to have high sodium/fat food like sausage and augustine. Pt understanded. Current Diet Order/ Nutrition Support cardiac Pertinent Medications colace, quetiapine fumarate Pertinent Labs 01/30 Na 136, K 4.0, Cl 104, BUN 23, Cr 1.1, Glucose 100, Alb 3.5 Nutritional Hx/Data Height 1.68 m Height (Calculated Centimeters) 167.6 Current Weight (lbs) 69.354 kg Weight (Calculated Kilograms) 69.4 Weight (Calculated Grams) 63412.3 [place] Body Weight 130 % [place] Body Weight 118 Body Mass Index (BMI) 24.7 Weight Status Approriate GI Symptoms GI Symptoms None Last BM 01/31 Difficult in: None Skin Integrity/Comment: intact Estimated Nutritional Goals BEE in Kcals: Using Current wt Calories/Kcals/Kg 25-27 Kcals Calculated 0231-0209 Protein: Using Current wt Protein g/k Protein Calculated 70 Fluid: ml 3711-9020 Nutritional Problem No current Nutrition Prob Problem N/A Malnutrition Alert Protein-Calorie Malnutrition N/A Is there a minimum of two criteria No selected? Query Text:Check all the applicable criteria. A minimum of two criteria are recommended for diagnosis of either severe or non-severe malnutrition. Intervention/Recommendation Comments 1. Continue with current diet as ordered. 2. Monitor PO intake, wt, labs and skin integrity 3. F/U as low risk in 7 days, 1/2 Expected Outcomes/Goals Expected Outcomes/Goals 1. PO intake to meet at least 75% of nutritional needs. 2. Wt stability, skin to remain intact, labs to approach WNL.
[2017-02-06] MEDS: Multivitamin w/ Minerals Tab PO SCH (08:44)
[2017-02-06] MEDS: Aspirin 81mg Chewable Tab PO SCH (08:45)
--- NOTE | 2017-02-06 12:36 | Internal Medicine Prog Note ---
Internal Medicine Subjective - Subjective Service Date: 02/06/17 Patient seen and examined:: with staff Patient is:: awake (SHE FEELS BETTER), in wheelchair, talking Per staff patient has:: no adverse event (she feels well) Internal Medicine Objective - Results Result Diagrams: 01/30/17 06:55 01/30/17 06:55 Recent Labs: Laboratory Last Values WBC 8.3 Th/cmm (4.8-10.8) 01/30/17 06:55 RBC 3.86 Mil/cmm (3.80-5.20) 01/30/17 06:55 Hgb 12.2 gm/dL (12-16) 01/30/17 06:55 Hct 35.8 % (41.0-60) L D 01/30/17 06:55 MCV 92.7 fl (81-100) 01/30/17 06:55 MCH 31.6 pg (27.0-31.0) H 01/30/17 06:55 MCHC Differential 34.0 pg (28.0-36.0) 01/30/17 06:55 RDW 14.9 % (11.5-20.0) 01/30/17 06:55 Plt Count 318 Th/cmm (150-400) D 01/30/17 06:55 MPV 6.2 fl 01/30/17 06:55 Neutrophils % 53.1 % (40.0-80.0) 01/30/17 06:55 Lymphocytes % 28.9 % (20.0-50.0) 01/30/17 06:55 Monocytes % 10.1 % (2.0-10.0) H 01/30/17 06:55 Eosinophils % 7.1 % (0.0-5.0) H 01/30/17 06:55 Basophils % 0.8 % (0.0-2.0) 01/30/17 06:55 Sodium 136 mEq/L (136-145) 01/30/17 06:55 Potassium 4.0 mEq/L (3.5-5.1) 01/30/17 06:55 Chloride 104 mEq/L (98-107) 01/30/17 06:55 Carbon Dioxide 24.4 mEq/L (21.0-31.0) 01/30/17 06:55 Anion Gap 11.6 (7.0-16.0) 01/30/17 06:55 BUN 23 mg/dL (7-25) 01/30/17 06:55 Creatinine 1.1 mg/dL (0.6-1.2) 01/30/17 06:55 Est GFR ( Amer) TNP 01/30/17 06:55 Est GFR (Non-Af Amer) TNP 01/30/17 06:55 BUN/Creatinine Ratio 20.9 01/30/17 06:55 Glucose 100 mg/dL (70-105) 01/30/17 06:55 Calcium 9.1 mg/dL (8.6-10.3) 01/30/17 06:55 Total Bilirubin 0.5 mg/dL (0.3-1.0) 01/30/17 06:55 AST 19 U/L (13-39) 01/30/17 06:55 ALT 20 U/L (7-52) 01/30/17 06:55 Alkaline Phosphatase 88 U/L (34-104) 01/30/17 06:55 Total Protein 6.3 gm/dL (6.0-8.3) 01/30/17 06:55 Albumin 3.5 gm/dL (3.7-5.3) L 01/30/17 06:55 Globulin 2.8 gm/dL 01/30/17 06:55 Albumin/Globulin Ratio 1.3 (1.0-1.8) 01/30/17 06:55 - Physical Exam Vitals and I&O: Vital Signs Temp 97.4 F 02/05/17 14:00 Pulse 64 02/06/17 08:47 Resp 20 02/05/17 20:00 BP 145/72 02/06/17 08:47 Pulse Ox 98 02/05/17 14:00 Intake & Output 02/05/17 02/06/17 02/06/17 18:59 06:59 18:59 Intake Total 1200 Balance 1200 Intake: Oral 1200 Other: # Voids 3 Active Medications: Current Medications Acetaminophen (Tylenol) 650 mg PO Q4H PRN PRN Reason: PAIN Stop: 03/29/17 14:34 Last Admin: 02/01/17 15:00 Dose: 650 mg Amlodipine Besylate (Norvasc) 10 mg PO DAILY [facility] Stop: 03/30/17 08:59 Last Admin: 02/06/17 08:45 Dose: 10 mg Aspirin (Aspirin Chewable) 81 mg PO DAILY [facility] Stop: 03/30/17 08:59 Last Admin: 02/06/17 08:45 Dose: 81 mg Bisacodyl (Dulcolax 10 Mg Supp) 10 mg RC DAILY PRN PRN Reason: constipation Stop: 03/29/17 14:34 Carvedilol (Coreg) 6.25 mg PO BID [facility] Stop: 03/29/17 16:59 Last Admin: 02/06/17 08:47 Dose: 6.25 mg Docusate Sodium (Colace) 100 mg PO BID [facility] Stop: 03/29/17 16:59 Last Admin: 02/06/17 08:44 Dose: 100 mg Escitalopram Oxalate (Lexapro) 10 mg PO DAILY [facility] PRN Reason: Protocol Stop: 04/06/17 12:24 Last Admin: 02/06/17 08:45 Dose: 10 mg Haloperidol Decanoate (Haldol Dec) 25 mg IM [id number] [facility] PRN Reason: Protocol Stop: 03/30/17 08:59 Last Admin: 01/29/17 10:21 Dose: Not Given Lisinopril (Zestril) 40 mg PO DAILY [facility] Stop: 03/30/17 08:59 Last Admin: 02/06/17 08:46 Dose: 40 mg Loratadine (Claritin) 10 mg PO DAILY PRN PRN Reason: ALLERGIES Stop: 03/29/17 14:34 Last Admin: 02/04/17 10:08 Dose: 10 mg Lorazepam (Ativan) 0.5 mg PO Q4HR PRN; Protocol PRN Reason: Anxiety Stop: 02/27/17 14:27 Last Admin: 01/29/17 10:59 Dose: 0.5 mg Magnesium Hydroxide (Milk Of Magnesia) 30 ml PO DAILY PRN PRN Reason: Constipation Stop: 03/29/17 14:34 Mineral Oil (Fleet Mineral Oil) 135 ml RC UD PRN PRN Reason: constipation Stop: 03/29/17 14:34 Nitroglycerin (Nitrostat) 0.4 mg SL Q5MIN PRN PRN Reason: Chest Pain Stop: 03/29/17 14:34 Quetiapine Fumarate 200 mg/ (Quetiapine Fumarate 25 mg) 225 mg PO HS [facility] Stop: 04/03/17 20:59 Last Admin: 02/05/17 21:30 Dose: 225 mg Tramadol HCl (Ultram) 50 mg PO Q6HR PRN PRN Reason: Pain (Severe) Stop: 03/29/17 19:59 Last Admin: 02/02/17 12:32 Dose: 50 mg Zolpidem Tartrate (Ambien) 5 mg PO HS PRN PRN Reason: Insomnia Stop: 03/29/17 14:27 Last Admin: 02/03/17 20:47 Dose: 5 mg General: alert, demented HEENT: NC/AT, PERRLA, EOMI, anicteric sclerae, throat clear Neck: Supple, No JVD, No thyromegaly, +2 carotid pulse wo bruit, No LAD, + JVD Cardiovascular: Normal S1, Normal S2, without murmur Abdomen: non-tender, non-distended Extremities: clear Neurological: no change Internal Medicine Assmt/Plan - Assessment Assessment: 1.HTN 2.DJD. 3.DEMENTIA 4.SKIN LACERATION OF BACK OF SCALP - Plan Plan: CONTINUE ON CURRENT MEDICATION AND DIET Nutritional Asmnt/Malnutr-PDOC - Dietary Evaluation Malnutrition Findings (Please click <Entered> for more info): Nutritional Asmnt/Malnutrition Start: 02/02/17 14: 28 Text: Status: Complete Freq: Document 02/02/17 14:28 LCHENG (Rec: 02/02/17 14:36 LCHENG [email or web address]) Nutritional Asmnt/Malnutrition Patient General Information Nutritional Screening Moderate Risk Diagnosis psychosis Pertinent Medical Hx/Surgical Hx DJD, HTN, dementia Subjective Information Pt seen lying in bed, awake and alert during the time of visit. Pt reported fair appetite, didn't wake up for breakfast this morning. Per notes, PO intake 75-100%. Pt likes to have sausage or augustine for breakfast. Explained that pt on cardiact diet, not able to have high sodium/fat food like sausage and augustine. Pt understanded. Current Diet Order/ Nutrition Support cardiac Pertinent Medications colace, quetiapine fumarate Pertinent Labs 01/30 Na 136, K 4.0, Cl 104, BUN 23, Cr 1.1, Glucose 100, Alb 3.5 Nutritional Hx/Data Height 1.68 m Height (Calculated Centimeters) 167.6 Current Weight (lbs) 69.354 kg Weight (Calculated Kilograms) 69.4 Weight (Calculated Grams) 11578.3 [place] Body Weight 130 % [place] Body Weight 118 Body Mass Index (BMI) 24.7 Weight Status Approriate GI Symptoms GI Symptoms None Last BM 01/31 Difficult in: None Skin Integrity/Comment: intact Estimated Nutritional Goals BEE in Kcals: Using Current wt Calories/Kcals/Kg 25-27 Kcals Calculated 0543-9176 Protein: Using Current wt Protein g/k Protein Calculated 70 Fluid: ml 2955-1243 Nutritional Problem No current Nutrition Prob Problem N/A Malnutrition Alert Protein-Calorie Malnutrition N/A Is there a minimum of two criteria No selected? Query Text:Check all the applicable criteria. A minimum of two criteria are recommended for diagnosis of either severe or non-severe malnutrition. Intervention/Recommendation Comments 1. Continue with current diet as ordered. 2. Monitor PO intake, wt, labs and skin integrity 3. F/U as low risk in 7 days, 1/2 Expected Outcomes/Goals Expected Outcomes/Goals 1. PO intake to meet at least 75% of nutritional needs. 2. Wt stability, skin to remain intact, labs to approach WNL.
--- NOTE | 2017-02-06 21:06 | Progress Notes ---
DATE: 02/06/2017 SUBJECTIVE: The patient is currently in the hospital, unwitnessed fall, irritable, anxious, noted to be psychotic, delusional, hearing voices, long history of depression. On [id number], the patient remains symptomatic, AO to name, not situation. She knows the year and the month, seems more oriented and engaged, sleeping well, eating well, delusions dissipating. Dr. William also noting improvements. The patient with poor insight, noted to be impulsive, unpredictable. ASSESSMENT: The patient seems to be improving, behavioral disturbances dissipating, still concerns about her impulse control, some confusional episodes. Medications reviewed. 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 We will monitor and follow up. [facility]# [id number]
[2017-02-07] MEDS: Aspirin 81mg Chewable Tab PO SCH (09:14)
[2017-02-07] MEDS: Multivitamin w/ Minerals Tab PO SCH (09:14)
--- NOTE | 2017-02-07 17:11 | Internal Medicine Prog Note ---
Internal Medicine Subjective - Subjective Service Date: 02/07/17 Patient seen and examined:: with staff (SHE FEELS BETTER) Patient is:: awake (SHE FEELS BETTER), in wheelchair, talking Per staff patient has:: no adverse event (she feels well) Internal Medicine Objective - Results Result Diagrams: 01/30/17 06:55 01/30/17 06:55 Recent Labs: Laboratory Last Values WBC 8.3 Th/cmm (4.8-10.8) 01/30/17 06:55 RBC 3.86 Mil/cmm (3.80-5.20) 01/30/17 06:55 Hgb 12.2 gm/dL (12-16) 01/30/17 06:55 Hct 35.8 % (41.0-60) L D 01/30/17 06:55 MCV 92.7 fl (81-100) 01/30/17 06:55 MCH 31.6 pg (27.0-31.0) H 01/30/17 06:55 MCHC Differential 34.0 pg (28.0-36.0) 01/30/17 06:55 RDW 14.9 % (11.5-20.0) 01/30/17 06:55 Plt Count 318 Th/cmm (150-400) D 01/30/17 06:55 MPV 6.2 fl 01/30/17 06:55 Neutrophils % 53.1 % (40.0-80.0) 01/30/17 06:55 Lymphocytes % 28.9 % (20.0-50.0) 01/30/17 06:55 Monocytes % 10.1 % (2.0-10.0) H 01/30/17 06:55 Eosinophils % 7.1 % (0.0-5.0) H 01/30/17 06:55 Basophils % 0.8 % (0.0-2.0) 01/30/17 06:55 Sodium 136 mEq/L (136-145) 01/30/17 06:55 Potassium 4.0 mEq/L (3.5-5.1) 01/30/17 06:55 Chloride 104 mEq/L (98-107) 01/30/17 06:55 Carbon Dioxide 24.4 mEq/L (21.0-31.0) 01/30/17 06:55 Anion Gap 11.6 (7.0-16.0) 01/30/17 06:55 BUN 23 mg/dL (7-25) 01/30/17 06:55 Creatinine 1.1 mg/dL (0.6-1.2) 01/30/17 06:55 Est GFR ( Amer) TNP 01/30/17 06:55 Est GFR (Non-Af Amer) TNP 01/30/17 06:55 BUN/Creatinine Ratio 20.9 01/30/17 06:55 Glucose 100 mg/dL (70-105) 01/30/17 06:55 Calcium 9.1 mg/dL (8.6-10.3) 01/30/17 06:55 Total Bilirubin 0.5 mg/dL (0.3-1.0) 01/30/17 06:55 AST 19 U/L (13-39) 01/30/17 06:55 ALT 20 U/L (7-52) 01/30/17 06:55 Alkaline Phosphatase 88 U/L (34-104) 01/30/17 06:55 Total Protein 6.3 gm/dL (6.0-8.3) 01/30/17 06:55 Albumin 3.5 gm/dL (3.7-5.3) L 01/30/17 06:55 Globulin 2.8 gm/dL 01/30/17 06:55 Albumin/Globulin Ratio 1.3 (1.0-1.8) 01/30/17 06:55 - Physical Exam Vitals and I&O: Vital Signs Temp 98.8 F 02/07/17 14:00 Pulse 65 02/07/17 17:04 Resp 18 02/07/17 14:00 BP 119/64 02/07/17 17:04 Pulse Ox 95 02/07/17 14:00 Intake & Output 02/06/17 02/07/17 02/07/17 18:59 06:59 18:59 Intake Total 1600 120 Balance 1600 120 Intake: Oral 1600 120 Other: # Voids 4 3 # Bowel Movements 0 Active Medications: Current Medications Acetaminophen (Tylenol) 650 mg PO Q4H PRN PRN Reason: PAIN Stop: 03/29/17 14:34 Last Admin: 02/06/17 16:52 Dose: 650 mg Amlodipine Besylate (Norvasc) 10 mg PO DAILY [facility] Stop: 03/30/17 08:59 Last Admin: 02/07/17 09:14 Dose: 10 mg Aspirin (Aspirin Chewable) 81 mg PO DAILY [facility] Stop: 03/30/17 08:59 Last Admin: 02/07/17 09:14 Dose: 81 mg Bisacodyl (Dulcolax 10 Mg Supp) 10 mg RC DAILY PRN PRN Reason: constipation Stop: 03/29/17 14:34 Carvedilol (Coreg) 6.25 mg PO BID [facility] Stop: 03/29/17 16:59 Last Admin: 02/07/17 17:04 Dose: 6.25 mg Docusate Sodium (Colace) 100 mg PO BID [facility] Stop: 03/29/17 16:59 Last Admin: 02/07/17 17:03 Dose: 100 mg Escitalopram Oxalate (Lexapro) 10 mg PO DAILY [facility] PRN Reason: Protocol Stop: 04/06/17 12:24 Last Admin: 02/07/17 09:14 Dose: 10 mg Haloperidol Decanoate (Haldol Dec) 25 mg IM [id number] [facility] PRN Reason: Protocol Stop: 03/30/17 08:59 Last Admin: 01/29/17 10:21 Dose: Not Given Lisinopril (Zestril) 40 mg PO DAILY [facility] Stop: 03/30/17 08:59 Last Admin: 02/07/17 09:15 Dose: 40 mg Loratadine (Claritin) 10 mg PO DAILY PRN PRN Reason: ALLERGIES Stop: 03/29/17 14:34 Last Admin: 02/04/17 10:08 Dose: 10 mg Lorazepam (Ativan) 0.5 mg PO Q4HR PRN; Protocol PRN Reason: Anxiety Stop: 02/27/17 14:27 Last Admin: 01/29/17 10:59 Dose: 0.5 mg Magnesium Hydroxide (Milk Of Magnesia) 30 ml PO DAILY PRN PRN Reason: Constipation Stop: 03/29/17 14:34 Mineral Oil (Fleet Mineral Oil) 135 ml RC UD PRN PRN Reason: constipation Stop: 03/29/17 14:34 Nitroglycerin (Nitrostat) 0.4 mg SL Q5MIN PRN PRN Reason: Chest Pain Stop: 03/29/17 14:34 Quetiapine Fumarate 200 mg/ (Quetiapine Fumarate 25 mg) 225 mg PO HS [facility] Stop: 04/03/17 20:59 Last Admin: 02/06/17 21:05 Dose: 225 mg Tramadol HCl (Ultram) 50 mg PO Q6HR PRN PRN Reason: Pain (Severe) Stop: 03/29/17 19:59 Last Admin: 02/02/17 12:32 Dose: 50 mg Zolpidem Tartrate (Ambien) 5 mg PO HS PRN PRN Reason: Insomnia Stop: 03/29/17 14:27 Last Admin: 02/06/17 23:03 Dose: 5 mg General: alert, demented HEENT: NC/AT, PERRLA, EOMI, anicteric sclerae, throat clear Neck: Supple, No JVD, No thyromegaly, +2 carotid pulse wo bruit, No LAD, + JVD Cardiovascular: Normal S1, Normal S2, without murmur Abdomen: non-tender, non-distended Extremities: clear Neurological: no change Internal Medicine Assmt/Plan - Assessment Assessment: 1.HTN 2.DJD. 3.DEMENTIA 4.SKIN LACERATION OF BACK OF SCALP - Plan Plan: CONTINUE ON CURRENT MEDICATION AND DIET Nutritional Asmnt/Malnutr-PDOC - Dietary Evaluation Malnutrition Findings (Please click <Entered> for more info): Nutritional Asmnt/Malnutrition Start: 02/02/17 14: 28 Text: Status: Complete Freq: Document 02/02/17 14:28 LCHENG (Rec: 02/02/17 14:36 LCCHAOG [email or web address]) Nutritional Asmnt/Malnutrition Patient General Information Nutritional Screening Moderate Risk Diagnosis psychosis Pertinent Medical Hx/Surgical Hx DJD, HTN, dementia Subjective Information Pt seen lying in bed, awake and alert during the time of visit. Pt reported fair appetite, didn't wake up for breakfast this morning. Per notes, PO intake 75-100%. Pt likes to have sausage or augustine for breakfast. Explained that pt on cardiact diet, not able to have high sodium/fat food like sausage and augustine. Pt understanded. Current Diet Order/ Nutrition Support cardiac Pertinent Medications colace, quetiapine fumarate Pertinent Labs 01/30 Na 136, K 4.0, Cl 104, BUN 23, Cr 1.1, Glucose 100, Alb 3.5 Nutritional Hx/Data Height 1.68 m Height (Calculated Centimeters) 167.6 Current Weight (lbs) 69.354 kg Weight (Calculated Kilograms) 69.4 Weight (Calculated Grams) 59614.3 [place] Body Weight 130 % [place] Body Weight 118 Body Mass Index (BMI) 24.7 Weight Status Approriate GI Symptoms GI Symptoms None Last BM 01/31 Difficult in: None Skin Integrity/Comment: intact Estimated Nutritional Goals BEE in Kcals: Using Current wt Calories/Kcals/Kg 25-27 Kcals Calculated 7729-0766 Protein: Using Current wt Protein g/k Protein Calculated 70 Fluid: ml 1271-0323 Nutritional Problem No current Nutrition Prob Problem N/A Malnutrition Alert Protein-Calorie Malnutrition N/A Is there a minimum of two criteria No selected? Query Text:Check all the applicable criteria. A minimum of two criteria are recommended for diagnosis of either severe or non-severe malnutrition. Intervention/Recommendation Comments 1. Continue with current diet as ordered. 2. Monitor PO intake, wt, labs and skin integrity 3. F/U as low risk in 7 days, 1/2 Expected Outcomes/Goals Expected Outcomes/Goals 1. PO intake to meet at least 75% of nutritional needs. 2. Wt stability, skin to remain intact, labs to approach WNL.
--- NOTE | 2017-02-07 22:40 | Progress Notes ---
DATE: 02/07/2017 SUBJECTIVE: The patient notes she is feeling clinically somewhat better, more oriented. Sleeping well, eating well. States she wants to leave today. It is unclear if she has a place to go. Eating fairly well. Mostly isolative, withdrawn, somewhat irritable, there are insight, questionable impulse control. MEDICATIONS: Reviewed. ASSESSMENT: The patient seems to be improving. There are continued impulse control concerns but otherwise the patient has not been combative. Currently pending confirmation of a place for her to go. [facility]# [id number]
--- NOTE | 2017-02-08 08:55 | Progress Notes ---
DATE: 02/08/2017 SUBJECTIVE: The patient seen, chart reviewed, discussed with staff. The patient is somewhat more oriented, knows where she is, has a general idea why she is here. She knows the year and the month. It is unclear if she has a place to go. She remains isolative, withdrawn, still with some irritability, sad moods, but seems to be improving, eating fairly well on her own volition. MEDICATIONS: Reviewed. ASSESSMENT: The patient seems to be improving. Continue concerns about impulse control, but she has been redirectable, following unit rules and directions. Currently pending confirmation no place for her to go. She is tolerating her treatment. No side effects. [facility]# [id number]
[2017-02-08] MEDS: Multivitamin w/ Minerals Tab PO SCH (09:12)
[2017-02-08] MEDS: Aspirin 81mg Chewable Tab PO SCH (09:12)
--- NOTE | 2017-02-08 23:27 | Internal Medicine Prog Note ---
Internal Medicine Subjective - Subjective Service Date: 02/08/17 Patient seen and examined:: without staff Patient is:: awake (SHE FEELS BETTER), in wheelchair, talking Per staff patient has:: no adverse event (she feels well) Internal Medicine Objective - Results Result Diagrams: 01/30/17 06:55 01/30/17 06:55 Recent Labs: Laboratory Last Values WBC 8.3 Th/cmm (4.8-10.8) 01/30/17 06:55 RBC 3.86 Mil/cmm (3.80-5.20) 01/30/17 06:55 Hgb 12.2 gm/dL (12-16) 01/30/17 06:55 Hct 35.8 % (41.0-60) L D 01/30/17 06:55 MCV 92.7 fl (81-100) 01/30/17 06:55 MCH 31.6 pg (27.0-31.0) H 01/30/17 06:55 MCHC Differential 34.0 pg (28.0-36.0) 01/30/17 06:55 RDW 14.9 % (11.5-20.0) 01/30/17 06:55 Plt Count 318 Th/cmm (150-400) D 01/30/17 06:55 MPV 6.2 fl 01/30/17 06:55 Neutrophils % 53.1 % (40.0-80.0) 01/30/17 06:55 Lymphocytes % 28.9 % (20.0-50.0) 01/30/17 06:55 Monocytes % 10.1 % (2.0-10.0) H 01/30/17 06:55 Eosinophils % 7.1 % (0.0-5.0) H 01/30/17 06:55 Basophils % 0.8 % (0.0-2.0) 01/30/17 06:55 Sodium 136 mEq/L (136-145) 01/30/17 06:55 Potassium 4.0 mEq/L (3.5-5.1) 01/30/17 06:55 Chloride 104 mEq/L (98-107) 01/30/17 06:55 Carbon Dioxide 24.4 mEq/L (21.0-31.0) 01/30/17 06:55 Anion Gap 11.6 (7.0-16.0) 01/30/17 06:55 BUN 23 mg/dL (7-25) 01/30/17 06:55 Creatinine 1.1 mg/dL (0.6-1.2) 01/30/17 06:55 Est GFR ( Amer) TNP 01/30/17 06:55 Est GFR (Non-Af Amer) TNP 01/30/17 06:55 BUN/Creatinine Ratio 20.9 01/30/17 06:55 Glucose 100 mg/dL (70-105) 01/30/17 06:55 Calcium 9.1 mg/dL (8.6-10.3) 01/30/17 06:55 Total Bilirubin 0.5 mg/dL (0.3-1.0) 01/30/17 06:55 AST 19 U/L (13-39) 01/30/17 06:55 ALT 20 U/L (7-52) 01/30/17 06:55 Alkaline Phosphatase 88 U/L (34-104) 01/30/17 06:55 Total Protein 6.3 gm/dL (6.0-8.3) 01/30/17 06:55 Albumin 3.5 gm/dL (3.7-5.3) L 01/30/17 06:55 Globulin 2.8 gm/dL 01/30/17 06:55 Albumin/Globulin Ratio 1.3 (1.0-1.8) 01/30/17 06:55 - Physical Exam Vitals and I&O: Vital Signs Temp 97.7 F 02/08/17 20:33 Pulse 64 02/08/17 20:33 Resp 18 02/08/17 20:33 BP 140/69 02/08/17 20:33 Pulse Ox 94 02/08/17 20:33 Intake & Output 02/08/17 02/08/17 02/09/17 06:59 18:59 06:59 Intake Total 120 870 120 Balance 120 870 120 Intake: Oral 120 870 120 Other: # Voids 3 3 1 # Bowel Movements 2 Active Medications: Current Medications Acetaminophen (Tylenol) 650 mg PO Q4H PRN PRN Reason: PAIN Stop: 03/29/17 14:34 Last Admin: 02/08/17 17:18 Dose: 650 mg Amlodipine Besylate (Norvasc) 10 mg PO DAILY [facility] Stop: 03/30/17 08:59 Last Admin: 02/08/17 09:10 Dose: 10 mg Aspirin (Aspirin Chewable) 81 mg PO DAILY [facility] Stop: 03/30/17 08:59 Last Admin: 02/08/17 09:12 Dose: 81 mg Bisacodyl (Dulcolax 10 Mg Supp) 10 mg RC DAILY PRN PRN Reason: constipation Stop: 03/29/17 14:34 Carvedilol (Coreg) 6.25 mg PO BID [facility] Stop: 03/29/17 16:59 Last Admin: 02/08/17 17:05 Dose: 6.25 mg Docusate Sodium (Colace) 100 mg PO BID [facility] Stop: 03/29/17 16:59 Last Admin: 02/08/17 17:06 Dose: 100 mg Escitalopram Oxalate (Lexapro) 10 mg PO DAILY [facility] PRN Reason: Protocol Stop: 04/06/17 12:24 Last Admin: 02/08/17 09:08 Dose: 10 mg Haloperidol Decanoate (Haldol Dec) 25 mg IM [id number] [facility] PRN Reason: Protocol Stop: 03/30/17 08:59 Last Admin: 01/29/17 10:21 Dose: Not Given Lisinopril (Zestril) 40 mg PO DAILY [facility] Stop: 03/30/17 08:59 Last Admin: 02/08/17 09:17 Dose: 40 mg Loratadine (Claritin) 10 mg PO DAILY PRN PRN Reason: ALLERGIES Stop: 03/29/17 14:34 Last Admin: 02/04/17 10:08 Dose: 10 mg Lorazepam (Ativan) 0.5 mg PO Q4HR PRN; Protocol PRN Reason: Anxiety Stop: 02/27/17 14:27 Last Admin: 01/29/17 10:59 Dose: 0.5 mg Magnesium Hydroxide (Milk Of Magnesia) 30 ml PO DAILY PRN PRN Reason: Constipation Stop: 03/29/17 14:34 Mineral Oil (Fleet Mineral Oil) 135 ml RC UD PRN PRN Reason: constipation Stop: 03/29/17 14:34 Nitroglycerin (Nitrostat) 0.4 mg SL Q5MIN PRN PRN Reason: Chest Pain Stop: 03/29/17 14:34 Quetiapine Fumarate 200 mg/ (Quetiapine Fumarate 25 mg) 225 mg PO HS [facility] Stop: 04/03/17 20:59 Last Admin: 02/08/17 20:30 Dose: 225 mg Tramadol HCl (Ultram) 50 mg PO Q6HR PRN PRN Reason: Pain (Severe) Stop: 03/29/17 19:59 Last Admin: 02/02/17 12:32 Dose: 50 mg Zolpidem Tartrate (Ambien) 5 mg PO HS PRN PRN Reason: Insomnia Stop: 03/29/17 14:27 Last Admin: 02/08/17 20:30 Dose: 5 mg General: alert, demented HEENT: NC/AT, PERRLA, EOMI, anicteric sclerae, throat clear Neck: Supple, No JVD, No thyromegaly, +2 carotid pulse wo bruit, No LAD, + JVD Cardiovascular: Normal S1, Normal S2, without murmur Abdomen: non-tender, non-distended Extremities: clear Neurological: no change Internal Medicine Assmt/Plan - Assessment Assessment: 1.HTN 2.DJD. 3.DEMENTIA 4.SKIN LACERATION OF BACK OF SCALP - Plan Plan: CONTINUE ON CURRENT MEDICATION AND DIET Nutritional Asmnt/Malnutr-PDOC - Dietary Evaluation Malnutrition Findings (Please click <Entered> for more info): Nutritional Asmnt/Malnutrition Start: 02/02/17 14: 28 Text: Status: Complete Freq: Document 02/02/17 14:28 LCHENG (Rec: 02/02/17 14:36 LCCHAOG [email or web address]) Nutritional Asmnt/Malnutrition Patient General Information Nutritional Screening Moderate Risk Diagnosis psychosis Pertinent Medical Hx/Surgical Hx DJD, HTN, dementia Subjective Information Pt seen lying in bed, awake and alert during the time of visit. Pt reported fair appetite, didn't wake up for breakfast this morning. Per notes, PO intake 75-100%. Pt likes to have sausage or augustine for breakfast. Explained that pt on cardiact diet, not able to have high sodium/fat food like sausage and augustine. Pt understanded. Current Diet Order/ Nutrition Support cardiac Pertinent Medications colace, quetiapine fumarate Pertinent Labs 01/30 Na 136, K 4.0, Cl 104, BUN 23, Cr 1.1, Glucose 100, Alb 3.5 Nutritional Hx/Data Height 1.68 m Height (Calculated Centimeters) 167.6 Current Weight (lbs) 69.354 kg Weight (Calculated Kilograms) 69.4 Weight (Calculated Grams) 82050.3 [place] Body Weight 130 % [place] Body Weight 118 Body Mass Index (BMI) 24.7 Weight Status Approriate GI Symptoms GI Symptoms None Last BM 01/31 Difficult in: None Skin Integrity/Comment: intact Estimated Nutritional Goals BEE in Kcals: Using Current wt Calories/Kcals/Kg 25-27 Kcals Calculated 8844-0793 Protein: Using Current wt Protein g/k Protein Calculated 70 Fluid: ml 2907-6832 Nutritional Problem No current Nutrition Prob Problem N/A Malnutrition Alert Protein-Calorie Malnutrition N/A Is there a minimum of two criteria No selected? Query Text:Check all the applicable criteria. A minimum of two criteria are recommended for diagnosis of either severe or non-severe malnutrition. Intervention/Recommendation Comments 1. Continue with current diet as ordered. 2. Monitor PO intake, wt, labs and skin integrity 3. F/U as low risk in 7 days, 1/2 Expected Outcomes/Goals Expected Outcomes/Goals 1. PO intake to meet at least 75% of nutritional needs. 2. Wt stability, skin to remain intact, labs to approach WNL.
[2017-02-09] MEDS: Aspirin 81mg Chewable Tab PO SCH (08:31)
[2017-02-09] MEDS: Multivitamin w/ Minerals Tab PO SCH (08:32)
--- NOTE | 2017-02-09 13:50 | Internal Medicine Prog Note ---
Internal Medicine Subjective - Subjective Service Date: 02/09/17 Patient seen and examined:: with staff (she feels well) Patient is:: awake (SHE FEELS BETTER), in wheelchair, talking Per staff patient has:: no adverse event (she feels well) Internal Medicine Objective - Results Result Diagrams: 01/30/17 06:55 01/30/17 06:55 Recent Labs: Laboratory Last Values WBC 8.3 Th/cmm (4.8-10.8) 01/30/17 06:55 RBC 3.86 Mil/cmm (3.80-5.20) 01/30/17 06:55 Hgb 12.2 gm/dL (12-16) 01/30/17 06:55 Hct 35.8 % (41.0-60) L D 01/30/17 06:55 MCV 92.7 fl (81-100) 01/30/17 06:55 MCH 31.6 pg (27.0-31.0) H 01/30/17 06:55 MCHC Differential 34.0 pg (28.0-36.0) 01/30/17 06:55 RDW 14.9 % (11.5-20.0) 01/30/17 06:55 Plt Count 318 Th/cmm (150-400) D 01/30/17 06:55 MPV 6.2 fl 01/30/17 06:55 Neutrophils % 53.1 % (40.0-80.0) 01/30/17 06:55 Lymphocytes % 28.9 % (20.0-50.0) 01/30/17 06:55 Monocytes % 10.1 % (2.0-10.0) H 01/30/17 06:55 Eosinophils % 7.1 % (0.0-5.0) H 01/30/17 06:55 Basophils % 0.8 % (0.0-2.0) 01/30/17 06:55 Sodium 136 mEq/L (136-145) 01/30/17 06:55 Potassium 4.0 mEq/L (3.5-5.1) 01/30/17 06:55 Chloride 104 mEq/L (98-107) 01/30/17 06:55 Carbon Dioxide 24.4 mEq/L (21.0-31.0) 01/30/17 06:55 Anion Gap 11.6 (7.0-16.0) 01/30/17 06:55 BUN 23 mg/dL (7-25) 01/30/17 06:55 Creatinine 1.1 mg/dL (0.6-1.2) 01/30/17 06:55 Est GFR ( Amer) TNP 01/30/17 06:55 Est GFR (Non-Af Amer) TNP 01/30/17 06:55 BUN/Creatinine Ratio 20.9 01/30/17 06:55 Glucose 100 mg/dL (70-105) 01/30/17 06:55 Calcium 9.1 mg/dL (8.6-10.3) 01/30/17 06:55 Total Bilirubin 0.5 mg/dL (0.3-1.0) 01/30/17 06:55 AST 19 U/L (13-39) 01/30/17 06:55 ALT 20 U/L (7-52) 01/30/17 06:55 Alkaline Phosphatase 88 U/L (34-104) 01/30/17 06:55 Total Protein 6.3 gm/dL (6.0-8.3) 01/30/17 06:55 Albumin 3.5 gm/dL (3.7-5.3) L 01/30/17 06:55 Globulin 2.8 gm/dL 01/30/17 06:55 Albumin/Globulin Ratio 1.3 (1.0-1.8) 01/30/17 06:55 - Physical Exam Vitals and I&O: Vital Signs Temp 98.3 F 02/09/17 06:05 Pulse 67 02/09/17 08:33 Resp 19 02/09/17 06:05 BP 128/71 02/09/17 08:33 Pulse Ox 95 02/09/17 06:05 Intake & Output 02/08/17 02/09/17 02/09/17 18:59 06:59 18:59 Intake Total 870 240 Balance 870 240 Intake: Oral 870 240 Other: # Voids 3 2 # Bowel Movements 2 0 Active Medications: Current Medications Acetaminophen (Tylenol) 650 mg PO Q4H PRN PRN Reason: PAIN Stop: 03/29/17 14:34 Last Admin: 02/08/17 17:18 Dose: 650 mg Amlodipine Besylate (Norvasc) 10 mg PO DAILY [facility] Stop: 03/30/17 08:59 Last Admin: 02/09/17 08:33 Dose: 10 mg Aspirin (Aspirin Chewable) 81 mg PO DAILY [facility] Stop: 03/30/17 08:59 Last Admin: 02/09/17 08:31 Dose: 81 mg Bisacodyl (Dulcolax 10 Mg Supp) 10 mg RC DAILY PRN PRN Reason: constipation Stop: 03/29/17 14:34 Carvedilol (Coreg) 6.25 mg PO BID [facility] Stop: 03/29/17 16:59 Last Admin: 02/09/17 08:32 Dose: 6.25 mg Docusate Sodium (Colace) 100 mg PO BID [facility] Stop: 03/29/17 16:59 Last Admin: 02/09/17 08:29 Dose: 100 mg Escitalopram Oxalate (Lexapro) 10 mg PO DAILY [facility] PRN Reason: Protocol Stop: 04/06/17 12:24 Last Admin: 02/09/17 08:29 Dose: 10 mg Haloperidol Decanoate (Haldol Dec) 25 mg IM [id number] [facility] PRN Reason: Protocol Stop: 03/30/17 08:59 Last Admin: 01/29/17 10:21 Dose: Not Given Lisinopril (Zestril) 40 mg PO DAILY [facility] Stop: 03/30/17 08:59 Last Admin: 02/09/17 08:30 Dose: 40 mg Loratadine (Claritin) 10 mg PO DAILY PRN PRN Reason: ALLERGIES Stop: 03/29/17 14:34 Last Admin: 02/04/17 10:08 Dose: 10 mg Lorazepam (Ativan) 0.5 mg PO Q4HR PRN; Protocol PRN Reason: Anxiety Stop: 02/27/17 14:27 Last Admin: 01/29/17 10:59 Dose: 0.5 mg Magnesium Hydroxide (Milk Of Magnesia) 30 ml PO DAILY PRN PRN Reason: Constipation Stop: 03/29/17 14:34 Mineral Oil (Fleet Mineral Oil) 135 ml RC UD PRN PRN Reason: constipation Stop: 03/29/17 14:34 Nitroglycerin (Nitrostat) 0.4 mg SL Q5MIN PRN PRN Reason: Chest Pain Stop: 03/29/17 14:34 Quetiapine Fumarate 200 mg/ (Quetiapine Fumarate 50 mg) 250 mg PO HS [facility] Stop: 04/10/17 20:59 Tramadol HCl (Ultram) 50 mg PO Q6HR PRN PRN Reason: Pain (Severe) Stop: 03/29/17 19:59 Last Admin: 02/02/17 12:32 Dose: 50 mg Zolpidem Tartrate (Ambien) 5 mg PO HS PRN PRN Reason: Insomnia Stop: 03/29/17 14:27 Last Admin: 02/08/17 20:30 Dose: 5 mg General: alert, demented HEENT: NC/AT, PERRLA, EOMI, anicteric sclerae, throat clear Neck: Supple, No JVD, No thyromegaly, +2 carotid pulse wo bruit, No LAD, + JVD Cardiovascular: Normal S1, Normal S2, without murmur Abdomen: non-tender, non-distended Extremities: clear Neurological: no change Internal Medicine Assmt/Plan - Assessment Assessment: 1.HTN 2.DJD. 3.DEMENTIA 4.SKIN LACERATION OF BACK OF SCALP - Plan Plan: CONTINUE ON CURRENT MEDICATION AND DIET Nutritional Asmnt/Malnutr-PDOC - Dietary Evaluation Malnutrition Findings (Please click <Entered> for more info): Nutritional Asmnt/Malnutrition Start: 02/02/17 14: 28 Text: Status: Complete Freq: Document 02/02/17 14:28 LCHENG (Rec: 02/02/17 14:36 LCHENG [email or web address]) Nutritional Asmnt/Malnutrition Patient General Information Nutritional Screening Moderate Risk Diagnosis psychosis Pertinent Medical Hx/Surgical Hx DJD, HTN, dementia Subjective Information Pt seen lying in bed, awake and alert during the time of visit. Pt reported fair appetite, didn't wake up for breakfast this morning. Per notes, PO intake 75-100%. Pt likes to have sausage or augustine for breakfast. Explained that pt on cardiact diet, not able to have high sodium/fat food like sausage and augustine. Pt understanded. Current Diet Order/ Nutrition Support cardiac Pertinent Medications colace, quetiapine fumarate Pertinent Labs 01/30 Na 136, K 4.0, Cl 104, BUN 23, Cr 1.1, Glucose 100, Alb 3.5 Nutritional Hx/Data Height 1.68 m Height (Calculated Centimeters) 167.6 Current Weight (lbs) 69.354 kg Weight (Calculated Kilograms) 69.4 Weight (Calculated Grams) 68370.3 [place] Body Weight 130 % [place] Body Weight 118 Body Mass Index (BMI) 24.7 Weight Status Approriate GI Symptoms GI Symptoms None Last BM 01/31 Difficult in: None Skin Integrity/Comment: intact Estimated Nutritional Goals BEE in Kcals: Using Current wt Calories/Kcals/Kg 25-27 Kcals Calculated 6694-3839 Protein: Using Current wt Protein g/k Protein Calculated 70 Fluid: ml 6039-8173 Nutritional Problem No current Nutrition Prob Problem N/A Malnutrition Alert Protein-Calorie Malnutrition N/A Is there a minimum of two criteria No selected? Query Text:Check all the applicable criteria. A minimum of two criteria are recommended for diagnosis of either severe or non-severe malnutrition. Intervention/Recommendation Comments 1. Continue with current diet as ordered. 2. Monitor PO intake, wt, labs and skin integrity 3. F/U as low risk in 7 days, 1/2 Expected Outcomes/Goals Expected Outcomes/Goals 1. PO intake to meet at least 75% of nutritional needs. 2. Wt stability, skin to remain intact, labs to approach WNL.
--- NOTE | 2017-02-09 20:06 | Progress Notes ---
DATE: 02/09/2017 Case was discussed with staff of the patient, reviewed records. The patient continues to be somewhat delusional. Continues to have poor insight. Continues to be unable to make safe plan for self-care, confused. She is sleeping well, eating well. Continues to have poor insight into her issues minimizing her problems, yet she is still not sure of her son, he is missing or he is here. She is still psychotic, needing redirection. She is compliant with the medication with no side effects, no sedation, no nausea, no extrapyramidal symptoms. We will be increasing her Seroquel to 250 mg at bedtime and so far no side effects, no sedation, no nausea, no extrapyramidal symptoms and we will continue to work with the patient in group therapy, milieu therapy, and adjust the medication as needed. JOB# [id number]
[2017-02-10] MEDS: Multivitamin w/ Minerals Tab PO SCH (08:16)
[2017-02-10] MEDS: Aspirin 81mg Chewable Tab PO SCH (08:16)
--- NOTE | 2017-02-10 10:24 | Internal Medicine Prog Note ---
Internal Medicine Subjective - Subjective Service Date: 02/10/17 Patient seen and examined:: with staff Patient is:: awake (SHE FEELS BETTER), in wheelchair, talking Per staff patient has:: no adverse event (she feels well) Internal Medicine Objective - Results Result Diagrams: 01/30/17 06:55 01/30/17 06:55 Recent Labs: Laboratory Last Values WBC 8.3 Th/cmm (4.8-10.8) 01/30/17 06:55 RBC 3.86 Mil/cmm (3.80-5.20) 01/30/17 06:55 Hgb 12.2 gm/dL (12-16) 01/30/17 06:55 Hct 35.8 % (41.0-60) L D 01/30/17 06:55 MCV 92.7 fl (81-100) 01/30/17 06:55 MCH 31.6 pg (27.0-31.0) H 01/30/17 06:55 MCHC Differential 34.0 pg (28.0-36.0) 01/30/17 06:55 RDW 14.9 % (11.5-20.0) 01/30/17 06:55 Plt Count 318 Th/cmm (150-400) D 01/30/17 06:55 MPV 6.2 fl 01/30/17 06:55 Neutrophils % 53.1 % (40.0-80.0) 01/30/17 06:55 Lymphocytes % 28.9 % (20.0-50.0) 01/30/17 06:55 Monocytes % 10.1 % (2.0-10.0) H 01/30/17 06:55 Eosinophils % 7.1 % (0.0-5.0) H 01/30/17 06:55 Basophils % 0.8 % (0.0-2.0) 01/30/17 06:55 Sodium 136 mEq/L (136-145) 01/30/17 06:55 Potassium 4.0 mEq/L (3.5-5.1) 01/30/17 06:55 Chloride 104 mEq/L (98-107) 01/30/17 06:55 Carbon Dioxide 24.4 mEq/L (21.0-31.0) 01/30/17 06:55 Anion Gap 11.6 (7.0-16.0) 01/30/17 06:55 BUN 23 mg/dL (7-25) 01/30/17 06:55 Creatinine 1.1 mg/dL (0.6-1.2) 01/30/17 06:55 Est GFR ( Amer) TNP 01/30/17 06:55 Est GFR (Non-Af Amer) TNP 01/30/17 06:55 BUN/Creatinine Ratio 20.9 01/30/17 06:55 Glucose 100 mg/dL (70-105) 01/30/17 06:55 Calcium 9.1 mg/dL (8.6-10.3) 01/30/17 06:55 Total Bilirubin 0.5 mg/dL (0.3-1.0) 01/30/17 06:55 AST 19 U/L (13-39) 01/30/17 06:55 ALT 20 U/L (7-52) 01/30/17 06:55 Alkaline Phosphatase 88 U/L (34-104) 01/30/17 06:55 Total Protein 6.3 gm/dL (6.0-8.3) 01/30/17 06:55 Albumin 3.5 gm/dL (3.7-5.3) L 01/30/17 06:55 Globulin 2.8 gm/dL 01/30/17 06:55 Albumin/Globulin Ratio 1.3 (1.0-1.8) 01/30/17 06:55 - Physical Exam Vitals and I&O: Vital Signs Temp 99.1 F 02/10/17 06:14 Pulse 84 02/10/17 08:18 Resp 20 02/10/17 06:14 BP 130/70 02/10/17 08:18 Pulse Ox 93 02/10/17 06:14 Intake & Output 02/09/17 02/10/17 02/10/17 18:59 06:59 18:59 Intake Total 950 360 Balance 950 360 Intake: Oral 950 360 Other: # Voids 4 3 # Bowel Movements 1 0 Active Medications: Current Medications Acetaminophen (Tylenol) 650 mg PO Q4H PRN PRN Reason: PAIN Stop: 03/29/17 14:34 Last Admin: 02/10/17 02:41 Dose: 650 mg Amlodipine Besylate (Norvasc) 10 mg PO DAILY [facility] Stop: 03/30/17 08:59 Last Admin: 02/10/17 08:17 Dose: 10 mg Aspirin (Aspirin Chewable) 81 mg PO DAILY [facility] Stop: 03/30/17 08:59 Last Admin: 02/10/17 08:16 Dose: 81 mg Bisacodyl (Dulcolax 10 Mg Supp) 10 mg RC DAILY PRN PRN Reason: constipation Stop: 03/29/17 14:34 Carvedilol (Coreg) 6.25 mg PO BID [facility] Stop: 03/29/17 16:59 Last Admin: 02/10/17 08:17 Dose: 6.25 mg Docusate Sodium (Colace) 100 mg PO BID [facility] Stop: 03/29/17 16:59 Last Admin: 02/10/17 08:16 Dose: 100 mg Escitalopram Oxalate (Lexapro) 10 mg PO DAILY [facility] PRN Reason: Protocol Stop: 04/06/17 12:24 Last Admin: 02/10/17 08:16 Dose: 10 mg Haloperidol Decanoate (Haldol Dec) 25 mg IM [id number] [facility] PRN Reason: Protocol Stop: 03/30/17 08:59 Last Admin: 01/29/17 10:21 Dose: Not Given Lisinopril (Zestril) 40 mg PO DAILY [facility] Stop: 03/30/17 08:59 Last Admin: 02/10/17 08:18 Dose: 40 mg Loratadine (Claritin) 10 mg PO DAILY PRN PRN Reason: ALLERGIES Stop: 03/29/17 14:34 Last Admin: 02/04/17 10:08 Dose: 10 mg Lorazepam (Ativan) 0.5 mg PO Q4HR PRN; Protocol PRN Reason: Anxiety Stop: 02/27/17 14:27 Last Admin: 01/29/17 10:59 Dose: 0.5 mg Magnesium Hydroxide (Milk Of Magnesia) 30 ml PO DAILY PRN PRN Reason: Constipation Stop: 03/29/17 14:34 Mineral Oil (Fleet Mineral Oil) 135 ml RC UD PRN PRN Reason: constipation Stop: 03/29/17 14:34 Nitroglycerin (Nitrostat) 0.4 mg SL Q5MIN PRN PRN Reason: Chest Pain Stop: 03/29/17 14:34 Quetiapine Fumarate 200 mg/ (Quetiapine Fumarate 50 mg) 250 mg PO HS [facility] Stop: 04/10/17 20:59 Last Admin: 02/09/17 20:23 Dose: 250 mg Tramadol HCl (Ultram) 50 mg PO Q6HR PRN PRN Reason: Pain (Severe) Stop: 03/29/17 19:59 Last Admin: 02/02/17 12:32 Dose: 50 mg Zolpidem Tartrate (Ambien) 5 mg PO HS PRN PRN Reason: Insomnia Stop: 03/29/17 14:27 Last Admin: 02/09/17 20:34 Dose: 5 mg General: alert, demented HEENT: NC/AT, PERRLA, EOMI, anicteric sclerae, throat clear Neck: Supple, No JVD, No thyromegaly, +2 carotid pulse wo bruit, No LAD, + JVD Cardiovascular: Normal S1, Normal S2, without murmur Abdomen: non-tender, non-distended Extremities: clear Neurological: no change Internal Medicine Assmt/Plan - Assessment Assessment: 1.HTN 2.DJD. 3.DEMENTIA 4.SKIN LACERATION OF BACK OF SCALP - Plan Plan: CONTINUE ON CURRENT MEDICATION AND DIET Nutritional Asmnt/Malnutr-PDOC - Dietary Evaluation Malnutrition Findings (Please click <Entered> for more info): Nutritional Asmnt/Malnutrition Start: 02/02/17 14: 28 Text: Status: Complete Freq: Document 02/02/17 14:28 LCCHAOG (Rec: 02/02/17 14:36 LCHENG [email or web address]) Nutritional Asmnt/Malnutrition Patient General Information Nutritional Screening Moderate Risk Diagnosis psychosis Pertinent Medical Hx/Surgical Hx DJD, HTN, dementia Subjective Information Pt seen lying in bed, awake and alert during the time of visit. Pt reported fair appetite, didn't wake up for breakfast this morning. Per notes, PO intake 75-100%. Pt likes to have sausage or augustine for breakfast. Explained that pt on cardiact diet, not able to have high sodium/fat food like sausage and augustine. Pt understanded. Current Diet Order/ Nutrition Support cardiac Pertinent Medications colace, quetiapine fumarate Pertinent Labs 01/30 Na 136, K 4.0, Cl 104, BUN 23, Cr 1.1, Glucose 100, Alb 3.5 Nutritional Hx/Data Height 1.68 m Height (Calculated Centimeters) 167.6 Current Weight (lbs) 69.354 kg Weight (Calculated Kilograms) 69.4 Weight (Calculated Grams) 19990.3 [place] Body Weight 130 % [place] Body Weight 118 Body Mass Index (BMI) 24.7 Weight Status Approriate GI Symptoms GI Symptoms None Last BM 01/31 Difficult in: None Skin Integrity/Comment: intact Estimated Nutritional Goals BEE in Kcals: Using Current wt Calories/Kcals/Kg 25-27 Kcals Calculated 6784-2339 Protein: Using Current wt Protein g/k Protein Calculated 70 Fluid: ml 7816-8436 Nutritional Problem No current Nutrition Prob Problem N/A Malnutrition Alert Protein-Calorie Malnutrition N/A Is there a minimum of two criteria No selected? Query Text:Check all the applicable criteria. A minimum of two criteria are recommended for diagnosis of either severe or non-severe malnutrition. Intervention/Recommendation Comments 1. Continue with current diet as ordered. 2. Monitor PO intake, wt, labs and skin integrity 3. F/U as low risk in 7 days, 1/2 Expected Outcomes/Goals Expected Outcomes/Goals 1. PO intake to meet at least 75% of nutritional needs. 2. Wt stability, skin to remain intact, labs to approach WNL.
--- NOTE | 2017-02-10 10:29 | Internal Medicine Prog Note ---
Internal Medicine Subjective - Subjective Service Date: 02/10/17 Patient seen and examined:: with staff (she had one episod of vomiting and low grade fever) Patient is:: awake (SHE FEELS BETTER), in wheelchair, talking Per staff patient has:: no adverse event (she feels well) Internal Medicine Objective - Results Result Diagrams: 01/30/17 06:55 01/30/17 06:55 Recent Labs: Laboratory Last Values WBC 8.3 Th/cmm (4.8-10.8) 01/30/17 06:55 RBC 3.86 Mil/cmm (3.80-5.20) 01/30/17 06:55 Hgb 12.2 gm/dL (12-16) 01/30/17 06:55 Hct 35.8 % (41.0-60) L D 01/30/17 06:55 MCV 92.7 fl (81-100) 01/30/17 06:55 MCH 31.6 pg (27.0-31.0) H 01/30/17 06:55 MCHC Differential 34.0 pg (28.0-36.0) 01/30/17 06:55 RDW 14.9 % (11.5-20.0) 01/30/17 06:55 Plt Count 318 Th/cmm (150-400) D 01/30/17 06:55 MPV 6.2 fl 01/30/17 06:55 Neutrophils % 53.1 % (40.0-80.0) 01/30/17 06:55 Lymphocytes % 28.9 % (20.0-50.0) 01/30/17 06:55 Monocytes % 10.1 % (2.0-10.0) H 01/30/17 06:55 Eosinophils % 7.1 % (0.0-5.0) H 01/30/17 06:55 Basophils % 0.8 % (0.0-2.0) 01/30/17 06:55 Sodium 136 mEq/L (136-145) 01/30/17 06:55 Potassium 4.0 mEq/L (3.5-5.1) 01/30/17 06:55 Chloride 104 mEq/L (98-107) 01/30/17 06:55 Carbon Dioxide 24.4 mEq/L (21.0-31.0) 01/30/17 06:55 Anion Gap 11.6 (7.0-16.0) 01/30/17 06:55 BUN 23 mg/dL (7-25) 01/30/17 06:55 Creatinine 1.1 mg/dL (0.6-1.2) 01/30/17 06:55 Est GFR ( Amer) TNP 01/30/17 06:55 Est GFR (Non-Af Amer) TNP 01/30/17 06:55 BUN/Creatinine Ratio 20.9 01/30/17 06:55 Glucose 100 mg/dL (70-105) 01/30/17 06:55 Calcium 9.1 mg/dL (8.6-10.3) 01/30/17 06:55 Total Bilirubin 0.5 mg/dL (0.3-1.0) 01/30/17 06:55 AST 19 U/L (13-39) 01/30/17 06:55 ALT 20 U/L (7-52) 01/30/17 06:55 Alkaline Phosphatase 88 U/L (34-104) 01/30/17 06:55 Total Protein 6.3 gm/dL (6.0-8.3) 01/30/17 06:55 Albumin 3.5 gm/dL (3.7-5.3) L 01/30/17 06:55 Globulin 2.8 gm/dL 01/30/17 06:55 Albumin/Globulin Ratio 1.3 (1.0-1.8) 01/30/17 06:55 - Physical Exam Vitals and I&O: Vital Signs Temp 99.1 F 02/10/17 06:14 Pulse 84 02/10/17 08:18 Resp 20 02/10/17 06:14 BP 130/70 02/10/17 08:18 Pulse Ox 93 02/10/17 06:14 Intake & Output 02/09/17 02/10/17 02/10/17 18:59 06:59 18:59 Intake Total 950 360 Balance 950 360 Intake: Oral 950 360 Other: # Voids 4 3 # Bowel Movements 1 0 Active Medications: Current Medications Acetaminophen (Tylenol) 650 mg PO Q4H PRN PRN Reason: PAIN Stop: 03/29/17 14:34 Last Admin: 02/10/17 02:41 Dose: 650 mg Amlodipine Besylate (Norvasc) 10 mg PO DAILY [facility] Stop: 03/30/17 08:59 Last Admin: 02/10/17 08:17 Dose: 10 mg Aspirin (Aspirin Chewable) 81 mg PO DAILY [facility] Stop: 03/30/17 08:59 Last Admin: 02/10/17 08:16 Dose: 81 mg Bisacodyl (Dulcolax 10 Mg Supp) 10 mg RC DAILY PRN PRN Reason: constipation Stop: 03/29/17 14:34 Carvedilol (Coreg) 6.25 mg PO BID [facility] Stop: 03/29/17 16:59 Last Admin: 02/10/17 08:17 Dose: 6.25 mg Docusate Sodium (Colace) 100 mg PO BID [facility] Stop: 03/29/17 16:59 Last Admin: 02/10/17 08:16 Dose: 100 mg Escitalopram Oxalate (Lexapro) 10 mg PO DAILY [facility] PRN Reason: Protocol Stop: 04/06/17 12:24 Last Admin: 02/10/17 08:16 Dose: 10 mg Haloperidol Decanoate (Haldol Dec) 25 mg IM [id number] [facility] PRN Reason: Protocol Stop: 03/30/17 08:59 Last Admin: 01/29/17 10:21 Dose: Not Given Lisinopril (Zestril) 40 mg PO DAILY [facility] Stop: 03/30/17 08:59 Last Admin: 02/10/17 08:18 Dose: 40 mg Loratadine (Claritin) 10 mg PO DAILY PRN PRN Reason: ALLERGIES Stop: 03/29/17 14:34 Last Admin: 02/04/17 10:08 Dose: 10 mg Lorazepam (Ativan) 0.5 mg PO Q4HR PRN; Protocol PRN Reason: Anxiety Stop: 02/27/17 14:27 Last Admin: 01/29/17 10:59 Dose: 0.5 mg Magnesium Hydroxide (Milk Of Magnesia) 30 ml PO DAILY PRN PRN Reason: Constipation Stop: 03/29/17 14:34 Mineral Oil (Fleet Mineral Oil) 135 ml RC UD PRN PRN Reason: constipation Stop: 03/29/17 14:34 Nitroglycerin (Nitrostat) 0.4 mg SL Q5MIN PRN PRN Reason: Chest Pain Stop: 03/29/17 14:34 Quetiapine Fumarate 200 mg/ (Quetiapine Fumarate 50 mg) 250 mg PO HS [facility] Stop: 04/10/17 20:59 Last Admin: 02/09/17 20:23 Dose: 250 mg Tramadol HCl (Ultram) 50 mg PO Q6HR PRN PRN Reason: Pain (Severe) Stop: 03/29/17 19:59 Last Admin: 02/02/17 12:32 Dose: 50 mg Zolpidem Tartrate (Ambien) 5 mg PO HS PRN PRN Reason: Insomnia Stop: 03/29/17 14:27 Last Admin: 02/09/17 20:34 Dose: 5 mg General: alert, demented HEENT: NC/AT, PERRLA, EOMI, anicteric sclerae, throat clear Neck: Supple, No JVD, No thyromegaly, +2 carotid pulse wo bruit, No LAD, + JVD Cardiovascular: Normal S1, Normal S2, without murmur Abdomen: non-tender, non-distended Extremities: clear Neurological: no change Internal Medicine Assmt/Plan - Assessment Assessment: 1.HTN 2.DJD. 3.DEMENTIA 4.SKIN LACERATION OF BACK OF SCALP 5.LOW GRADE FEVER - Plan Plan: CONTINUE ON CURRENT MEDICATION AND DIET . UA, C AND SENSITIVITY. CBC AND CMP. Nutritional Asmnt/Malnutr-PDOC - Dietary Evaluation Malnutrition Findings (Please click <Entered> for more info): Nutritional Asmnt/Malnutrition Start: 02/02/17 14: 28 Text: Status: Complete Freq: Document 02/02/17 14:28 CANDI (Rec: 02/02/17 14:36 CHAO [email or web address]) Nutritional Asmnt/Malnutrition Patient General Information Nutritional Screening Moderate Risk Diagnosis psychosis Pertinent Medical Hx/Surgical Hx DJD, HTN, dementia Subjective Information Pt seen lying in bed, awake and alert during the time of visit. Pt reported fair appetite, didn't wake up for breakfast this morning. Per notes, PO intake 75-100%. Pt likes to have sausage or augustine for breakfast. Explained that pt on cardiact diet, not able to have high sodium/fat food like sausage and augustine. Pt understanded. Current Diet Order/ Nutrition Support cardiac Pertinent Medications colace, quetiapine fumarate Pertinent Labs 01/30 Na 136, K 4.0, Cl 104, BUN 23, Cr 1.1, Glucose 100, Alb 3.5 Nutritional Hx/Data Height 1.68 m Height (Calculated Centimeters) 167.6 Current Weight (lbs) 69.354 kg Weight (Calculated Kilograms) 69.4 Weight (Calculated Grams) 56852.3 [place] Body Weight 130 % [place] Body Weight 118 Body Mass Index (BMI) 24.7 Weight Status Approriate GI Symptoms GI Symptoms None Last BM 01/31 Difficult in: None Skin Integrity/Comment: intact Estimated Nutritional Goals BEE in Kcals: Using Current wt Calories/Kcals/Kg 25-27 Kcals Calculated 1068-6302 Protein: Using Current wt Protein g/k Protein Calculated 70 Fluid: ml 3226-4670 Nutritional Problem No current Nutrition Prob Problem N/A Malnutrition Alert Protein-Calorie Malnutrition N/A Is there a minimum of two criteria No selected? Query Text:Check all the applicable criteria. A minimum of two criteria are recommended for diagnosis of either severe or non-severe malnutrition. Intervention/Recommendation Comments 1. Continue with current diet as ordered. 2. Monitor PO intake, wt, labs and skin integrity 3. F/U as low risk in 7 days, 1/2 Expected Outcomes/Goals Expected Outcomes/Goals 1. PO intake to meet at least 75% of nutritional needs. 2. Wt stability, skin to remain intact, labs to approach WNL.
[2017-02-10 12:17] LABS: % BASOPHILS 0.3 % (0.0-2.0); % EOSINOPHILS 1.1 % (0.0-5.0); % LYMPHOCYTES 11.4 % (20.0-50.0); % MONOCYTES 11.9 % (2.0-10.0); % NEUTROPHILS 75.3 % (40.0-80.0); EOSINOPHILE ABSOLUTE 0.1 Th/cmm (0.1-0.4); HEMATOCRIT 36.5 % (41.0-60); HEMOGLOBIN 12.4 gm/dL (12-16); LYMPHOCYTE ABSOLUTE 0.8 Th/cmm (1.5-3.0); MEAN CELL VOLUME 93.5 fl (81-100); MEAN CORPUSCULAR HEMOGLOBIN 31.7 pg (27.0-31.0); MEAN CORPUSCULAR HGB CONC 33.9 pg (28.0-36.0); MEAN PLATELET VOLUME 6.1 fl; MONOCYTE ABSOLUTE 0.9 Th/cmm (0.3-1.0); NEUTROPHILE ABSOLUTE 5.6 Th/cmm (1.8-8.0); PLATELET COUNT 311 Th/cmm (150-400); RED CELL DISTRIBUTION WIDTH 14.6 % (11.5-20.0); WHITE BLOOD COUNT 7.4 Th/cmm (4.8-10.8)
[2017-02-10 12:37] LABS: ALB/GLOB RATIO 1.3 (1.0-1.8); ALBUMIN 3.5 gm/dL (3.7-5.3); ALKALINE PHOSPHATASE 79 U/L (34-104); ANION GAP 10.7 (7.0-16.0); BILIRUBIN,TOTAL 0.3 mg/dL (0.3-1.0); BUN - UREA NITROGEN 26 mg/dL (7-25); CALCIUM SERUM 9.1 mg/dL (8.6-10.3); CARBON DIOXIDE 23.6 mEq/L (21.0-31.0); CHLORIDE 103 mEq/L (98-107); GLUCOSE 112 mg/dL (70-105); POTASSIUM SERUM 4.3 mEq/L (3.5-5.1); SGOT 21 U/L (13-39); SGPT/ALT 16 U/L (7-52); SODIUM SERUM 133 mEq/L (136-145); TOTAL PROTEIN,SERUM 6.2 gm/dL (6.0-8.3)
--- NOTE | 2017-02-10 14:46 | Progress Notes ---
DATE: 02/10/2017 Case discussed with staff of the patient, reviewed records. The staff reported the patient vomited and was having a temperature today and Dr. Meyer is taking care of her. She continues to be unpredictable, delusional, confused, paranoid about the whole situation. She is sleeping well, not eating much. She is compliant with the medication with no side effects, no sedation, no nausea, no extrapyramidal symptoms. She tolerated the increase in Seroquel and we will continue to work with the patient in group therapy, milieu therapy, and adjust medications as needed. JOB# [id number]
[2017-02-11] MEDS: Aspirin 81mg Chewable Tab PO SCH (08:30)
[2017-02-11] MEDS: Multivitamin w/ Minerals Tab PO SCH (09:30)
--- NOTE | 2017-02-11 19:50 | Progress Notes ---
DATE: 02/11/2017 Case was discussed with staff of patient, reviewed records. The patient continues to have poor insight, continues to be delusional. Continues to be unable to make safe plan for self-care. She believes her son is somehow either ear loss. She has been compliant with the medication with no side effects. Her current medication is Tylenol as needed 650 mg every 4 hours, amlodipine 10 mg daily, aspirin 81 mg daily, bisacodyl or Dulcolax 10 mg daily as needed and Coreg 6.25 mg twice a day, sodium 100 mg twice a day, Lexapro 10 mg daily, Haldol decanoate 25 mg every 4 weeks and also she is on Zestril 40 mg daily, loratadine, Claritin 10 mg daily as needed, Ativan 0.5 mg as needed, magnesium hydroxide 30 mg daily as needed, multivitamin 1 tablet daily, nitroglycerin 0.4 mg sublingual every 5 minutes as needed, promethazine 25 mg 3 times a day, 12.5 mg 3 times a day and Seroquel was increased yesterday to 250 mg at bedtime, tramadol 50 mg every 12 hours as needed ____ as needed. The patient does not smoke. Her daughter is the one who is making decisions for her and she was not sure if she got the flu vaccine and no side effects with them. She does have lab work that shows a CMP, which is with low sodium and high BUN and low albumin, the rest within normal range. CBC with low hematocrit and low lymphocyte high MCH and high monocyte and we will continue to work the patient in group therapy, milieu therapy, adjust medications as needed. JOB# [id number]
--- NOTE | 2017-02-11 22:41 | Internal Medicine Prog Note ---
Internal Medicine Subjective - Subjective Service Date: 02/11/17 Patient seen and examined:: with staff (she feels better) Patient is:: awake (SHE FEELS BETTER), in wheelchair, talking Per staff patient has:: no adverse event (she feels well) Internal Medicine Objective - Results Result Diagrams: 02/10/17 12:10 02/10/17 12:10 Recent Labs: Laboratory Last Values WBC 7.4 Th/cmm (4.8-10.8) 02/10/17 12:10 RBC 3.90 Mil/cmm (3.80-5.20) 02/10/17 12:10 Hgb 12.4 gm/dL (12-16) 02/10/17 12:10 Hct 36.5 % (41.0-60) L 02/10/17 12:10 MCV 93.5 fl (81-100) 02/10/17 12:10 MCH 31.7 pg (27.0-31.0) H 02/10/17 12:10 MCHC Differential 33.9 pg (28.0-36.0) 02/10/17 12:10 RDW 14.6 % (11.5-20.0) 02/10/17 12:10 Plt Count 311 Th/cmm (150-400) 02/10/17 12:10 MPV 6.1 fl 02/10/17 12:10 Neutrophils % 75.3 % (40.0-80.0) 02/10/17 12:10 Lymphocytes % 11.4 % (20.0-50.0) L 02/10/17 12:10 Monocytes % 11.9 % (2.0-10.0) H 02/10/17 12:10 Eosinophils % 1.1 % (0.0-5.0) 02/10/17 12:10 Basophils % 0.3 % (0.0-2.0) 02/10/17 12:10 Sodium 133 mEq/L (136-145) L 02/10/17 12:10 Potassium 4.3 mEq/L (3.5-5.1) 02/10/17 12:10 Chloride 103 mEq/L (98-107) 02/10/17 12:10 Carbon Dioxide 23.6 mEq/L (21.0-31.0) 02/10/17 12:10 Anion Gap 10.7 (7.0-16.0) 02/10/17 12:10 BUN 26 mg/dL (7-25) H 02/10/17 12:10 Creatinine 1.0 mg/dL (0.6-1.2) 02/10/17 12:10 Est GFR ( Amer) TNP 02/10/17 12:10 Est GFR (Non-Af Amer) TNP 02/10/17 12:10 BUN/Creatinine Ratio 26.0 02/10/17 12:10 Glucose 112 mg/dL (70-105) H 02/10/17 12:10 Calcium 9.1 mg/dL (8.6-10.3) 02/10/17 12:10 Total Bilirubin 0.3 mg/dL (0.3-1.0) 02/10/17 12:10 AST 21 U/L (13-39) 02/10/17 12:10 ALT 16 U/L (7-52) 02/10/17 12:10 Alkaline Phosphatase 79 U/L (34-104) 02/10/17 12:10 Total Protein 6.2 gm/dL (6.0-8.3) 02/10/17 12:10 Albumin 3.5 gm/dL (3.7-5.3) L 02/10/17 12:10 Globulin 2.7 gm/dL 02/10/17 12:10 Albumin/Globulin Ratio 1.3 (1.0-1.8) 02/10/17 12:10 - Physical Exam Vitals and I&O: Vital Signs Temp 100.0 F 02/11/17 14:00 Pulse 96 02/11/17 16:55 Resp 18 02/11/17 14:00 BP 128/72 02/11/17 16:55 Pulse Ox 93 02/11/17 14:00 Intake & Output 02/11/17 02/11/17 02/12/17 06:59 18:59 06:59 Intake Total 120 1200 Balance 120 1200 Intake: Oral 120 1200 Other: # Voids 3 3 Active Medications: Current Medications Acetaminophen (Tylenol) 650 mg PO Q4H PRN PRN Reason: PAIN Stop: 03/29/17 14:34 Last Admin: 02/11/17 16:54 Dose: 650 mg Amlodipine Besylate (Norvasc) 10 mg PO DAILY [facility] Stop: 03/30/17 08:59 Last Admin: 02/11/17 08:30 Dose: Not Given Aspirin (Aspirin Chewable) 81 mg PO DAILY [facility] Stop: 03/30/17 08:59 Last Admin: 02/11/17 08:30 Dose: Not Given Bisacodyl (Dulcolax 10 Mg Supp) 10 mg RC DAILY PRN PRN Reason: constipation Stop: 03/29/17 14:34 Carvedilol (Coreg) 6.25 mg PO BID [facility] Stop: 03/29/17 16:59 Last Admin: 02/11/17 16:55 Dose: 6.25 mg Docusate Sodium (Colace) 100 mg PO BID [facility] Stop: 03/29/17 16:59 Last Admin: 02/11/17 17:16 Dose: Not Given Escitalopram Oxalate (Lexapro) 10 mg PO DAILY [facility] PRN Reason: Protocol Stop: 04/06/17 12:24 Last Admin: 02/11/17 09:30 Dose: Not Given Haloperidol Decanoate (Haldol Dec) 25 mg IM [id number] [facility] PRN Reason: Protocol Stop: 03/30/17 08:59 Last Admin: 01/29/17 10:21 Dose: Not Given Lisinopril (Zestril) 40 mg PO DAILY [facility] Stop: 03/30/17 08:59 Last Admin: 02/11/17 09:30 Dose: Not Given Loratadine (Claritin) 10 mg PO DAILY PRN PRN Reason: ALLERGIES Stop: 03/29/17 14:34 Last Admin: 02/04/17 10:08 Dose: 10 mg Lorazepam (Ativan) 0.5 mg PO Q4HR PRN; Protocol PRN Reason: Anxiety Stop: 02/27/17 14:27 Last Admin: 02/10/17 20:38 Dose: 0.5 mg Magnesium Hydroxide (Milk Of Magnesia) 30 ml PO DAILY PRN PRN Reason: Constipation Stop: 03/29/17 14:34 Mineral Oil (Fleet Mineral Oil) 135 ml RC UD PRN PRN Reason: constipation Stop: 03/29/17 14:34 Nitroglycerin (Nitrostat) 0.4 mg SL Q5MIN PRN PRN Reason: Chest Pain Stop: 03/29/17 14:34 Promethazine HCl (Phenergan) 12.5 mg PO TID [facility] Stop: 04/12/17 09:44 Last Admin: 02/11/17 20:20 Dose: 12.5 mg Quetiapine Fumarate 200 mg/ (Quetiapine Fumarate 50 mg) 250 mg PO HS [facility] Stop: 04/10/17 20:59 Last Admin: 02/11/17 20:21 Dose: 250 mg Tramadol HCl (Ultram) 50 mg PO Q6HR PRN PRN Reason: Pain (Severe) Stop: 03/29/17 19:59 Last Admin: 02/02/17 12:32 Dose: 50 mg Zolpidem Tartrate (Ambien) 5 mg PO HS PRN PRN Reason: Insomnia Stop: 03/29/17 14:27 Last Admin: 02/10/17 20:39 Dose: 5 mg General: alert, demented HEENT: NC/AT, PERRLA, EOMI, anicteric sclerae, throat clear Neck: Supple, No JVD, No thyromegaly, +2 carotid pulse wo bruit, No LAD, + JVD Cardiovascular: Normal S1, Normal S2, without murmur Abdomen: non-tender, non-distended Extremities: clear Neurological: no change Internal Medicine Assmt/Plan - Assessment Assessment: 1.HTN 2.DJD. 3.DEMENTIA 4.SKIN LACERATION OF BACK OF SCALP 5.LOW GRADE FEVER - Plan Plan: CONTINUE ON CURRENT MEDICATION AND DIET . UA, C AND SENSITIVITY. CBC AND CMP. Nutritional Asmnt/Malnutr-PDOC - Dietary Evaluation Malnutrition Findings (Please click <Entered> for more info): Nutritional Asmnt/Malnutrition Start: 02/02/17 14: 28 Text: Status: Complete Freq: Document 02/02/17 14:28 [facility]AO (Rec: 02/02/17 14:36 [email or web address]) Nutritional Asmnt/Malnutrition Patient General Information Nutritional Screening Moderate Risk Diagnosis psychosis Pertinent Medical Hx/Surgical Hx DJD, HTN, dementia Subjective Information Pt seen lying in bed, awake and alert during the time of visit. Pt reported fair appetite, didn't wake up for breakfast this morning. Per notes, PO intake 75-100%. Pt likes to have sausage or augustine for breakfast. Explained that pt on cardiact diet, not able to have high sodium/fat food like sausage and augustine. Pt understanded. Current Diet Order/ Nutrition Support cardiac Pertinent Medications colace, quetiapine fumarate Pertinent Labs 01/30 Na 136, K 4.0, Cl 104, BUN 23, Cr 1.1, Glucose 100, Alb 3.5 Nutritional Hx/Data Height 1.68 m Height (Calculated Centimeters) 167.6 Current Weight (lbs) 69.354 kg Weight (Calculated Kilograms) 69.4 Weight (Calculated Grams) 66632.3 [place] Body Weight 130 % [place] Body Weight 118 Body Mass Index (BMI) 24.7 Weight Status Approriate GI Symptoms GI Symptoms None Last BM 01/31 Difficult in: None Skin Integrity/Comment: intact Estimated Nutritional Goals BEE in Kcals: Using Current wt Calories/Kcals/Kg 25-27 Kcals Calculated 0374-9319 Protein: Using Current wt Protein g/k Protein Calculated 70 Fluid: ml 5634-7977 Nutritional Problem No current Nutrition Prob Problem N/A Malnutrition Alert Protein-Calorie Malnutrition N/A Is there a minimum of two criteria No selected? Query Text:Check all the applicable criteria. A minimum of two criteria are recommended for diagnosis of either severe or non-severe malnutrition. Intervention/Recommendation Comments 1. Continue with current diet as ordered. 2. Monitor PO intake, wt, labs and skin integrity 3. F/U as low risk in 7 days, 1/2 Expected Outcomes/Goals Expected Outcomes/Goals 1. PO intake to meet at least 75% of nutritional needs. 2. Wt stability, skin to remain intact, labs to approach WNL.
[2017-02-12 04:49] LABS: % EOSINOPHILS 0.2 % (0.0-5.0); % LYMPHOCYTES 14.7 % (20.0-50.0); % NEUTROPHILS 74.1 % (40.0-80.0); HEMATOCRIT 37.1 % (41.0-60); HEMOGLOBIN 12.7 gm/dL (12-16); LYMPHOCYTE ABSOLUTE 1.1 Th/cmm (1.5-3.0); MEAN CELL VOLUME 94.2 fl (81-100); MEAN CORPUSCULAR HEMOGLOBIN 32.4 pg (27.0-31.0); MEAN CORPUSCULAR HGB CONC 34.4 pg (28.0-36.0); MEAN PLATELET VOLUME 6.3 fl; MONOCYTE ABSOLUTE 0.8 Th/cmm (0.3-1.0); NEUTROPHILE ABSOLUTE 5.7 Th/cmm (1.8-8.0); PLATELET COUNT 250 Th/cmm (150-400); RED BLOOD COUNT 3.93 Mil/cmm (3.80-5.20); RED CELL DISTRIBUTION WIDTH 14.8 % (11.5-20.0); WHITE BLOOD COUNT 7.6 Th/cmm (4.8-10.8)
[2017-02-12 05:14] LABS: ANION GAP 12.2 (7.0-16.0); BUN - UREA NITROGEN 35 mg/dL (7-25); CALCIUM SERUM 8.7 mg/dL (8.6-10.3); CHLORIDE 100 mEq/L (98-107); CREATININE - SERUM 1.3 mg/dL (0.6-1.2); GLUCOSE 103 mg/dL (70-105); POTASSIUM SERUM 4.2 mEq/L (3.5-5.1); SODIUM SERUM 132 mEq/L (136-145)
--- NOTE | 2017-02-12 08:07 | Diagnostic Imaging Report ---
CHEST X-RAY: AP view INDICATION: Congestion COMPARISON: 01/26/2017 FINDINGS: Chronic interstitial lung changes are noted most pronounced within the lung bases. No focal consolidation or effusions. Mild cardiomegaly is noted with atherosclerosis. Old left distal clavicular fracture and old ninth left rib fracture is noted. IMPRESSION: Chronic interstitial lung changes greatest within the lung bases. Note that superimposed infiltrates of the lung bases cannot be excluded. No radiographic evidence of lex CHF. Mild cardiomegaly and atherosclerosis.
[2017-02-12] MEDS: Aspirin 81mg Chewable Tab PO SCH (08:28)
[2017-02-12] MEDS: Multivitamin w/ Minerals Tab PO SCH (08:28)
--- NOTE | 2017-02-12 12:37 | Internal Medicine Prog Note ---
Internal Medicine Subjective - Subjective Service Date: 02/12/17 Patient seen and examined:: with staff (SHE FEELS BETTER) Patient is:: awake (SHE FEELS BETTER), in wheelchair, talking Per staff patient has:: no adverse event (she feels well) Internal Medicine Objective - Results Result Diagrams: 02/12/17 04:38 02/12/17 04:38 Recent Labs: Laboratory Last Values WBC 7.6 Th/cmm (4.8-10.8) 02/12/17 04:38 RBC 3.93 Mil/cmm (3.80-5.20) 02/12/17 04:38 Hgb 12.7 gm/dL (12-16) 02/12/17 04:38 Hct 37.1 % (41.0-60) L 02/12/17 04:38 MCV 94.2 fl (81-100) 02/12/17 04:38 MCH 32.4 pg (27.0-31.0) H 02/12/17 04:38 MCHC Differential 34.4 pg (28.0-36.0) 02/12/17 04:38 RDW 14.8 % (11.5-20.0) 02/12/17 04:38 Plt Count 250 Th/cmm (150-400) 02/12/17 04:38 MPV 6.3 fl 02/12/17 04:38 Neutrophils % 74.1 % (40.0-80.0) 02/12/17 04:38 Lymphocytes % 14.7 % (20.0-50.0) L 02/12/17 04:38 Monocytes % 11.0 % (2.0-10.0) H 02/12/17 04:38 Eosinophils % 0.2 % (0.0-5.0) 02/12/17 04:38 Basophils % 0.0 % (0.0-2.0) 02/12/17 04:38 Sodium 132 mEq/L (136-145) L 02/12/17 04:38 Potassium 4.2 mEq/L (3.5-5.1) 02/12/17 04:38 Chloride 100 mEq/L (98-107) 02/12/17 04:38 Carbon Dioxide 24.0 mEq/L (21.0-31.0) 02/12/17 04:38 Anion Gap 12.2 (7.0-16.0) 02/12/17 04:38 BUN 35 mg/dL (7-25) H 02/12/17 04:38 Creatinine 1.3 mg/dL (0.6-1.2) H 02/12/17 04:38 Est GFR ( Amer) TNP 02/12/17 04:38 Est GFR (Non-Af Amer) TNP 02/12/17 04:38 BUN/Creatinine Ratio 26.9 02/12/17 04:38 Glucose 103 mg/dL (70-105) 02/12/17 04:38 Calcium 8.7 mg/dL (8.6-10.3) 02/12/17 04:38 Total Bilirubin 0.3 mg/dL (0.3-1.0) 02/10/17 12:10 AST 21 U/L (13-39) 02/10/17 12:10 ALT 16 U/L (7-52) 02/10/17 12:10 Alkaline Phosphatase 79 U/L (34-104) 02/10/17 12:10 Total Protein 6.2 gm/dL (6.0-8.3) 02/10/17 12:10 Albumin 3.5 gm/dL (3.7-5.3) L 02/10/17 12:10 Globulin 2.7 gm/dL 02/10/17 12:10 Albumin/Globulin Ratio 1.3 (1.0-1.8) 02/10/17 12:10 - Physical Exam Vitals and I&O: Vital Signs Temp 99.6 F 02/12/17 06:31 Pulse 74 02/12/17 08:27 Resp 18 02/12/17 06:31 BP 134/82 02/12/17 08:27 Pulse Ox 96 02/12/17 06:31 Intake & Output 02/11/17 02/12/17 02/12/17 18:59 06:59 18:59 Intake Total 1200 120 Balance 1200 120 Intake: Oral 1200 120 Other: # Voids 3 3 Active Medications: Current Medications Acetaminophen (Tylenol) 650 mg PO Q4H PRN PRN Reason: PAIN Stop: 03/29/17 14:34 Last Admin: 02/12/17 05:20 Dose: 650 mg Amlodipine Besylate (Norvasc) 10 mg PO DAILY [facility] Stop: 03/30/17 08:59 Last Admin: 02/12/17 08:27 Dose: 10 mg Aspirin (Aspirin Chewable) 81 mg PO DAILY [facility] Stop: 03/30/17 08:59 Last Admin: 02/12/17 08:28 Dose: 81 mg Bisacodyl (Dulcolax 10 Mg Supp) 10 mg RC DAILY PRN PRN Reason: constipation Stop: 03/29/17 14:34 Carvedilol (Coreg) 6.25 mg PO BID [facility] Stop: 03/29/17 16:59 Last Admin: 02/12/17 08:27 Dose: 6.25 mg Docusate Sodium (Colace) 100 mg PO BID [facility] Stop: 03/29/17 16:59 Last Admin: 02/12/17 08:27 Dose: 100 mg Escitalopram Oxalate (Lexapro) 10 mg PO DAILY [facility] PRN Reason: Protocol Stop: 04/06/17 12:24 Last Admin: 02/12/17 08:28 Dose: 10 mg Haloperidol Decanoate (Haldol Dec) 25 mg IM [id number] [facility] PRN Reason: Protocol Stop: 03/30/17 08:59 Last Admin: 01/29/17 10:21 Dose: Not Given Lisinopril (Zestril) 40 mg PO DAILY [facility] Stop: 03/30/17 08:59 Last Admin: 02/12/17 08:27 Dose: 40 mg Loratadine (Claritin) 10 mg PO DAILY PRN PRN Reason: ALLERGIES Stop: 03/29/17 14:34 Last Admin: 02/04/17 10:08 Dose: 10 mg Lorazepam (Ativan) 0.5 mg PO Q4HR PRN; Protocol PRN Reason: Anxiety Stop: 02/27/17 14:27 Last Admin: 02/10/17 20:38 Dose: 0.5 mg Magnesium Hydroxide (Milk Of Magnesia) 30 ml PO DAILY PRN PRN Reason: Constipation Stop: 03/29/17 14:34 Mineral Oil (Fleet Mineral Oil) 135 ml RC UD PRN PRN Reason: constipation Stop: 03/29/17 14:34 Nitroglycerin (Nitrostat) 0.4 mg SL Q5MIN PRN PRN Reason: Chest Pain Stop: 03/29/17 14:34 Promethazine HCl (Phenergan) 12.5 mg PO TID [facility] Stop: 04/12/17 09:44 Last Admin: 02/12/17 08:30 Dose: Not Given Quetiapine Fumarate 200 mg/ (Quetiapine Fumarate 50 mg) 250 mg PO HS [facility] Stop: 04/10/17 20:59 Last Admin: 02/11/17 20:21 Dose: 250 mg Tramadol HCl (Ultram) 50 mg PO Q6HR PRN PRN Reason: Pain (Severe) Stop: 03/29/17 19:59 Last Admin: 02/02/17 12:32 Dose: 50 mg Zolpidem Tartrate (Ambien) 5 mg PO HS PRN PRN Reason: Insomnia Stop: 03/29/17 14:27 Last Admin: 02/10/17 20:39 Dose: 5 mg General: alert, demented HEENT: NC/AT, PERRLA, EOMI, anicteric sclerae, throat clear Neck: Supple, No JVD, No thyromegaly, +2 carotid pulse wo bruit, No LAD, + JVD Cardiovascular: Normal S1, Normal S2, without murmur Abdomen: non-tender, non-distended Extremities: clear Neurological: no change Internal Medicine Assmt/Plan - Assessment Assessment: 1.HTN 2.DJD. 3.DEMENTIA 4.SKIN LACERATION OF BACK OF SCALP 5.LOW GRADE FEVER - Plan Plan: CONTINUE ON CURRENT MEDICATION AND DIET . Nutritional Asmnt/Malnutr-PDOC - Dietary Evaluation Malnutrition Findings (Please click <Entered> for more info): Nutritional Asmnt/Malnutrition Start: 02/02/17 14: 28 Text: Status: Complete Freq: Document 02/02/17 14:28 LCHENG (Rec: 02/02/17 14:36 [facility] [email or web address]) Nutritional Asmnt/Malnutrition Patient General Information Nutritional Screening Moderate Risk Diagnosis psychosis Pertinent Medical Hx/Surgical Hx DJD, HTN, dementia Subjective Information Pt seen lying in bed, awake and alert during the time of visit. Pt reported fair appetite, didn't wake up for breakfast this morning. Per notes, PO intake 75-100%. Pt likes to have sausage or augustine for breakfast. Explained that pt on cardiact diet, not able to have high sodium/fat food like sausage and augustine. Pt understanded. Current Diet Order/ Nutrition Support cardiac Pertinent Medications colace, quetiapine fumarate Pertinent Labs 01/30 Na 136, K 4.0, Cl 104, BUN 23, Cr 1.1, Glucose 100, Alb 3.5 Nutritional Hx/Data Height 1.68 m Height (Calculated Centimeters) 167.6 Current Weight (lbs) 69.354 kg Weight (Calculated Kilograms) 69.4 Weight (Calculated Grams) 30734.3 [place] Body Weight 130 % [place] Body Weight 118 Body Mass Index (BMI) 24.7 Weight Status Approriate GI Symptoms GI Symptoms None Last BM 01/31 Difficult in: None Skin Integrity/Comment: intact Estimated Nutritional Goals BEE in Kcals: Using Current wt Calories/Kcals/Kg 25-27 Kcals Calculated 1154-1844 Protein: Using Current wt Protein g/k Protein Calculated 70 Fluid: ml 8257-0783 Nutritional Problem No current Nutrition Prob Problem N/A Malnutrition Alert Protein-Calorie Malnutrition N/A Is there a minimum of two criteria No selected? Query Text:Check all the applicable criteria. A minimum of two criteria are recommended for diagnosis of either severe or non-severe malnutrition. Intervention/Recommendation Comments 1. Continue with current diet as ordered. 2. Monitor PO intake, wt, labs and skin integrity 3. F/U as low risk in 7 days, 1/2 Expected Outcomes/Goals Expected Outcomes/Goals 1. PO intake to meet at least 75% of nutritional needs. 2. Wt stability, skin to remain intact, labs to approach WNL.
--- NOTE | 2017-02-12 22:47 | Progress Notes ---
DATE: 02/12/2017 SUBJECTIVE: Case discussed with staff and the patient, reviewed records. The patient continues to be confused, always ____ me the date, unable to tell me the reason she is here. She is still confused about where her son as she does not know. She believes she is missing, continues to be paranoid, easily agitated, irritable. She did have to have x-ray today because she is congested, but she is not aware of it. She is compliant for the medication with no side effects, no sedation or nausea, no extrapyramidal symptoms and will continue to work with the patient in group therapy, milieu therapy, adjust medication as needed. JOB# [id number]
[2017-02-13] MEDS: Aspirin 81mg Chewable Tab PO SCH (08:41)
[2017-02-13] MEDS: Multivitamin w/ Minerals Tab PO SCH (08:43)
--- NOTE | 2017-02-13 18:28 | General Progress Note ---
Subjective - Review of Systems Service Date: 02/13/17 Subjective: resting comfortably no distress Objective - Results Result Diagrams: 02/12/17 04:38 02/12/17 04:38 Recent Labs: Laboratory Last Values WBC 7.6 Th/cmm (4.8-10.8) 02/12/17 04:38 RBC 3.93 Mil/cmm (3.80-5.20) 02/12/17 04:38 Hgb 12.7 gm/dL (12-16) 02/12/17 04:38 Hct 37.1 % (41.0-60) L 02/12/17 04:38 MCV 94.2 fl (81-100) 02/12/17 04:38 MCH 32.4 pg (27.0-31.0) H 02/12/17 04:38 MCHC Differential 34.4 pg (28.0-36.0) 02/12/17 04:38 RDW 14.8 % (11.5-20.0) 02/12/17 04:38 Plt Count 250 Th/cmm (150-400) 02/12/17 04:38 MPV 6.3 fl 02/12/17 04:38 Neutrophils % 74.1 % (40.0-80.0) 02/12/17 04:38 Lymphocytes % 14.7 % (20.0-50.0) L 02/12/17 04:38 Monocytes % 11.0 % (2.0-10.0) H 02/12/17 04:38 Eosinophils % 0.2 % (0.0-5.0) 02/12/17 04:38 Basophils % 0.0 % (0.0-2.0) 02/12/17 04:38 Sodium 132 mEq/L (136-145) L 02/12/17 04:38 Potassium 4.2 mEq/L (3.5-5.1) 02/12/17 04:38 Chloride 100 mEq/L (98-107) 02/12/17 04:38 Carbon Dioxide 24.0 mEq/L (21.0-31.0) 02/12/17 04:38 Anion Gap 12.2 (7.0-16.0) 02/12/17 04:38 BUN 35 mg/dL (7-25) H 02/12/17 04:38 Creatinine 1.3 mg/dL (0.6-1.2) H 02/12/17 04:38 Est GFR ( Amer) TNP 02/12/17 04:38 Est GFR (Non-Af Amer) TNP 02/12/17 04:38 BUN/Creatinine Ratio 26.9 02/12/17 04:38 Glucose 103 mg/dL (70-105) 02/12/17 04:38 Calcium 8.7 mg/dL (8.6-10.3) 02/12/17 04:38 Total Bilirubin 0.3 mg/dL (0.3-1.0) 02/10/17 12:10 AST 21 U/L (13-39) 02/10/17 12:10 ALT 16 U/L (7-52) 02/10/17 12:10 Alkaline Phosphatase 79 U/L (34-104) 02/10/17 12:10 Total Protein 6.2 gm/dL (6.0-8.3) 02/10/17 12:10 Albumin 3.5 gm/dL (3.7-5.3) L 02/10/17 12:10 Globulin 2.7 gm/dL 02/10/17 12:10 Albumin/Globulin Ratio 1.3 (1.0-1.8) 02/10/17 12:10 - Physical Exam Vitals and I&O: Vital Signs Temp 98.6 F 02/13/17 14:00 Pulse 77 02/13/17 16:20 Resp 18 02/13/17 14:00 BP 120/71 02/13/17 16:20 Pulse Ox 96 02/13/17 14:00 Intake & Output 02/12/17 02/13/17 02/13/17 18:59 06:59 18:59 Intake Total 7035 717 8471 Balance 6259 284 3447 Intake: Oral 9098 943 0382 Other: # Voids 3 3 3 # Bowel Movements 0 Active Medications: Current Medications Acetaminophen (Tylenol) 650 mg PO Q4H PRN PRN Reason: PAIN Stop: 03/29/17 14:34 Last Admin: 02/12/17 16:33 Dose: 650 mg Amlodipine Besylate (Norvasc) 10 mg PO DAILY [facility] Stop: 03/30/17 08:59 Last Admin: 02/13/17 08:41 Dose: 10 mg Aspirin (Aspirin Chewable) 81 mg PO DAILY [facility] Stop: 03/30/17 08:59 Last Admin: 02/13/17 08:41 Dose: 81 mg Bisacodyl (Dulcolax 10 Mg Supp) 10 mg RC DAILY PRN PRN Reason: constipation Stop: 03/29/17 14:34 Carvedilol (Coreg) 6.25 mg PO BID [facility] Stop: 03/29/17 16:59 Last Admin: 02/13/17 16:20 Dose: 6.25 mg Docusate Sodium (Colace) 100 mg PO BID [facility] Stop: 03/29/17 16:59 Last Admin: 02/13/17 16:20 Dose: 100 mg Escitalopram Oxalate (Lexapro) 10 mg PO DAILY [facility] PRN Reason: Protocol Stop: 04/06/17 12:24 Last Admin: 02/13/17 08:42 Dose: 10 mg Haloperidol Decanoate (Haldol Dec) 25 mg IM [id number] [facility] PRN Reason: Protocol Stop: 03/30/17 08:59 Last Admin: 01/29/17 10:21 Dose: Not Given Lisinopril (Zestril) 40 mg PO DAILY [facility] Stop: 03/30/17 08:59 Last Admin: 02/13/17 08:43 Dose: 40 mg Loratadine (Claritin) 10 mg PO DAILY PRN PRN Reason: ALLERGIES Stop: 03/29/17 14:34 Last Admin: 02/04/17 10:08 Dose: 10 mg Lorazepam (Ativan) 0.5 mg PO Q4HR PRN; Protocol PRN Reason: Anxiety Stop: 02/27/17 14:27 Last Admin: 02/13/17 11:56 Dose: 0.5 mg Magnesium Hydroxide (Milk Of Magnesia) 30 ml PO DAILY PRN PRN Reason: Constipation Stop: 03/29/17 14:34 Mineral Oil (Fleet Mineral Oil) 135 ml RC UD PRN PRN Reason: constipation Stop: 03/29/17 14:34 Nitroglycerin (Nitrostat) 0.4 mg SL Q5MIN PRN PRN Reason: Chest Pain Stop: 03/29/17 14:34 Promethazine HCl (Phenergan) 12.5 mg PO TID [facility] Stop: 04/12/17 09:44 Last Admin: 02/13/17 13:25 Dose: 12.5 mg Quetiapine Fumarate 200 mg/ (Quetiapine Fumarate 50 mg) 250 mg PO HS [facility] Stop: 04/10/17 20:59 Last Admin: 02/12/17 20:46 Dose: 250 mg Tramadol HCl (Ultram) 50 mg PO Q6HR PRN PRN Reason: Pain (Severe) Stop: 03/29/17 19:59 Last Admin: 02/02/17 12:32 Dose: 50 mg Zolpidem Tartrate (Ambien) 5 mg PO HS PRN PRN Reason: Insomnia Stop: 03/29/17 14:27 Last Admin: 02/12/17 22:11 Dose: 5 mg General: No acute distress HEENT: Atraumatic, PERRLA Neck: Supple, JVD Cardiovascular: Regular rate, Normal S1, Normal S2 Lungs: Clear to auscultation Abdomen: Bowel sounds, Soft Assessment/Plan - Problem List Patient Problems: All Active Problems Confusion (Acute) R41.0 WEAKNESS WITH POOR ORAL INTAKE (Acute) - Assessment Assessment: 1.HTN 2.DJD 3.DEMENTIA - Plan Plan: CONT CURRENT TREATMENT Nutritional Asmnt/Malnutr-PDOC - Dietary Evaluation Malnutrition Findings (Please click <Entered> for more info): Nutritional Asmnt/Malnutrition Start: 02/02/17 14: 28 Text: Status: Complete Freq: Document 02/02/17 14:28 [email or web address] (Rec: 02/02/17 14:36 [email or web address]) Nutritional Asmnt/Malnutrition Patient General Information Nutritional Screening Moderate Risk Diagnosis psychosis Pertinent Medical Hx/Surgical Hx DJD, HTN, dementia Subjective Information Pt seen lying in bed, awake and alert during the time of visit. Pt reported fair appetite, didn't wake up for breakfast this morning. Per notes, PO intake 75-100%. Pt likes to have sausage or augustine for breakfast. Explained that pt on cardiact diet, not able to have high sodium/fat food like sausage and augustine. Pt understanded. Current Diet Order/ Nutrition Support cardiac Pertinent Medications colace, quetiapine fumarate Pertinent Labs 01/30 Na 136, K 4.0, Cl 104, BUN 23, Cr 1.1, Glucose 100, Alb 3.5 Nutritional Hx/Data Height 1.68 m Height (Calculated Centimeters) 167.6 Current Weight (lbs) 69.354 kg Weight (Calculated Kilograms) 69.4 Weight (Calculated Grams) 63718.3 [place] Body Weight 130 % [place] Body Weight 118 Body Mass Index (BMI) 24.7 Weight Status Approriate GI Symptoms GI Symptoms None Last BM 01/31 Difficult in: None Skin Integrity/Comment: intact Estimated Nutritional Goals BEE in Kcals: Using Current wt Calories/Kcals/Kg 25-27 Kcals Calculated 2896-5199 Protein: Using Current wt Protein g/k Protein Calculated 70 Fluid: ml 4103-1991 Nutritional Problem No current Nutrition Prob Problem N/A Malnutrition Alert Protein-Calorie Malnutrition N/A Is there a minimum of two criteria No selected? Query Text:Check all the applicable criteria. A minimum of two criteria are recommended for diagnosis of either severe or non-severe malnutrition. Intervention/Recommendation Comments 1. Continue with current diet as ordered. 2. Monitor PO intake, wt, labs and skin integrity 3. F/U as low risk in 7 days, 1/2 Expected Outcomes/Goals Expected Outcomes/Goals 1. PO intake to meet at least 75% of nutritional needs. 2. Wt stability, skin to remain intact, labs to approach WNL.
--- NOTE | 2017-02-14 01:18 | Progress Notes ---
DATE: SUBJECTIVE: The patient was seen and evaluated. The patient's chart reviewed. COVERING FOR: Dr. William. She is a 76-year-old female who was brought in here for labile behavior. Nursing staff reported, although at times presenting little bit more calm. There is still perceptual disturbances which includes that she believes that she is missing and continues to be paranoid, easily agitated. Today on [id number] evaluation, the patient denies any side effects of medications, did not give much information beyond that. Easily irritable during the interview, easily suspicious and disengaged in the interview. MENTAL STATUS EXAMINATION: Disengaged, suspicious, paranoid, unable to formulate a safe plan. ASSESSMENT AND PLAN: The patient is a 76-year-old female. Will continue primary psychiatrist's treatment plan and goals, which include Lexapro 10 mg a day though taking it every 4 weeks, 25 mg IM due to the patient's still persistent perceptual disturbances and suspicious behavior, she is unable to formulate a safe plan. ADDENDUM: Will continue with quetiapine at 250 and that was recently adjusted on 02/09/2017. JOB# [id number]
[2017-02-14] MEDS: Multivitamin w/ Minerals Tab PO SCH (08:22)
[2017-02-14] MEDS: Aspirin 81mg Chewable Tab PO SCH (08:22)
[2017-02-14 09:29] LABS: URINE MICROSCOPIC INDICATED? YES; URINE SOURCE MIDSTREAM
[2017-02-14 09:34] LABS: URINE BILIRUBIN NEGATIVE (NEGATIVE); URINE BLOOD NEGATIVE (NEGATIVE); URINE GLUCOSE (UA) NEGATIVE (NEGATIVE); URINE KETONE NEGATIVE (NEGATIVE); URINE LEUKOCYTE ESTERASE SMALL (NEGATIVE); URINE NITRATE NEGATIVE (NEGATIVE); URINE PROTEIN NEGATIVE (NEGATIVE); URINE UROBILINOGEN 0.2 E.U./dL (0.2 - 1.0)
[2017-02-14 09:41] LABS: URINE CLARITY CLEAR (CLEAR); URINE COLOR YELLOW
[2017-02-14 09:44] LABS: URINE BACTERIA 2+ /hpf (NONE SEEN); URINE EPITHELIAL CELLS OCCASIONAL /lpf (FEW); URINE RBC 0-2 /hpf (0-5)
--- NOTE | 2017-02-14 16:56 | General Progress Note ---
Subjective - Review of Systems Service Date: 02/14/17 Subjective: resting comfortably no distress Objective - Results Result Diagrams: 02/12/17 04:38 02/12/17 04:38 Recent Labs: Laboratory Last Values WBC 7.6 Th/cmm (4.8-10.8) 02/12/17 04:38 RBC 3.93 Mil/cmm (3.80-5.20) 02/12/17 04:38 Hgb 12.7 gm/dL (12-16) 02/12/17 04:38 Hct 37.1 % (41.0-60) L 02/12/17 04:38 MCV 94.2 fl (81-100) 02/12/17 04:38 MCH 32.4 pg (27.0-31.0) H 02/12/17 04:38 MCHC Differential 34.4 pg (28.0-36.0) 02/12/17 04:38 RDW 14.8 % (11.5-20.0) 02/12/17 04:38 Plt Count 250 Th/cmm (150-400) 02/12/17 04:38 MPV 6.3 fl 02/12/17 04:38 Neutrophils % 74.1 % (40.0-80.0) 02/12/17 04:38 Lymphocytes % 14.7 % (20.0-50.0) L 02/12/17 04:38 Monocytes % 11.0 % (2.0-10.0) H 02/12/17 04:38 Eosinophils % 0.2 % (0.0-5.0) 02/12/17 04:38 Basophils % 0.0 % (0.0-2.0) 02/12/17 04:38 Sodium 132 mEq/L (136-145) L 02/12/17 04:38 Potassium 4.2 mEq/L (3.5-5.1) 02/12/17 04:38 Chloride 100 mEq/L (98-107) 02/12/17 04:38 Carbon Dioxide 24.0 mEq/L (21.0-31.0) 02/12/17 04:38 Anion Gap 12.2 (7.0-16.0) 02/12/17 04:38 BUN 35 mg/dL (7-25) H 02/12/17 04:38 Creatinine 1.3 mg/dL (0.6-1.2) H 02/12/17 04:38 Est GFR ( Amer) TNP 02/12/17 04:38 Est GFR (Non-Af Amer) TNP 02/12/17 04:38 BUN/Creatinine Ratio 26.9 02/12/17 04:38 Glucose 103 mg/dL (70-105) 02/12/17 04:38 Calcium 8.7 mg/dL (8.6-10.3) 02/12/17 04:38 Total Bilirubin 0.3 mg/dL (0.3-1.0) 02/10/17 12:10 AST 21 U/L (13-39) 02/10/17 12:10 ALT 16 U/L (7-52) 02/10/17 12:10 Alkaline Phosphatase 79 U/L (34-104) 02/10/17 12:10 Total Protein 6.2 gm/dL (6.0-8.3) 02/10/17 12:10 Albumin 3.5 gm/dL (3.7-5.3) L 02/10/17 12:10 Globulin 2.7 gm/dL 02/10/17 12:10 Albumin/Globulin Ratio 1.3 (1.0-1.8) 02/10/17 12:10 Urine Source MIDSTREAM 02/14/17 08:45 Urine Color YELLOW 02/14/17 08:45 Urine Clarity CLEAR (CLEAR) 02/14/17 08:45 Urine pH 6.0 (4.6 - 8.0) 02/14/17 08:45 Ur Specific [place] 1.015 (1.005-1.030) 02/14/17 08:45 Urine Protein NEGATIVE mg/dL (NEGATIVE) 02/14/17 08:45 Urine Glucose (UA) NEGATIVE mg/dL (NEGATIVE) 02/14/17 08:45 Urine Ketones NEGATIVE mg/dL (NEGATIVE) 02/14/17 08:45 Urine Blood NEGATIVE (NEGATIVE) 02/14/17 08:45 Urine Nitrate NEGATIVE (NEGATIVE) 02/14/17 08:45 Urine Bilirubin NEGATIVE (NEGATIVE) 02/14/17 08:45 Urine Urobilinogen 0.2 E.U./dL (0.2 - 1.0) 02/14/17 08:45 Ur Leukocyte Esterase SMALL (NEGATIVE) H 02/14/17 08:45 Urine RBC 0-2 /hpf (0-5) 02/14/17 08:45 Urine WBC 6-10 /hpf (0-5) H 02/14/17 08:45 Ur Epithelial Cells OCCASIONAL /lpf (FEW) 02/14/17 08:45 Urine Bacteria 2+ /hpf (NONE SEEN) H 02/14/17 08:45 - Physical Exam Vitals and I&O: Vital Signs Temp 98.8 F 02/14/17 14:00 Pulse 96 02/14/17 14:00 Resp 20 02/14/17 14:00 BP 112/68 02/14/17 14:00 Pulse Ox 98 02/14/17 14:00 Intake & Output 02/13/17 02/14/17 02/14/17 18:59 06:59 18:59 Intake Total 1200 480 Balance 1200 480 Intake: Oral 1200 480 Other: # Voids 3 1 Active Medications: Current Medications Acetaminophen (Tylenol) 650 mg PO Q4H PRN PRN Reason: PAIN Stop: 03/29/17 14:34 Last Admin: 02/12/17 16:33 Dose: 650 mg Amlodipine Besylate (Norvasc) 10 mg PO DAILY [facility] Stop: 03/30/17 08:59 Last Admin: 02/14/17 08:22 Dose: 10 mg Aspirin (Aspirin Chewable) 81 mg PO DAILY [facility] Stop: 03/30/17 08:59 Last Admin: 02/14/17 08:22 Dose: 81 mg Bisacodyl (Dulcolax 10 Mg Supp) 10 mg RC DAILY PRN PRN Reason: constipation Stop: 03/29/17 14:34 Carvedilol (Coreg) 6.25 mg PO BID [facility] Stop: 03/29/17 16:59 Last Admin: 02/13/17 16:20 Dose: 6.25 mg Docusate Sodium (Colace) 100 mg PO BID [facility] Stop: 03/29/17 16:59 Last Admin: 02/14/17 08:21 Dose: 100 mg Escitalopram Oxalate (Lexapro) 10 mg PO DAILY [facility] PRN Reason: Protocol Stop: 04/06/17 12:24 Last Admin: 02/14/17 08:22 Dose: 10 mg Haloperidol Decanoate (Haldol Dec) 25 mg IM [id number] [facility] PRN Reason: Protocol Stop: 03/30/17 08:59 Last Admin: 01/29/17 10:21 Dose: Not Given Lisinopril (Zestril) 40 mg PO DAILY [facility] Stop: 03/30/17 08:59 Last Admin: 02/14/17 08:22 Dose: 40 mg Loratadine (Claritin) 10 mg PO DAILY PRN PRN Reason: ALLERGIES Stop: 03/29/17 14:34 Last Admin: 02/04/17 10:08 Dose: 10 mg Lorazepam (Ativan) 0.5 mg PO Q4HR PRN; Protocol PRN Reason: Anxiety Stop: 02/27/17 14:27 Last Admin: 02/13/17 21:00 Dose: 0.5 mg Magnesium Hydroxide (Milk Of Magnesia) 30 ml PO DAILY PRN PRN Reason: Constipation Stop: 03/29/17 14:34 Mineral Oil (Fleet Mineral Oil) 135 ml RC UD PRN PRN Reason: constipation Stop: 03/29/17 14:34 Nitroglycerin (Nitrostat) 0.4 mg SL Q5MIN PRN PRN Reason: Chest Pain Stop: 03/29/17 14:34 Promethazine HCl (Phenergan) 12.5 mg PO TID [facility] Stop: 04/12/17 09:44 Last Admin: 02/14/17 14:21 Dose: 12.5 mg Quetiapine Fumarate 200 mg/ (Quetiapine Fumarate 50 mg) 250 mg PO HS [facility] Stop: 04/10/17 20:59 Last Admin: 02/13/17 20:47 Dose: 250 mg Tramadol HCl (Ultram) 50 mg PO Q6HR PRN PRN Reason: Pain (Severe) Stop: 03/29/17 19:59 Last Admin: 02/02/17 12:32 Dose: 50 mg Zolpidem Tartrate (Ambien) 5 mg PO HS PRN PRN Reason: Insomnia Stop: 03/29/17 14:27 Last Admin: 02/13/17 20:55 Dose: 5 mg General: No acute distress HEENT: Atraumatic, PERRLA Neck: Supple, JVD Cardiovascular: Regular rate, Normal S1, Normal S2 Lungs: Clear to auscultation Abdomen: Bowel sounds, Soft Assessment/Plan - Problem List Patient Problems: All Active Problems Confusion (Acute) R41.0 WEAKNESS WITH POOR ORAL INTAKE (Acute) - Assessment Assessment: 1.HTN 2.DJD 3.DEMENTIA - Plan Plan: CONT CURRENT TREATMENT Nutritional Asmnt/Malnutr-PDOC - Dietary Evaluation Malnutrition Findings (Please click <Entered> for more info): Nutritional Asmnt/Malnutrition Start: 02/02/17 14: 28 Text: Status: Complete Freq: Document 02/02/17 14:28 MARISABELJENNIFER (Rec: 02/02/17 14:36 JENNIFER [email or web address]) Nutritional Asmnt/Malnutrition Patient General Information Nutritional Screening Moderate Risk Diagnosis psychosis Pertinent Medical Hx/Surgical Hx DJD, HTN, dementia Subjective Information Pt seen lying in bed, awake and alert during the time of visit. Pt reported fair appetite, didn't wake up for breakfast this morning. Per notes, PO intake 75-100%. Pt likes to have sausage or augustine for breakfast. Explained that pt on cardiact diet, not able to have high sodium/fat food like sausage and augustine. Pt understanded. Current Diet Order/ Nutrition Support cardiac Pertinent Medications colace, quetiapine fumarate Pertinent Labs 01/30 Na 136, K 4.0, Cl 104, BUN 23, Cr 1.1, Glucose 100, Alb 3.5 Nutritional Hx/Data Height 1.68 m Height (Calculated Centimeters) 167.6 Current Weight (lbs) 69.354 kg Weight (Calculated Kilograms) 69.4 Weight (Calculated Grams) 13416.3 [place] Body Weight 130 % [place] Body Weight 118 Body Mass Index (BMI) 24.7 Weight Status Approriate GI Symptoms GI Symptoms None Last BM 01/31 Difficult in: None Skin Integrity/Comment: intact Estimated Nutritional Goals BEE in Kcals: Using Current wt Calories/Kcals/Kg 25-27 Kcals Calculated 2914-8885 Protein: Using Current wt Protein g/k Protein Calculated 70 Fluid: ml 9019-0340 Nutritional Problem No current Nutrition Prob Problem N/A Malnutrition Alert Protein-Calorie Malnutrition N/A Is there a minimum of two criteria No selected? Query Text:Check all the applicable criteria. A minimum of two criteria are recommended for diagnosis of either severe or non-severe malnutrition. Intervention/Recommendation Comments 1. Continue with current diet as ordered. 2. Monitor PO intake, wt, labs and skin integrity 3. F/U as low risk in 7 days, 1/2 Expected Outcomes/Goals Expected Outcomes/Goals 1. PO intake to meet at least 75% of nutritional needs. 2. Wt stability, skin to remain intact, labs to approach WNL.
--- NOTE | 2017-02-15 09:24 | Progress Notes ---
DATE: The patient was seen and evaluated. The patient's chart reviewed. This is Dr. Gaffney covering for Dr. William. Overnight the staff reported the patient continues with some mild perceptual disturbances, although improving. Today, on [id number] evaluation, the patient reports that she feels a little bit better, less irritable, less agitated. No side effects of medications. Less suspicious. Less paranoid. ASSESSMENT AND PLAN: A 76-year-old female who is tolerating the current medication regimen the patient's still persistent perceptual disturbances and suspicious behavior. We will continue as medication starting to reach steady state. JOB# [id number]
[2017-02-15] MEDS: Aspirin 81mg Chewable Tab PO SCH (09:55)
[2017-02-15] MEDS: Multivitamin w/ Minerals Tab PO SCH (09:56)
--- NOTE | 2017-02-15 16:19 | Internal Medicine Prog Note ---
Internal Medicine Subjective - Subjective Service Date: 02/15/17 Patient seen and examined:: with staff Patient is:: awake (SHE FEELS BETTER), in wheelchair, talking Per staff patient has:: no adverse event (she feels well) Internal Medicine Objective - Results Result Diagrams: 02/12/17 04:38 02/12/17 04:38 Recent Labs: Laboratory Last Values WBC 7.6 Th/cmm (4.8-10.8) 02/12/17 04:38 RBC 3.93 Mil/cmm (3.80-5.20) 02/12/17 04:38 Hgb 12.7 gm/dL (12-16) 02/12/17 04:38 Hct 37.1 % (41.0-60) L 02/12/17 04:38 MCV 94.2 fl (81-100) 02/12/17 04:38 MCH 32.4 pg (27.0-31.0) H 02/12/17 04:38 MCHC Differential 34.4 pg (28.0-36.0) 02/12/17 04:38 RDW 14.8 % (11.5-20.0) 02/12/17 04:38 Plt Count 250 Th/cmm (150-400) 02/12/17 04:38 MPV 6.3 fl 02/12/17 04:38 Neutrophils % 74.1 % (40.0-80.0) 02/12/17 04:38 Lymphocytes % 14.7 % (20.0-50.0) L 02/12/17 04:38 Monocytes % 11.0 % (2.0-10.0) H 02/12/17 04:38 Eosinophils % 0.2 % (0.0-5.0) 02/12/17 04:38 Basophils % 0.0 % (0.0-2.0) 02/12/17 04:38 Sodium 132 mEq/L (136-145) L 02/12/17 04:38 Potassium 4.2 mEq/L (3.5-5.1) 02/12/17 04:38 Chloride 100 mEq/L (98-107) 02/12/17 04:38 Carbon Dioxide 24.0 mEq/L (21.0-31.0) 02/12/17 04:38 Anion Gap 12.2 (7.0-16.0) 02/12/17 04:38 BUN 35 mg/dL (7-25) H 02/12/17 04:38 Creatinine 1.3 mg/dL (0.6-1.2) H 02/12/17 04:38 Est GFR ( Amer) TNP 02/12/17 04:38 Est GFR (Non-Af Amer) TNP 02/12/17 04:38 BUN/Creatinine Ratio 26.9 02/12/17 04:38 Glucose 103 mg/dL (70-105) 02/12/17 04:38 Calcium 8.7 mg/dL (8.6-10.3) 02/12/17 04:38 Total Bilirubin 0.3 mg/dL (0.3-1.0) 02/10/17 12:10 AST 21 U/L (13-39) 02/10/17 12:10 ALT 16 U/L (7-52) 02/10/17 12:10 Alkaline Phosphatase 79 U/L (34-104) 02/10/17 12:10 Total Protein 6.2 gm/dL (6.0-8.3) 02/10/17 12:10 Albumin 3.5 gm/dL (3.7-5.3) L 02/10/17 12:10 Globulin 2.7 gm/dL 02/10/17 12:10 Albumin/Globulin Ratio 1.3 (1.0-1.8) 02/10/17 12:10 Urine Source MIDSTREAM 02/14/17 08:45 Urine Color YELLOW 02/14/17 08:45 Urine Clarity CLEAR (CLEAR) 02/14/17 08:45 Urine pH 6.0 (4.6 - 8.0) 02/14/17 08:45 Ur Specific [place] 1.015 (1.005-1.030) 02/14/17 08:45 Urine Protein NEGATIVE mg/dL (NEGATIVE) 02/14/17 08:45 Urine Glucose (UA) NEGATIVE mg/dL (NEGATIVE) 02/14/17 08:45 Urine Ketones NEGATIVE mg/dL (NEGATIVE) 02/14/17 08:45 Urine Blood NEGATIVE (NEGATIVE) 02/14/17 08:45 Urine Nitrate NEGATIVE (NEGATIVE) 02/14/17 08:45 Urine Bilirubin NEGATIVE (NEGATIVE) 02/14/17 08:45 Urine Urobilinogen 0.2 E.U./dL (0.2 - 1.0) 02/14/17 08:45 Ur Leukocyte Esterase SMALL (NEGATIVE) H 02/14/17 08:45 Urine RBC 0-2 /hpf (0-5) 02/14/17 08:45 Urine WBC 6-10 /hpf (0-5) H 02/14/17 08:45 Ur Epithelial Cells OCCASIONAL /lpf (FEW) 02/14/17 08:45 Urine Bacteria 2+ /hpf (NONE SEEN) H 02/14/17 08:45 - Physical Exam Vitals and I&O: Vital Signs Temp 98.0 F 02/15/17 06:40 Pulse 73 02/15/17 09:57 Resp 20 02/15/17 08:00 BP 108/60 02/15/17 09:57 Pulse Ox 94 02/15/17 06:40 Intake & Output 02/14/17 02/15/17 02/15/17 18:59 06:59 18:59 Intake Total 1000 60 Balance 1000 60 Intake: Oral 1000 60 Other: # Voids 2 1 # Bowel Movements 0 Active Medications: Current Medications Acetaminophen (Tylenol) 650 mg PO Q4H PRN PRN Reason: PAIN Stop: 03/29/17 14:34 Last Admin: 02/15/17 09:55 Dose: 650 mg Amlodipine Besylate (Norvasc) 10 mg PO DAILY [facility] Stop: 03/30/17 08:59 Last Admin: 02/15/17 09:57 Dose: 10 mg Aspirin (Aspirin Chewable) 81 mg PO DAILY [facility] Stop: 03/30/17 08:59 Last Admin: 02/15/17 09:55 Dose: 81 mg Bisacodyl (Dulcolax 10 Mg Supp) 10 mg RC DAILY PRN PRN Reason: constipation Stop: 03/29/17 14:34 Carvedilol (Coreg) 6.25 mg PO BID [facility] Stop: 03/29/17 16:59 Last Admin: 02/15/17 09:57 Dose: 6.25 mg Docusate Sodium (Colace) 100 mg PO BID [facility] Stop: 03/29/17 16:59 Last Admin: 02/15/17 09:56 Dose: 100 mg Escitalopram Oxalate (Lexapro) 10 mg PO DAILY [facility] PRN Reason: Protocol Stop: 04/06/17 12:24 Last Admin: 02/15/17 09:55 Dose: 10 mg Haloperidol Decanoate (Haldol Dec) 25 mg IM [id number] TRINITY PRN Reason: Protocol Stop: 03/30/17 08:59 Last Admin: 01/29/17 10:21 Dose: Not Given Lisinopril (Zestril) 40 mg PO DAILY [facility] Stop: 03/30/17 08:59 Last Admin: 02/15/17 09:56 Dose: 40 mg Loratadine (Claritin) 10 mg PO DAILY PRN PRN Reason: ALLERGIES Stop: 03/29/17 14:34 Last Admin: 02/04/17 10:08 Dose: 10 mg Lorazepam (Ativan) 0.5 mg PO Q4HR PRN; Protocol PRN Reason: Anxiety Stop: 02/27/17 14:27 Last Admin: 02/13/17 21:00 Dose: 0.5 mg Magnesium Hydroxide (Milk Of Magnesia) 30 ml PO DAILY PRN PRN Reason: Constipation Stop: 03/29/17 14:34 Mineral Oil (Fleet Mineral Oil) 135 ml RC UD PRN PRN Reason: constipation Stop: 03/29/17 14:34 Nitroglycerin (Nitrostat) 0.4 mg SL Q5MIN PRN PRN Reason: Chest Pain Stop: 03/29/17 14:34 Promethazine HCl (Phenergan) 12.5 mg PO TID [facility] Stop: 04/12/17 09:44 Last Admin: 02/15/17 15:00 Dose: Not Given Quetiapine Fumarate 200 mg/ (Quetiapine Fumarate 50 mg) 250 mg PO HS [facility]INITY Stop: 04/10/17 20:59 Last Admin: 02/14/17 20:52 Dose: 250 mg Tramadol HCl (Ultram) 50 mg PO Q6HR PRN PRN Reason: Pain (Severe) Stop: 03/29/17 19:59 Last Admin: 02/02/17 12:32 Dose: 50 mg Zolpidem Tartrate (Ambien) 5 mg PO HS PRN PRN Reason: Insomnia Stop: 03/29/17 14:27 Last Admin: 02/13/17 20:55 Dose: 5 mg General: alert, demented HEENT: NC/AT, PERRLA, EOMI, anicteric sclerae, throat clear Neck: Supple, No JVD, No thyromegaly, +2 carotid pulse wo bruit, No LAD, + JVD Cardiovascular: Normal S1, Normal S2, without murmur Abdomen: non-tender, non-distended Extremities: clear Neurological: no change Internal Medicine Assmt/Plan - Assessment Assessment: 1.HTN 2.DJD. 3.DEMENTIA - Plan Plan: CONTINUE ON CURRENT MEDICATION AND DIET . Nutritional Asmnt/Malnutr-PDOC - Dietary Evaluation Malnutrition Findings (Please click <Entered> for more info): Nutritional Asmnt/Malnutrition Start: 02/02/17 14: 28 Text: Status: Complete Freq: Document 02/02/17 14:28 DELFINO (Rec: 02/02/17 14:36 DELFINO [email or web address]) Nutritional Asmnt/Malnutrition Patient General Information Nutritional Screening Moderate Risk Diagnosis psychosis Pertinent Medical Hx/Surgical Hx DJD, HTN, dementia Subjective Information Pt seen lying in bed, awake and alert during the time of visit. Pt reported fair appetite, didn't wake up for breakfast this morning. Per notes, PO intake 75-100%. Pt likes to have sausage or augustine for breakfast. Explained that pt on cardiact diet, not able to have high sodium/fat food like sausage and augustine. Pt understanded. Current Diet Order/ Nutrition Support cardiac Pertinent Medications colace, quetiapine fumarate Pertinent Labs 01/30 Na 136, K 4.0, Cl 104, BUN 23, Cr 1.1, Glucose 100, Alb 3.5 Nutritional Hx/Data Height 1.68 m Height (Calculated Centimeters) 167.6 Current Weight (lbs) 69.354 kg Weight (Calculated Kilograms) 69.4 Weight (Calculated Grams) 01119.3 [place] Body Weight 130 % [place] Body Weight 118 Body Mass Index (BMI) 24.7 Weight Status Approriate GI Symptoms GI Symptoms None Last BM 01/31 Difficult in: None Skin Integrity/Comment: intact Estimated Nutritional Goals BEE in Kcals: Using Current wt Calories/Kcals/Kg 25-27 Kcals Calculated 0778-0968 Protein: Using Current wt Protein g/k Protein Calculated 70 Fluid: ml 5647-0794 Nutritional Problem No current Nutrition Prob Problem N/A Malnutrition Alert Protein-Calorie Malnutrition N/A Is there a minimum of two criteria No selected? Query Text:Check all the applicable criteria. A minimum of two criteria are recommended for diagnosis of either severe or non-severe malnutrition. Intervention/Recommendation Comments 1. Continue with current diet as ordered. 2. Monitor PO intake, wt, labs and skin integrity 3. F/U as low risk in 7 days, 1/2 Expected Outcomes/Goals Expected Outcomes/Goals 1. PO intake to meet at least 75% of nutritional needs. 2. Wt stability, skin to remain intact, labs to approach WNL.
--- NOTE | 2017-02-15 19:40 | Progress Notes ---
DATE: 02/15/2017 Case was discussed with staff of the patient. Reviewed treatment plans and goals. The patient continues to be delusional, confused, continues to be unable to make safe plan for self-care. Continues to have poor insight, unable to make safe plan to participate in a meaningful conversation. She is not sure where she is, why she is here. No side effects to the medication, no sedation, no nausea, no extrapyramidal symptoms. I did increase her Lexapro to 10 mg a day and also increased Seroquel to 250 mg at bedtime with no side effects, no sedation, no nausea, no extrapyramidal symptoms. We will continue to work with the patient in group therapy, milieu therapy, and adjust medication as needed. JOB# [id number]
[2017-02-16] MEDS: Aspirin 81mg Chewable Tab PO SCH (09:23)
[2017-02-16] MEDS: Multivitamin w/ Minerals Tab PO SCH (09:23)
--- NOTE | 2017-02-16 20:54 | Progress Notes ---
DATE: 02/16/2017 Case was discussed with staff of patient and reviewed records. The patient continues to be delusional. Continues to be internally preoccupied. Continues to be unable to make safe plan for self-care, unpredictable, impulsive, needing redirection. She is sleeping well, eating well. No side effects with the medication, no sedation, no nausea, no extrapyramidal symptoms. However, she is still unable to make safe plan for self-care. Continues to be internally preoccupied at times paranoid. Tolerating increase in Seroquel with no side effects, no sedation, no nausea, no extrapyramidal symptoms. We will continue to work with the patient in group therapy, milieu therapy, adjust medication as needed. JOB# [id number]
--- NOTE | 2017-02-16 23:27 | Internal Medicine Prog Note ---
Internal Medicine Subjective - Subjective Service Date: 02/16/17 Patient seen and examined:: without staff Patient is:: awake (SHE FEELS BETTER), in wheelchair, talking Per staff patient has:: no adverse event (she feels well) Internal Medicine Objective - Results Result Diagrams: 02/12/17 04:38 02/12/17 04:38 Recent Labs: Laboratory Last Values WBC 7.6 Th/cmm (4.8-10.8) 02/12/17 04:38 RBC 3.93 Mil/cmm (3.80-5.20) 02/12/17 04:38 Hgb 12.7 gm/dL (12-16) 02/12/17 04:38 Hct 37.1 % (41.0-60) L 02/12/17 04:38 MCV 94.2 fl (81-100) 02/12/17 04:38 MCH 32.4 pg (27.0-31.0) H 02/12/17 04:38 MCHC Differential 34.4 pg (28.0-36.0) 02/12/17 04:38 RDW 14.8 % (11.5-20.0) 02/12/17 04:38 Plt Count 250 Th/cmm (150-400) 02/12/17 04:38 MPV 6.3 fl 02/12/17 04:38 Neutrophils % 74.1 % (40.0-80.0) 02/12/17 04:38 Lymphocytes % 14.7 % (20.0-50.0) L 02/12/17 04:38 Monocytes % 11.0 % (2.0-10.0) H 02/12/17 04:38 Eosinophils % 0.2 % (0.0-5.0) 02/12/17 04:38 Basophils % 0.0 % (0.0-2.0) 02/12/17 04:38 Sodium 132 mEq/L (136-145) L 02/12/17 04:38 Potassium 4.2 mEq/L (3.5-5.1) 02/12/17 04:38 Chloride 100 mEq/L (98-107) 02/12/17 04:38 Carbon Dioxide 24.0 mEq/L (21.0-31.0) 02/12/17 04:38 Anion Gap 12.2 (7.0-16.0) 02/12/17 04:38 BUN 35 mg/dL (7-25) H 02/12/17 04:38 Creatinine 1.3 mg/dL (0.6-1.2) H 02/12/17 04:38 Est GFR ( Amer) TNP 02/12/17 04:38 Est GFR (Non-Af Amer) TNP 02/12/17 04:38 BUN/Creatinine Ratio 26.9 02/12/17 04:38 Glucose 103 mg/dL (70-105) 02/12/17 04:38 Calcium 8.7 mg/dL (8.6-10.3) 02/12/17 04:38 Total Bilirubin 0.3 mg/dL (0.3-1.0) 02/10/17 12:10 AST 21 U/L (13-39) 02/10/17 12:10 ALT 16 U/L (7-52) 02/10/17 12:10 Alkaline Phosphatase 79 U/L (34-104) 02/10/17 12:10 Total Protein 6.2 gm/dL (6.0-8.3) 02/10/17 12:10 Albumin 3.5 gm/dL (3.7-5.3) L 02/10/17 12:10 Globulin 2.7 gm/dL 02/10/17 12:10 Albumin/Globulin Ratio 1.3 (1.0-1.8) 02/10/17 12:10 Urine Source MIDSTREAM 02/14/17 08:45 Urine Color YELLOW 02/14/17 08:45 Urine Clarity CLEAR (CLEAR) 02/14/17 08:45 Urine pH 6.0 (4.6 - 8.0) 02/14/17 08:45 Ur Specific [place] 1.015 (1.005-1.030) 02/14/17 08:45 Urine Protein NEGATIVE mg/dL (NEGATIVE) 02/14/17 08:45 Urine Glucose (UA) NEGATIVE mg/dL (NEGATIVE) 02/14/17 08:45 Urine Ketones NEGATIVE mg/dL (NEGATIVE) 02/14/17 08:45 Urine Blood NEGATIVE (NEGATIVE) 02/14/17 08:45 Urine Nitrate NEGATIVE (NEGATIVE) 02/14/17 08:45 Urine Bilirubin NEGATIVE (NEGATIVE) 02/14/17 08:45 Urine Urobilinogen 0.2 E.U./dL (0.2 - 1.0) 02/14/17 08:45 Ur Leukocyte Esterase SMALL (NEGATIVE) H 02/14/17 08:45 Urine RBC 0-2 /hpf (0-5) 02/14/17 08:45 Urine WBC 6-10 /hpf (0-5) H 02/14/17 08:45 Ur Epithelial Cells OCCASIONAL /lpf (FEW) 02/14/17 08:45 Urine Bacteria 2+ /hpf (NONE SEEN) H 02/14/17 08:45 - Physical Exam Vitals and I&O: Vital Signs Temp 98.7 F 02/16/17 17:39 Pulse 72 02/16/17 17:47 Resp 18 02/16/17 17:39 BP 118/76 02/16/17 17:47 Pulse Ox 98 02/16/17 17:39 Intake & Output 02/16/17 02/16/17 02/17/17 06:59 18:59 06:59 Intake Total 60 Output Total 1 Balance 59 Intake: Oral 60 Output: Stool 1 Other: # Voids 2 # Bowel Movements 0 Active Medications: Current Medications Acetaminophen (Tylenol) 650 mg PO Q4H PRN PRN Reason: PAIN Stop: 03/29/17 14:34 Last Admin: 02/16/17 06:01 Dose: 650 mg Amlodipine Besylate (Norvasc) 10 mg PO DAILY [facility] Stop: 03/30/17 08:59 Last Admin: 02/16/17 09:33 Dose: 10 mg Aspirin (Aspirin Chewable) 81 mg PO DAILY [facility] Stop: 03/30/17 08:59 Last Admin: 02/16/17 09:23 Dose: 81 mg Bisacodyl (Dulcolax 10 Mg Supp) 10 mg RC DAILY PRN PRN Reason: constipation Stop: 03/29/17 14:34 Carvedilol (Coreg) 6.25 mg PO BID [facility] Stop: 03/29/17 16:59 Last Admin: 02/16/17 17:47 Dose: 6.25 mg Docusate Sodium (Colace) 100 mg PO BID [facility] Stop: 03/29/17 16:59 Last Admin: 02/16/17 17:47 Dose: 100 mg Escitalopram Oxalate (Lexapro) 10 mg PO DAILY [facility] PRN Reason: Protocol Stop: 04/06/17 12:24 Last Admin: 02/16/17 09:23 Dose: 10 mg Haloperidol Decanoate (Haldol Dec) 25 mg IM [id number] [facility] PRN Reason: Protocol Stop: 03/30/17 08:59 Last Admin: 01/29/17 10:21 Dose: Not Given Lisinopril (Zestril) 40 mg PO DAILY [facility] Stop: 03/30/17 08:59 Last Admin: 02/16/17 09:33 Dose: 40 mg Loratadine (Claritin) 10 mg PO DAILY PRN PRN Reason: ALLERGIES Stop: 03/29/17 14:34 Last Admin: 02/04/17 10:08 Dose: 10 mg Lorazepam (Ativan) 0.5 mg PO Q4HR PRN; Protocol PRN Reason: Anxiety Stop: 02/27/17 14:27 Last Admin: 02/13/17 21:00 Dose: 0.5 mg Magnesium Hydroxide (Milk Of Magnesia) 30 ml PO DAILY PRN PRN Reason: Constipation Stop: 03/29/17 14:34 Mineral Oil (Fleet Mineral Oil) 135 ml RC UD PRN PRN Reason: constipation Stop: 03/29/17 14:34 Nitroglycerin (Nitrostat) 0.4 mg SL Q5MIN PRN PRN Reason: Chest Pain Stop: 03/29/17 14:34 Promethazine HCl (Phenergan) 12.5 mg PO TID [facility] Stop: 04/12/17 09:44 Last Admin: 02/16/17 20:51 Dose: Not Given Quetiapine Fumarate 200 mg/ (Quetiapine Fumarate 50 mg) 250 mg PO HS [facility] Stop: 04/10/17 20:59 Last Admin: 02/16/17 20:50 Dose: 250 mg Tramadol HCl (Ultram) 50 mg PO Q6HR PRN PRN Reason: Pain (Severe) Stop: 03/29/17 19:59 Last Admin: 02/02/17 12:32 Dose: 50 mg Zolpidem Tartrate (Ambien) 5 mg PO HS PRN PRN Reason: Insomnia Stop: 03/29/17 14:27 Last Admin: 02/16/17 20:51 Dose: 5 mg General: alert, demented HEENT: NC/AT, PERRLA, EOMI, anicteric sclerae, throat clear Neck: Supple, No JVD, No thyromegaly, +2 carotid pulse wo bruit, No LAD, + JVD Cardiovascular: Normal S1, Normal S2, without murmur Abdomen: non-tender, non-distended Extremities: clear Neurological: no change Internal Medicine Assmt/Plan - Assessment Assessment: 1.HTN 2.DJD. 3.DEMENTIA - Plan Plan: CONTINUE ON CURRENT MEDICATION AND DIET . Nutritional Asmnt/Malnutr-PDOC - Dietary Evaluation Malnutrition Findings (Please click <Entered> for more info): Nutritional Asmnt/Malnutrition Start: 02/02/17 14: 28 Text: Status: Complete Freq: Document 02/02/17 14:28 CANDI (Rec: 02/02/17 14:36 CHAO [email or web address]) Nutritional Asmnt/Malnutrition Patient General Information Nutritional Screening Moderate Risk Diagnosis psychosis Pertinent Medical Hx/Surgical Hx DJD, HTN, dementia Subjective Information Pt seen lying in bed, awake and alert during the time of visit. Pt reported fair appetite, didn't wake up for breakfast this morning. Per notes, PO intake 75-100%. Pt likes to have sausage or augustine for breakfast. Explained that pt on cardiact diet, not able to have high sodium/fat food like sausage and augustine. Pt understanded. Current Diet Order/ Nutrition Support cardiac Pertinent Medications colace, quetiapine fumarate Pertinent Labs 01/30 Na 136, K 4.0, Cl 104, BUN 23, Cr 1.1, Glucose 100, Alb 3.5 Nutritional Hx/Data Height 1.68 m Height (Calculated Centimeters) 167.6 Current Weight (lbs) 69.354 kg Weight (Calculated Kilograms) 69.4 Weight (Calculated Grams) 57021.3 [place] Body Weight 130 % [place] Body Weight 118 Body Mass Index (BMI) 24.7 Weight Status Approriate GI Symptoms GI Symptoms None Last BM 01/31 Difficult in: None Skin Integrity/Comment: intact Estimated Nutritional Goals BEE in Kcals: Using Current wt Calories/Kcals/Kg 25-27 Kcals Calculated 0859-1732 Protein: Using Current wt Protein g/k Protein Calculated 70 Fluid: ml 5133-1444 Nutritional Problem No current Nutrition Prob Problem N/A Malnutrition Alert Protein-Calorie Malnutrition N/A Is there a minimum of two criteria No selected? Query Text:Check all the applicable criteria. A minimum of two criteria are recommended for diagnosis of either severe or non-severe malnutrition. Intervention/Recommendation Comments 1. Continue with current diet as ordered. 2. Monitor PO intake, wt, labs and skin integrity 3. F/U as low risk in 7 days, 1/2 Expected Outcomes/Goals Expected Outcomes/Goals 1. PO intake to meet at least 75% of nutritional needs. 2. Wt stability, skin to remain intact, labs to approach WNL.
[2017-02-17] MEDS: Aspirin 81mg Chewable Tab PO SCH (09:11)
[2017-02-17] MEDS: Multivitamin w/ Minerals Tab PO SCH (09:11)
--- NOTE | 2017-02-17 11:33 | Progress Notes ---
DATE: 02/17/2017 Case was discussed with staff of the patient, reviewed records. The patient continues to be delusional, unpredictable and impulsive. She seems to be confused at times, though she knows this is instead of Wednesday and she knows this is 02/2017. She reports she has not seen her son in a year. So she is still delusional about that. She thinks he is missing. She still unpredictable and impulsive. She does have a urine culture that is in progress and also she has a low sodium level, high creatinine level and high BUN, for which I will be consulting with Dr. Meyer regarding those abnormal lab work and so far, I did increase Seroquel with no side effects, no sedation, no nausea. No extrapyramidal symptoms. Still she looked disheveled. She is eating better, sleeping better and no side effects with the medication, no sedation, nausea, no extrapyramidal symptoms. Her CBC, low hematocrit and high MCH, high monocyte. The rest is within normal range. We will continue to work with the patient in group therapy, milieu therapy, and adjust medications as needed. JOB# [id number]
--- NOTE | 2017-02-17 11:53 | Progress Notes ---
DATE: 02/17/2017 Case was discussed with staff of the patient, reviewed records. The patient has a urine culture pending. The patient's sodium level is low. ____. DICTATION ENDS ABRUPTLY. JOB# [id number]
--- NOTE | 2017-02-17 12:46 | Internal Medicine Prog Note ---
Internal Medicine Subjective - Subjective Service Date: 02/17/17 Patient seen and examined:: with staff (she feels better) Patient is:: awake (SHE FEELS BETTER), in wheelchair, talking Per staff patient has:: no adverse event (she feels well) Internal Medicine Objective - Results Result Diagrams: 02/12/17 04:38 02/12/17 04:38 Recent Labs: Laboratory Last Values WBC 7.6 Th/cmm (4.8-10.8) 02/12/17 04:38 RBC 3.93 Mil/cmm (3.80-5.20) 02/12/17 04:38 Hgb 12.7 gm/dL (12-16) 02/12/17 04:38 Hct 37.1 % (41.0-60) L 02/12/17 04:38 MCV 94.2 fl (81-100) 02/12/17 04:38 MCH 32.4 pg (27.0-31.0) H 02/12/17 04:38 MCHC Differential 34.4 pg (28.0-36.0) 02/12/17 04:38 RDW 14.8 % (11.5-20.0) 02/12/17 04:38 Plt Count 250 Th/cmm (150-400) 02/12/17 04:38 MPV 6.3 fl 02/12/17 04:38 Neutrophils % 74.1 % (40.0-80.0) 02/12/17 04:38 Lymphocytes % 14.7 % (20.0-50.0) L 02/12/17 04:38 Monocytes % 11.0 % (2.0-10.0) H 02/12/17 04:38 Eosinophils % 0.2 % (0.0-5.0) 02/12/17 04:38 Basophils % 0.0 % (0.0-2.0) 02/12/17 04:38 Sodium 132 mEq/L (136-145) L 02/12/17 04:38 Potassium 4.2 mEq/L (3.5-5.1) 02/12/17 04:38 Chloride 100 mEq/L (98-107) 02/12/17 04:38 Carbon Dioxide 24.0 mEq/L (21.0-31.0) 02/12/17 04:38 Anion Gap 12.2 (7.0-16.0) 02/12/17 04:38 BUN 35 mg/dL (7-25) H 02/12/17 04:38 Creatinine 1.3 mg/dL (0.6-1.2) H 02/12/17 04:38 Est GFR ( Amer) TNP 02/12/17 04:38 Est GFR (Non-Af Amer) TNP 02/12/17 04:38 BUN/Creatinine Ratio 26.9 02/12/17 04:38 Glucose 103 mg/dL (70-105) 02/12/17 04:38 Calcium 8.7 mg/dL (8.6-10.3) 02/12/17 04:38 Total Bilirubin 0.3 mg/dL (0.3-1.0) 02/10/17 12:10 AST 21 U/L (13-39) 02/10/17 12:10 ALT 16 U/L (7-52) 02/10/17 12:10 Alkaline Phosphatase 79 U/L (34-104) 02/10/17 12:10 Total Protein 6.2 gm/dL (6.0-8.3) 02/10/17 12:10 Albumin 3.5 gm/dL (3.7-5.3) L 02/10/17 12:10 Globulin 2.7 gm/dL 02/10/17 12:10 Albumin/Globulin Ratio 1.3 (1.0-1.8) 02/10/17 12:10 Urine Source MIDSTREAM 02/14/17 08:45 Urine Color YELLOW 02/14/17 08:45 Urine Clarity CLEAR (CLEAR) 02/14/17 08:45 Urine pH 6.0 (4.6 - 8.0) 02/14/17 08:45 Ur Specific [place] 1.015 (1.005-1.030) 02/14/17 08:45 Urine Protein NEGATIVE mg/dL (NEGATIVE) 02/14/17 08:45 Urine Glucose (UA) NEGATIVE mg/dL (NEGATIVE) 02/14/17 08:45 Urine Ketones NEGATIVE mg/dL (NEGATIVE) 02/14/17 08:45 Urine Blood NEGATIVE (NEGATIVE) 02/14/17 08:45 Urine Nitrate NEGATIVE (NEGATIVE) 02/14/17 08:45 Urine Bilirubin NEGATIVE (NEGATIVE) 02/14/17 08:45 Urine Urobilinogen 0.2 E.U./dL (0.2 - 1.0) 02/14/17 08:45 Ur Leukocyte Esterase SMALL (NEGATIVE) H 02/14/17 08:45 Urine RBC 0-2 /hpf (0-5) 02/14/17 08:45 Urine WBC 6-10 /hpf (0-5) H 02/14/17 08:45 Ur Epithelial Cells OCCASIONAL /lpf (FEW) 02/14/17 08:45 Urine Bacteria 2+ /hpf (NONE SEEN) H 02/14/17 08:45 - Physical Exam Vitals and I&O: Vital Signs Temp 97.8 F 02/17/17 06:26 Pulse 73 02/17/17 09:59 Resp 20 02/17/17 06:26 BP 120/69 02/17/17 09:59 Pulse Ox 95 02/17/17 06:26 Intake & Output 02/16/17 02/17/17 02/17/17 18:59 06:59 18:59 Intake Total 370 Balance 370 Intake: Oral 370 Other: # Voids 2 # Bowel Movements 0 Active Medications: Current Medications Acetaminophen (Tylenol) 650 mg PO Q4H PRN PRN Reason: PAIN Stop: 03/29/17 14:34 Last Admin: 02/16/17 06:01 Dose: 650 mg Amlodipine Besylate (Norvasc) 10 mg PO DAILY [facility] Stop: 03/30/17 08:59 Last Admin: 02/17/17 09:58 Dose: 10 mg Aspirin (Aspirin Chewable) 81 mg PO DAILY [facility] [place] Stop: 03/30/17 08:59 Last Admin: 02/17/17 09:11 Dose: 81 mg Bisacodyl (Dulcolax 10 Mg Supp) 10 mg RC DAILY PRN PRN Reason: constipation Stop: 03/29/17 14:34 Carvedilol (Coreg) 6.25 mg PO BID [facility] [place] Stop: 03/29/17 16:59 Last Admin: 02/17/17 09:59 Dose: 6.25 mg Docusate Sodium (Colace) 100 mg PO BID [facility] [place] Stop: 03/29/17 16:59 Last Admin: 02/17/17 09:11 Dose: 100 mg Escitalopram Oxalate (Lexapro) 10 mg PO DAILY [facility] [place] PRN Reason: Protocol Stop: 04/06/17 12:24 Last Admin: 02/17/17 09:11 Dose: 10 mg Haloperidol Decanoate (Haldol Dec) 25 mg IM [id number] [facility] PRN Reason: Protocol Stop: 03/30/17 08:59 Last Admin: 01/29/17 10:21 Dose: Not Given Lisinopril (Zestril) 40 mg PO DAILY [facility] Stop: 03/30/17 08:59 Last Admin: 02/17/17 09:57 Dose: 40 mg Loratadine (Claritin) 10 mg PO DAILY PRN PRN Reason: ALLERGIES Stop: 03/29/17 14:34 Last Admin: 02/04/17 10:08 Dose: 10 mg Lorazepam (Ativan) 0.5 mg PO Q4HR PRN; Protocol PRN Reason: Anxiety Stop: 02/27/17 14:27 Last Admin: 02/13/17 21:00 Dose: 0.5 mg Magnesium Hydroxide (Milk Of Magnesia) 30 ml PO DAILY PRN PRN Reason: Constipation Stop: 03/29/17 14:34 Mineral Oil (Fleet Mineral Oil) 135 ml RC UD PRN PRN Reason: constipation Stop: 03/29/17 14:34 Nitroglycerin (Nitrostat) 0.4 mg SL Q5MIN PRN PRN Reason: Chest Pain Stop: 03/29/17 14:34 Promethazine HCl (Phenergan) 12.5 mg PO TID [facility] Stop: 04/12/17 09:44 Last Admin: 02/16/17 20:51 Dose: Not Given Quetiapine Fumarate 200 mg/ (Quetiapine Fumarate 50 mg) 250 mg PO HS [facility] Stop: 04/10/17 20:59 Last Admin: 02/16/17 20:50 Dose: 250 mg Tramadol HCl (Ultram) 50 mg PO Q6HR PRN PRN Reason: Pain (Severe) Stop: 03/29/17 19:59 Last Admin: 02/02/17 12:32 Dose: 50 mg Zolpidem Tartrate (Ambien) 5 mg PO HS PRN PRN Reason: Insomnia Stop: 03/29/17 14:27 Last Admin: 02/16/17 20:51 Dose: 5 mg General: alert, demented HEENT: NC/AT, PERRLA, EOMI, anicteric sclerae, throat clear Neck: Supple, No JVD, No thyromegaly, +2 carotid pulse wo bruit, No LAD, + JVD Cardiovascular: Normal S1, Normal S2, without murmur Abdomen: non-tender, non-distended Extremities: clear Neurological: no change Internal Medicine Assmt/Plan - Assessment Assessment: 1.HTN 2.DJD. 3.DEMENTIA - Plan Plan: CONTINUE ON CURRENT MEDICATION AND DIET . Nutritional Asmnt/Malnutr-PDOC - Dietary Evaluation Malnutrition Findings (Please click <Entered> for more info): Nutritional Asmnt/Malnutrition Start: 02/02/17 14: 28 Text: Status: Complete Freq: Document 02/02/17 14:28 DELFINO (Rec: 02/02/17 14:36 JENNIFER [email or web address]) Nutritional Asmnt/Malnutrition Patient General Information Nutritional Screening Moderate Risk Diagnosis psychosis Pertinent Medical Hx/Surgical Hx DJD, HTN, dementia Subjective Information Pt seen lying in bed, awake and alert during the time of visit. Pt reported fair appetite, didn't wake up for breakfast this morning. Per notes, PO intake 75-100%. Pt likes to have sausage or augustine for breakfast. Explained that pt on cardiact diet, not able to have high sodium/fat food like sausage and augustine. Pt understanded. Current Diet Order/ Nutrition Support cardiac Pertinent Medications colace, quetiapine fumarate Pertinent Labs 01/30 Na 136, K 4.0, Cl 104, BUN 23, Cr 1.1, Glucose 100, Alb 3.5 Nutritional Hx/Data Height 1.68 m Height (Calculated Centimeters) 167.6 Current Weight (lbs) 69.354 kg Weight (Calculated Kilograms) 69.4 Weight (Calculated Grams) 81165.3 [place] Body Weight 130 % [place] Body Weight 118 Body Mass Index (BMI) 24.7 Weight Status Approriate GI Symptoms GI Symptoms None Last BM 01/31 Difficult in: None Skin Integrity/Comment: intact Estimated Nutritional Goals BEE in Kcals: Using Current wt Calories/Kcals/Kg 25-27 Kcals Calculated 1066-3126 Protein: Using Current wt Protein g/k Protein Calculated 70 Fluid: ml 0025-8633 Nutritional Problem No current Nutrition Prob Problem N/A Malnutrition Alert Protein-Calorie Malnutrition N/A Is there a minimum of two criteria No selected? Query Text:Check all the applicable criteria. A minimum of two criteria are recommended for diagnosis of either severe or non-severe malnutrition. Intervention/Recommendation Comments 1. Continue with current diet as ordered. 2. Monitor PO intake, wt, labs and skin integrity 3. F/U as low risk in 7 days, 1/2 Expected Outcomes/Goals Expected Outcomes/Goals 1. PO intake to meet at least 75% of nutritional needs. 2. Wt stability, skin to remain intact, labs to approach WNL.
[2017-02-18] MEDS: Aspirin 81mg Chewable Tab PO SCH (08:12)
[2017-02-18] MEDS: Multivitamin w/ Minerals Tab PO SCH (08:12)
--- NOTE | 2017-02-18 13:57 | Progress Notes ---
DATE: 02/18/2017 Case discussed with staff of the patient, reviewed records. The patient continues to be generally preoccupied, stays to herself, delusional, unpredictable, impulsive, needing redirection. Continues to have poor insight. Unable to make safe plan for self-care. She is compliant with the medication with no side effects, no sedation, no nausea, no extrapyramidal symptoms. She is tolerating the increase in Seroquel. She is still unpredictable and impulsive, continues to be delusional and paranoid about her son. We will continue the patient in group therapy and milieu therapy, adjust medications as needed. JOB# [id number]
--- NOTE | 2017-02-18 18:37 | Internal Medicine Prog Note ---
Internal Medicine Subjective - Subjective Service Date: 02/18/17 Patient seen and examined:: with staff (SHE FEELS BETTER.) Patient is:: awake (SHE FEELS BETTER), in wheelchair, talking Per staff patient has:: no adverse event (she feels well) Internal Medicine Objective - Results Result Diagrams: 02/12/17 04:38 02/12/17 04:38 Recent Labs: Laboratory Last Values WBC 7.6 Th/cmm (4.8-10.8) 02/12/17 04:38 RBC 3.93 Mil/cmm (3.80-5.20) 02/12/17 04:38 Hgb 12.7 gm/dL (12-16) 02/12/17 04:38 Hct 37.1 % (41.0-60) L 02/12/17 04:38 MCV 94.2 fl (81-100) 02/12/17 04:38 MCH 32.4 pg (27.0-31.0) H 02/12/17 04:38 MCHC Differential 34.4 pg (28.0-36.0) 02/12/17 04:38 RDW 14.8 % (11.5-20.0) 02/12/17 04:38 Plt Count 250 Th/cmm (150-400) 02/12/17 04:38 MPV 6.3 fl 02/12/17 04:38 Neutrophils % 74.1 % (40.0-80.0) 02/12/17 04:38 Lymphocytes % 14.7 % (20.0-50.0) L 02/12/17 04:38 Monocytes % 11.0 % (2.0-10.0) H 02/12/17 04:38 Eosinophils % 0.2 % (0.0-5.0) 02/12/17 04:38 Basophils % 0.0 % (0.0-2.0) 02/12/17 04:38 Sodium 132 mEq/L (136-145) L 02/12/17 04:38 Potassium 4.2 mEq/L (3.5-5.1) 02/12/17 04:38 Chloride 100 mEq/L (98-107) 02/12/17 04:38 Carbon Dioxide 24.0 mEq/L (21.0-31.0) 02/12/17 04:38 Anion Gap 12.2 (7.0-16.0) 02/12/17 04:38 BUN 35 mg/dL (7-25) H 02/12/17 04:38 Creatinine 1.3 mg/dL (0.6-1.2) H 02/12/17 04:38 Est GFR ( Amer) TNP 02/12/17 04:38 Est GFR (Non-Af Amer) TNP 02/12/17 04:38 BUN/Creatinine Ratio 26.9 02/12/17 04:38 Glucose 103 mg/dL (70-105) 02/12/17 04:38 Calcium 8.7 mg/dL (8.6-10.3) 02/12/17 04:38 Total Bilirubin 0.3 mg/dL (0.3-1.0) 02/10/17 12:10 AST 21 U/L (13-39) 02/10/17 12:10 ALT 16 U/L (7-52) 02/10/17 12:10 Alkaline Phosphatase 79 U/L (34-104) 02/10/17 12:10 Total Protein 6.2 gm/dL (6.0-8.3) 02/10/17 12:10 Albumin 3.5 gm/dL (3.7-5.3) L 02/10/17 12:10 Globulin 2.7 gm/dL 02/10/17 12:10 Albumin/Globulin Ratio 1.3 (1.0-1.8) 02/10/17 12:10 Urine Source MIDSTREAM 02/14/17 08:45 Urine Color YELLOW 02/14/17 08:45 Urine Clarity CLEAR (CLEAR) 02/14/17 08:45 Urine pH 6.0 (4.6 - 8.0) 02/14/17 08:45 Ur Specific [place] 1.015 (1.005-1.030) 02/14/17 08:45 Urine Protein NEGATIVE mg/dL (NEGATIVE) 02/14/17 08:45 Urine Glucose (UA) NEGATIVE mg/dL (NEGATIVE) 02/14/17 08:45 Urine Ketones NEGATIVE mg/dL (NEGATIVE) 02/14/17 08:45 Urine Blood NEGATIVE (NEGATIVE) 02/14/17 08:45 Urine Nitrate NEGATIVE (NEGATIVE) 02/14/17 08:45 Urine Bilirubin NEGATIVE (NEGATIVE) 02/14/17 08:45 Urine Urobilinogen 0.2 E.U./dL (0.2 - 1.0) 02/14/17 08:45 Ur Leukocyte Esterase SMALL (NEGATIVE) H 02/14/17 08:45 Urine RBC 0-2 /hpf (0-5) 02/14/17 08:45 Urine WBC 6-10 /hpf (0-5) H 02/14/17 08:45 Ur Epithelial Cells OCCASIONAL /lpf (FEW) 02/14/17 08:45 Urine Bacteria 2+ /hpf (NONE SEEN) H 02/14/17 08:45 - Physical Exam Vitals and I&O: Vital Signs Temp 97.9 F 02/18/17 14:00 Pulse 67 02/18/17 16:25 Resp 20 02/18/17 14:00 BP 117/63 02/18/17 16:25 Pulse Ox 96 02/18/17 14:00 Intake & Output 02/17/17 02/18/17 02/18/17 18:59 06:59 18:59 Intake Total 072 832 4709 Balance 987 006 6382 Intake: Oral 064 183 9434 Other: # Voids 3 3 3 # Bowel Movements 0 1 Stool Characteristics Soft Formed Active Medications: Current Medications Acetaminophen (Tylenol) 650 mg PO Q4H PRN PRN Reason: PAIN Stop: 03/29/17 14:34 Last Admin: 02/18/17 11:09 Dose: 650 mg Amlodipine Besylate (Norvasc) 10 mg PO DAILY [facility] Stop: 03/30/17 08:59 Last Admin: 02/18/17 08:11 Dose: 10 mg Aspirin (Aspirin Chewable) 81 mg PO DAILY [facility] Stop: 03/30/17 08:59 Last Admin: 02/18/17 08:12 Dose: 81 mg Bisacodyl (Dulcolax 10 Mg Supp) 10 mg RC DAILY PRN PRN Reason: constipation Stop: 03/29/17 14:34 Carvedilol (Coreg) 6.25 mg PO BID [facility] Stop: 03/29/17 16:59 Last Admin: 02/18/17 16:25 Dose: 6.25 mg Docusate Sodium (Colace) 100 mg PO BID [facility] Stop: 03/29/17 16:59 Last Admin: 02/18/17 16:25 Dose: 100 mg Escitalopram Oxalate (Lexapro) 10 mg PO DAILY [facility] PRN Reason: Protocol Stop: 04/06/17 12:24 Last Admin: 02/18/17 08:10 Dose: 10 mg Haloperidol Decanoate (Haldol Dec) 25 mg IM [id number] [facility] PRN Reason: Protocol Stop: 03/30/17 08:59 Last Admin: 01/29/17 10:21 Dose: Not Given Lisinopril (Zestril) 40 mg PO DAILY [facility] Stop: 03/30/17 08:59 Last Admin: 02/18/17 08:11 Dose: 40 mg Loratadine (Claritin) 10 mg PO DAILY PRN PRN Reason: ALLERGIES Stop: 03/29/17 14:34 Last Admin: 02/17/17 16:31 Dose: 10 mg Lorazepam (Ativan) 0.5 mg PO Q4HR PRN; Protocol PRN Reason: Anxiety Stop: 02/27/17 14:27 Last Admin: 02/13/17 21:00 Dose: 0.5 mg Magnesium Hydroxide (Milk Of Magnesia) 30 ml PO DAILY PRN PRN Reason: Constipation Stop: 03/29/17 14:34 Mineral Oil (Fleet Mineral Oil) 135 ml RC UD PRN PRN Reason: constipation Stop: 03/29/17 14:34 Nitroglycerin (Nitrostat) 0.4 mg SL Q5MIN PRN PRN Reason: Chest Pain Stop: 03/29/17 14:34 Promethazine HCl (Phenergan) 12.5 mg PO TID [facility] Stop: 04/12/17 09:44 Last Admin: 02/18/17 13:26 Dose: 12.5 mg Quetiapine Fumarate 200 mg/ (Quetiapine Fumarate 50 mg) 250 mg PO HS [facility] Stop: 04/10/17 20:59 Last Admin: 02/17/17 20:33 Dose: 250 mg Tramadol HCl (Ultram) 50 mg PO Q6HR PRN PRN Reason: Pain (Severe) Stop: 03/29/17 19:59 Last Admin: 02/02/17 12:32 Dose: 50 mg Zolpidem Tartrate (Ambien) 5 mg PO HS PRN PRN Reason: Insomnia Stop: 03/29/17 14:27 Last Admin: 02/16/17 20:51 Dose: 5 mg General: alert, demented HEENT: NC/AT, PERRLA, EOMI, anicteric sclerae, throat clear Neck: Supple, No JVD, No thyromegaly, +2 carotid pulse wo bruit, No LAD, + JVD Cardiovascular: Normal S1, Normal S2, without murmur Abdomen: non-tender, non-distended Extremities: clear Neurological: no change Internal Medicine Assmt/Plan - Assessment Assessment: 1.HTN 2.DJD. 3.DEMENTIA - Plan Plan: CONTINUE ON CURRENT MEDICATION AND DIET . Nutritional Asmnt/Malnutr-PDOC - Dietary Evaluation Malnutrition Findings (Please click <Entered> for more info): Nutritional Asmnt/Malnutrition Start: 02/02/17 14: 28 Text: Status: Complete Freq: Document 02/02/17 14:28 CHAO (Rec: 02/02/17 14:36 CHAO [email or web address]) Nutritional Asmnt/Malnutrition Patient General Information Nutritional Screening Moderate Risk Diagnosis psychosis Pertinent Medical Hx/Surgical Hx DJD, HTN, dementia Subjective Information Pt seen lying in bed, awake and alert during the time of visit. Pt reported fair appetite, didn't wake up for breakfast this morning. Per notes, PO intake 75-100%. Pt likes to have sausage or augustine for breakfast. Explained that pt on cardiact diet, not able to have high sodium/fat food like sausage and augustine. Pt understanded. Current Diet Order/ Nutrition Support cardiac Pertinent Medications colace, quetiapine fumarate Pertinent Labs 01/30 Na 136, K 4.0, Cl 104, BUN 23, Cr 1.1, Glucose 100, Alb 3.5 Nutritional Hx/Data Height 1.68 m Height (Calculated Centimeters) 167.6 Current Weight (lbs) 69.354 kg Weight (Calculated Kilograms) 69.4 Weight (Calculated Grams) 53567.3 [place] Body Weight 130 % [place] Body Weight 118 Body Mass Index (BMI) 24.7 Weight Status Approriate GI Symptoms GI Symptoms None Last BM 01/31 Difficult in: None Skin Integrity/Comment: intact Estimated Nutritional Goals BEE in Kcals: Using Current wt Calories/Kcals/Kg 25-27 Kcals Calculated 2642-6169 Protein: Using Current wt Protein g/k Protein Calculated 70 Fluid: ml 6778-9079 Nutritional Problem No current Nutrition Prob Problem N/A Malnutrition Alert Protein-Calorie Malnutrition N/A Is there a minimum of two criteria No selected? Query Text:Check all the applicable criteria. A minimum of two criteria are recommended for diagnosis of either severe or non-severe malnutrition. Intervention/Recommendation Comments 1. Continue with current diet as ordered. 2. Monitor PO intake, wt, labs and skin integrity 3. F/U as low risk in 7 days, 1/2 Expected Outcomes/Goals Expected Outcomes/Goals 1. PO intake to meet at least 75% of nutritional needs. 2. Wt stability, skin to remain intact, labs to approach WNL.
[2017-02-19] MEDS: Multivitamin w/ Minerals Tab PO SCH (09:20)
[2017-02-19] MEDS: Aspirin 81mg Chewable Tab PO SCH (09:20)
--- NOTE | 2017-02-19 17:11 | Discharge Summary ---
DATE OF DISCHARGE: 02/19/2017 IDENTIFYING INFORMATION: The patient is a 76-year-old female. HISTORY OF PRESENT ILLNESS: The patient was transferred from medical floor. She has apparently had an unwitnessed fall and she was worked up and sent here. The patient is irritable, anxious, psychotic, unable to sleep, unable to care for herself. She has been delusional, hearing voices, unable to make safe plan for self-care. Unable tell me the date, where she is, why she is here. She is a well-known patient. I have seen her for a while in the past with multiple prior admissions. COURSE IN THE HOSPITAL: The patient was started on Seroquel and the dose was increased over the course of her stay to 250 mg at bedtime. The patient was continued with tramadol, Ambien, multivitamins, nitroglycerin, Ativan as needed, Lisinopril for blood pressure. She would get Haldol Decanoate every 3 weeks, 25 mg and also Lexapro was added and increased to 10 mg a day. She was continued on carvedilol, Coreg, aspirin, amlodipine. The patient progressively got better. She is forgetful and I think she is starting to be demented; however, she will be watched over time to make sure need to rule out organic causes. So as she improved, she was not acting in anyway dangerous. She was sleeping well, eating well. No suicidal ideation, no homicidal ideation. Although is confused, we felt she could be discharged to a lesser level of care. FINAL DIAGNOSES: Major depression, recurrent with psychosis, possible dementia. MEDICAL DIAGNOSES: Hypertension, coronary artery disease. The patient will follow up with the psychiatrist, primary care physician and therapist. EXPECTED OUTCOME: Stable if the patient complies with the above. JOB# [id number]
== END 2017-02-19 15:00 | disposition short-term general hospital (02) | DRG 885 ==
LOC: GERO 12:29
PROVIDERS: ADMIT Psychiatry & Neurology Psychiatry; ATTEND Psychiatry & Neurology Psychiatry
DX: F33.3 Major depressive disorder, recurrent, severe with psychotic symptoms (principal); F03.90 Unspecified dementia, unspecified severity, without behavioral disturbance, psychotic disturbance, mood disturbance, and anxiety; I25.10 Atherosclerotic heart disease of native coronary artery without angina pectoris; M19.90 Unspecified osteoarthritis, unspecified site; F41.9 Anxiety disorder, unspecified; I12.9 Hypertensive chronic kidney disease with stage 1 through stage 4 chronic kidney disease, or unspecified chronic kidney disease; N18.9 Chronic kidney disease, unspecified; S01.01XA Laceration without foreign body of scalp, initial encounter; W07.XXXA Fall from chair, initial encounter; Y93.89 Activity, other specified; Y92.89 Other specified places as the place of occurrence of the external cause; Y99.8 Other external cause status; Z88.8 Allergy status to other drugs, medicaments and biological substances
CPT/HCPCS: 36415-UA; 70450-TC; 71010-TC; 72125-TC; 80048-TC; 80053-TC; 81001-TC; 85025-TC; 87086-90; G0410; Z7610